=== PATIENT | male | born 1995 | race Caucasian/White ===

== ENCOUNTER 2021-02-28 01:33 | Inpatient (IN) ==
[2021-02-28] MEDS ORDERED: LORazepam 1 MG TAB SL STA (02:00)
--- NOTE | 2021-02-28 02:06 | Emergency Department Note ---
Impression & Plan Schizophreniform disorder ED Provider Note Name: ANASTASIYA GARCIA Age: 25 Sex: M Arrives Via: Walk-In Informant: Patient (poor historian), Mother ED Provider: Sebastián Smith MD Chief Complaint: Mental health evaluation Impression: As per impressions above Medical Decision Makin-year-old healthy male with no past medical history other than an episode of what mother refers to as a "psychotic break" about 5 months ago. Patient with 2 to 3 days of being withdrawn and appearing to respond to internal stimuli. Patient has been acting bizarre and distant and mother notes he is not caring for himself. Despite being withdrawn he does appear somewhat anxious and thus 1 mg p.o. Ativan was given with patient appearing much more relaxed and actually a nswering questions more effectively. He is somewhat somnolent after the Ativan however and discussion was difficult both before and after Ativan. Medically he is clear. I do suspect that this is psychiatric in nature and could be schizophrenia especially given extensive family history of similar. He is excepted to use [facility] where he was taken for further management after a CT head was obtained psychiatry's request. Prior Medical Record and Triage/Nursing Notes reviewed by Me Additional history obtained from mother Differentials:Mood disorder, infection, hypoglycemia, electrolyte abnormalities, cardiac sources, intracerebral event, toxicologic, trauma, neurologic, as well as other pathologies. Vital Signs: reviewed and remarkable for mildly tacky Interventions: Ativan 1 mg p.o. Labs:Reviewed and remarkable for no significant abnormalities Imaging: CT scan of head read by radiology as negative for acute findings Consults:Mental health case management advised hospitalization. [facility] evaluated patient and will accept to their facility and requested a CT head be obtained Plan: Disposition:Hospitalization. Condition: Good History of Present Illness:This is a 25-year-old male who arrives for mental health evaluation. Patient with several days worsening distancing himself from family and others. He has gotten to the point where he is barely talking to others and appears to be reacting to internal stimuli. Mother notes he is making bizarre statements and has not been taking care of himself. Patient is unable to give much of the story as he is so closed off and answering minimal questions. His answers to questions are not straightforward and do not all ways answer the question. Per the mother patient has been like this for the last 2 to 3 days. The inciting event appears to be going to the wake of his uncle. Mother denies any concerns for drug nor alcohol abuse. She did not think that he would have harmed himself but given his actions she is not quite sure. [place] dunn did just finish his college finals and appeared to have no trouble with them. Mother notes that patient has been very literal with questions when he does answer them. Per the mother patient had a hospitalization in October of this year in [place] after a [employer] trip. He had similar actions where he was distant and appeared to be reacting to internal stimuli. During the psychiatric admission he was started on Risperdal and did seem to improve significantly. He took the Risperdal for roughly 1 month before stopping it. Patient has no history of suicide attempt. Per the mother multiple uncles on his father's I did and do have psychiatric issues including diagnosis of schizophrenia. Per the mother the patient was diagnosed with schizophrenia over the summer though there was a question whether it was an isolated psychotic event. ROS: See above HPI for pertinent positives & negatives. A total of 10 systems reviewed and were otherwise negative. Past Medical History:"Psychotic break" Past Surgical History:Otis teeth Family History:Multiple uncles with schizophrenia, both family sides have depression anxiety Social History:College student, rare EtOH use, previous marijuana use, no current tobacco use Home Medications:None Allergies:Shrimp, bees Vitals:Blood Pressure: 136/78, Pulse 109, RR 16, T 36.8C, O2 98% on RA Physical Exam: GENERAL: Patient is mildly disheveled appearing and in no acute distress. Quiet with minimal speech EYES: No scleral icterus, unremarkable pupils. ENT: Mucous membranes moist, no nasal congestion. NECK: No masses appreciated, nomeningismus, trachea is midline. RESPIRATORY: No dyspnea. Clear to auscultation and equal bilaterally. No wheeze, no rhonchi. CARDIOVASCULAR: Regular rate and rhythm.No murmurs, rubs, gallops appreciated. GASTROINTESTINAL: Abdomen soft, non-tender, no peritonitis.Bowel sounds positive.No masses appreciated. BACK: No midline tenderness, no CVA tenderness EXTREMITIES: Normal motion all extremities, no cyanosis, no edema. NEUROLOGIC: Alert and oriented, no acute motor or sensory deficits, no focal weakness, cranial nerves grossly intact. SKIN: No rash, no jaundice, no diaphoresis. PSYCH: Anxious appearing, withdrawn, not answering questions, looking around r oom and reacting to internal stimuli GCS: 15 ED Course: Times/Reassessments: Patient appears much calmer and does answer some questions however is still somewhat withdrawn Sebastián Smith MD Past Med/Surg History Social History Smoking Status: Current some day smoker Tobacco Type: Cigarettes and E-cigarettes / Vaping Preferred Language: Citizen Of [place] Communication Ability: Effective Float Phlebotomist Required: No Beliefs That Will Affect Care: None Feels Safe at Home: Yes Assistive Devices: None Allergies Allergies Allergy/AdvReac Type Severity Reaction Status Date / Time shrimp Allergy Mild Unverified 07/04/06 18:31 BEE STINGS Allergy Unknown Uncoded 09/09/03 12:23 Home Meds Home Medications Medication Instructions Recorded Confirmed None (Patient States No Home Meds) #0 07/04/06 Results & Data (ED) Vital Signs Vital Signs - 24 hr 02/28/21 01:37 Temperature 36.8 C Temperature Source Temporal Artery Scan Pulse Rate 109 H Respiratory Rate 16 Respiratory Effort / Characteristics Non-Labored Spontaneous Respiratory Depth Normal Blood Pressure Position Sitting Pulse Oximetry 98 Oxygen Delivery Method Room Air Sepsis Recent Fever Within 48 Hours No Sepsis New/Unexplained Change in Mental Status N/A Sepsis Action Taken by Nursing No Action Required Laboratory Data Result diagrams: 02/28/21 02:22 02/28/21 02:22 Lab Results 02/28/21 02/28/21 02/28/21 Range/Units 02:15 02:15 02:19 WBC (4.8-10.8) K/uL RBC (4.7-6.1) M/uL Hgb (14.0-18.0) g/dL Hct (42-52) % MCV (80-100) fL MCH (25-34) pg MCHC (32-36) g/dL RDW Std Deviation (36.4-46.3) fL RDW Coeff of Ashanti (11.5-14.5) % Plt Count (130-400) K/uL MPV (7.4-10.4) fL Immature Gran % (Auto) % Neut % (Auto) % Lymph % (Auto) % [place] % (Auto) % Eos % (Auto) % Baso % (Auto) % Neut # (Auto) (1.4-6.5) K/uL Lymph # (Auto) (1.2-3.4) K/uL [place] # (Auto) (0.11-0.59) K/uL Eos # (Auto) (0-0.5) K/uL Baso # (Auto) (0-0.2) K/uL Immature Gran # (Auto) (0.00-0.02) K/uL Sodium (136-145) mmol/L Potassium (3.5-5.1) mmol/L Chloride (98-107) mmol/L Carbon Dioxide (21-32) mmol/L Anion Gap (3-11) BUN (7-18) mg/dl Creatinine (0.6-1.4) mg/dl Est Cr Clr Drug Dosing ml/min Est GFR ( Amer) ml/min Est GFR (Non-Af Amer) ml/min BUN/Creatinine Ratio (10-20) Glucose (70-99) mg/dl Calcium (8.5-10.1) mg/dl Total Bilirubin (0.2-1) mg/dl AST (15-37) U/L ALT (12-78) Alkaline Phosphatase (45-117) U/L Total Protein (6.4-8.2) gm/dl Albumin (3.4-5.0) gm/dl Globulin (2.5-4.0) gm/dl Albumin/Globulin Ratio (0.9-2) TSH (0.300-4.500) uIu/ml Urine Color Yellow Urine Appearance Clear (Clear) Urine pH 5.0 (4.5-7.5) Ur Specific [place] 1.017 (1.000-1.030) Urine Protein Negative (Negative) Urine Glucose (UA) Negative (Negative) Urine Ketones 2+ H (Negative) Urine Blood Trace H (Negative) Urine Nitrite Negative (Negative) Urine Bilirubin Negative (Negative) Urine Urobilinogen Negative (Negative) Ur Leukocyte Esterase Negative (Negative) Urine WBC (Auto) 1-5 (0-5) /hpf Urine RBC (Auto) 0-4 (0-4) /hpf U Hyaline Cast (Auto) 5-10 H (0-5) /lpf U Epithel Cells (Auto) 5-10 H (0-5) /lpf Urine Bacteria (Auto) Negative (Negative) Salicylates (2.8-20) mg/dl Urine Opiates Screen Neg (Neg) Ur Methadone, Qual Neg (Neg) Acetaminophen (10-30) ug/ml Urine Barbiturates Neg (Neg) Ur Phencyclidine (PCP) Neg (Neg) U Amphetamin/Meth Scrn Neg (Neg) MDMA (Ecstasy) Screen Neg (Neg) U Benzodiazepines Scrn Neg (Neg) Ur Cocaine Metabolite Neg (Neg) U Marijuana (THC) Screen Neg (Neg) Ethyl Alcohol mg/dL (0-3) mg/dl SARS-CoV-2, RNA, NAAT NEGATIVE (NEGATIVE) 02/28/21 02/28/21 02/28/21 Range/Units 02:22 02:22 02:22 WBC 9.16 (4.8-10.8) K/uL RBC 6.18 H (4.7-6.1) M/uL Hgb 18.7 H (14.0-18.0) g/dL Hct 51.6 (42-52) % MCV 83.5 (80-100) fL MCH 30.3 (25-34) pg MCHC 36.2 H (32-36) g/dL RDW Std Deviation 37.1 (36.4-46.3) fL RDW Coeff of Ashanti 12.4 (11.5-14.5) % Plt Count 260 (130-400) K/uL MPV 9.9 (7.4-10.4) fL Immature Gran % (Auto) 0.2 % Neut % (Auto) 77.1 % Lymph % (Auto) 13.4 % [place] % (Auto) 9.1 % Eos % (Auto) 0.1 % Baso % (Auto) 0.1 % Neut # (Auto) 7.06 H (1.4-6.5) K/uL Lymph # (Auto) 1.23 (1.2-3.4) K/uL [place] # (Auto) 0.83 H (0.11-0.59) K/uL Eos # (Auto) 0.01 (0-0.5) K/uL Baso # (Auto) 0.01 (0-0.2) K/uL Immature Gran # (Auto) 0.02 (0.00-0.02) K/uL Sodium 139 (136-145) mmol/L Potassium 3.4 L (3.5-5.1) mmol/L Chloride 104 (98-107) mmol/L Carbon Dioxide 25 (21-32) mmol/L Anion Gap 10.0 (3-11) BUN 16 (7-18) mg/dl Creatinine 1.06 (0.6-1.4) mg/dl Est Cr Clr Drug Dosing 104.9 ml/min Est GFR ( Amer) 114.1 ml/min Est GFR (Non-Af Amer) 98.4 ml/min BUN/Creatinine Ratio 14.6 (10-20) Glucose 105 H (70-99) mg/dl Calcium 9.7 (8.5-10.1) mg/dl Total Bilirubin 0.8 (0.2-1) mg/dl AST 21 (15-37) U/L ALT 28 (12-78) Alkaline Phosphatase 91 (45-117) U/L Total Protein 8.6 H (6.4-8.2) gm/dl Albumin 4.8 (3.4-5.0) gm/dl Globulin 3.8 (2.5-4.0) gm/dl Albumin/Globulin Ratio 1.3 (0.9-2) TSH 2.440 (0.300-4.500) uIu/ml Urine Color Urine Appearance (Clear) Urine pH (4.5-7.5) Ur Specific [place] (1.000-1.030) Urine Protein (Negative) Urine Glucose (UA) (Negative) Urine Ketones (Negative) Urine Blood (Negative) Urine Nitrite (Negative) Urine Bilirubin (Negative) Urine Urobilinogen (Negative) Ur Leukocyte Esterase (Negative) Urine WBC (Auto) (0-5) /hpf Urine RBC (Auto) (0-4) /hpf U Hyaline Cast (Auto) (0-5) /lpf U Epithel Cells (Auto) (0-5) /lpf Urine Bacteria (Auto) (Negative) Salicylates < 1.7 L (2.8-20) mg/dl Urine Opiates Screen (Neg) Ur Methadone, Qual (Neg) Acetaminophen < 2 L (10-30) ug/ml Urine Barbiturates (Neg) Ur Phencyclidine (PCP) (Neg) U Amphetamin/Meth Scrn (Neg) MDMA (Ecstasy) Screen (Neg) U Benzodiazepines Scrn (Neg) Ur Cocaine Metabolite (Neg) U Marijuana (THC) Screen (Neg) Ethyl Alcohol mg/dL (0-3) mg/dl SARS-CoV-2, RNA, NAAT (NEGATIVE) 02/28/21 Range/Units 02:22 WBC (4.8-10.8) K/uL RBC (4.7-6.1) M/uL Hgb (14.0-18.0) g/dL Hct (42-52) % MCV (80-100) fL MCH (25-34) pg MCHC (32-36) g/dL RDW Std Deviation (36.4-46.3) fL RDW Coeff of [place] (11.5-14.5) % Plt Count (130-400) K/uL MPV (7.4-10.4) fL Immature Gran % (Auto) % Neut % (Auto) % Lymph % (Auto) % [place] % (Auto) % Eos % (Auto) % Baso % (Auto) % Neut # (Auto) (1.4-6.5) K/uL Lymph # (Auto) (1.2-3.4) K/uL [place] # (Auto) (0.11-0.59) K/uL Eos # (Auto) (0-0.5) K/uL Baso # (Auto) (0-0.2) K/uL Immature Gran # (Auto) (0.00-0.02) K/uL Sodium (136-145) mmol/L Potassium (3.5-5.1) mmol/L Chloride (98-107) mmol/L Carbon Dioxide (21-32) mmol/L Anion Gap (3-11) BUN (7-18) mg/dl Creatinine (0.6-1.4) mg/dl Est Cr Clr Drug Dosing ml/min Est GFR ( Amer) ml/min Est GFR (Non-Af Amer) ml/min BUN/Creatinine Ratio (10-20) Glucose (70-99) mg/dl Calcium (8.5-10.1) mg/dl Total Bilirubin (0.2-1) mg/dl AST (15-37) U/L ALT (12-78) Alkaline Phosphatase (45-117) U/L Total Protein (6.4-8.2) gm/dl Albumin (3.4-5.0) gm/dl Globulin (2.5-4.0) gm/dl Albumin/Globulin Ratio (0.9-2) TSH (0.300-4.500) uIu/ml Urine Color Urine Appearance (Clear) Urine pH (4.5-7.5) Ur Specific [place] (1.000-1.030) Urine Protein (Negative) Urine Glucose (UA) (Negative) Urine Ketones (Negative) Urine Blood (Negative) Urine Nitrite (Negative) Urine Bilirubin (Negative) Urine Urobilinogen (Negative) Ur Leukocyte Esterase (Negative) Urine WBC (Auto) (0-5) /hpf Urine RBC (Auto) (0-4) /hpf U Hyaline Cast (Auto) (0-5) /lpf U Epithel Cells (Auto) (0-5) /lpf Urine Bacteria (Auto) (Negative) Salicylates (2.8-20) mg/dl Urine Opiates Screen (Neg) Ur Methadone, Qual (Neg) Acetaminophen (10-30) ug/ml Urine Barbiturates (Neg) Ur Phencyclidine (PCP) (Neg) U Amphetamin/Meth Scrn (Neg) MDMA (Ecstasy) Screen (Neg) U Benzodiazepines Scrn (Neg) Ur Cocaine Metabolite (Neg) U Marijuana (THC) Screen (Neg) Ethyl Alcohol mg/dL < 3.0 (0-3) mg/dl SARS-CoV-2, RNA, NAAT (NEGATIVE) Administered Medications Risperidone (Risperidone Odt 1mg) 1 mg PO BID DARYL Stop: 03/30/21 14:29 Last Admin: 02/28/21 21:05 Dose: Not Given Documented by: [id number] Admin: 02/28/21 16:15 Dose: Not Given Documented by: [id number] Discontinued Medications Lorazepam (Lorazepam 1 Mg Tab) 1 mg SL NOW STA Stop: 02/28/21 02:01 Last Admin: 02/28/21 02:21 Dose: 1 mg Documented by: [id number] Discharge Plan Visit Data Chief Complaint: Mental Health Evaluation Stated Complaint: JUMBLED/INTRUSIVE THOUGHTS, NOT HIMSELF ED Provider: Sebastián Smith Discharge Problem: Schizophreniform disorder Patient Disposition: Admitted As Inpatient Discharge Instructions Interventions: ED Discharge Assessment Last Done: 02/28/21 05:45
[2021-02-28 02:37] LABS: Appearance Urine Clear (Clear); Bacteria Urine Automated Negative (Negative); Bilirubin Urine Negative (Negative); Blood Urine Trace (Negative); Color Urine Yellow; Glucose Urine UA Negative (Negative); Ketones Urine 2+ (Negative); Leukocyte Esterase Urine Negative (Negative); Nitrite Urine Negative (Negative); Protein Urine Negative (Negative); RBC Urine Automated 0-4 /hpf (0-4); Specific Gravity Urine 1.017 (1.000-1.030); Urobilinogen Urine Negative (Negative)
[2021-02-28 02:37] LABS: Basophils # (auto) 0.01 K/uL (0-0.2); Basophils % (auto) 0.1 %; Eosinophils # (auto) 0.01 K/uL (0-0.5); Eosinophils % (auto) 0.1 %; Hematocrit (blood only) 51.6 % (42-52); Hemoglobin 18.7 g/dL (14.0-18.0); Immature Granulocytes # (auto) 0.02 K/uL (0.00-0.02); Immature Granulocytes % (auto) 0.2 %; Lymphocytes # (auto) 1.23 K/uL (1.2-3.4); Lymphocytes % (auto) 13.4 %; Mean Corpuscular Hemoglobin 30.3 pg (25-34); Mean Corpuscular Hgb Conc 36.2 g/dL (32-36); Mean Corpuscular Volume 83.5 fL (80-100); Mean Platelet Volume 9.9 fL (7.4-10.4); Monocytes # (auto) 0.83 K/uL (0.11-0.59); Monocytes % (auto) 9.1 %; Neutrophils # (auto) 7.06 K/uL (1.4-6.5); Neutrophils % (auto) 77.1 %; Platelet Count 260 K/uL (130-400); RDW Coefficient of Variation 12.4 % (11.5-14.5); RDW Standard Deviation 37.1 fL (36.4-46.3); Red Blood Count 6.18 M/uL (4.7-6.1); White Blood Count 9.16 K/uL (4.8-10.8)
[2021-02-28 02:57] LABS: Amphetamines+Metham, Urine Neg (Neg); Barbiturates, Urine Neg (Neg); Benzodiazepine, Urine Neg (Neg); Cocaine, Urine Neg (Neg); MDMA (Ecstacy), Urine Neg (Neg); Methadone, Urine Neg (Neg); Opiate, Urine Neg (Neg); Phencyclidine, Urine Neg (Neg)
[2021-02-28 02:57] LABS: Albumin Level 4.8 gm/dl (3.4-5.0); BUN Creatinine Ratio 14.6 (10-20); Calcium 9.7 mg/dl (8.5-10.1); Creatinine Clr Calc Pharmacy 104.9 ml/min; Est GFR (African American) 114.1 ml/min; Est GFR (Non-African American) 98.4 ml/min; Potassium 3.4 mmol/L (3.5-5.1)
[2021-02-28 03:06] LABS: Acetaminophen < 2 ug/ml (10-30); Salicylate < 1.7 mg/dl (2.8-20)
[2021-02-28 03:07] LABS: Albumin Globulin Ratio 1.3 (0.9-2); Bilirubin,Total 0.8 mg/dl (0.2-1); Globulin 3.8 gm/dl (2.5-4.0); Thyroid Stimulating Hormone 2.44 uIu/ml (0.300-4.500); Total Protein 8.6 gm/dl (6.4-8.2)
[2021-02-28] MEDS ORDERED: ALUMINUM/MAGNESIUM SUSP 30 ML UDC PO PRN (06:21)
[2021-02-28] MEDS ORDERED: BISMUTH SUBSALICYLATE LIQD 236 ML PO PRN (06:21)
[2021-02-28] MEDS ORDERED: SODIUM CHLORIDE 0.65% NA SOLN 45 ML (OCEAN) PRN (06:21)
[2021-02-28] MEDS ORDERED: hydrOXYzine HCl 25 MG TAB PO PRN ×2 (06:21)
[2021-02-28] MEDS ORDERED: ACETAMINOPHEN 325 MG TAB PO PRN (06:21)
[2021-02-28] MEDS ORDERED: MAGNESIUM HYDROXIDE SUSP 30 ML UDC PO PRN (06:21)
--- NOTE | 2021-02-28 06:50 | CT Scan Report ---
CT head/brain wo con CLINICAL HISTORY: AMS - acute psychotic break COMPARISON STUDY: No previous studies for comparison. CT DOSE: 614.27 mGy.cm TECHNIQUE: Standard CT of the Brain was performed without IV contrast. A dose lowering technique was utilized adhering to the principles of ALARA. FINDINGS: Extraaxial space: There is no evidence for subdural hematoma. There are no extra-axial fluid collecti ons. Ventricles and cisterns: The ventricles are normal in size and configuration. There is no evidence f or midline shift or mass effect. Parenchyma: There is no subarachnoid or intraparenchymal hemorrhage. There is no evidence for an acu te infarct or cerebral edema. There is homogeneous attenuation of the brain parenchyma. There are no gross mass lesions. Osseous structures: There is no evidence for an acute fracture. The visualized paranasal sinuses are clear. The mastoid air cells are clear bilaterally. Soft tissues: There is no evidence for focal soft tissue swelling. IMPRESSION: No acute intracerebral pathology. ACT 112: Negative or not required by law. Electronically signed by: Alexander Arce M.D. 02/28/2021 6:48 AM
[2021-02-28] MEDS ORDERED: Flu Vaccine (Fluarix) 0.5mL SYR (Standard Dose) IM ONE (09:15)
[2021-02-28] MEDS ORDERED: BENZTROPINE MESYLATE 1 MG TAB PO PRN (14:22)
[2021-02-28] MEDS ORDERED: LORazepam 1 MG TAB PO PRN (14:24)
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
--- NOTE | 2021-03-01 14:32 | Psychiatric Progress Note ---
Date of Service March 01, 2021 Impression / Recommendations Impression 25 yo male with first psychotic break less than 6 months ago, only complied with antipsychotic medication for 1 month (max), presents with acute onset disorganization, hallucinations, feeling paranoia/persecuted with poor self care just after completing fall. There is a strong family history of schizophrenia and/or mood driven psychosis. He currently appears severe thought blocked and near catatonic. Current dx is schizophreniform given first break in October but it is not clear if this is a mood driven or primary thought disorder psychosis. Mother notes some anxiety at baseline and rather dramatic sadness over uncles . Catatonia can occur with schizophrenia or psychotic depression. (1) Schizophreniform disorder: 03/01/21: refusing labs, meds, food, drink. 304 granted. Continue to offer PO Ativan and Risperdal. Will ask Dr. Tobin for a second opinion re: forced medications tomorrow when she assumes clinical responsibility for service. Medi cations over objection are medically necessary to treat psychosis which is interfering with his ability to communicate and care for self and given lack of PO intake he is at significant risk of or serious physical disability within the next 30 days if he does not receive this treatment. 02/28/21: The patient was admitted to the [facility] ([facility] mental health unit) on q15 min checks (behavioral with suicide precautions) for safety. The patient will participate in group, recreational, and milieu therapies and will be offered additional individual and family sessions as clinically appropriate. He is not able to fully comprehend risks/benefits/alternatives of treatment but did not object to resuming Risperdal. Will start 1 mg Risperdal Mtab BID today with additional Risperdal and Ativan prn. Monitor PO intake. Will attempt fasting labs in AM. He has no abnormal motor movements at baseline but is not fully cooperative with AIMS testing. Inventory Assets Strengths: intelligent, family support locally Needs: likely long acting injectable, outpatient services Risk Factors Assessment Male: Yes : Yes Mental Health Diagnoses: Yes Substance Use Disorders: No Previous Psychiatric Hospitalization: Yes Protective Factors Assessment Employed: No Supportive Family: Yes Interval History Identifying Information ANASTASIYA GARCIA is a 25-year-old , [employer] senior who lives locally with mother, has a history of a brief psychotic episode in October, and was admitted on 02/28/21 05:21 on a 201 voluntary commitment for disorganized behavior. Chief Complaint patient is mute, staring at ceiling Review of Systems Sleep Information Total Hours of Sleep: 5.5 Sleep Comments: pt on q-15 minute checks Meal Information Percent Meal Consumed - Breakfast: 0 Percent Meal Consumed - Lunch: 0 Percent Meal Consumed - Dinner: 0 Nutrition Comment: pt is non verbal Subjective Subjective Patient was seen & assessed and interval progress reviewed with nursing and social work. He will not eat, drink, or communicate needs. He will not respond to staff efforts to offer PO medication. I contacted the patient's family as a decision needed to be made re: commitment status as I do believe he'll require injectable medication if won't respond soon as near catatonic in appearance, perhaps the Ativan given in ED explains his better communication there as was able to sign in at that time. Of course now in an unfamiliar environment. 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 They were hoping he would take medication/fluids with more encouragement but supported the 304 if necessary. After the meeting nursing facilitated family attempts for patient to speak with them by speaker phone in his room and he would not respond. 304 petition filed for an emergency hearing which was granted. 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 He stared at his menu and would not allow help to fill it out. Physical Exam Psychiatric Orientation: + guarded Apperance: + disheveled Eye Contact: + poor eye contact Motor Behavior: + psychomotor retardation (bordering on catatonia) Speech: + abnormal rate/rhythm/volume of speech Affect: + flat affect Thought Process: + thought blocking Thought Content: + paranoid Insight: + severely impaired insight Judgement: + severely impaired judgement Vital Signs (Past 24 Hours) Last Vital Signs Temp 36.4 C 03/01/21 06:23 Pulse 65 03/01/21 06:22 Resp 16 03/01/21 06:22 BP 124/77 03/01/21 06:22 Pulse Ox 98 02/28/21 06:03 Results & Data ([facility]) Current Inpatient Medications Current Inpatient Medications: Current Inpatient Medications Acetaminophen (Acetaminophen 325 Mg Tab) 650 mg PO Q4H PRN PRN Reason: Headache or Minor Fever Stop: 03/30/21 06:20 Al Hydrox/Mg Hydrox/Simethicone (Aluminum/Magnesium Susp 30 Ml Udc) 30 ml PO Q4H PRN PRN Reason: GI Upset Stop: 03/30/21 06:20 Benztropine Mesylate (Benztropine Mesylate 1 Mg Tab) 1 mg PO Q6 PRN PRN Reason: muscle spasm Stop: 03/30/21 17:59 Bismuth Subsalicylate (Bismuth Subsalicylate Liqd 236 Ml) 15 ml PO PRN PRN PRN Reason: Loose Stool Stop: 03/30/21 06:20 Hydroxyzine HCl (Hydroxyzine Hcl 25 Mg Tab) 50 mg PO HSZ PRN PRN Reason: Insomnia Stop: 03/30/21 06:20 Hydroxyzine HCl (Hydroxyzine Hcl 25 Mg Tab) 25 mg PO Q4H PRN PRN Reason: Anxiety Stop: 03/30/21 06:20 Lorazepam (Lorazepam 1 Mg Tab) 1 mg PO Q6 PRN PRN Reason: Anxiety/Agitation Stop: 03/30/21 14:23 Magnesium Hydroxide (Magnesium Hydroxide Susp 30 Ml Udc) 30 ml PO DAILY PRN PRN Reason: Constipation Stop: 03/30/21 06:20 Risperidone (Risperidone Odt 1mg) 1 mg PO BID DARYL Stop: 03/30/21 14:29 Last Admin: 03/01/21 09:39 Dose: Not Given Documented by: Risperidone (Risperidone Odt 1mg) 1 mg PO Q8 PRN PRN Reason: Anxiety/Agitation Stop: 03/30/21 14:23 Sodium Chloride (Sodium Chloride 0.65% Na Soln 45 Ml ([place])) 1 - 2 sprays NA PRN PRN PRN Reason: Nasal Dryness/Congestion Stop: 03/30/21 06:20 Mental Health & Subst Abuse Tx Therapist Name of Therapist: None Agriculture Extension Specialist Name of Agriculture Extension Specialist: None
--- NOTE | 2021-03-02 14:04 | Psychiatric Progress Note ---
Date of Service March 02, 2021 Impression / Recommendations Impression 25 yo male with first psychotic break less than 6 months ago, adherent with risperidone with improvement but stopped after about 1 month, who presented with acute onset disorganization, hallucinations, feeling paranoia/persecuted with poor self care just after completing fall. Diagnostically consistent with schizophreniform disorder especially with family history of schizophrenia with differential including MD with psychotic features. He is now on a 304 status with significant psychomotor retardation initially concerning for possible catatonia as well as lack of po intake. Encouragingly over the last 12 hours his oral intake has improved slightly and he took his po medications but he remains isolative, disorganized and not engaging with staff. I agree that medications over objection are medically necessary given his degree of impairment with low po intake, minimal self-care, significant psychomotor retardation concerning for catatonia and inability to communicate to know if he is experiencing any other physical or psychiatric symptoms of concern and that he is at risk of or irreversible physical disability if he does not receive appropriate treatment with medications. Will continue risperidone and ativan po and if he refuses will give haldol 5 mg IM and ativan 1 mg IM. (1) Schizophreniform disorder: 03/02/21: Reviewed interim progress per Dr. Saldivar below. Starting medications over objection as I agree that he meets criteria and is at risk if appropriate treatment is not started. Will continue to offer risperidone ODT 1 mg qAM and if refuses will give haldol 5 mg IM and ativan 1mg po qAM & if refuses will give ativan 1 mg IM. Will also offer risperidone 1mg ODT and ativan 1mg po at qhs but will not give IM medications if he refuses the evening po dose. 03/01/21: refusing labs, meds, food, drink. 304 granted. Continue to offer PO Ativan and Risperdal. Will ask Dr. Tobin for a second opinion re: forced medications tomorrow when she assumes clinical responsibility for service. Medications over objection are medically necessary to treat psychosis which is interfering with his ability to communicate and care for self and given lack of PO intake he is at significant risk of or serious physical disability within the next 30 days if he does not receive this treatment. 02/28/21: The patient was admitted to the [facility] ([facility] mental health unit) on q15 min checks (behavioral with suicide precautions) for safety. The patient will participate in group, recreational, and milieu therapies and will be offered additional individual and family sessions as clinically appropriate. He is not able to fully comprehend risks/benefits/alternatives of treatment but did not object to resuming Risperdal. Will start 1 mg Risperdal Mtab BID today with additional Risperdal and Ativan prn. Monitor PO intake. Will attempt fasting labs in AM. He has no abnormal motor movements at baseline but is not fully cooperative with AIMS testing. Inventory Assets Strengths: intelligent, family support locally Needs: likely long acting injectable, outpatient services Risk Factors Assessment Male: Yes : Yes Mental Health Diagnoses: Yes Substance Use Disorders: No Previous Psychiatric Hospitalization: Yes Protective Factors Assessment Employed: No Supportive Family: Yes Interval History Identifying Information ANASTASIYA GARCIA is a 25-year-old , [employer] senior who lives locally with mother, has a history of a brief psychotic episode in October, and was admitted on 02/28/21 05:21 on a 201 voluntary commitment for disorganized behavior and then changed to 304 status. Chief Complaint mute Review of Systems Sleep Information Total Hours of Sleep: 7.5 Sleep Comments: pt on q-15 minute checks Meal Information Percent Meal Consumed - Breakfast: 100 Percent Meal Consumed - Lunch: 100 Percent Meal Consumed - Dinner: 0 Nutrition Comment: Pt isn't hungry Subjective Subjective Patient was seen & assessed and interval progress reviewed with treatment team nursing and social work. Last night Soren ate dinner and had disorganized behavior including taking bites of fruit including a banana with the peel still on. Today accepted his po medications of ativan and risperiodone and eating and drinking but otherwise minimally engaging. On my assessment he made eye contact at times and nodded his head that he wanted his lunch tray but otherwise was mute and did not engage. Physical Exam Psychiatric Orientation: alert, oriented to person and + guarded Apperance: + disheveled Eye Contact: + fair eye contact Motor Behavior: no abnormal motor movements and + psychomotor retardation Speech: + mute Affect: + flat affect Thought Process: + thought blocking Thought Content: + paranoid Hallucinations: + auditory hallucinations; no visual hallucinations Cognition: + attention not intact Insight: + severely impaired insight Judgement: + severely impaired judgement Vital Signs (Past 24 Hours) Last Vital Signs Temp 36.3 C L 03/02/21 06:39 Pulse 85 12/24/21 06:39 Resp 16 03/02/21 06:39 BP 119/77 03/02/21 06:39 Pulse Ox 98 02/28/21 06:03 Results & Data ([facility]) Current Inpatient Medications Current Inpatient Medications: Current Inpatient Medications Acetaminophen (Acetaminophen 325 Mg Tab) 650 mg PO Q4H PRN PRN Reason: Headache or Minor Fever Stop: 03/30/21 06:20 Al Hydrox/Mg Hydrox/Simethicone (Aluminum/Magnesium Susp 30 Ml Udc) 30 ml PO Q4H PRN PRN Reason: GI Upset Stop: 03/30/21 06:20 Benztropine Mesylate (Benztropine Mesylate 1 Mg Tab) 1 mg PO Q6 PRN PRN Reason: muscle spasm Stop: 03/30/21 17:59 Bismuth Subsalicylate (Bismuth Subsalicylate Liqd 236 Ml) 15 ml PO PRN PRN PRN Reason: Loose Stool Stop: 03/30/21 06:20 Hydroxyzine HCl (Hydroxyzine Hcl 25 Mg Tab) 50 mg PO HSZ PRN PRN Reason: Insomnia Stop: 03/30/21 06:20 Hydroxyzine HCl (Hydroxyzine Hcl 25 Mg Tab) 25 mg PO Q4H PRN PRN Reason: Anxiety Stop: 03/30/21 06:20 Lorazepam (Lorazepam 1 Mg Tab) 1 mg PO Q6 PRN PRN Reason: Anxiety/Agitation Stop: 03/30/21 14:23 Last Admin: 03/02/21 09:39 Dose: 1 mg Documented by: Magnesium Hydroxide (Magnesium Hydroxide Susp 30 Ml Udc) 30 ml PO DAILY PRN PRN Reason: Constipation Stop: 03/30/21 06:20 Risperidone (Risperidone Odt 1mg) 1 mg PO BID DARYL Stop: 03/30/21 14:29 Last Admin: 03/02/21 09:10 Dose: 1 mg Documented by: Risperidone (Risperidone Odt 1mg) 1 mg PO Q8 PRN PRN Reason: Anxiety/Agitation Stop: 03/30/21 14:23 Sodium Chloride (Sodium Chloride 0.65% Na Soln 45 Ml ([place])) 1 - 2 sprays NA PRN PRN PRN Reason: Nasal Dryness/Congestion Stop: 01/21/22 06:20 Mental Health & Subst Abuse Tx Therapist Name of Therapist: None Medical Liaison Name of Medical Liaison: None
[2021-03-02] MEDS: LORazepam 1 MG TAB PO SCH (21:12)
[2021-03-03] MEDS ORDERED: LORazepam 2 MG/ML VIAL (IM USE) IM SCH (09:00)
[2021-03-03] MEDS ORDERED: HALOPERIDOL LACTATE 5 MG/ML 1 ML VIAL IM SCH (09:00)
[2021-03-03] MEDS: LORazepam 1 MG TAB PO SCH ×2 (09:11→20:59)
[2021-03-03] MEDS ORDERED: HALOPERIDOL LACTATE 5 MG/ML 1 ML VIAL IM PRN (09:24)
[2021-03-03] MEDS ORDERED: LORazepam 2 MG/ML VIAL (IM USE) IM PRN (09:24)
--- NOTE | 2021-03-03 15:02 | Psychiatric Progress Note ---
Date of Service March 03, 2021 Impression / Recommendations Impression 25 yo male with first psychotic break less than 6 months ago, adherent with risperidone with improvement but stopped after about 1 month, who presented with acute onset disorganization, hallucinations, feeling paranoia/persecuted with poor self care just after completing fall. Diagnostically consistent with schizophreniform disorder especially with family history of schizophrenia with differential including MD with psychotic features. He is now on a 304 status with significant psychomotor retardation initially concerning for possible catatonia as well as lack of po intake. Encouragingly his oral intake has improved slightly, he's taking his po medications but he remains isolative, disorganized and guarded consistent with psychosis. MNPR due to psychiatric symptoms of severe psychosis and disorganized behaviors. 03/03/21: remains very isolative but taking po medication and engaging with staff last night and briefly today and eating more consistently. No signs of catatonia today. (1) Schizophreniform disorder: 03/03/21: Continue risperidone and ativan po with haldol and ativan IM if refuses. No signs of catatonia today. 03/02/21: Reviewed interim progress per Dr. Saldivar below. Starting medications over objection as I agree that he meets criteria and is at risk if appropriate treatment is not started. Will continue to offer risperidone ODT 1 mg qAM and if refuses will give haldol 5 mg IM and ativan 1mg po qAM & if refuses will give ativan 1 mg IM. Will also offer risperidone 1mg ODT and ativan 1mg po at qhs but will not give IM medications if he refuses the evening po dose. 03/01/21: refusing labs, meds, food, drink. 304 granted. Continue to offer PO Ativan and Risperdal. Will ask Dr. Tobin for a second opinion re: forced medications tomorrow when she assumes clinical responsibility for service. Medications over objection are medically necessary to treat psychosis which is interfering with his ability to communicate and care for self and given lack of PO intake he is at significant risk of or serious physical disability within the next 30 days if he does not receive this treatment. 02/28/21: The patient was admitted to the [facility] ([facility] mental health unit) on q15 min checks (behavioral with suicide precautions) for safety. The patient will participate in group, recreational, and milieu therapies and will be offered additional individual and family sessions as clinically appropriate. He is not able to fully comprehend risks/benefits/alternatives of treatment but did not object to resuming Risperdal. Will start 1 mg Risperdal Mtab BID today with additional Risperdal and Ativan prn. Monitor PO intake. Will attempt fasting labs in AM. He has no abnormal motor movements at baseline but is not fully cooperative with AIMS testing. Inventory Assets Strengths: intelligent, family support locally Needs: likely long acting injectable, outpatient services Risk Factors Assessment Male: Yes : Yes Mental Health Diagnoses: Yes Substance Use Disorders: No Previous Psychiatric Hospitalization: Yes Protective Factors Assessment Employed: No Supportive Family: Yes Interval History Identifying Information ANASTASIYA GARCIA is a 25-year-old M, [employer] senior who lives locally with mother, has a history of a brief psychotic episode in October, and was admitted on 02/28/21 05:21 on a 201 voluntary commitment for disorganized behavior and then changed to 304 status. Chief Complaint "I'm trying to figure things out". Review of Systems Sleep Information Total Hours of Sleep: 7.25 Sleep Comments: pt on q-15 minute checks Meal Information Percent Meal Consumed - Breakfast: 100 Percent Meal Consumed - Lunch: 100 Percent Meal Consumed - Dinner: 100 Nutrition Comment: Pt isn't hungry Subjective Subjective Patient was seen & assessed and interval progress reviewed with treatment team nursing. Talked with staff for 45 minutes last night and accepted qhs and qAM po medications. Today is isolative to his room for much of the day but interacted with me while he was out on the unit looking at posters on the wall of a map. He didn't recall meeting me yesterday but was appropriate and reintroduced myself. States he's "figuring things out" but doesn't elaborate. Endorses stable mood. Denies any side effects from the medication, reviewed with him that he's taking risperidone and ativan which he consents to. Physical Exam Psychiatric Orientation: alert, oriented to person and + guarded Apperance: + disheveled Eye Contact: + fair eye contact Motor Behavior: no abnormal motor movements Speech: + abnormal rate/rhythm/volume of speech (brief, soft) Affect: + flat affect Mood: + anxious mood Thought Process: + thought blocking Thought Content: + paranoid and + delusions Suicidal Thoughts: denies suicidal thoughts Homicidal Thoughts: denies homicidal thoughts Hallucinations: + auditory hallucinations; no visual hallucinations Cognition: + recent memory not intact and + attention not intact Insight: + severely impaired insight Judgement: + severely impaired judgement Vital Signs (Past 24 Hours) Last Vital Signs Temp 36.3 C L 03/03/21 06:52 Pulse 87 03/03/21 06:53 Resp 18 03/03/21 06:52 BP 110/74 03/03/21 06:53 Pulse Ox 98 02/28/21 06:03 Results & Data ([facility]) Current Inpatient Medications Current Inpatient Medications: Current Inpatient Medications Acetaminophen (Acetaminophen 325 Mg Tab) 650 mg PO Q4H PRN PRN Reason: Headache or Minor Fever Stop: 03/30/21 06:20 Al Hydrox/Mg Hydrox/Simethicone (Aluminum/Magnesium Susp 30 Ml Udc) 30 ml PO Q4H PRN PRN Reason: GI Upset Stop: 03/30/21 06:20 Benztropine Mesylate (Benztropine Mesylate 1 Mg Tab) 1 mg PO Q6 PRN PRN Reason: muscle spasm Stop: 03/30/21 17:59 Bismuth Subsalicylate (Bismuth Subsalicylate Liqd 236 Ml) 15 ml PO PRN PRN PRN Reason: Loose Stool Stop: 03/30/21 06:20 Haloperidol Lactate (Haloperidol Lactate 5 Mg/Ml 1 Ml Vial) 5 mg IM QAM PRN PRN Reason: Documentation Stop: 04/02/21 08:59 Hydroxyzine HCl (Hydroxyzine Hcl 25 Mg Tab) 50 mg PO HSZ PRN PRN Reason: Insomnia Stop: 03/30/21 06:20 Hydroxyzine HCl (Hydroxyzine Hcl 25 Mg Tab) 25 mg PO Q4H PRN PRN Reason: Anxiety Stop: 03/30/21 06:20 Lorazepam (Lorazepam 1 Mg Tab) 1 mg PO Q6 PRN PRN Reason: Anxiety/Agitation Stop: 03/30/21 14:23 Last Admin: 03/02/21 09:39 Dose: 1 mg Documented by: Lorazepam (Lorazepam 1 Mg Tab) 1 mg PO BID DARYL Stop: 04/01/21 20:59 Last Admin: 03/03/21 09:11 Dose: 1 mg Documented by: Lorazepam (Lorazepam 2 Mg/Ml Vial (Im Use)) 1 mg IM QAM PRN PRN Reason: Documentation Stop: 04/02/21 08:59 Magnesium Hydroxide (Magnesium Hydroxide Susp 30 Ml Udc) 30 ml PO DAILY PRN PRN Reason: Constipation Stop: 03/30/21 06:20 Risperidone (Risperidone Odt 1mg) 1 mg PO Q8 PRN PRN Reason: Anxiety/Agitation Stop: 03/30/21 14:23 Risperidone (Risperidone Odt 1mg) 1 mg PO DAILY DARYL Stop: 04/02/21 08:59 Last Admin: 03/03/21 09:09 Dose: 1 mg Documented by: Risperidone (Risperidone Odt 1mg) 1 mg PO HS DARYL Stop: 04/01/21 21:59 Last Admin: 03/02/21 21:10 Dose: 1 mg Documented by: Sodium Chloride (Sodium Chloride 0.65% Na Soln 45 Ml ([place])) 1 - 2 sprays NA PRN PRN PRN Reason: Nasal Dryness/Congestion Stop: 03/30/21 06:20 Last Admin: 03/02/21 14:45 Dose: 1 sprays Documented by: Mental Health & Subst Abuse Tx Therapist Name of Therapist: None Gas Appliance Servicer Helper Name of Gas Appliance Servicer Helper: None
[2021-03-04] MEDS: LORazepam 1 MG TAB PO SCH ×2 (09:05→21:31)
--- NOTE | 2021-03-04 13:08 | Psychiatric Progress Note ---
Date of Service March 04, 2021 Impression / Recommendations Impression 25 yo male with first psychotic break less than 6 months ago, adherent with risperidone with improvement but stopped after about 1 month, who presented with acute onset disorganization, hallucinations, feeling paranoia/persecuted with poor self care just after completing fall. Diagnostically consistent with schizophreniform disorder especially with family history of schizophrenia with differential including MD with psychotic features. He is now on a 304 status with significant psychomotor retardation initially concerning for possible catatonia as well as lack of po intake. Encouragingly his oral intake has improved slightly, he's taking his po medications but he remains isolative, disorganized and guarded consistent with psychosis. MNPR due to psychiatric symptoms of severe psychosis and disorganized behaviors. 03/04/21: taking po medication and engaging with staff more, continues to have thought blocking and seems internally preoccupied at times. He consented to increasing the dose of risperidone. (1) Schizophreniform disorder: 03/04/21: Increase risperidone to 1 mg qAM and 2mg qHS to further target psychosis. Continue with ativan. 03/03/21: Continue risperidone and ativan po with haldol and ativan IM if refuses. No signs of catatonia today. 03/02/21: Reviewed interim progress per Dr. Saldivar below. Starting medications over objection as I agree that he meets criteria and is at risk if appropriate treatment is not started. Will continue to offer risperidone ODT 1 mg qAM and if refuses will give haldol 5 mg IM and ativan 1mg po qAM & if refuses will give ativan 1 mg IM. Will also offer risperidone 1mg ODT and ativan 1mg po at qhs but will not give IM medications if he refuses the evening po dose. 03/01/21: refusing labs, meds, food, drink. 304 granted. Continue to offer PO Ativan and Risperdal. Will ask Dr. Tobin for a second opinion re: forced medications tomorrow when she assumes clinical responsibility for service. Medications over objection are medically necessary to treat psychosis which is interfering with his ability to communicate and care for self and given lack of PO intake he is at significant risk of or serious physical disability within the next 30 days if he does not receive this treatment. 02/28/21: The patient was admitted to the [facility] (locked inpatient mental health unit) on q15 min checks (behavioral with suicide precautions) for safety. The patient will participate in group, recreational, and milieu therapies and will be offered additional individual and family sessions as clinically appropriate. He is not able to fully comprehend risks/benefits/alternatives of treatment but did not object to resuming Risperdal. Will start 1 mg Risperdal Mtab BID today with additional Risperdal and Ativan prn. Monitor PO intake. Will attempt fasting labs in AM. He has no abnormal motor movements at baseline but is not fully cooperative with AIMS testing. Inventory Assets Strengths: intelligent, family support locally Needs: likely long acting injectable, outpatient services Risk Factors Assessment Male: Yes : Yes Mental Health Diagnoses: Yes Substance Use Disorders: No Previous Psychiatric Hospitalization: Yes Protective Factors Assessment Employed: No Supportive Family: Yes Interval History Identifying Information ANASTASIYA GARCIA is a 25-year-old , [employer] senior who lives locally with mother, has a history of a brief psychotic episode in October, and was admitted on 02/28/21 05:21 on a 201 voluntary commitment for disorganized behavior and then changed to 304 status. Chief Complaint "What's your name again?". Review of Systems Sleep Information Total Hours of Sleep: 7.75 Sleep Comments: pt on q-15 minute checks Meal Information Percent Meal Consumed - Breakfast: 100 Percent Meal Consumed - Lunch: 100 Percent Meal Consumed - Dinner: 100 Nutrition Comment: Pt isn't hungry Subjective Subjective Patient was seen & assessed and interval progress reviewed with treatment team nursing and social work. Participating in some groups and out of his room more but continues to have thought blocking and not willing to sign his treatment plan nor ROIs. Today reports his mood is "ok" and denies any medication side effects. He did not recall taking risperidone before but is willing to increase the dose. Denies any substance use prior to admission with exception of marijuana use occasionally in social setting. Asked what he likes about marijuana he stated "nothing". Briefly tolerated discussion about his interests including lacrosse and studying [employer] science at [employer]. Physical Exam Psychiatric Orientation: alert, oriented x 3 and + guarded Apperance: appropriately dressed and + disheveled Eye Contact: + fair eye contact Motor Behavior: no abnormal motor movements; n EPS and n akathisia Speech: normal rate/rhythm/volume of speech Affect: + flat affect Mood: + anxious mood; no depressed mood Thought Process: + thought blocking and + concrete thought process Thought Content: reality based without delusions Suicidal Thoughts: denies suicidal thoughts Homicidal Thoughts: denies homicidal thoughts Hallucinations: + auditory hallucinations (appears to be potentially preoccupied by internal stimuli); no visual hallucinations Insight: + impaired insight Judgement: + impaired judgement Vital Signs (Past 24 Hours) Last Vital Signs Temp 36.2 C L 03/04/21 06:00 Pulse 89 03/04/21 06:31 Resp 14 03/04/21 06:00 BP 118/80 03/04/21 06:31 Pulse Ox 98 02/28/21 06:03 Results & Data ([facility]) Current Inpatient Medications Current Inpatient Medications: Current Inpatient Medications Acetaminophen (Acetaminophen 325 Mg Tab) 650 mg PO Q4H PRN PRN Reason: Headache or Minor Fever Stop: 03/30/21 06:20 Al Hydrox/Mg Hydrox/Simethicone (Aluminum/Magnesium Susp 30 Ml Udc) 30 ml PO Q4H PRN PRN Reason: GI Upset Stop: 03/30/21 06:20 Benztropine Mesylate (Benztropine Mesylate 1 Mg Tab) 1 mg PO Q6 PRN PRN Reason: muscle spasm Stop: 03/30/21 17:59 Bismuth Subsalicylate (Bismuth Subsalicylate Liqd 236 Ml) 15 ml PO PRN PRN PRN Reason: Loose Stool Stop: 03/30/21 06:20 Haloperidol Lactate (Haloperidol Lactate 5 Mg/Ml 1 Ml Vial) 5 mg IM QAM PRN PRN Reason: Documentation Stop: 04/02/21 08:59 Hydroxyzine HCl (Hydroxyzine Hcl 25 Mg Tab) 50 mg PO HSZ PRN PRN Reason: Insomnia Stop: 03/30/21 06:20 Hydroxyzine HCl (Hydroxyzine Hcl 25 Mg Tab) 25 mg PO Q4H PRN PRN Reason: Anxiety Stop: 03/30/21 06:20 Lorazepam (Lorazepam 1 Mg Tab) 1 mg PO Q6 PRN PRN Reason: Anxiety/Agitation Stop: 03/30/21 14:23 Last Admin: 03/02/21 09:39 Dose: 1 mg Documented by: Lorazepam (Lorazepam 1 Mg Tab) 1 mg PO BID DARYL Stop: 04/01/21 20:59 Last Admin: 03/04/21 09:05 Dose: 1 mg Documented by: Lorazepam (Lorazepam 2 Mg/Ml Vial (Im Use)) 1 mg IM QAM PRN PRN Reason: Documentation Stop: 04/02/21 08:59 Magnesium Hydroxide (Magnesium Hydroxide Susp 30 Ml Udc) 30 ml PO DAILY PRN PRN Reason: Constipation Stop: 03/30/21 06:20 Risperidone (Risperidone Odt 1mg) 1 mg PO Q8 PRN PRN Reason: Anxiety/Agitation Stop: 03/30/21 14:23 Risperidone (Risperidone Odt 1mg) 1 mg PO DAILY DARYL Stop: 04/02/21 08:59 Last Admin: 03/04/21 09:06 Dose: 1 mg Documented by: Risperidone (Risperidone Odt 1mg) 1 mg PO HS DARYL Stop: 04/01/21 21:59 Last Admin: 03/03/21 21:00 Dose: 1 mg Documented by: Sodium Chloride (Sodium Chloride 0.65% Na Soln 45 Ml ([place])) 1 - 2 sprays NA PRN PRN PRN Reason: Nasal Dryness/Congestion Stop: 03/30/21 06:20 Last Admin: 03/02/21 14:45 Dose: 1 sprays Documented by: Mental Health & Subst Abuse Tx Therapist Name of Therapist: None Supply Chain Systems Manager Name of Supply Chain Systems Manager: None
[2021-03-05] MEDS: LORazepam 0.5 MG TAB PO SCH ×2 (10:44→20:32)
--- NOTE | 2021-03-05 14:16 | Psychiatric Progress Note ---
Date of Service March 05, 2021 Impression / Recommendations Impression 25 yo male with first psychotic break less than 6 months ago, adherent with risperidone with improvement but stopped after about 1 month, who presented with acute onset disorganization, hallucinations, feeling paranoia/persecuted with poor self care just after completing fall. Diagnostically consistent with schizophreniform disorder especially with family history of schizophrenia with differential including MD with psychotic features. He is now on a 304 status with significant psychomotor retardation initially concerning for possible catatonia as well as lack of po intake. Encouragingly his oral intake has improved slightly, he's taking his po medications but he remains isolative, disorganized and guarded consistent with psychosis. MNPR due to psychiatric symptoms of psychosis, paranoia and disorganized behaviors. 03/05/21: taking po medication and engaging with staff more, continues to have thought blocking and having auditory hallucinations but seem to be slowly improving with risperidone which he is tolerating well. Will reduce ativan to see if this improves daytime fatigue. No evidence for any EPS or hyperprolactinemia. (1) Schizophreniform disorder: 03/05/21: Fasting lipid panel and glucose in the morning as unable to tolerate earlier in his stay. Decrease ativan to 0.5 mg BID. Continue risperidone 1mg qAm & 2mg qHS. 03/04/21: Increase risperidone to 1 mg qAM and 2mg qHS to further target psychosis. Continue with ativan. 03/03/21: Continue risperidone and ativan po with haldol and ativan IM if refuses. No signs of catatonia today. 03/02/21: Reviewed interim progress per Dr. Saldivar below. Starting medications over objection as I agree that he meets criteria and is at risk if appropriate treatment is not started. Will continue to offer risperidone ODT 1 mg qAM and if refuses will give haldol 5 mg IM and ativan 1mg po qAM & if refuses will give ativan 1 mg IM. Will also offer risperidone 1mg ODT and ativan 1mg po at qhs but will not give IM medications if he refuses the evening po dose. 03/01/21: refusing labs, meds, food, drink. 304 granted. Continue to offer PO Ativan and Risperdal. Will ask Dr. Tobin for a second opinion re: forced medications tomorrow when she assumes clinical responsibility for service. Medications over objection are medically necessary to treat psychosis which is interfering with his ability to communicate and care for self and given lack of PO intake he is at significant risk of or serious physical disability within the next 30 days if he does not receive this treatment. 02/28/21: The patient was admitted to the [facility] ([facility] mental health unit) on q15 min checks (behavioral with suicide precautions) for safety. The patient will participate in group, recreational, and milieu therapies and will be offered additional individual and family sessions as clinically appropriate. He is not able to fully comprehend risks/benefits/alternatives of treatment but did not object to resuming Risperdal. Will start 1 mg Risperdal Mtab BID today with additional Risperdal and Ativan prn. Monitor PO intake. Will attempt fasting labs in AM. He has no abnormal motor movements at baseline but is not fully cooperative with AIMS testing. Inventory Assets Strengths: intelligent, family support locally Needs: likely long acting injectable, outpatient services Risk Factors Assessment Male: Yes : Yes Mental Health Diagnoses: Yes Substance Use Disorders: No Previous Psychiatric Hospitalization: Yes Protective Factors Assessment Employed: No Supportive Family: Yes Interval History Identifying Information ANASTASIYA GARCIA is a 25-year-old , [employer] senior who lives locally with mother, has a history of a brief psychotic episode in October, and was admitted on 02/28/21 05:21 on a 201 voluntary commitment for disorganized behavior and then changed to 304 status. Chief Complaint "I'm pretty good". Review of Systems Sleep Information Total Hours of Sleep: 7.25 Sleep Comments: pt on q-15 minute checks Meal Information Percent Meal Consumed - Breakfast: 100 Percent Meal Consumed - Lunch: 100 Percent Meal Consumed - Dinner: 100 Nutrition Comment: Pt isn't hungry Subjective Subjective Patient was seen & assessed and interval progress reviewed with treatment team nursing and social work. He appeared more sedated yesterday afternoon but in the evening played Wii and engaged more with staff. He took his po medications including the increased dose of risperidone. Today he describes positive mood though affect is incongruent and flat. He states the voices are getting easier to ignore but he isn't sure if they are telling him to do anything and he can't recall what they were telling him prior to admission. Currently the voices "are nicer" but he notes it's hard to know if they are actually nice because "people can act nice and still do mean things". He recalls that before coming into the hospital the voices were very threatening. He also recalls reading textbooks in studying for finals and the words would "become other words if you said them enough times" and turned into words with sexual and medical term meanings. He is agreeable to decreasing the scheduled ativan to see if this helps reduce daytime fatigue. He remains unsure about signing ROIs for his family but did speak to them on the phone. Physical Exam Psychiatric Orientation: alert, oriented x 3 and + guarded Apperance: appropriately dressed and appropriately groomed Eye Contact: + poor eye contact Motor Behavior: no abnormal motor movements; n EPS and n akathisia Speech: normal rate/rhythm/volume of speech Affect: + flat affect Mood: + anxious mood; no depressed mood Thought Process: + thought blocking and + concrete thought process Thought Content: + delusions and + ideas of reference Suicidal Thoughts: denies suicidal thoughts Homicidal Thoughts: denies homicidal thoughts Hallucinations: + auditory hallucinations; no visual hallucinations Cognition: remote memory grossly intact and language grossly intact; + recent memory not intact and + attention not intact Insight: + impaired insight Judgement: + impaired judgement Vital Signs (Past 24 Hours) Last Vital Signs Temp 36.3 C L 03/05/21 06:00 Pulse 76 03/05/21 06:43 Resp 14 03/05/21 06:00 BP 107/69 03/05/21 06:43 Pulse Ox 98 02/28/21 06:03 Results & Data ([facility]) Current Inpatient Medications Current Inpatient Medications: Current Inpatient Medications Acetaminophen (Acetaminophen 325 Mg Tab) 650 mg PO Q4H PRN PRN Reason: Headache or Minor Fever Stop: 03/30/21 06:20 Al Hydrox/Mg Hydrox/Simethicone (Aluminum/Magnesium Susp 30 Ml Udc) 30 ml PO Q4H PRN PRN Reason: GI Upset Stop: 03/30/21 06:20 Benztropine Mesylate (Benztropine Mesylate 1 Mg Tab) 1 mg PO Q6 PRN PRN Reason: muscle spasm Stop: 03/30/21 17:59 Bismuth Subsalicylate (Bismuth Subsalicylate Liqd 236 Ml) 15 ml PO PRN PRN PRN Reason: Loose Stool Stop: 03/30/21 06:20 Haloperidol Lactate (Haloperidol Lactate 5 Mg/Ml 1 Ml Vial) 5 mg IM QAM PRN PRN Reason: Documentation Stop: 04/02/21 08:59 Hydroxyzine HCl (Hydroxyzine Hcl 25 Mg Tab) 50 mg PO HSZ PRN PRN Reason: Insomnia Stop: 03/30/21 06:20 Hydroxyzine HCl (Hydroxyzine Hcl 25 Mg Tab) 25 mg PO Q4H PRN PRN Reason: Anxiety Stop: 03/30/21 06:20 Lorazepam (Lorazepam 1 Mg Tab) 1 mg PO Q6 PRN PRN Reason: Anxiety/Agitation Stop: 03/30/21 14:23 Last Admin: 03/02/21 09:39 Dose: 1 mg Documented by: Lorazepam (Lorazepam 2 Mg/Ml Vial (Im Use)) 1 mg IM QAM PRN PRN Reason: Documentation Stop: 04/02/21 08:59 Lorazepam (Lorazepam 0.5 Mg Tab) 0.5 mg PO BID DARYL Stop: 04/04/21 09:29 Last Admin: 03/05/21 10:44 Dose: 0.5 mg Documented by: Magnesium Hydroxide (Magnesium Hydroxide Susp 30 Ml Udc) 30 ml PO DAILY PRN PRN Reason: Constipation Stop: 03/30/21 06:20 Risperidone (Risperidone Odt 1mg) 1 mg PO Q8 PRN PRN Reason: Anxiety/Agitation Stop: 03/30/21 14:23 Risperidone (Risperidone Odt 1mg) 1 mg PO DAILY DARYL Stop: 04/02/21 08:59 Last Admin: 03/05/21 10:44 Dose: 1 mg Documented by: Risperidone (Risperidone Odt 1mg) 2 mg PO HS DARYL Stop: 04/03/21 21:59 Last Admin: 03/04/21 21:32 Dose: 2 mg Documented by: Sodium Chloride (Sodium Chloride 0.65% Na Soln 45 Ml ([place])) 1 - 2 sprays NA PRN PRN PRN Reason: Nasal Dryness/Congestion Stop: 03/30/21 06:20 Last Admin: 03/02/21 14:45 Dose: 1 sprays Documented by: Mental Health & Subst Abuse Tx Therapist Name of Therapist: None Bottle Machine Operator Name of Bottle Machine Operator: None
[2021-03-06 08:42] LABS: Glucose Fasting 91 mg/dl (70-99)
[2021-03-06 08:50] LABS: Chol HDL Ratio 4; Cholesterol 123 mg/dl (0-200); HDL Cholesterol 33 mg/dl; LDL Cholesterol Calculated 72 mg/dl; Triglycerides 91 mg/dl (0-150); VLDL Cholesterol 18 mg/dl
[2021-03-06] MEDS: LORazepam 0.5 MG TAB PO SCH ×2 (09:14→21:01)
--- NOTE | 2021-03-06 11:15 | Psychiatric Progress Note ---
Date of Service March 06, 2021 Impression / Recommendations Impression 25 yo male with first psychotic break less than 6 months ago, adherent with risperidone with improvement but stopped after about 1 month, who presented with acute onset disorganization, hallucinations, feeling paranoia/persecuted with poor self care just after completing fall. Diagnostically consistent with schizophreniform disorder especially with family history of schizophrenia, AH and flat affect with differential including MDD with psychotic features. He is now on a 304 status with significant psychomotor retardation initially concerning for possible catatonia as well as lack of po intake. Encouragingly his oral intake has improved, he's taking his po medications and behaviors becoming more organized but he remains isolative at times, having auditory hallucinations and guarded consistent with psychosis. MNPR due to psychiatric symptoms of psychosis, paranoia and disorganized behaviors. 03/06/21: taking po medication and engaging with staff more, continues to have thought blocking and having auditory hallucinations but seem to be slowly improving with risperidone which he is tolerating well. Unclear if adjustment in ativan helped with daytime isolation/fatigue as he felt tired early. Will continue to attempt to taper the ativan and if fatigue persists can consider consolidating risperidone dose though remains unclear if fatigue vs difficulty tolerating extensive social interactions is leading to isolation/retreating to his room early. Reviewed fasting labs-all normal with exception of low HDL. (1) Schizophreniform disorder: 03/06/21: Fasting labs reviewed and reassuring. Continue with risperidone and ativan. Encouraging group involvement. He's still not comfortable signing ROIs for family yet. SW looking into options for outpatient support including CM, therapy, psychiatry services. 03/05/21: Fasting lipid panel and glucose in the morning as unable to tolerate earlier in his stay. Decrease ativan to 0.5 mg BID. Continue risperidone 1mg qAM & 2mg qHS. 03/04/21: Increase risperidone to 1 mg qAM and 2mg qHS to further target psychosis. Continue with ativan. 03/03/21: Continue risperidone and ativan po with haldol and ativan IM if refuses. No signs of catatonia today. 03/02/21: Reviewed interim progress per Dr. Saldivar below. Starting medications over objection as I agree that he meets criteria and is at risk if appropriate treatment is not started. Will continue to offer risperidone ODT 1 mg qAM and if refuses will give haldol 5 mg IM and ativan 1mg po qAM & if refuses will give ativan 1 mg IM. Will also offer risperidone 1mg ODT and ativan 1mg po at qhs but will not give IM medications if he refuses the evening po dose. 03/01/21: refusing labs, meds, food, drink. 304 granted. Continue to offer PO Ativan and Risperdal. Will ask Dr. Tobin for a second opinion re: forced medications tomorrow when she assumes clinical responsibility for service. Medications over objection are medically necessary to treat psychosis which is interfering with his ability to communicate and care for self and given lack of PO intake he is at significant risk of or serious physical disability w ithin the next 30 days if he does not receive this treatment. 02/28/21: The patient was admitted to the [facility] ([facility] mental health unit) on q15 min checks (behavioral with suicide precautions) for safety. The patient will participate in group, recreational, and milieu therapies and will be offered additional individual and family sessions as clinically appropriate. He is not able to fully comprehend risks/benefits/alternatives of treatment but did not object to resuming Risperdal. Will start 1 mg Risperdal Mtab BID today with additional Risperdal and Ativan prn. Monitor PO intake. Will attempt fasting labs in AM. He has no abnormal motor movements at baseline but is not fully cooperative with AIMS testing. Inventory Assets Strengths: intelligent, family support locally Needs: likely long acting injectable, outpatient services Risk Factors Assessment Male: Yes : Yes Mental Health Diagnoses: Yes Substance Use Disorders: No Previous Psychiatric Hospitalization: Yes Protective Factors Assessment Employed: No Supportive Family: Yes Interval History Identifying Information ANASTASIYA GARCIA is a 25-year-old , [employer] senior who lives locally with mother, has a history of a brief psychotic episode in October, and was admitted on 02/28/21 05:21 on a 201 voluntary commitment for disorganized behavior and then changed to 304 status. Chief Complaint "I'm alright". Review of Systems Sleep Information Total Hours of Sleep: 6.5 Sleep Comments: pt on q-15 minute checks Meal Information Percent Meal Consumed - Breakfast: 100 Percent Meal Consumed - Lunch: 100 Percent Meal Consumed - Dinner: 100 Nutrition Comment: Pt isn't hungry Subjective Subjective Patient was seen & assessed and interval progress reviewed with treatment team nursing and social work. He watched a movie with peers yesterday afternoon but then went to bed early and did not attend evening groups. Today tells me he felt tired then woke up around 11pm and then did some puzzles and then was able to go back to sleep. He isn't sure if he feels less tired since reducing the ativan yesterday. He's able to talk with me a bit about a puzzle he's doing and he plans to attend groups today. Denies any medication side effects. Physical Exam Psychiatric Orientation: alert, oriented x 3 and + guarded Apperance: appropriately dressed and appropriately groomed Eye Contact: + poor eye contact Motor Behavior: no abnormal motor movements; n EPS and n akathisia Speech: normal rate/rhythm/volume of speech Affect: + flat affect Mood: no depressed mood Thought Process: + thought blocking and + concrete thought process Thought Content: + ideas of reference Suicidal Thoughts: denies suicidal thoughts Homicidal Thoughts: denies homicidal thoughts Hallucinations: + auditory hallucinations; no visual hallucinations Cognition: remote memory grossly intact and language grossly intact Insight: + impaired insight Judgement: + impaired judgement Vital Signs (Past 24 Hours) Last Vital Signs Temp 36.9 C 03/06/21 06:00 Pulse 79 03/06/21 06:50 Resp 14 03/06/21 06:00 BP 112/73 03/06/21 06:50 Pulse Ox 98 02/28/21 06:03 Results & Data ([facility]) Laboratory Results Laboratory Results - last 24 hr 03/06/21 07:33 Fasting Glucose 91 Triglycerides 91 Cholesterol 123 LDL Cholesterol, Calc 72 VLDL Cholesterol, Calc 18 HDL Cholesterol 33 Cholesterol/HDL Ratio 4 Current Inpatient Medications Current Inpatient Medications: Current Inpatient Medications Acetaminophen (Acetaminophen 325 Mg Tab) 650 mg PO Q4H PRN PRN Reason: Headache or Minor Fever Stop: 03/30/21 06:20 Al Hydrox/Mg Hydrox/Simethicone (Aluminum/Magnesium Susp 30 Ml Udc) 30 ml PO Q4H PRN PRN Reason: GI Upset Stop: 03/30/21 06:20 Benztropine Mesylate (Benztropine Mesylate 1 Mg Tab) 1 mg PO Q6 PRN PRN Reason: muscle spasm Stop: 03/30/21 17:59 Bismuth Subsalicylate (Bismuth Subsalicylate Liqd 236 Ml) 15 ml PO PRN PRN PRN Reason: Loose Stool Stop: 03/30/21 06:20 Haloperidol Lactate (Haloperidol Lactate 5 Mg/Ml 1 Ml Vial) 5 mg IM QAM PRN PRN Reason: Documentation Stop: 04/02/21 08:59 Hydroxyzine HCl (Hydroxyzine Hcl 25 Mg Tab) 50 mg PO HSZ PRN PRN Reason: Insomnia Stop: 03/30/21 06:20 Hydroxyzine HCl (Hydroxyzine Hcl 25 Mg Tab) 25 mg PO Q4H PRN PRN Reason: Anxiety Stop: 03/30/21 06:20 Lorazepam (Lorazepam 1 Mg Tab) 1 mg PO Q6 PRN PRN Reason: Anxiety/Agitation Stop: 03/30/21 14:23 Last Admin: 03/02/21 09:39 Dose: 1 mg Documented by: Lorazepam (Lorazepam 2 Mg/Ml Vial (Im Use)) 1 mg IM QAM PRN PRN Reason: Documentation Stop: 04/02/21 08:59 Lorazepam (Lorazepam 0.5 Mg Tab) 0.5 mg PO BID DARYL Stop: 04/04/21 09:29 Last Admin: 03/06/21 09:14 Dose: 0.5 mg Documented by: Magnesium Hydroxide (Magnesium Hydroxide Susp 30 Ml Udc) 30 ml PO DAILY PRN PRN Reason: Constipation Stop: 03/30/21 06:20 Risperidone (Risperidone Odt 1mg) 1 mg PO Q8 PRN PRN Reason: Anxiety/Agitation Stop: 03/30/21 14:23 Risperidone (Risperidone Odt 1mg) 1 mg PO DAILY DARYL Stop: 04/02/21 08:59 Last Admin: 03/06/21 09:14 Dose: 1 mg Documented by: Risperidone (Risperidone Odt 1mg) 2 mg PO HS DARYL Stop: 04/03/21 21:59 Last Admin: 03/05/21 20:32 Dose: 2 mg Documented by: Sodium Chloride (Sodium Chloride 0.65% Na Soln 45 Ml ([place])) 1 - 2 sprays NA PRN PRN PRN Reason: Nasal Dryness/Congestion Stop: 03/30/21 06:20 Last Admin: 03/02/21 14:45 Dose: 1 sprays Documented by: Mental Health & Subst Abuse Tx Therapist Name of Therapist: None Interactive Marketing Strategist Name of Interactive Marketing Strategist: None
[2021-03-07] MEDS: LORazepam 0.5 MG TAB PO SCH ×2 (08:34→21:17)
--- NOTE | 2021-03-07 08:48 | Psychiatric Progress Note ---
Date of Service March 07, 2021 Impression / Recommendations Impression 25 yo male with first psychotic break less than 6 months ago, adherent with risperidone with improvement but stopped after about 1 month, who presented with acute onset disorganization, hallucinations, feeling paranoia/persecuted with poor self care just after completing fall. Diagnostically consistent with schizophreniform disorder especially with family history of schizophrenia, AH and flat affect with differential including MDD with psychotic features. He is now on a 304 status with significant psychomotor retardation initially concerning for possible catatonia as well as lack of po intake. Encouragingly his oral intake has improved, he's taking his po medications and behaviors becoming more organized but he remains isolative at times, having auditory hallucinations and guarded consistent with psychosis. MNPR due to psychiatric symptoms of psychosis, paranoia and disorganized behaviors. 03/07/21: taking po medication and engaging with staff more, continues to have thought blocking though this is slowly improving and auditory hallucinations are improving with risperidone which he is tolerating well. Continues to have delusions and paranoia about his family and will not sign any ROIs. Will discontinue morning ativan dose to reduce risk of dizziness and given no resumption of catatonia-like symptoms even with taper. (1) Schizophreniform disorder: 03/07/21: Discontinue qAM dose of ativan. Continue with risperidone and ativan qhs. Will continue to encourage ROIs to be able to work on establishing outpatient resources. Scheduling saline spray per his request. 03/06/21: Fasting labs reviewed and reassuring. Continue with risperidone and ativan. Encouraging group involvement. He's still not comfortable signing ROIs for family yet. SW looking into options for outpatient support including CM, therapy, psychiatry services. 03/05/21: Fasting lipid panel and glucose in the morning as unable to tolerate earlier in his stay. Decrease ativan to 0.5 mg BID. Continue risperidone 1mg qAM & 2mg qHS. 03/04/21: Increase risperidone to 1 mg qAM and 2mg qHS to further target psychosis. Continue with ativan. 03/03/21: Continue risperidone and ativan po with haldol and ativan IM if refuses. No signs of catatonia today. 03/02/21: Reviewed interim progress per Dr. Saldivar below. Starting medications over objection as I agree that he meets criteria and is at risk if appropriate treatment is not started. Will continue to offer risperidone ODT 1 mg qAM and if refuses will give haldol 5 mg IM and ativan 1mg po qAM & if refuses will give ativan 1 mg IM. Will also offer risperidone 1mg ODT and ativan 1mg po at qhs but will not give IM medications if he refuses the evening po dose. 03/01/21: refusing labs, meds, food, drink. 304 granted. Continue to offer PO Ativan and Risperdal. Will ask Dr. Tobin for a second opinion re: forced medications tomorrow when she assumes clinical responsibility for service. Med ications over objection are medically necessary to treat psychosis which is interfering with his ability to communicate and care for self and given lack of PO intake he is at significant risk of or serious physical disability within the next 30 days if he does not receive this treatment. 02/28/21: The patient was admitted to the [facility] ([facility] mental health unit) on q15 min checks (behavioral with suicide precautions) for safety. The patient will participate in group, recreational, and milieu therapies and will be offered additional individual and family sessions as clinically appropriate. He is not able to fully comprehend risks/benefits/alternatives of treatment but did not object to resuming Risperdal. Will start 1 mg Risperdal Mtab BID today with additional Risperdal and Ativan prn. Monitor PO intake. Will attempt fasting labs in AM. He has no abnormal motor movements at baseline but is not fully cooperative with AIMS testing. Inventory Assets Strengths: intelligent, family support locally Needs: likely long acting injectable, outpatient services Risk Factors Assessment Male: Yes : Yes Mental Health Diagnoses: Yes Substance Use Disorders: No Previous Psychiatric Hospitalization: Yes Protective Factors Assessment Employed: No Supportive Family: Yes Interval History Identifying Information ANASTASIYA GARCIA is a 25-year-old , [employer] senior who lives locally with mother, has a history of a brief psychotic episode in October, and was admitted on 02/28/21 05:21 on a 201 voluntary commitment for disorganized behavior and then changed to 304 status. Chief Complaint "My sinuses are congested". Review of Systems Sleep Information Total Hours of Sleep: 8 Sleep Comments: pt on q-15 minute checks Meal Information Percent Meal Consumed - Breakfast: 100 Percent Meal Consumed - Lunch: 100 Percent Meal Consumed - Dinner: 100 Nutrition Comment: Pt isn't hungry Subjective Subjective Patient was seen & assessed and interval progress reviewed with treatment team nursing and social work. He expressed feeling scattered last night and shared beliefs that his parents are serial abusers and in a cult. Today wants to discuss his sinus congestion which he reports has been ongoing for a few weeks, discussed option to use saline nose spray which he'd like to do. Notes he had one episode of some dizziness but has not occurred since. No falls, feels steady on his feet. No other medication side effects. Reports his mood is stable. Physical Exam Psychiatric Orientation: alert, oriented x 3 and + guarded Apperance: appropriately dressed and appropriately groomed Eye Contact: + fair eye contact Motor Behavior: no abnormal motor movements; n EPS and n akathisia Speech: normal rate/rhythm/volume of speech Affect: + flat affect Mood: no depressed mood Thought Process: + concrete thought process Thought Content: + paranoid, + delusions and + ideas of reference Suicidal Thoughts: denies suicidal thoughts Homicidal Thoughts: denies homicidal thoughts Hallucinations: + auditory hallucinations; no visual hallucinations Cognition: recent memory grossly intact, remote memory grossly intact, attention grossly intact and language grossly intact Insight: + impaired insight Judgement: + impaired judgement Vital Signs (Past 24 Hours) Last Vital Signs Temp 36.8 C 03/07/21 06:25 Pulse 88 03/07/21 06:26 Resp 16 03/07/21 06:25 BP 104/70 03/07/21 06:26 Pulse Ox 98 02/28/21 06:03 Results & Data ([facility]) Laboratory Results Laboratory Results - last 24 hr 03/06/21 07:33 Triglycerides 91 Cholesterol 123 LDL Cholesterol, Calc 72 VLDL Cholesterol, Calc 18 HDL Cholesterol 33 Cholesterol/HDL Ratio 4 Current Inpatient Medications Current Inpatient Medications: Current Inpatient Medications Acetaminophen (Acetaminophen 325 Mg Tab) 650 mg PO Q4H PRN PRN Reason: Headache or Minor Fever Stop: 03/30/21 06:20 Al Hydrox/Mg Hydrox/Simethicone (Aluminum/Magnesium Susp 30 Ml Udc) 30 ml PO Q4H PRN PRN Reason: GI Upset Stop: 03/30/21 06:20 Benztropine Mesylate (Benztropine Mesylate 1 Mg Tab) 1 mg PO Q6 PRN PRN Reason: muscle spasm Stop: 03/30/21 17:59 Bismuth Subsalicylate (Bismuth Subsalicylate Liqd 236 Ml) 15 ml PO PRN PRN PRN Reason: Loose Stool Stop: 03/30/21 06:20 Haloperidol Lactate (Haloperidol Lactate 5 Mg/Ml 1 Ml Vial) 5 mg IM QAM PRN PRN Reason: Documentation Stop: 04/02/21 08:59 Hydroxyzine HCl (Hydroxyzine Hcl 25 Mg Tab) 50 mg PO HSZ PRN PRN Reason: Insomnia Stop: 03/30/21 06:20 Hydroxyzine HCl (Hydroxyzine Hcl 25 Mg Tab) 25 mg PO Q4H PRN PRN Reason: Anxiety Stop: 03/30/21 06:20 Lorazepam (Lorazepam 1 Mg Tab) 1 mg PO Q6 PRN PRN Reason: Anxiety/Agitation Stop: 03/30/21 14:23 Last Admin: 03/02/21 09:39 Dose: 1 mg Documented by: Lorazepam (Lorazepam 2 Mg/Ml Vial (Im Use)) 1 mg IM QAM PRN PRN Reason: Documentation Stop: 04/02/21 08:59 Lorazepam (Lorazepam 0.5 Mg Tab) 0.5 mg PO BID DARYL Stop: 04/04/21 09:29 Last Admin: 03/07/21 08:34 Dose: 0.5 mg Documented by: Magnesium Hydroxide (Magnesium Hydroxide Susp 30 Ml Udc) 30 ml PO DAILY PRN PRN Reason: Constipation Stop: 03/30/21 06:20 Risperidone (Risperidone Odt 1mg) 1 mg PO Q8 PRN PRN Reason: Anxiety/Agitation Stop: 03/30/21 14:23 Risperidone (Risperidone Odt 1mg) 1 mg PO DAILY DARYL Stop: 04/02/21 08:59 Last Admin: 03/07/21 08:34 Dose: 1 mg Documented by: Risperidone (Risperidone Odt 1mg) 2 mg PO HS DARYL Stop: 04/03/21 21:59 Last Admin: 03/06/21 21:00 Dose: 2 mg Documented by: Sodium Chloride (Sodium Chloride 0.65% Na Soln 45 Ml ([place])) 1 - 2 sprays NA PRN PRN PRN Reason: Nasal Dryness/Congestion Stop: 03/30/21 06:20 Last Admin: 03/02/21 14:45 Dose: 1 sprays Documented by: Mental Health & Subst Abuse Tx Therapist Name of Therapist: None Glue Maker Name of Glue Maker: None
[2021-03-07] MEDS: SODIUM CHLORIDE 0.65% NA SOLN 45 ML (OCEAN) SCH ×2 (17:36→21:21)
[2021-03-08] MEDS: SODIUM CHLORIDE 0.65% NA SOLN 45 ML (OCEAN) SCH ×2 (09:33→21:46)
--- NOTE | 2021-03-08 12:57 | Psychiatric Progress Note ---
Date of Service March 08, 2021 Impression / Recommendations Impression 25 yo male with first psychotic break less than 6 months ago, adherent with risperidone with improvement but stopped after about 1 month, who presented with acute onset disorganization, hallucinations, feeling paranoia/persecuted with poor self care just after completing fall. Diagnostically consistent with schizophreniform disorder especially with family history of schizophrenia, AH and flat affect with differential including MDD with psychotic features. He is now on a 304 status with significant psychomotor retardation initially concerning for possible catatonia as well as lack of po intake. Encouragingly his oral intake has improved, he's taking his po medications and behaviors becoming more organized but he remains isolative at times, having auditory hallucinations and guarded consistent with psychosis. MNPR due to psychiatric symptoms of psychosis, paranoia and disorganized behaviors. 03/08/21: taking po medication and engaging with staff more, continues to have thought blocking though this is slowly improving and auditory hallucinations are improving with risperidone which he is tolerating well. Continues to have delusions and paranoia about his family but did sign JUDY last night, remains somewhat suspicious of them. Given worsening of thought disorganization this morning may need to add back morning dose of ativan if it persists again tomorrow but throughout the remainder of today he showed improvement in thought organization. (1) Schizophreniform disorder: 03/08/21: Continue current medications. Start to consider family meeting in a few days if progress continues. 03/07/21: Discontinue qAM dose of ativan. Continue with risperidone and ativan qhs. Will continue to encourage ROIs to be able to work on establishing outpatient resources. Scheduling saline spray per his request. 03/06/21: Fasting labs reviewed and reassuring. Continue with risperidone and ativan. Encouraging group involvement. He's still not comfortable signing ROIs for family yet. SW looking into options for outpatient support including CM, therapy, psychiatry services. 03/05/21: Fasting lipid panel and glucose in the morning as unable to tolerate earlier in his stay. Decrease ativan to 0.5 mg BID. Continue risperidone 1mg qAM & 2mg qHS. 03/04/21: Increase risperidone to 1 mg qAM and 2mg qHS to further target psychosis. Continue with ativan. 03/03/21: Continue risperidone and ativan po with haldol and ativan IM if refuses. No signs of catatonia today. 03/02/21: Reviewed interim progress per Dr. Saldivar below. Starting medications over objection as I agree that he meets criteria and is at risk if appropriate treatment is not started. Will continue to offer risperidone ODT 1 mg qAM and if refuses will give haldol 5 mg IM and ativan 1mg po qAM & if refuses will give ativan 1 mg IM. Will also offer risperidone 1mg ODT and ativan 1mg po at qhs but will not give IM medications if he refuses the evening po dose. 03/01/21: refusing labs, meds, food, drink. 304 granted. Continue to offer PO Ativan and Risperdal. Will ask Dr. Tobin for a second opinion re: forced medications tomorrow when she assumes clinical responsibility for service. Medications over objection are medically necessary to treat psychosis which is interfering with his ability to communicate and care for self and given lack of PO intake he is at significant risk of or serious physical disability within the next 30 days if he does not receive this treatment. 02/28/21: The patient was admitted to the [facility] ([facility] mental health unit) on q15 min checks (behavioral with suicide precautions) for safety. The patient will participate in group, recreational, and milieu therapies and will be offered additional individual and family sessions as clinically appropriate. He is not able to fully comprehend risks/benefits/alternatives of treatment but did not object to resuming Risperdal. Will start 1 mg Risperdal Mtab BID today with additional Risperdal and Ativan prn. Monitor PO intake. Will attempt fasting labs in AM. He has no abnormal motor movements at baseline but is not fully cooperative with AIMS testing. Inventory Assets Strengths: intelligent, family support locally Needs: likely long acting injectable, outpatient services Risk Factors Assessment Male: Yes : Yes Mental Health Diagnoses: Yes Substance Use Disorders: No Previous Psychiatric Hospitalization: Yes Protective Factors Assessment Employed: No Supportive Family: Yes Interval History Identifying Information ANASTASIYA GARCIA is a 25-year-old , [employer] senior who lives locally with mother, has a history of a brief psychotic episode in October, and was admitted on 02/28/21 05:21 on a 201 voluntary commitment for disorganized behavior and then changed to 304 status. Chief Complaint "I'm pretty good". Review of Systems Sleep Information Total Hours of Sleep: 8 Sleep Comments: pt on q-15 minute checks Meal Information Percent Meal Consumed - Breakfast: 100 Percent Meal Consumed - Lunch: 100 Percent Meal Consumed - Dinner: 100 Nutrition Comment: Pt isn't hungry Subjective Subjective Patient was seen & assessed and interval progress reviewed with treatment team nursing and social work. Signed JUDY for his mother and spoke to family on the phone last night and able to discuss some of his fears about them being in a cult. Paranoid about sinus congestion and asking about rationale for why nasal swab for COVID was done in the ED prior to admission. Demonstrating significant thought process disorganization this morning. This afternoon some thought blocking but more organized and appropriate. Has been attending groups and engaging more with peers. He denies any medication side effects. Remains somewhat suspicious of family. Physical Exam Psychiatric Orientation: alert, oriented x 3 and + guarded Apperance: appropriately dressed and appropriately groomed Eye Contact: + fair eye contact Motor Behavior: no abnormal motor movements; n EPS and n akathisia Speech: normal rate/rhythm/volume of speech Affect: + flat affect Mood: + anxious mood Thought Process: + thought blocking and + looseness of associations Thought Content: + paranoid, + delusions and + ideas of reference Suicidal Thoughts: denies suicidal thoughts Homicidal Thoughts: denies homicidal thoughts Hallucinations: + auditory hallucinations; no visual hallucinations Cognition: recent memory grossly intact, remote memory grossly intact, attention grossly intact and language grossly intact Insight: + impaired insight Judgement: + impaired judgement Vital Signs (Past 24 Hours) Last Vital Signs Temp 36.5 C 03/08/21 06:31 Pulse 92 H 03/08/21 06:31 Resp 16 03/08/21 06:31 BP 116/74 03/08/21 06:31 Pulse Ox 98 02/28/21 06:03 Results & Data ([facility]) Current Inpatient Medications Current Inpatient Medications: Current Inpatient Medications Acetaminophen (Acetaminophen 325 Mg Tab) 650 mg PO Q4H PRN PRN Reason: Headache or Minor Fever Stop: 03/30/21 06:20 Al Hydrox/Mg Hydrox/Simethicone (Aluminum/Magnesium Susp 30 Ml Udc) 30 ml PO Q4H PRN PRN Reason: GI Upset Stop: 03/30/21 06:20 Benztropine Mesylate (Benztropine Mesylate 1 Mg Tab) 1 mg PO Q6 PRN PRN Reason: muscle spasm Stop: 03/30/21 17:59 Bismuth Subsalicylate (Bismuth Subsalicylate Liqd 236 Ml) 15 ml PO PRN PRN PRN Reason: Loose Stool Stop: 03/30/21 06:20 Haloperidol Lactate (Haloperidol Lactate 5 Mg/Ml 1 Ml Vial) 5 mg IM QAM PRN PRN Reason: Documentation Stop: 04/02/21 08:59 Hydroxyzine HCl (Hydroxyzine Hcl 25 Mg Tab) 50 mg PO HSZ PRN PRN Reason: Insomnia Stop: 03/30/21 06:20 Hydroxyzine HCl (Hydroxyzine Hcl 25 Mg Tab) 25 mg PO Q4H PRN PRN Reason: Anxiety Stop: 03/30/21 06:20 Lorazepam (Lorazepam 1 Mg Tab) 1 mg PO Q6 PRN PRN Reason: Anxiety/Agitation Stop: 03/30/21 14:23 Last Admin: 03/02/21 09:39 Dose: 1 mg Documented by: Lorazepam (Lorazepam 2 Mg/Ml Vial (Im Use)) 1 mg IM QAM PRN PRN Reason: Documentation Stop: 04/02/21 08:59 Lorazepam (Lorazepam 0.5 Mg Tab) 0.5 mg PO HS DARYL Stop: 04/06/21 21:59 Last Admin: 03/07/21 21:17 Dose: 0.5 mg Documented by: Magnesium Hydroxide (Magnesium Hydroxide Susp 30 Ml Udc) 30 ml PO DAILY PRN PRN Reason: Constipation Stop: 03/30/21 06:20 Risperidone (Risperidone Odt 1mg) 1 mg PO Q8 PRN PRN Reason: Anxiety/Agitation Stop: 03/30/21 14:23 Risperidone (Risperidone Odt 1mg) 1 mg PO DAILY DARYL Stop: 04/02/21 08:59 Last Admin: 03/08/21 09:21 Dose: 1 mg Documented by: Risperidone (Risperidone Odt 1mg) 2 mg PO HS DARYL Stop: 04/03/21 21:59 Last Admin: 03/07/21 21:17 Dose: 2 mg Documented by: Sodium Chloride (Sodium Chloride 0.65% Na Soln 45 Ml ([place])) 1 - 2 sprays NA BID DARYL Stop: 04/06/21 15:29 Last Admin: 03/08/21 09:33 Dose: 1 sprays Documented by: Mental Health & Subst Abuse Tx Therapist Name of Therapist: None Hydrant Setter Name of Hydrant Setter: None
[2021-03-08] MEDS: LORazepam 0.5 MG TAB PO SCH (21:44)
[2021-03-09] MEDS: SODIUM CHLORIDE 0.65% NA SOLN 45 ML (OCEAN) SCH ×2 (09:25→20:55)
--- NOTE | 2021-03-09 14:24 | Psychiatric Progress Note ---
Date of Service March 09, 2021 Impression / Recommendations Impression 25 yo male with first psychotic break less than 6 months ago, adherent with risperidone with improvement but stopped after about 1 month, who presented with acute onset disorganization, hallucinations, feeling paranoia/persecuted with poor self care just after completing fall. Diagnostically consistent with schizophreniform disorder especially with family history of schizophrenia, AH and flat affect with differential including MDD with psychotic features. He is now on a 304 status with significant psychomotor retardation initially concerning for possible catatonia as well as lack of po intake. Encouragingly his oral intake has improved, he's taking his po medications and behaviors becoming more organized but he remains isolative at times, having auditory hallucinations and guarded consistent with psychosis. MNPR due to psychiatric symptoms of psychosis, paranoia and disorganized behaviors. 03/09/21: improved compared to yesterday am and last week but ongoing psychosis (1) Schizophreniform disorder: 03/09/21: Interim care reviewed. continue current medications and treatment plan. 03/08/21: Continue current medications. Start to consider family meeting in a few days if progress continues. 03/07/21: Discontinue qAM dose of ativan. Continue with risperidone and ativan qhs. Will continue to encourage ROIs to be able to work on establishing outpatient resources. Scheduling saline spray per his request. 03/06/21: Fasting labs reviewed and reassuring. Continue with risperidone and ativan. Encouraging group involvement. He's still not comfortable signing ROIs for family yet. SW looking into options for outpatient support including CM, therapy, psychiatry services. 03/05/21: Fasting lipid panel and glucose in the morning as unable to tolerate earlier in his stay. Decrease ativan to 0.5 mg BID. Continue risperidone 1mg qAM & 2mg qHS. 03/04/21: Increase risperidone to 1 mg qAM and 2mg qHS to further target psychosis. Continue with ativan. 03/03/21: Continue risperidone and ativan po with haldol and ativan IM if refuses. No signs of catatonia today. 03/02/21: Reviewed interim progress per Dr. Saldivar below. Starting medications over objection as I agree that he meets criteria and is at risk if appropriate treatment is not started. Will continue to offer risperidone ODT 1 mg qAM and if refuses will give haldol 5 mg IM and ativan 1mg po qAM & if refuses will give ativan 1 mg IM. Will also offer risperidone 1mg ODT and ativan 1mg po at qhs but will not give IM medications if he refuses the evening po dose. 03/01/21: refusing labs, meds, food, drink. 304 granted. Continue to offer PO Ativan and Risperdal. Will ask Dr. Tobin for a second opinion re: forced medications tomorrow when she assumes clinical responsibility for service. Medications over objection are medically necessary to treat psychosis which is interfering with his ability to communicate and care for self and given lack of PO intake he is at significant risk of or serious physical disability within the next 30 days if he does not receive this treatment. 02/28/21: The patient was admitted to the [facility] ([facility]) on q15 min checks (behavioral with suicide precautions) for safety. The patient will participate in group, recreational, and milieu therapies and will be offered additional individual and family sessions as clinically appropriate. He is not able to fully comprehend risks/benefits/alternatives of treatment but did not object to resuming Risperdal. Will start 1 mg Risperdal Mtab BID today with additional Risperdal and Ativan prn. Monitor PO intake. Will attempt fasting labs in AM. He has no abnormal motor movements at baseline but is not fully cooperative with AIMS testing. Inventory Assets Strengths: intelligent, family support locally Needs: likely long acting injectable, outpatient services Risk Factors Assessment Male: Yes : Yes Mental Health Diagnoses: Yes Substance Use Disorders: No Previous Psychiatric Hospitalization: Yes Protective Factors Assessment Employed: No Supportive Family: Yes Interval History Identifying Information ANASTASIYA GARCIA is a 25-year-old , [employer] senior who lives locally with mother, has a history of a brief psychotic episode in October, and was admitted on 02/28/21 05:21 on a 201 voluntary commitment for disorganized behavior and then changed to 304 status. Chief Complaint "yeah, it took me awhile to feel OK with the routine here, it's all sort of a mind game". Review of Systems Sleep Information Total Hours of Sleep: 7.5 Sleep Comments: pt on q-15 minute checks Meal Information Percent Meal Consumed - Breakfast: 100 Percent Meal Consumed - Lunch: 100 Percent Meal Consumed - Dinner: 100 Nutrition Comment: Pt isn't hungry Subjective Subjective Patient was seen & assessed and interval progress reviewed with treatment team. Much improved in the week I've been away in that eating/drinking/taking PO meds, less thought blocking. Still paranoid with regards to family and our role in his care. Has referred to parents as "serial abusers". Tells me that he noticed a change in his interest in things and ability to engage mid semester so unclear how actually did with finals. States he stopped the medication previously as he did not trust the doctors or understand what is was for. Discussed possibility of APPLE and he lacks insight into his condition and need for medication. Physical Exam Psychiatric Orientation: alert, oriented x 3, oriented to person and + guarded Apperance: appropriately dressed and appropriately groomed Eye Contact: + poor eye contact Motor Behavior: no abnormal motor movements; n EPS and n akathisia Speech: normal rate/rhythm/volume of speech Affect: + flat affect Mood: no depressed mood Thought Process: + thought blocking and + concrete thought process Thought Content: + paranoid and + delusions Suicidal Thoughts: denies suicidal thoughts Homicidal Thoughts: denies homicidal thoughts Hallucinations: no auditory hallucinations (but appears internally preoccupied with staff) and no visual hallucinations Cognition: attention grossly intact and language grossly intact Insight: + impaired insight Judgement: + impaired judgement Vital Signs (Past 24 Hours) Last Vital Signs Temp 36.6 C 03/09/21 06:41 Pulse 83 03/09/21 06:42 Resp 16 03/09/21 06:41 BP 120/66 03/09/21 06:42 Pulse Ox 98 02/28/21 06:03 Results & Data ([facility]) Current Inpatient Medications Current Inpatient Medications: Current Inpatient Medications Acetaminophen (Acetaminophen 325 Mg Tab) 650 mg PO Q4H PRN PRN Reason: Headache or Minor Fever Stop: 03/30/21 06:20 Al Hydrox/Mg Hydrox/Simethicone (Aluminum/Magnesium Susp 30 Ml Udc) 30 ml PO Q4H PRN PRN Reason: GI Upset Stop: 03/30/21 06:20 Benztropine Mesylate (Benztropine Mesylate 1 Mg Tab) 1 mg PO Q6 PRN PRN Reason: muscle spasm Stop: 03/30/21 17:59 Bismuth Subsalicylate (Bismuth Subsalicylate Liqd 236 Ml) 15 ml PO PRN PRN PRN Reason: Loose Stool Stop: 03/30/21 06:20 Haloperidol Lactate (Haloperidol Lactate 5 Mg/Ml 1 Ml Vial) 5 mg IM QAM PRN PRN Reason: Documentation Stop: 04/02/21 08:59 Hydroxyzine HCl (Hydroxyzine Hcl 25 Mg Tab) 50 mg PO HSZ PRN PRN Reason: Insomnia Stop: 03/30/21 06:20 Hydroxyzine HCl (Hydroxyzine Hcl 25 Mg Tab) 25 mg PO Q4H PRN PRN Reason: Anxiety Stop: 03/30/21 06:20 Lorazepam (Lorazepam 1 Mg Tab) 1 mg PO Q6 PRN PRN Reason: Anxiety/Agitation Stop: 03/30/21 14:23 Last Admin: 03/02/21 09:39 Dose: 1 mg Documented by: Lorazepam (Lorazepam 2 Mg/Ml Vial (Im Use)) 1 mg IM QAM PRN PRN Reason: Documentation Stop: 04/02/21 08:59 Lorazepam (Lorazepam 0.5 Mg Tab) 0.5 mg PO HS DARYL Stop: 04/06/21 21:59 Last Admin: 03/08/21 21:44 Dose: 0.5 mg Documented by: Magnesium Hydroxide (Magnesium Hydroxide Susp 30 Ml Udc) 30 ml PO DAILY PRN PRN Reason: Constipation Stop: 03/30/21 06:20 Risperidone (Risperidone Odt 1mg) 1 mg PO Q8 PRN PRN Reason: Anxiety/Agitation Stop: 03/30/21 14:23 Risperidone (Risperidone Odt 1mg) 1 mg PO DAILY DARYL Stop: 04/02/21 08:59 Last Admin: 03/09/21 09:25 Dose: 1 mg Documented by: Risperidone (Risperidone Odt 1mg) 2 mg PO HS DARYL Stop: 04/03/21 21:59 Last Admin: 03/08/21 21:43 Dose: 2 mg Documented by: Sodium Chloride (Sodium Chloride 0.65% Na Soln 45 Ml ([place])) 1 - 2 sprays NA BID DARYL Stop: 04/06/21 15:29 Last Admin: 03/09/21 09:25 Dose: 1 sprays Documented by: Mental Health & Subst Abuse Tx Therapist Name of Therapist: None Poll Watcher Name of Poll Watcher: None
[2021-03-09] MEDS: LORazepam 0.5 MG TAB PO SCH (20:55)
[2021-03-10] MEDS: SODIUM CHLORIDE 0.65% NA SOLN 45 ML (OCEAN) SCH ×2 (09:08→21:19)
--- NOTE | 2021-03-10 10:40 | Psychiatric Progress Note ---
Date of Service March 10, 2021 Impression / Recommendations Impression 25 yo male with first psychotic break less than 6 months ago, adherent with risperidone with improvement but stopped after about 1 month, who presented with acute onset disorganization, hallucinations, feeling paranoia/persecuted with poor self care just after completing fall. Diagnostically consistent with schizophreniform disorder especially with family history of schizophrenia, AH and flat affect with differential including MDD with psychotic features. He is now on a 304 status with significant psychomotor retardation initially concerning for possible catatonia as well as lack of po intake. Encouragingly his oral intake has improved, he's taking his po medications and behaviors becoming more organized but he remains isolative at times, having auditory hallucinations and guarded consistent with psychosis. MNPR due to psychiatric symptoms of psychosis, paranoia and disorganized behaviors. 03/10/21: remains disorganized in conversation with no insight into his psychosis or ongoing need for treatment outside of the hospital. (1) Schizophreniform disorder: 03/10/21: continue current meds and treatment plan, he notes some neck tig htness but denies discomfort and no dystonia on exam. He was made aware Cogentin is available. Continue Ativan taper. 03/09/21: Interim care reviewed. continue current medications and treatment plan . 03/08/21: Continue current medications. Start to consider family meeting in a few days if progress continues. 03/07/21: Discontinue qAM dose of ativan. Continue with risperidone and ativan qhs. Will continue to encourage ROIs to be able to work on establishing outpatient resources. Scheduling saline spray per his request. 03/06/21: Fasting labs reviewed and reassuring. Continue with risperidone and ativan. Encouraging group involvement. He's still not comfortable signing ROIs for family yet. SW looking into options for outpatient support including CM, therapy, psychiatry services. 03/05/21: Fasting lipid panel and glucose in the morning as unable to tolerate earlier in his stay. Decrease ativan to 0.5 mg BID. Continue risperidone 1mg qAM & 2mg qHS. 03/04/21: Increase risperidone to 1 mg qAM and 2mg qHS to further target psychosis. Continue with ativan. 03/03/21: Continue risperidone and ativan po with haldol and ativan IM if refuses. No signs of catatonia today. 03/02/21: Reviewed interim progress per Dr. Saldivar below. Starting medications over objection as I agree that he meets criteria and is at risk if appropriate treatment is not started. Will continue to offer risperidone ODT 1 mg qAM and if refuses will give haldol 5 mg IM and ativan 1mg po qAM & if refuses will give ativan 1 mg IM. Will also offer risperidone 1mg ODT and ativan 1mg po at qhs but will not give IM medications if he refuses the evening po dose. 03/01/21: refusing labs, meds, food, drink. 304 granted. Continue to offer PO Ativan and Risperdal. Will ask Dr. Tobin for a second opinion re: forced medications tomorrow when she assumes clinical responsibility for service. Medications over objection are medically necessary to treat psychosis which is interfering with his ability to communicate and care for self and given lack of PO intake he is at significant risk of or serious physical disability within the next 30 days if he does not receive this treatment. 02/28/21: The patient was admitted to the [facility] ([facility] mental health unit) on q15 min checks (behavioral with suicide precautions) for safety. The patient will participate in group, recreational, and milieu therapies and will be offered additional individual and family sessions as clinically appropriate. He is not able to fully comprehend risks/benefits/alternatives of treatment but did not object to resuming Risperdal. Will start 1 mg Risperdal Mtab BID today with additional Risperdal and Ativan prn. Monitor PO intake. Will attempt fasting labs in AM. He has no abnormal motor movements at baseline but is not fully cooperative with AIMS testing. Inventory Assets Strengths: intelligent, family support locally Needs: likely long acting injectable, outpatient services Risk Factors Assessment Male: Yes : Yes Mental Health Diagnoses: Yes Substance Use Disorders: No Previous Psychiatric Hospitalization: Yes Protective Factors Assessment Employed: No Supportive Family: Yes Interval History Identifying Information ANASTASIYA GARCIA is a 25-year-old , [employer] senior who lives locally with mother, has a history of a brief psychotic episode in October, and was admitted on 02/28/21 05:21 on a 201 voluntary commitment for disorganized behavior and then changed to 304 status. Chief Complaint "I just worry that this will be a pattern no matter what I do", referring to commitment and medication. Review of Systems Sleep Information Total Hours of Sleep: 8.5 Sleep Comments: pt appeared to sleep 1.5 hrs during evening shift. pt on q-15 minute checks Meal Information Percent Meal Consumed - Breakfast: 100 Percent Meal Consumed - Lunch: 100 Percent Meal Consumed - Dinner: 50 Nutrition Comment: Pt isn't hungry Subjective Subjective Patient was seen & assessed and interval progress reviewed with nursing. Patient reports traumatic that he received IM medication his last hospital stay as he doesn't understand what he was doing wrong. When I asked him to expand on his comment about places playing "mind games" he gave a disorganized explanation like if someone said a word and it meant something else in another language. He then switched to discussing an old psych experiment where psych students got t hemselves committed for schizophrenic symptoms and couldn't get out of the hospital. He is upset his family made him talk to someone and is med compliant but has ongoing resistance to medication due to "questions I have" but has difficulty saying what. When psycho pharm education is discussed he seems annoyed "It's not like I want to be a doctor or something". Physical Exam Psychiatric Orientation: alert, oriented x 3, oriented to person and + guarded Apperance: appropriately dressed and appropriately groomed Eye Contact: + poor eye contact Motor Behavior: no abnormal motor movements; n EPS and n akathisia Speech: normal rate/rhythm/volume of speech Affect: + flat affect Mood: no depressed mood Thought Process: + thought blocking and + concrete thought process Thought Content: + paranoid Suicidal Thoughts: denies suicidal thoughts Homicidal Thoughts: denies homicidal thoughts Hallucinations: no auditory hallucinations (but appears internally preoccupied with staff) and no visual hallucinations Cognition: recent memory grossly intact, remote memory grossly intact, attention grossly intact and language grossly intact Insight: + impaired insight Judgement: + impaired judgement Vital Signs (Past 24 Hours) Last Vital Signs Temp 36.6 C 03/10/21 06:40 Pulse 81 03/10/21 06:41 Resp 16 03/10/21 06:40 BP 104/66 03/10/21 06:41 Pulse Ox 98 02/28/21 06:03 Results & Data ([facility]) Current Inpatient Medications Current Inpatient Medications: Current Inpatient Medications Acetaminophen (Acetaminophen 325 Mg Tab) 650 mg PO Q4H PRN PRN Reason: Headache or Minor Fever Stop: 03/30/21 06:20 Al Hydrox/Mg Hydrox/Simethicone (Aluminum/Magnesium Susp 30 Ml Udc) 30 ml PO Q4H PRN PRN Reason: GI Upset Stop: 03/30/21 06:20 Benztropine Mesylate (Benztropine Mesylate 1 Mg Tab) 1 mg PO Q6 PRN PRN Reason: muscle spasm Stop: 03/30/21 17:59 Bismuth Subsalicylate (Bismuth Subsalicylate Liqd 236 Ml) 15 ml PO PRN PRN PRN Reason: Loose Stool Stop: 03/30/21 06:20 Haloperidol Lactate (Haloperidol Lactate 5 Mg/Ml 1 Ml Vial) 5 mg IM QAM PRN PRN Reason: Documentation Stop: 04/02/21 08:59 Hydroxyzine HCl (Hydroxyzine Hcl 25 Mg Tab) 50 mg PO HSZ PRN PRN Reason: Insomnia Stop: 03/30/21 06:20 Hydroxyzine HCl (Hydroxyzine Hcl 25 Mg Tab) 25 mg PO Q4H PRN PRN Reason: Anxiety Stop: 03/30/21 06:20 Lorazepam (Lorazepam 1 Mg Tab) 1 mg PO Q6 PRN PRN Reason: Anxiety/Agitation Stop: 03/30/21 14:23 Last Admin: 03/02/21 09:39 Dose: 1 mg Documented by: Lorazepam (Lorazepam 2 Mg/Ml Vial (Im Use)) 1 mg IM QAM PRN PRN Reason: Documentation Stop: 04/02/21 08:59 Lorazepam (Lorazepam 0.5 Mg Tab) 0.5 mg PO HS [facility] Stop: 04/06/21 21:59 Last Admin: 03/09/21 20:55 Dose: 0.5 mg Documented by: Magnesium Hydroxide (Magnesium Hydroxide Susp 30 Ml Udc) 30 ml PO DAILY PRN PRN Reason: Constipation Stop: 03/30/21 06:20 Risperidone (Risperidone Odt 1mg) 1 mg PO Q8 PRN PRN Reason: Anxiety/Agitation Stop: 03/30/21 14:23 Risperidone (Risperidone Odt 1mg) 1 mg PO DAILY DARYL Stop: 04/02/21 08:59 Last Admin: 03/10/21 09:06 Dose: 1 mg Documented by: Risperidone (Risperidone Odt 1mg) 2 mg PO HS DARYL Stop: 04/03/21 21:59 Last Admin: 03/09/21 20:55 Dose: 2 mg Documented by: Sodium Chloride (Sodium Chloride 0.65% Na Soln 45 Ml ([facility])) 1 - 2 sprays NA BID DARYL Stop: 04/06/21 15:29 Last Admin: 03/10/21 09:08 Dose: 1 sprays Documented by: Mental Health & Subst Abuse Tx Therapist Name of Therapist: None Head Of Marketing [employer] Name of Head Of Marketing [employer]: None
[2021-03-11] MEDS: SODIUM CHLORIDE 0.65% NA SOLN 45 ML (OCEAN) SCH ×2 (08:26→21:08)
--- NOTE | 2021-03-11 14:08 | Psychiatric Progress Note ---
Date of Service March 11, 2021 Impression / Recommendations Impression 25 yo male with first psychotic break less than 6 months ago, adherent with risperidone with improvement but stopped after about 1 month, who presented with acute onset disorganization, hallucinations, feeling paranoia/persecuted with poor self care just after completing fall. Diagnostically consistent with schizophreniform disorder especially with family history of schizophrenia, AH and flat affect with differential including MDD with psychotic features. He is now on a 304 status with significant psychomotor retardation initially concerning for possible catatonia as well as lack of po intake. Encouragingly his oral intake has improved, he's taking his po medications and behaviors becoming more organized but he remains isolative at times, having auditory hallucinations and guarded consistent with psychosis. MNPR due to psychiatric symptoms of psychosis, paranoia and disorganized behaviors. 03/11/21: improving (1) Schizophreniform disorder: 03/11/21: significant interval improvement, declines shift of Risperdal to all hs. Declines APPLE. Agreeable to family meeting. 03/10/21: continue current meds and treatment plan, he notes some neck tightness but denies discomfort and no dystonia on exam. He was made aware Cogentin is available. Continue Ativan taper. 03/09/21: Interim care reviewed. continue current medications and treatment plan. 03/08/21: Continue current medications. Start to consider family meeting in a few days if progress continues. 03/07/21: Discontinue qAM dose of ativan. Continue with risperidone and ativan qhs. Will continue to encourage ROIs to be able to work on establishing outpatient resources. Scheduling saline spray per his request. 03/06/21: Fasting labs reviewed and reassuring. Continue with risperidone and ativan. Encouraging group involvement. He's still not comfortable signing ROIs for family yet. SW looking into options for outpatient support including CM, therapy, psychiatry services. 03/05/21: Fasting lipid panel and glucose in the morning as unable to tolerate earlier in his stay. Decrease ativan to 0.5 mg BID. Continue risperidone 1mg qAM & 2mg qHS. 03/04/21: Increase risperidone to 1 mg qAM and 2mg qHS to further target psychosis. Continue with ativan. 03/03/21: Continue risperidone and ativan po with haldol and ativan IM if refuses. No signs of catatonia today. 03/02/21: Reviewed interim progress per Dr. Saldivar below. Starting medications over objection as I agree that he meets criteria and is at risk if appropriate treatment is not started. Will continue to offer risperidone ODT 1 mg qAM and if refuses will give haldol 5 mg IM and ativan 1mg po qAM & if refuses will give ativan 1 mg IM. Will also offer risperidone 1mg ODT and ativan 1mg po at qhs but will not give IM medications if he refuses the evening po dose. 03/01/21: refusing labs, meds, food, drink. 304 granted. Continue to offer PO Ativan and Risperdal. Will ask Dr. Tobin for a second opinion re: forced medications tomorrow when she assumes clinical responsibility for service. Medications over objection are medically necessary to treat psychosis which is interfering with his ability to communicate and care for self and given lack of PO intake he is at significant risk of or serious physical disability within the next 30 days if he does not receive this treatment. 02/28/21: The patient was admitted to the [facility] ([facility] mental health unit) on q15 min checks (behavioral with suicide precautions) for safety. The patient will participate in group, recreational, and milieu therapies and will be offered additional individual and family sessions as clinically appropriate. He is not able to fully comprehend risks/benefits/alternatives of treatment but did not object to resuming Risperdal. Will start 1 mg Risperdal Mtab BID today with additional Risperdal and Ativan prn. Monitor PO intake. Will attempt fasting labs in AM. He has no abnormal motor movements at baseline but is not fully cooperative with AIMS testing. Inventory Assets Strengths: intelligent, family support locally Needs: likely long acting injectable, outpatient services Risk Factors Assessment Male: Yes : Yes Mental Health Diagnoses: Yes Substance Use Disorders: No Previous Psychiatric Hospitalization: Yes Protective Factors Assessment Employed: No Supportive Family: Yes Interval History Identifying Information ANASTASIYA GARCIA is a 25-year-old , [employer] senior who lives locally with mother, has a history of a brief psychotic episode in October, and was admitted on 02/28/21 05:21 on a 201 voluntary commitment for disorganized behavior and then changed to 304 status. Chief Complaint "I'd like to review my treatment plan and understand what I'm dealing with". Review of Systems Sleep Information Total Hours of Sleep: 7.75 Sleep Comments: pt on q-15 minute checks Meal Information Percent Meal Consumed - Breakfast: 100 Percent Meal Consumed - Lunch: 100 Percent Meal Consumed - Dinner: 100 Nutrition Comment: Pt isn't hungry Subjective Subjective Patient was seen & assessed and interval progress reviewed with nursing and social work. Staff note better participation in groups in that less thought blocked. He denies any recollection of hallucinations and just states that he felt like he was experiencing reality different perhaps. Discussed need to continue medication upon discharge to minimize risk of recurrence and that psychotic symptoms currently less than 6 months so may or may not progress to schizophrenia. He is now agreeing to continue the medication upon discharge but states he's not a pill person but he would prefer pills to a shot. He maintains that he is ready to return to classes as otherwise he doesn't want to end up "in a job I hate". Physical Exam Psychiatric Orientation: alert, oriented x 3 and oriented to person Apperance: appropriately dressed and appropriately groomed Eye Contact: + fair eye contact Motor Behavior: no abnormal motor movements; n EPS and n akathisia Speech: normal rate/rhythm/volume of speech Affect: + constricted affect Mood: no depressed mood Thought Process: + concrete thought process Thought Content: reality based without delusions Suicidal Thoughts: denies suicidal thoughts Homicidal Thoughts: denies homicidal thoughts Hallucinations: no auditory hallucinations and no visual hallucinations Cognition: recent memory grossly intact, remote memory grossly intact, attention grossly intact and language grossly intact Vital Signs (Past 24 Hours) Last Vital Signs Temp 36.8 C 03/11/21 06:39 Pulse 80 03/11/21 06:40 Resp 16 03/11/21 06:39 BP 116/67 03/11/21 06:40 Pulse Ox 98 02/28/21 06:03 Results & Data ([facility]) Current Inpatient Medications Current Inpatient Medications: Current Inpatient Medications Acetaminophen (Acetaminophen 325 Mg Tab) 650 mg PO Q4H PRN PRN Reason: Headache or Minor Fever Stop: 03/30/21 06:20 Al Hydrox/Mg Hydrox/Simethicone (Aluminum/Magnesium Susp 30 Ml Udc) 30 ml PO Q4H PRN PRN Reason: GI Upset Stop: 03/30/21 06:20 Benztropine Mesylate (Benztropine Mesylate 1 Mg Tab) 1 mg PO Q6 PRN PRN Reason: muscle spasm Stop: 03/30/21 17:59 Bismuth Subsalicylate (Bismuth Subsalicylate Liqd 236 Ml) 15 ml PO PRN PRN PRN Reason: Loose Stool Stop: 03/30/21 06:20 Haloperidol Lactate (Haloperidol Lactate 5 Mg/Ml 1 Ml Vial) 5 mg IM QAM PRN PRN Reason: Documentation Stop: 04/02/21 08:59 Hydroxyzine HCl (Hydroxyzine Hcl 25 Mg Tab) 50 mg PO HSZ PRN PRN Reason: Insomnia Stop: 03/30/21 06:20 Hydroxyzine HCl (Hydroxyzine Hcl 25 Mg Tab) 25 mg PO Q4H PRN PRN Reason: Anxiety Stop: 03/30/21 06:20 Lorazepam (Lorazepam 1 Mg Tab) 1 mg PO Q6 PRN PRN Reason: Anxiety/Agitation Stop: 03/30/21 14:23 Last Admin: 03/02/21 09:39 Dose: 1 mg Documented by: Lorazepam (Lorazepam 2 Mg/Ml Vial (Im Use)) 1 mg IM QAM PRN PRN Reason: Documentation Stop: 04/02/21 08:59 Magnesium Hydroxide (Magnesium Hydroxide Susp 30 Ml Udc) 30 ml PO DAILY PRN PRN Reason: Constipation Stop: 03/30/21 06:20 Risperidone (Risperidone Odt 1mg) 1 mg PO Q8 PRN PRN Reason: Anxiety/Agitation Stop: 03/30/21 14:23 Risperidone (Risperidone Odt 1mg) 1 mg PO DAILY DARYL Stop: 04/02/21 08:59 Last Admin: 03/11/21 08:24 Dose: 1 mg Documented by: Risperidone (Risperidone Odt 1mg) 2 mg PO HS DARYL Stop: 04/03/21 21:59 Last Admin: 03/10/21 21:18 Dose: 2 mg Documented by: Sodium Chloride (Sodium Chloride 0.65% Na Soln 45 Ml ([place])) 1 - 2 sprays NA BID DARYL Stop: 04/06/21 15:29 Last Admin: 03/11/21 08:26 Dose: 1 sprays Documented by: Mental Health & Subst Abuse Tx Therapist Name of Therapist: None Tug Hand Name of Tug Hand: None
[2021-03-12] MEDS: SODIUM CHLORIDE 0.65% NA SOLN 45 ML (OCEAN) SCH ×2 (08:42→21:41)
--- NOTE | 2021-03-12 10:35 | Psychiatric Progress Note ---
Date of Service March 12, 2021 Impression / Recommendations Impression 25 yo male with first psychotic break less than 6 months ago, adherent with risperidone with improvement but stopped after about 1 month, who presented with acute onset disorganization, hallucinations, feeling paranoia/persecuted with poor self care just after completing fall. Diagnostically consistent with schizophreniform disorder especially with family history of schizophrenia, AH and flat affect with differential including MDD with psychotic features. He is now on a 304 status with significant psychomotor retardation initially concerning for possible catatonia as well as lack of po intake. Encouragingly his oral intake has improved, he's taking his po medications and behaviors becoming more organized but he remains isolative at times, having auditory hallucinations and guarded consistent with psychosis. MNPR due to psychiatric symptoms of psychosis, paranoia and disorganized behaviors--reassess after family meeting on 03/13/20. 03/12/21: improving (1) Schizophreniform disorder: 03/12/21: family meeting 03/13/20. He states he wants to return to college following discharge. He still minimizes longer term need for medication. 03/11/21: significant interval improvement, declines shift of Risperdal to all hs. Declines APPLE. Agreeable to family meeting. 03/10/21: continue current meds and treatment plan, he notes some neck tightness but denies discomfort and no dystonia on exam. He was made aware Cogentin is available. Continue Ativan taper. 03/09/21: Interim care reviewed. continue current medications and treatment plan. 03/08/21: Continue current medications. Start to consider family meeting in a few days if progress continues. 03/07/21: Discontinue qAM dose of ativan. Continue with risperidone and ativan qhs. Will continue to encourage ROIs to be able to work on establishing outpatient resources. Scheduling saline spray per his request. 03/06/21: Fasting labs reviewed and reassuring. Continue with risperidone and ativan. Encouraging group involvement. He's still not comfortable signing ROIs for family yet. SW looking into options for outpatient support including CM, therapy, psychiatry services. 03/05/21: Fasting lipid panel and glucose in the morning as unable to tolerate earlier in his stay. Decrease ativan to 0.5 mg BID. Continue risperidone 1mg qAM & 2mg qHS. 03/04/21: Increase risperidone to 1 mg qAM and 2mg qHS to further target psychosis. Continue with ativan. 03/03/21: Continue risperidone and ativan po with haldol and ativan IM if refuses. No signs of catatonia today. 03/02/21: Reviewed interim progress per Dr. Saldivar below. Starting medications over objection as I agree that he meets criteria and is at risk if appropriate treatment is not started. Will continue to offer risperidone ODT 1 mg qAM and if refuses will give haldol 5 mg IM and ativan 1mg po qAM & if refuses will give ativan 1 mg IM. Will also offer risperidone 1mg ODT and ativan 1mg po at qhs but will not give IM medications if he refuses the evening po dose. 03/01/21: refusing labs, meds, food, drink. 304 granted. Continue to offer PO Ativan and Risperdal. Will ask Dr. Tobin for a second opinion re: forced medications tomorrow when she assumes clinical responsibility for service. Medications over objection are medically necessary to treat psychosis which is interfering with his ability to communicate and care for self and given lack of PO intake he is at significant risk of or serious physical disability within the next 30 days if he does not receive this treatment. 02/28/21: The patient was [facility] to the [facility] ([facility] mental health unit) on q15 min checks (behavioral with suicide precautions) for safety. The patient will participate in group, recreational, and milieu therapies and will be offered additional individual and family sessions as clinically appropriate. He is not able to fully comprehend risks/benefits/alternatives of treatment but did not object to resuming Risperdal. Will start 1 mg Risperdal Mtab BID today with additional Risperdal and Ativan prn. Monitor PO intake. Will attempt fasting labs in AM. He has no abnormal motor movements at baseline but is not fully cooperative with AIMS testing. Inventory Assets Strengths: intelligent, family support locally Needs: likely long acting injectable, outpatient services Risk Factors Assessment Male: Yes : Yes Mental Health Diagnoses: Yes Substance Use Disorders: No Previous Psychiatric Hospitalization: Yes Protective Factors Assessment Employed: No Supportive Family: Yes Interval History Identifying Information ANASTASIYA GARCIA is a 25-year-old , [employer] senior who lives locally with mother, has a history of a brief psychotic episode in October, and was admitted on 02/28/21 05:21 on a 201 voluntary commitment for disorganized behavior and then changed to 304 status. Chief Complaint "My concentration is improved" Review of Systems Sleep Information Total Hours of Sleep: 6.5 Sleep Comments: pt on q-15 minute checks Meal Information Percent Meal Consumed - Breakfast: 100 Percent Meal Consumed - Lunch: 100 Percent Meal Consumed - Dinner: 100 Nutrition Comment: Pt isn't hungry Subjective Subjective Patient was seen & assessed and interval progress reviewed with treatment team. Less thought blocking yesterday. Apparently had gotten very anxious/upset over weekend as misinterpreted materials on advanced directives. He is completing puzzle books and reading and less delay in response. Physical Exam Psychiatric Orientation: alert and oriented x 3 Apperance: appropriately dressed and appropriately groomed Eye Contact: + fair eye contact Motor Behavior: no abnormal motor movements Speech: normal rate/rhythm/volume of speech Affect: + constricted affect Mood: + anxious mood; no depressed mood Thought Process: + concrete thought process Thought Content: reality based without delusions Suicidal Thoughts: denies suicidal thoughts Homicidal Thoughts: denies homicidal thoughts Hallucinations: no auditory hallucinations and no visual hallucinations Cognition: recent memory grossly intact, remote memory grossly intact, attention grossly intact and language grossly intact Insight: + impaired insight Judgement: + impaired judgement Vital Signs (Past 24 Hours) Last Vital Signs Temp 36.7 C 03/12/21 06:40 Pulse 74 03/12/21 06:41 Resp 16 03/12/21 06:40 BP 120/72 03/12/21 06:41 Pulse Ox 98 02/28/21 06:03 Results & Data ([facility]) Current Inpatient Medications Current Inpatient Medications: Current Inpatient Medications Acetaminophen (Acetaminophen 325 Mg Tab) 650 mg PO Q4H PRN PRN Reason: Headache or Minor Fever Stop: 03/30/21 06:20 Al Hydrox/Mg Hydrox/Simethicone (Aluminum/Magnesium Susp 30 Ml Udc) 30 ml PO Q4H PRN PRN Reason: GI Upset Stop: 03/30/21 06:20 Benztropine Mesylate (Benztropine Mesylate 1 Mg Tab) 1 mg PO Q6 PRN PRN Reason: muscle spasm Stop: 03/30/21 17:59 Bismuth Subsalicylate (Bismuth Subsalicylate Liqd 236 Ml) 15 ml PO PRN PRN PRN Reason: Loose Stool Stop: 03/30/21 06:20 Haloperidol Lactate (Haloperidol Lactate 5 Mg/Ml 1 Ml Vial) 5 mg IM QAM PRN PRN Reason: Documentation Stop: 04/02/21 08:59 Hydroxyzine HCl (Hydroxyzine Hcl 25 Mg Tab) 50 mg PO HSZ PRN PRN Reason: Insomnia Stop: 03/30/21 06:20 Hydroxyzine HCl (Hydroxyzine Hcl 25 Mg Tab) 25 mg PO Q4H PRN PRN Reason: Anxiety Stop: 03/30/21 06:20 Lorazepam (Lorazepam 1 Mg Tab) 1 mg PO Q6 PRN PRN Reason: Anxiety/Agitation Stop: 03/30/21 14:23 Last Admin: 03/02/21 09:39 Dose: 1 mg Documented by: Lorazepam (Lorazepam 2 Mg/Ml Vial (Im Use)) 1 mg IM QAM PRN PRN Reason: Documentation Stop: 04/02/21 08:59 Magnesium Hydroxide (Magnesium Hydroxide Susp 30 Ml Udc) 30 ml PO DAILY PRN PRN Reason: Constipation Stop: 03/30/21 06:20 Risperidone (Risperidone Odt 1mg) 1 mg PO Q8 PRN PRN Reason: Anxiety/Agitation Stop: 03/30/21 14:23 Risperidone (Risperidone Odt 1mg) 1 mg PO DAILY DARYL Stop: 04/02/21 08:59 Last Admin: 03/12/21 08:39 Dose: 1 mg Documented by: Risperidone (Risperidone Odt 1mg) 2 mg PO HS DARYL Stop: 04/03/21 21:59 Last Admin: 03/11/21 21:07 Dose: 2 mg Documented by: Sodium Chloride (Sodium Chloride 0.65% Na Soln 45 Ml ([place])) 1 - 2 sprays NA BID DARYL Stop: 04/06/21 15:29 Last Admin: 03/12/21 08:42 Dose: 1 sprays Documented by: Mental Health & Subst Abuse Tx Therapist Name of Therapist: None Statistical Methods Professor Name of Statistical Methods Professor: None
[2021-03-13] MEDS: SODIUM CHLORIDE 0.65% NA SOLN 45 ML (OCEAN) SCH ×2 (08:23→21:18)
--- NOTE | 2021-03-13 11:58 | Psychiatric Progress Note ---
Date of Service March 13, 2021 Impression / Recommendations Impression 25 yo male with first psychotic break less than 6 months ago, adherent with risperidone with improvement but stopped after about 1 month, who presented with acute onset disorganization, hallucinations, feeling paranoia/persecuted with poor self care just after completing fall. Diagnostically consistent with schizophreniform disorder especially with family history of schizophrenia, AH and flat affect with differential including MDD with psychotic features. He is now on a 304 status with significant psychomotor retardation initially concerning for possible catatonia as well as lack of po intake. Encouragingly his oral intake has improved, he's taking his po medications and behaviors becoming more organized but he remains isolative at times, having auditory hallucinations and guarded consistent with psychosis. 03/13/21: improving Plan: d/c MNPR (1) Schizophreniform disorder: Inventory Assets Strengths: intelligent, family support locally Needs: likely long acting injectable, outpatient services Risk Factors Assessment Male: Yes : Yes Mental Health Diagnoses: Yes Substance Use Disorders: No Previous Psychiatric Hospitalization: Yes Protective Factors Assessment Employed: No Supportive Family: Yes Interval History Identifying Information ANASTASIYA GARCIA is a 25-year-old , [employer] senior who lives locally with mother, has a history of a brief psychotic episode in October, and was admitted on 02/28/21 05:21 on a 201 voluntary commitment for disorganized behavior and then changed to 304 status. Chief Complaint "I'm feeling better, it's hard to admit I have a problem though". Review of Systems Sleep Information Total Hours of Sleep: 6.5 Sleep Comments: pt on q-15 minute checks Meal Information Percent Meal Consumed - Breakfast: 100 Percent Meal Consumed - Lunch: 100 Percent Meal Consumed - Dinner: 100 Subjective Subjective Patient was seen & assessed and interval progress reviewed with nursing and social work. Met with patient and participated in family meeting. Parents asked appropriate questions re: aftercare and how to remain involved in his care. Patient desires to return to classes but is willing to return home for a few days before transitioning back to his apartment. Physical Exam Psychiatric Orientation: alert Apperance: appropriately dressed and appropriately groomed Eye Contact: + fair eye contact Motor Behavior: no abnormal motor movements; n EPS and n akathisia Speech: normal rate/rhythm/volume of speech Mood: + anxious mood; no depressed mood Thought Process: + concrete thought process Thought Content: reality based without delusions Suicidal Thoughts: denies suicidal thoughts Homicidal Thoughts: denies homicidal thoughts Hallucinations: no auditory hallucinations and no visual hallucinations Cognition: recent memory grossly intact, remote memory grossly intact, attention grossly intact and language grossly intact Vital Signs (Past 24 Hours) Last Vital Signs Temp 36.8 C 03/13/21 06:39 Pulse 75 03/13/21 06:40 Resp 16 03/13/21 06:39 BP 95/54 L 03/13/21 06:40 Pulse Ox 98 02/28/21 06:03 Results & Data ([facility]) Current Inpatient Medications Current Inpatient Medications: Current Inpatient Medications Acetaminophen (Acetaminophen 325 Mg Tab) 650 mg PO Q4H PRN PRN Reason: Headache or Minor Fever Stop: 03/30/21 06:20 Al Hydrox/Mg Hydrox/Simethicone (Aluminum/Magnesium Susp 30 Ml Udc) 30 ml PO Q4H PRN PRN Reason: GI Upset Stop: 03/30/21 06:20 Benztropine Mesylate (Benztropine Mesylate 1 Mg Tab) 1 mg PO Q6 PRN PRN Reason: muscle spasm Stop: 03/30/21 17:59 Bismuth Subsalicylate (Bismuth Subsalicylate Liqd 236 Ml) 15 ml PO PRN PRN PRN Reason: Loose Stool Stop: 03/30/21 06:20 Haloperidol Lactate (Haloperidol Lactate 5 Mg/Ml 1 Ml Vial) 5 mg IM QAM PRN PRN Reason: Documentation Stop: 04/02/21 08:59 Hydroxyzine HCl (Hydroxyzine Hcl 25 Mg Tab) 50 mg PO HSZ PRN PRN Reason: Insomnia Stop: 03/30/21 06:20 Hydroxyzine HCl (Hydroxyzine Hcl 25 Mg Tab) 25 mg PO Q4H PRN PRN Reason: Anxiety Stop: 03/30/21 06:20 Lorazepam (Lorazepam 1 Mg Tab) 1 mg PO Q6 PRN PRN Reason: Anxiety/Agitation Stop: 03/30/21 14:23 Last Admin: 03/02/21 09:39 Dose: 1 mg Documented by: Lorazepam (Lorazepam 2 Mg/Ml Vial (Im Use)) 1 mg IM QAM PRN PRN Reason: Documentation Stop: 04/02/21 08:59 Magnesium Hydroxide (Magnesium Hydroxide Susp 30 Ml Udc) 30 ml PO DAILY PRN PRN Reason: Constipation Stop: 03/30/21 06:20 Risperidone (Risperidone Odt 1mg) 1 mg PO Q8 PRN PRN Reason: Anxiety/Agitation Stop: 03/30/21 14:23 Risperidone (Risperidone Odt 1mg) 1 mg PO DAILY DARYL Stop: 04/02/21 08:59 Last Admin: 03/13/21 08:25 Dose: 1 mg Documented by: Risperidone (Risperidone Odt 1mg) 2 mg PO HS DARYL Stop: 04/03/21 21:59 Last Admin: 03/12/21 21:26 Dose: 2 mg Documented by: Sodium Chloride (Sodium Chloride 0.65% Na Soln 45 Ml ([place])) 1 - 2 sprays NA BID DARYL Stop: 04/06/21 15:29 Last Admin: 03/13/21 08:23 Dose: 1 sprays Documented by: Mental Health & Subst Abuse Tx Psychiatrist Name of Psychiatrist: [facility] Date of Appointment with Psychiatrist: 03/22/21 Time of Appointment with Psychiatrist: 8:15am Psychiatric Appointment Comment: [place] [address] Therapist Name of Therapist: Nhi Madrigal Therapist's Date of Therapist Appointment: 03/21/21 Time of Therapist Appointment: 8:30a Therapy Appointment Comment: [address], [address], [place] Information Systems Consultant Name of Information Systems Consultant: [employer] Date of Appointment with Information Systems Consultant: 03/12/21 Time of Appointment with Information Systems Consultant: 3p Case Management Appointment Comment: intake via phone Post Discharge Appointments Primary Care Physician Name Of Family Doctor: Shayne [facility] Date of Appointment with PCP: 03/19/21 Time of Appointment with PCP: 11:00 AM Provider Appointment Comment: [address], [place] [address] Contact Information Discharge Discharge Address: [address] [place] [address] [place] [address]
[2021-03-14] MEDS: SODIUM CHLORIDE 0.65% NA SOLN 45 ML (OCEAN) SCH ×2 (09:12→20:42)
--- NOTE | 2021-03-14 12:27 | Psychiatric Progress Note ---
Date of Service March 14, 2021 Impression / Recommendations Impression 25 yo male with first psychotic break less than 6 months ago, adherent with risperidone with improvement but stopped after about 1 month, who presented with acute onset disorganization, hallucinations, feeling paranoia/persecuted with poor self care just after completing fall. Diagnostically consistent with schizophreniform disorder especially with family history of schizophrenia, AH and flat affect with differential including MDD with psychotic features. He is now on a 304 status with significant psychomotor retardation initially concerning for possible catatonia as well as lack of po intake. Encouragingly his oral intake has improved, he's taking his po medications and behaviors becoming more organized but he remains isolative at times, having auditory hallucinations and guarded consistent with psychosis. 03/14/21: improving Plan: continue current meds and treatment plan >50% time spent on counseling and coordination of care as per HPI, patient and family want to avoid an outpatient commitment as he is agreeing to appropriate treatment. (1) Schizophreniform disorder: 03/12/21: family meeting 03/13/20. He states he wants to return to college following discharge. He still minimizes longer term need for medication. 03/11/21: significant interval improvement, declines shift of Risperdal to all hs. Declines APPLE. Agreeable to family meeting. 03/10/21: continue current meds and treatment plan, he notes some neck tightness but denies discomfort and no dystonia on exam. He was made aware Cogentin is available. Continue Ativan taper. 03/09/21: Interim care reviewed. continue current medications and treatment plan. 03/08/21: Continue current medications. Start to consider family meeting in a few days if progress continues. 03/07/21: Discontinue qAM dose of ativan. Continue with risperidone and ativan qhs. Will continue to encourage ROIs to be able to work on establishing outpatient resources. Scheduling saline spray per his request. 03/06/21: Fasting labs reviewed and reassuring. Continue with risperidone and ativan. Encouraging group involvement. He's still not comfortable signing ROIs for family yet. SW looking into options for outpatient support including CM, therapy, psychiatry services. 03/05/21: Fasting lipid panel and glucose in the morning as unable to tolerate earlier in his stay. Decrease ativan to 0.5 mg BID. Continue risperidone 1mg qAM & 2mg qHS. 03/04/21: Increase risperidone to 1 mg qAM and 2mg qHS to further target psychosis. Continue with ativan. 03/03/21: Continue risperidone and ativan po with haldol and ativan IM if refuses. No signs of catatonia today. 03/02/21: Reviewed interim progress per Dr. Saldivar below. Starting medications over objection as I agree that he meets criteria and is at risk if appropriate treatment is not started. Will continue to offer risperidone ODT 1 mg qAM and if refuses will give haldol 5 mg IM and ativan 1mg po qAM & if refuses will give ativan 1 mg IM. Will also offer risperidone 1mg ODT and ativan 1mg po at qhs but will not give IM medications if he refuses the evening po dose. 03/01/21: refusing labs, meds, food, drink. 304 granted. Continue to offer PO Ativan and Risperdal. Will ask Dr. Tobin for a second opinion re: forced medications tomorrow when she assumes clinical responsibility for service. Medications over objection are medically necessary to treat psychosis which is interfering with his ability to communicate and care for self and given lack of PO intake he is at significant risk of or serious physical disability within the next 30 days if he does not receive this treatment. 02/28/21: The patient was admitted to the [facility] ([facility]) on q15 min checks (behavioral with suicide precautions) for safety. The patient will participate in group, recreational, and milieu therapies and will be offered additional individual and family sessions as clinically ap propriate. He is not able to fully comprehend risks/benefits/alternatives of treatment but did not object to resuming Risperdal. Will start 1 mg Risperdal Mtab BID today with additional Risperdal and Ativan prn. Monitor PO intake. Will attempt fasting labs in AM. He has no abnormal motor movements at baseline but is not fully cooperative with AIMS testing. Inventory Assets Strengths: intelligent, family support locally Needs: likely long acting injectable, outpatient services Risk Factors Assessment Male: Yes : Yes Mental Health Diagnoses: Yes Substance Use Disorders: No Previous Psychiatric Hospitalization: Yes Protective Factors Assessment Employed: No Supportive Family: Yes Interval History Identifying Information ANASTASIYA GARCIA is a 25-year-old , [employer] senior who lives locally with mother, has a history of a brief psychotic episode in October, and was admitted on 02/28/21 05:21 on a 201 voluntary commitment for disorganized behavior and then changed to 304 status. Chief Complaint "I really don't want to come back here". Review of Systems Sleep Information Total Hours of Sleep: 6 Sleep Comments: pt on q-154 minute checks Meal Information Percent Meal Consumed - Breakfast: 100 Percent Meal Consumed - Lunch: 100 Percent Meal Consumed - Dinner: 100 Nutrition Comment: Pt isn't hungry Subjective Subjective Patient was seen & assessed and interval progress reviewed with treatment team. Discussed his commitment status as he states he was not aware of his status. Discussed that can be converted to outpatient so important he commit to continuing medication/treatment. Reinforced his level of functioning on admission vs. now. He is only now aware of level of thought blocking. He would prefer not to continue on a commitment. Explained dx and option of outpatient commitment to mother as follow up to family meeting. She voiced good understanding and supports Soren "having a chance". Physical Exam Psychiatric Orientation: alert, oriented x 3 and oriented to person Apperance: appropriately dressed and appropriately groomed Eye Contact: + fair eye contact Motor Behavior: no abnormal motor movements Speech: normal rate/rhythm/volume of speech Mood: + anxious mood; no depressed mood Thought Process: linear/logical thought process Thought Content: reality based without delusions Suicidal Thoughts: denies suicidal thoughts Homicidal Thoughts: denies homicidal thoughts Hallucinations: no auditory hallucinations and no visual hallucinations Cognition: attention grossly intact and language grossly intact Vital Signs (Past 24 Hours) Last Vital Signs Temp 36.8 C 03/14/21 06:41 Pulse 78 03/14/21 06:42 Resp 16 03/14/21 06:41 BP 107/72 03/14/21 06:42 Pulse Ox 98 02/28/21 06:03 Results & Data ([facility]) Current Inpatient Medications Current Inpatient Medications: Current Inpatient Medications Acetaminophen (Acetaminophen 325 Mg Tab) 650 mg PO Q4H PRN PRN Reason: Headache or Minor Fever Stop: 03/30/21 06:20 Al Hydrox/Mg Hydrox/Simethicone (Aluminum/Magnesium Susp 30 Ml Udc) 30 ml PO Q4H PRN PRN Reason: GI Upset Stop: 03/30/21 06:20 Benztropine Mesylate (Benztropine Mesylate 1 Mg Tab) 1 mg PO Q6 PRN PRN Reason: muscle spasm Stop: 03/30/21 17:59 Bismuth Subsalicylate (Bismuth Subsalicylate Liqd 236 Ml) 15 ml PO PRN PRN PRN Reason: Loose Stool Stop: 03/30/21 06:20 Haloperidol Lactate (Haloperidol Lactate 5 Mg/Ml 1 Ml Vial) 5 mg IM QAM PRN PRN Reason: Documentation Stop: 04/02/21 08:59 Hydroxyzine HCl (Hydroxyzine Hcl 25 Mg Tab) 50 mg PO HSZ PRN PRN Reason: Insomnia Stop: 03/30/21 06:20 Hydroxyzine HCl (Hydroxyzine Hcl 25 Mg Tab) 25 mg PO Q4H PRN PRN Reason: Anxiety Stop: 03/30/21 06:20 Lorazepam (Lorazepam 1 Mg Tab) 1 mg PO Q6 PRN PRN Reason: Anxiety/Agitation Stop: 03/30/21 14:23 Last Admin: 03/02/21 09:39 Dose: 1 mg Documented by: Lorazepam (Lorazepam 2 Mg/Ml Vial (Im Use)) 1 mg IM QAM PRN PRN Reason: Documentation Stop: 04/02/21 08:59 Magnesium Hydroxide (Magnesium Hydroxide Susp 30 Ml Udc) 30 ml PO DAILY PRN PRN Reason: Constipation Stop: 03/30/21 06:20 Risperidone (Risperidone Odt 1mg) 1 mg PO Q8 PRN PRN Reason: Anxiety/Agitation Stop: 03/30/21 14:23 Risperidone (Risperidone Odt 1mg) 1 mg PO DAILY DARYL Stop: 04/02/21 08:59 Last Admin: 03/14/21 09:06 Dose: 1 mg Documented by: Risperidone (Risperidone Odt 1mg) 2 mg PO HS DARYL Stop: 04/03/21 21:59 Last Admin: 03/13/21 21:05 Dose: 2 mg Documented by: Sodium Chloride (Sodium Chloride 0.65% Na Soln 45 Ml ([place])) 1 - 2 sprays NA BID DARYL Stop: 04/06/21 15:29 Last Admin: 03/14/21 09:12 Dose: 1 sprays Documented by: Mental Health & Subst Abuse Tx Psychiatrist Name of Psychiatrist: [facility] Date of Appointment with Psychiatrist: 03/22/21 Time of Appointment with Psychiatrist: 8:15am Psychiatric Appointment Comment: [place] [address] Therapist Name of Therapist: Nhi Madrigal Therapist's Date of Therapist Appointment: 03/21/21 Time of Therapist Appointment: 8:30a Therapy Appointment Comment: [address], [address], [place] Stenciling Machine Tender Name of Stenciling Machine Tender: [facility] Date of Appointment with Stenciling Machine Tender: 03/12/21 Time of Appointment with Stenciling Machine Tender: 3p Case Management Appointment Comment: intake via phone Post Discharge Appointments Primary Care Physician Name Of Family Doctor: Shayne [facility] Date of Appointment with PCP: 03/19/21 Time of Appointment with PCP: 11:00 AM Provider Appointment Comment: [place] [address] Contact Information Discharge Discharge Address: [address] [place] [address] [place] [address]
[2021-03-15] MEDS: SODIUM CHLORIDE 0.65% NA SOLN 45 ML (OCEAN) SCH (09:08)
--- NOTE | 2021-03-15 10:01 | Discharge Summary ---
Date of Service March 15, 2021 History of Present Illness The patient is having severe thought blocking and cannot provide much history, doesn't even endorse yes/no nod consistently. The patient's mother accompanied him to the ED reporting 3 days of change in behavior. No known substance abuse. May have been triggered by loss of an uncle as timing coincides with the services but he does have a history of a similar episode in October. He was hospitalized in [place] and diagnosed with schizophrenia or psychotic break and given a 1 month supply of Risperdal 2 mg hs. He stopped the medication and his fall was reportedly fine and he completed finals just last week without incident. 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 In the emergency room he received 1 dose of Ativan for some paranoia but he was not aggressive. He endorsed hearing voices making fun of him or telling him to "be gone" or "do something sexual or ". He will not elaborate here and appears internally preoccupied. He has been sleeping in his room up until arrival on the unit. He is currently declining food/drink. His appetite has re portedly been poor as well as his self care and he did have ketones in urine in ED. Head CT was unremarkable. Physical Exam Psychiatric See admission H&P and DOD summary. Vital Signs (Past 24 Hours) Last Vital Signs Temp 36.7 C 03/15/21 09:48 Pulse 65 03/15/21 09:48 Resp 18 03/15/21 09:48 BP 120/70 03/15/21 09:48 Pulse Ox 98 03/15/21 09:48 Principal Diagnosis schizophreniform disorder Psychiatric Data See daily stay summary. In short, safety was maintained and the patient was initially disorganized and uncooperative with care. Given his level of thought blocking and inability to communicate it was no longer appropriate for him to continue on a voluntary commitment and a 304 hearing was held. His parents were supportive of this intervention given the urgent medical necessity. At that time he was not eating, drinking, speaking, or taking PO medication due to his paranoia/psychosis and general though disorganization. He ultimately did take Ativan and Risperdal and symptoms improved. His thought blocking gradually improved. Medication changes included restarting standing Risperdal and titrating to 3 mg total daily dose and they tolerated this well. A family session was held with his parents and safety plan was completed prior to discharge. There were extensive discussions with the patient about his diagnosis, risk of recurrent psychosis/schizophrenia and need to continue antipsychotic medication for at least 1 year. He was resistant to the idea of having a condition that requires ongoing treatment but ultimately his insight improved and he agreed to outpatient therapy and medication management. He repeatedly declined a long acting injectable medication. The pros/cons of continuing his 304 commitment on an outpatient basis and family supported discontinuing at discharge and giving him the opportunity to make the right choices with regards to his follow up care with the understanding that he could be rehospitalized if meets criteria regardless. He does not use drugs or binge drink alcohol but risks of these substances in combination with his thought disorder and medications were reviewed as college student who will be living with his roommates when classes resume, assuming he is behaviorally appropriate during his few days at home. Day of Discharge Assessment Today the patient voices readiness for discharge. They note improvement in mood and deny thoughts to harm self or others. Thoughts remain organized and they are improved from admission. There is no evidence of psychosis. They agree to take mediations as prescribed and keep follow-up appointments. They are stable for discharge to outpatient level of care. Transition of Care Transition Of Care Record: was reviewed with the patient Advance Directives Advance Directives Information Provided: Yes Advance Directives: No Mental Health Advance Directive: No Advance Directives on File: No Living Will: No Power of Quality Control Specialist: No Advance Directives Reason:: Declines as Mental Health Visit. Risk Factors Assessment Male: Yes : Yes Mental Health Diagnoses: Yes Substance Use Disorders: No Previous Psychiatric Hospitalization: Yes Protective Factors Assessment Employed: No Supportive Family: Yes Tobacco Cessation at Discharge Tobacco Cessation Medication Prescribed at Discharge: Not Applicable/Non-Smoker Total Time Total Time Spent: Greater Than 30 Minutes Total Time Includes: Examination of the patient, Discharge Planning and Medication Reconciliation Discharge Data Lab Results 02/28/21 02/28/21 02/28/21 02:15 02:15 02:19 WBC RBC Hgb Hct MCV MCH MCHC RDW Std Deviation RDW Coeff of Ashanti Plt Count MPV Immature Gran % (Auto) Neut % (Auto) Lymph % (Auto) [place] % (Auto) Eos % (Auto) Baso % (Auto) Neut # (Auto) Lymph # (Auto) [place] # (Auto) Eos # (Auto) Baso # (Auto) Immature Gran # (Auto) Sodium Potassium Chloride Carbon Dioxide Anion Gap BUN Creatinine Est Cr Clr Drug Dosing Est GFR ( Amer) Est GFR (Non-Af Amer) BUN/Creatinine Ratio Glucose Fasting Glucose Calcium Total Bilirubin AST ALT Alkaline Phosphatase Total Protein Albumin Globulin Albumin/Globulin Ratio Triglycerides Cholesterol LDL Cholesterol, Calc VLDL Cholesterol, Calc HDL Cholesterol Cholesterol/HDL Ratio TSH Urine Color Yellow Urine Appearance Clear Urine pH 5.0 Ur Specific [place] 1.017 Urine Protein Negative Urine Glucose (UA) Negative Urine Ketones 2+ H Urine Blood Trace H Urine Nitrite Negative Urine Bilirubin Negative Urine Urobilinogen Negative Ur Leukocyte Esterase Negative Urine WBC (Auto) 1-5 Urine RBC (Auto) 0-4 U Hyaline Cast (Auto) 5-10 H U Epithel Cells (Auto) 5-10 H Urine Bacteria (Auto) Negative Salicylates Urine Opiates Screen Neg Ur Methadone, Qual Neg Acetaminophen Urine Barbiturates Neg Ur Phencyclidine (PCP) Neg U Amphetamin/Meth Scrn Neg MDMA (Ecstasy) Screen Neg U Benzodiazepines Scrn Neg Ur Cocaine Metabolite Neg U Marijuana (THC) Screen Neg Ethyl Alcohol mg/dL SARS-CoV-2, RNA, NAAT NEGATIVE 02/28/21 02/28/21 02/28/21 02:22 02:22 02:22 WBC 9.16 RBC 6.18 H Hgb 18.7 H Hct 51.6 MCV 83.5 MCH 30.3 MCHC 36.2 H RDW Std Deviation 37.1 RDW Coeff of Ashanti 12.4 Plt Count 260 MPV 9.9 Immature Gran % (Auto) 0.2 Neut % (Auto) 77.1 Lymph % (Auto) 13.4 [place] % (Auto) 9.1 Eos % (Auto) 0.1 Baso % (Auto) 0.1 Neut # (Auto) 7.06 H Lymph # (Auto) 1.23 [place] # (Auto) 0.83 H Eos # (Auto) 0.01 Baso # (Auto) 0.01 Immature Gran # (Auto) 0.02 Sodium 139 Potassium 3.4 L Chloride 104 Carbon Dioxide 25 Anion Gap 10.0 BUN 16 Creatinine 1.06 Est Cr Clr Drug Dosing 104.9 Est GFR ( Amer) 114.1 Est GFR (Non-Af Amer) 98.4 BUN/Creatinine Ratio 14.6 Glucose 105 H Fasting Glucose Calcium 9.7 Total Bilirubin 0.8 AST 21 ALT 28 Alkaline Phosphatase 91 Total Protein 8.6 H Albumin 4.8 Globulin 3.8 Albumin/Globulin Ratio 1.3 Triglycerides Cholesterol LDL Cholesterol, Calc VLDL Cholesterol, Calc HDL Cholesterol Cholesterol/HDL Ratio TSH 2.440 Urine Color Urine Appearance Urine pH Ur Specific [place] Urine Protein Urine Glucose (UA) Urine Ketones Urine Blood Urine Nitrite Urine Bilirubin Urine Urobilinogen Ur Leukocyte Esterase Urine WBC (Auto) Urine RBC (Auto) U Hyaline Cast (Auto) U Epithel Cells (Auto) Urine Bacteria (Auto) Salicylates < 1.7 L Urine Opiates Screen Ur Methadone, Qual Acetaminophen < 2 L Urine Barbiturates Ur Phencyclidine (PCP) U Amphetamin/Meth Scrn MDMA (Ecstasy) Screen U Benzodiazepines Scrn Ur Cocaine Metabolite U Marijuana (THC) Screen Ethyl Alcohol mg/dL SARS-CoV-2, RNA, NAAT 02/28/21 03/06/21 02:22 07:33 WBC RBC Hgb Hct MCV MCH MCHC RDW Std Deviation RDW Coeff of Ashanti Plt Count MPV Immature Gran % (Auto) Neut % (Auto) Lymph % (Auto) [place] % (Auto) Eos % (Auto) Baso % (Auto) Neut # (Auto) Lymph # (Auto) [place] # (Auto) Eos # (Auto) Baso # (Auto) Immature Gran # (Auto) Sodium Potassium Chloride Carbon Dioxide Anion Gap BUN Creatinine Est Cr Clr Drug Dosing Est GFR ( Amer) Est GFR (Non-Af Amer) BUN/Creatinine Ratio Glucose Fasting Glucose 91 Calcium Total Bilirubin AST ALT Alkaline Phosphatase Total Protein Albumin Globulin Albumin/Globulin Ratio Triglycerides 91 Cholesterol 123 LDL Cholesterol, Calc 72 VLDL Cholesterol, Calc 18 HDL Cholesterol 33 Cholesterol/HDL Ratio 4 TSH Urine Color Urine Appearance Urine pH Ur Specific [place] Urine Protein Urine Glucose (UA) Urine Ketones Urine Blood Urine Nitrite Urine Bilirubin Urine Urobilinogen Ur Leukocyte Esterase Urine WBC (Auto) Urine RBC (Auto) U Hyaline Cast (Auto) U Epithel Cells (Auto) Urine Bacteria (Auto) Salicylates Urine Opiates Screen Ur Methadone, Qual Acetaminophen Urine Barbiturates Ur Phencyclidine (PCP) U Amphetamin/Meth Scrn MDMA (Ecstasy) Screen U Benzodiazepines Scrn Ur Cocaine Metabolite U Marijuana (THC) Screen Ethyl Alcohol mg/dL < 3.0 SARS-CoV-2, RNA, NAAT Hospital Course (1) Schizophreniform disorder: 03/12/21: family meeting 03/13/20. He states he wants to return to college following discharge. He still minimizes longer term need for medication. 03/11/21: significant interval improvement, declines shift of Risperdal to all hs. Declines APPLE. Agreeable to family meeting. 03/10/21: continue current meds and treatment plan, he notes some neck tightness but denies discomfort and no dystonia on exam. He was made aware Cogentin is available. Continue Ativan taper. 03/09/21: Interim care reviewed. continue current medications and treatment plan. 03/08/21: Continue current medications. Start to consider family meeting in a few days if progress continues. 03/07/21: Discontinue qAM dose of ativan. Continue with risperidone and ativan qhs. Will continue to encourage ROIs to be able to work on establishing outpatient resources. Scheduling saline spray per his request. 03/06/21: Fasting labs reviewed and reassuring. Continue with risperidone and ativan. Encouraging group involvement. He's still not comfortable signing ROIs for family yet. SW looking into options for outpatient support including CM, therapy, psychiatry services. 03/05/21: Fasting lipid panel and glucose in the morning as unable to tolerate earlier in his stay. Decrease ativan to 0.5 mg BID. Continue risperidone 1mg qAM & 2mg qHS. 03/04/21: Increase risperidone to 1 mg qAM and 2mg qHS to further target psychosis. Continue with ativan. 03/03/21: Continue risperidone and ativan po with haldol and ativan IM if refuses. No signs of catatonia today. 03/02/21: Reviewed interim progress per Dr. Saldivar below. Starting medications over objection as I agree that he meets criteria and is at risk if appropriate treatment is not started. Will continue to offer risperidone ODT 1 mg qAM and if refuses will give haldol 5 mg IM and ativan 1mg po qAM & if refuses will give ativan 1 mg IM. Will also offer risperidone 1mg ODT and ativan 1mg po at qhs but will not give IM medications if he refuses the evening po dose. 03/01/21: refusing labs, meds, food, drink. 304 granted. Continue to offer PO Ativan and Risperdal. Will ask Dr. Tobin for a second opinion re: forced medica tions tomorrow when she assumes clinical responsibility for service. Medications over objection are medically necessary to treat psychosis which is interfering with his ability to communicate and care for self and given lack of PO intake he is at significant risk of or serious physical disability within the next 30 days if he does not receive this treatment. 02/28/21: The patient was admitted to the [facility] ([facility] mental health unit) on q15 min checks (behavioral with suicide precautions) for safety. The patient will participate in group, recreational, and milieu therapies and will be offered additional individual and family sessions as clinically appropriate. He is not able to fully comprehend risks/benefits/alternatives of treatment but did not object to resuming Risperdal. Will start 1 mg Risperdal Mtab BID today with additional Risperdal and Ativan prn. Monitor PO intake. Will attempt fasting labs in AM. He has no abnormal motor movements at baseline but is not fully cooperative with AIMS testing. Mental Health & Subst Abuse Tx Psychiatrist Name of Psychiatrist: [facility] Date of Appointment with Psychiatrist: 03/22/21 Time of Appointment with Psychiatrist: 8:15am Psychiatric Appointment Comment: [place] [address] Therapist Name of Therapist: Nhi Madrigal Therapist's Date of Therapist Appointment: 03/21/21 Time of Therapist Appointment: 8:30a Therapy Appointment Comment: [address], [address], [place] Renal Case Manager Name of Renal Case Manager: . Phone Number for Renal Case Manager: . Date of Appointment with Renal Case Manager: 03/12/21 Time of Appointment with Renal Case Manager: . Case Management Appointment Comment: . Post Discharge Appointments Primary Care Physician Name Of Family Doctor: Shayne Ramirez Primary [facility] Date of Appointment with PCP: 03/19/21 Time of Appointment with PCP: 11:00 AM Provider Appointment Comment: [place] [address] Smoking Cessation Counseling Tobacco Cessation Medication Prescribed at Discharge: Not Applicable/Non-Smoker Contact Information Discharge Discharge Address: [address] [place] [address] [place] [address] Discharge Plan Discharge Items Patient Disposition: Home - Self-Care Reason For Visit: PSYCHOSIS NOS Discharge Diagnosis: schizophreniform disorder Activity: Resume your previous activity Non-emergency contact: Primary Care Provider, Psychiatrist and Therapist Call non-emergency contact if: you have any medication questions and your symptoms worsen Follow-up/Referrals: Fitz Avila [Primary Care Provider] - Diet: Regular Addtl Attending Provider Instructions: SPECIAL CARE INSTRUCTIONS: 1. Follow through with your scheduled aftercare appointments. If unable to keep an appointment, please call to reschedule. 2. Take your medication only as prescribed. Medication should not be changed or stopped without the approval of your doctor. In the event of worsening symptoms or concerns about side effects, contact your doctor immediately. 3. Utilize new healthy coping skills, anger management skills, and stress management skills learned during your hospitalization. Journal feelings and process them with a support person. Identify stressors or situations that may result in relapse, deterioration or inappropriate behaviors and develop a plan to deal with those issues. 4. If your coping skills are ineffective and you are in crisis, contact your outpatient providers for direction. If unable to reach your providers, please call the [facility] CRISIS LINE AT , go to the [facility] walk-in center at [address], [address], [place], or go to the closest Emergency Room. 5. Avoid alcohol and un-prescribed drugs. 6. You have been provided with the Mental Health Advance Directives Pamphlet for your review. 7. Your condition is stable for discharge to outpatient level of care, but recovery is an ongoing process. Ifthoughts to harm yourself or others return, follow the safety plan developed during your stay. Planning for a safe return home includes securing weapons. Our treatment team recommends weaponsbe removed from the home until your outpatient provider reassesses your progress. In rare cases where the items themselvescannot be removed, guns and ammunitionshould be secured separatelyand keys stored by a reliable personoutside of the home. If you were admitted on an involuntary commitment, the police or other legal authorities may be involved in this process. AFTERCARE APPOINTMENTS: * Please call your insurance company prior to your scheduled appointment to confirm your aftercare providers are covered. Take your insurance information to your appointments. WHO TO CALL AND WHEN: Medical Emergencies: For questions or emergencies related to your hospital stay, please contact the Inpatient Behavioral Health Unit at [phone]. A [employer] adjuster is on-call 30/09 for the Behavioral Health Unit for emergencies At any time you feel your situation is an emergency, you may also call 911 immediately. Pending Studies at Discharge: No Stand-Alone Forms: [facility], Smoking Cessation Medications and DC Order Prescriptions: New risperidone [Risperdal] 1 mg tablet 1 mg PO DAILY Qty: 30 RF: 0 risperidone [Risperdal] 2 mg tablet 2 mg PO HS Qty: 30 RF: 0 Discharge Orders: Discharge Order (Routine); Ordered 03/15/21 Ordered By: Jacki Saldivar Admission Data Admit Date/Time: 02/28/21 05:21 Attending Provider: Jacki Saldivar Admit Provider: Jacki Saldivar Primary Care Provider: Fitz Avila Other Interventions: Discharge Summary Assessment (RN) Last Done: 03/15/21 09:48 PSY Interdisciplinary Discharge Planning Last Done: 03/15/21 10:00 Coding Level of Care Code 30430 D/C day mgmt > 30 min Diagnoses Schizophreniform disorder F20.81
== END 2021-03-15 10:40 | disposition home or self-care (01) | DRG 885 ==
LOC: ED 01:33 → 3S 05:21 → SUATTDRO 05:21 → 3S 05:45
DX: T43.506A Underdosing of unspecified antipsychotics and neuroleptics, initial encounter; Z91.14 Patient's other noncompliance with medication regimen; F20.81 Schizophreniform disorder; Z91.013 Allergy to seafood; Z81.8 Family history of other mental and behavioral disorders; Z91.030 Bee allergy status; F17.210 Nicotine dependence, cigarettes, uncomplicated; F17.290 Nicotine dependence, other tobacco product, uncomplicated

== ENCOUNTER 2023-05-02 14:51 | Inpatient (IN) ==
--- NOTE | 2023-05-02 14:57 | ED Triage Note ---
Date of Service May 02, 2023 Provider in Triage Author: Alvaro Edge History of Present Illness This patient was briefly evaluated while in triage. An abbreviated physical exam was performed. This patient is a 27-year-old Male who presents to the ED for evaluation of mental health. Went to doctor this am, sees Modesta at [place] and [facility] as well to get into a peer program to help. He opened up about thoughts about self harm. Per mother, unwillling to commit to safety plan. Here today with mother. Physical Exam GENERAL: 27 year old male. In no acute distress. SKIN: No lesions or rashes. HEART: Regular rate and rhythm. LUNGS: Clear to auscultation. NEURO: Alert and oriented. No deficits. MUSCULOSKELETAL: No deformities to inspection of the extremities. PSYCH: Patient is pleasant. Flat affect. Poor eye contact. Initial orders for labs and / or imaging were placed and patient was placed in the waiting area until a bed is available. Please see further documentation for the full ED course.
--- NOTE | 2023-05-02 15:10 | Emergency Department Note ---
Impression & Plan Depression with suicidal ideation ED Provider Note NAME: ANASTASIYA GARCIA AGE: 27 SEX: M : 1995 ARRIVES VIA: Walk-In INFORMANT: Patient, ED PROVIDER(S): Teodoro Villalobos MD CHIEF COMPLAINT: Suicidal ideation, depression, outpatient referral MEDICAL DECISION MAKING: Patient presents due to concern for suicidal ideation and increasing depression. Patient did have blood work completed. Patient was deemed medically cleared was seen and evaluated by psych case packer and sealer. Referrals were made and the patient was accepted for inpatient treatment 3 S. Discussion w/ other healthcare providers: None Prior /Outside records reviewed: None Differential diagnosis: Mood disorder, infection, hypoglycemia, electrolyte abnormalities, dehydration, medication side effect among others were considered. Diagnostics, as interpreted by me: ECG: None Medical decision rules: Suicide risk severity score Imaging studies: None HPI: Patient presents via [place] due to concern for suicidal ideation. Patient reportedly had expressed potentially jumping from a height from his garage. The patient has had some passive HI not toward anyone particular but when asked if he would harm somebody he apparently stated maybe he would. Patient denies any AVH. The patient did have a recent doubling of his Abilify about a week ago has not noticed any significant changes. Patient states that his appetite has been appropriate. The patient states that may be sleeping too much. Patient does have access to knives but no other guns or weapons. Patient does have a known history of worsening depression and states that it has worsened over the last several weeks. Patient states he is compliant with his medication. Patient is unsure as to whether or not he feels safe at home. PAST MEDICAL HISTORY: See Below PAST SURGICAL HISTORY: See Below SOCIAL HISTORY: See Below HOME MEDICATIONS: See Below ALLERGIES: See Below VITALS: See Below PHYSICAL EXAMINATION: GENERAL: NAD, non-toxic. Averts eye contact. EYE EXAM: Normal conjunctiva. PERRL, no anisocoria and EOM's grossly intact w/o pain. OROPHARYNX: Moist mucus membranes, grossly normal dentition. NECK: Trachea midline, no stridor. Supple, no nuchal rigidity, no adenopathy, non-tender. No signs of meningismus. FROM of the neck with good chin to chest and neck extension. LUNGS: Clear to auscultation. Normal chest wall mechanics. HEART: NSR, no MRG. ABDOMEN: Abdomen soft, non-tender, no masses, no rebound or guarding. BACK: No CVA TTP. SKIN: No rashes and no bruising. UPPER EXTREMITIES: Upper extremities are grossly normal. LOWER EXTREMITIES: Grossly normal, no edema. NEURO EXAM: A&O x3, cranial nerves II-XII grossly intact, normal speech, moves all 4 extremities. Psych: Positive SI, nonspecific HI, negative AVH Past Med/Surg History Medical History Schizophreniform disorder Surgical History No pertinent past surgical history Social History Smoking Status: Never smoker Tobacco Type: Cigarettes and E-cigarettes / Vaping Preferred Language: Spanish Communication Ability: Effective Carburetor Repairer Required: No Beliefs That Will Affect Care: None Feels Safe at Home: Yes Gender Identity: Male Assistive Devices: None Allergies Allergies Allergy/AdvReac Type Severity Reaction Status Date / Time shrimp Allergy Mild Unknown Verified 03/04/21 13:10 bee venom protein (honey bee) Allergy Unknown Unknown Verified 03/04/21 13:10 Home Meds Home Medications Medication Instructions Recorded Confirmed aripiprazole 10 mg tablet 20 mg PO HS 05/02/23 05/02/23 clonidine HCl 0.1 mg tablet 0.1 mg PO HS 05/02/23 05/02/23 lamotrigine 25 mg tablet 50 mg PO HS 05/02/23 05/02/23 Results & Data (ED) Vital Signs Vital Signs - 24 hr 05/02/23 14:53 Temperature 36.7 C Temperature Source Skin Pulse Rate 90 Respiratory Rate 18 Blood Pressure 163/87 H Blood Pressure Mean 112 Pulse Oximetry 99 Oxygen Delivery Method Room Air Sepsis Recent Fever Within 48 Hours No Sepsis New/Unexplained Change in Mental Status No Sepsis Action Taken by Nursing No Action Required Home Medications Current Medication List: was personally reviewed by me Laboratory Data Attestation: I reviewed the patient's lab results. 05/02/23 15:30 05/02/23 15:30 Lab Results 05/02/23 05/02/23 Range/Units 15:30 18:05 WBC 6.40 (4.8-10.8) K/ul RBC 6.08 (4.70-6.10) M/uL Hgb 17.8 (14.0-18.0) g/dl Hct 50.1 (42.0-52.0) % MCV 82.4 (80.0-100.0) fL MCH 29.3 (25.0-34.0) pg MCHC 35.5 (32.0-36.0) g/dL RDW Std Deviation 36.5 (36.4-46.3) fL RDW Coeff of [place] 12.2 (11.5-14.5) % Plt Count 268 (130-400) K/uL MPV 10.5 (9.4-12.4) fL Immature Gran % (Auto) 0.5 % Neut % (Auto) 64.4 % Lymph % (Auto) 25.9 % [place] % (Auto) 7.8 % Eos % (Auto) 0.8 % Baso % (Auto) 0.6 % Neut # (Auto) 4.12 (1.40-6.50) K/uL Lymph # (Auto) 1.66 (1.20-3.40) K/uL [place] # (Auto) 0.50 (0.11-0.59) K/uL Eos # (Auto) 0.05 (0.00-0.50) K/uL Baso # (Auto) 0.04 (0.00-0.20) K/uL Immature Gran # (Auto) 0.03 (0.01-0.20) K/uL Sodium 142 (136-145) mmol/L Potassium 3.4 L (3.5-5.1) mmol/L Chloride 103 (98-107) mmol/L Carbon Dioxide 32 (21-32) mmol/L Anion Gap 7 (3-11) BUN 7 (6-23) mg/dl Creatinine 0.76 (0.6-1.4) mg/dl Est Cr Clr Drug Dosing 143.8 ml/min Est GFR ( Amer) 147.0 ml/min Est GFR (Non-Af Amer) 126.8 ml/min BUN/Creatinine Ratio 9.2 L (10-20) Glucose 93 (70-99(Fasting)) mg/dl Calcium 10.0 (8.6-10.3) mg/dl Total Bilirubin 0.7 (0.2-1.0) mg/dl AST 28 (13-39) U/L ALT 51 (7-52) U/L Alkaline Phosphatase 82 (34-104) U/L Total Protein 8.0 (6.0-8.3) gm/dl Albumin 5.3 H (3.4-5.0) gm/dl Globulin 2.7 (2.5-4.0) gm/dl Albumin/Globulin Ratio 2.0 (0.9-2) TSH 1.119 (0.300-4.500) uIu/ml Salicylates < 3.0 L (3.0-30) mg/dl Acetaminophen < 3 L (10-30) ug/ml Ethyl Alcohol mg/dL < 10.0 (<10.0) mg/dl SARS-CoV-2, RNA, NAAT NEGATIVE (NEGATIVE) Administered Medications Aripiprazole (Aripiprazole 10 Mg Tab) 20 mg PO [facility] Stop: 06/01/23 21:59 Last Admin: 05/02/23 21:23 Dose: 20 mg Documented By: HOLLY Clonidine HCl (Clonidine Hcl 0.1 Mg Tab) 0.1 mg PO [facility] Stop: 06/01/23 21:59 Last Admin: 05/02/23 21:24 Dose: 0.1 mg Documented By: HOLLY Lamotrigine (Lamotrigine 25 Mg Tab) 50 mg PO [facility]; Protocol Stop: 06/01/23 21:59 Last Admin: 05/02/23 21:24 Dose: 50 mg Documented By: HOLLY Discharge Plan Visit Data Chief Complaint: Mental Health Evaluation Stated Complaint: MENTAL HEALTH EVAL ED Provider: Teodoro Villalobos Discharge Problem: Depression with suicidal ideation Patient Disposition: Admitted As Inpatient Discharge Instructions Interventions: ED Discharge Assessment Last Done: 05/02/23 20:12
[2023-05-02 15:55] LABS: Appearance Urine Clear (Clear); Bilirubin Urine Negative (Negative); Blood Urine Negative (Negative); Color Urine Yellow; Glucose Urine UA Trace (Negative); Ketones Urine Negative (Negative); Leukocyte Esterase Urine Negative (Negative); Nitrite Urine Negative (Negative); Protein Urine Negative (Negative); Specific Gravity Urine 1.002 (1.000-1.030); Urobilinogen Urine Negative (Negative)
[2023-05-02 16:18] LABS: Amphetamines+Metham, Urine Neg (Neg); Barbiturates, Urine Neg (Neg); Benzodiazepine, Urine Neg (Neg); Cocaine, Urine Neg (Neg); MDMA (Ecstacy), Urine Neg (Neg); Marijuana, Urine Neg (Neg); Methadone, Urine Neg (Neg); Opiate, Urine Neg (Neg); Phencyclidine, Urine Neg (Neg)
[2023-05-02 16:31] LABS: Basophils # (auto) 0.04 K/uL (0.00-0.20); Basophils % (auto) 0.6 %; Eosinophils # (auto) 0.05 K/uL (0.00-0.50); Eosinophils % (auto) 0.8 %; Hematocrit (blood only) 50.1 % (42.0-52.0); Hemoglobin 17.8 g/dl (14.0-18.0); Immature Granulocytes # (auto) 0.03 K/uL (0.01-0.20); Immature Granulocytes % (auto) 0.5 %; Lymphocytes # (auto) 1.66 K/uL (1.20-3.40); Lymphocytes % (auto) 25.9 %; Mean Corpuscular Hemoglobin 29.3 pg (25.0-34.0); Mean Corpuscular Hgb Conc 35.5 g/dL (32.0-36.0); Mean Corpuscular Volume 82.4 fL (80.0-100.0); Mean Platelet Volume 10.5 fL (9.4-12.4); Monocytes % (auto) 7.8 %; Neutrophils # (auto) 4.12 K/uL (1.40-6.50); Neutrophils % (auto) 64.4 %; Platelet Count 268 K/uL (130-400); RDW Coefficient of Variation 12.2 % (11.5-14.5); RDW Standard Deviation 36.5 fL (36.4-46.3); Red Blood Count 6.08 M/uL (4.70-6.10)
[2023-05-02 16:33] LABS: Acetaminophen < 3 ug/ml (10-30); Salicylate < 3.0 mg/dl (3.0-30)
[2023-05-02 16:56] LABS: Albumin Level 5.3 gm/dl (3.4-5.0); BUN Creatinine Ratio 9.2 (10-20); Bilirubin,Total 0.7 mg/dl (0.2-1.0); Creatinine Clr Calc Pharmacy 143.8 ml/min; Est GFR (Non-African American) 126.8 ml/min; Globulin 2.7 gm/dl (2.5-4.0); Potassium 3.4 mmol/L (3.5-5.1)
[2023-05-02 17:09] LABS: Thyroid Stimulating Hormone 1.119 uIu/ml (0.300-4.500)
[2023-05-02] MEDS ORDERED: ACETAMINOPHEN 325 MG TAB PO PRN (20:46)
[2023-05-02] MEDS ORDERED: BISMUTH SUBSALICYLATE LIQD 236 ML PO PRN (20:46)
[2023-05-02] MEDS ORDERED: ALUMINUM/MAGNESIUM SUSP 30 ML UDC PO PRN (20:46)
[2023-05-02] MEDS ORDERED: hydrOXYzine HCl 25 MG TAB PO PRN ×2 (20:46)
[2023-05-02] MEDS ORDERED: MAGNESIUM HYDROXIDE SUSP 30 ML UDC PO PRN (20:46)
[2023-05-02] MEDS: ARIPiprazole 10 MG TAB PO SCH (21:23)
[2023-05-02] MEDS: lamoTRIgine 25 MG TAB PO SCH (21:24)
[2023-05-02] MEDS: cloNIDine HCL 0.1 MG TAB PO SCH (21:24)
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
[2023-05-03] MEDS: cloNIDine HCL 0.1 MG TAB PO SCH (17:57)
[2023-05-03] MEDS: ARIPiprazole 15 MG TAB PO SCH (17:57)
[2023-05-03] MEDS: lamoTRIgine 100 MG TAB PO SCH (17:58)
[2023-05-03] MEDS: INFLUENZA VIRUS QUADRIVALENT VACCINE (IIV4) 0.5 ML SYR IM ONE (18:12)
[2023-05-03] MEDS ORDERED: cloNIDine HCL 0.1 MG TAB PO SCH (21:00)
[2023-05-03] MEDS ORDERED: ARIPiprazole 15 MG TAB PO SCH (21:00)
[2023-05-03] MEDS ORDERED: lamoTRIgine 100 MG TAB PO SCH (21:00)
[2023-05-04] MEDS ORDERED: IBUPROFEN 600 MG TAB PO PRN ×2 (09:59→10:01)
--- NOTE | 2023-05-04 10:13 | Psychiatric Progress Note ---
Date of Service May 04, 2023 Impression / Recommendations Impression This young man has had a lot of difficulties with what seems to be a progression from schizophrenia into schizoaffective disorder. I believe he had a manic or hypomanic episode in [place] recently. There does not seem to be any family history that would contribute towards his thought disorder. However, mother and other family members have had problems with mood. With his thought disorder, he has had a lot of difficulty functioning and is exhibiting some negative symptoms as well. I do not know if he could function without the help of his parents currently. He says that he is adhering to his medications pretty reliably, but I suspect that may be partly from his parents. 05/04/23: Patient seems to be tolerating the medication adjustments. However, we are not yet seeing much improvement in his psychotic symptoms. I do not expect the ziprasidone to have much of an improvement until he is gets closer to 160 mg. Today I spent 38 minutes on the case. This included meeting with the patient, reviewing the chart, nursing report, multidisciplinary staff meeting, orders, and documentation. (1) Schizoaffective disorder, bipolar type: Plan 1. Patient is admitted here for safety, further evaluation, and treatment. We will continue with her current level of observation and precautions. 2. We are going to cross taper from Abilify to Geodon over the next several days. I reviewed the uses, side effects, and time course of Geodon and he gave informed consent. I will start at 40 mg after dinner tonight and then increase by 40 mg daily until we get to 160 mg every evening after dinner. At the same time, we will continue the clonidine and increase the lamotrigine to 100 mg. We will also switch all of the medications to after dinner so he does not have to take medications multiple times a day. 3. I encouraged the patient to take part in our therapeutic milieu, attend groups and activities, maintain good hygiene, and try not to isolate. 4. He currently is not allowing us to release information to his parents, but I suspect that may military exchange wireless manager the next couple of days. Hopefully, we can have a family meeting before the patient discharges. I am pretty happy with the outpatient services he has set up. 5. Our medical people are available to evaluate and treat any medical issues that may arise. 05/04/23: We are going to continue with her current level of observation and precautions. I encouraged the patient to keep going to groups and activities and participate as well as he can. We will continue with the titration of Geodo n towards 160 mg every evening with food. I will more gently taper off the Abilify. We will continue the lamotrigine at 100 mg and the clonidine at 0.1 mg, both after dinner with his other meds. If the patient is willing towards the end of his stay, we will try to have a family meeting before he leaves. He will also likely convert to an inpatient 304 early this week. Suicide Risk Level Suicide Risk Level: Moderate (q15 min suicide checks) Suicide Risk Level Comments: I am somewhat concerned about the continued suicidal thoughts and vague homicidal thoughts. Because of his primary thought disorder, this is something that might get out of control if he gets too paranoid. Risk Factors Assessment Do You Have Access To A Gun?: No Protective Factors Assessment Employed: No Interval History Identifying Information SEGUNDO GARCIA is a 27-year-old M who lives alone in [place]. He was admitted 05/02/23 19:30 on a 304 outpatient commitment due to concerns of suicidal ideation and some vague homicidal thoughts. Chief Complaint "I told my psychiatrist I was having troubles with thoughts of killing myself." Review of Systems Sleep Information Total Hours of Sleep: 8.5 Meal Information Percent Meal Consumed - Breakfast: 100 Percent Meal Consumed - Lunch: 100 Percent Meal Consumed - Dinner: 100 Subjective Subjective Today I met with the patient, received nursing report, and reviewed his chart. We also had a multidisciplinary staff meeting to discuss his care. Segundo is in our hospital due to concerns of suicidal and homicidal thoughts related to psychosis. Staff report that the patient has been more interactive and pleasant. He described his mood to them as 7 out of 10 where 10 is the worst it could ever be. He had a conversation with his mother on the phone yesterday that went pretty well. Staff also noticed he looked a lot more relaxed as the day progressed. He came to us on an outpatient 304 which will likely convert to an inpatient 304 early this week. When I met with the patient this morning, he said that he slept well and his appetite was good. He tolerated his medications fine which included the start of ziprasidone. He understands that that psych trazodone will continue to in crease until he gets to 160 mg by Friday night. He is not sure if the meds have made much of a difference yet. He talked about the phone call with his mother and said that it went okay. He described his mood with me today as "content." When asked about hallucinations, he was not sure if he was having auditory hallucinations but he does not think he is having visual hallucinations. However, he mentioned that he did have some very strange dreams. This morning, he said that his suicidal thoughts had gone from 2-3 out of 10 up to a 4 out of 10 which is worse. His homicidal thoughts went from 4 out of 10 down to 3 out of 10. Physically, he is doing pretty well and has not used any ibuprofen for his back and shoulder pain. He also said that he is trying his best to go to groups and maintain his hygiene. Physical Exam Psychiatric Patient was alert and cooperative. He was clean and better groomed. Eye contac t was poor. Speech was normal. Mood was "content." Affect was restricted. Thought process was logical and somewhat goal-directed. There was no evidence of any hallucinations or delusions this morning. Patient described both suicidal and homicidal thoughts as I listed above. Memory and concentration were good. No abnormal movements were seen. Gait was normal. Insight and judgment are impaired. Vital Signs (Past 24 Hours) Last Vital Signs Temp 36.8 C 05/04/23 06:40 Pulse 98 H 05/04/23 06:40 Resp 16 05/04/23 06:40 BP 117/75 05/04/23 06:40 Pulse Ox 100 05/02/23 20:52 O2 Del Method Room Air 05/02/23 20:52 Results & Data ([facility]) Current Inpatient Medications Current Inpatient Medications: Current Inpatient Medications Acetaminophen (Acetaminophen 325 Mg Tab) 650 mg PO Q4H PRN PRN Reason: Headache or Minor Fever Stop: 06/01/23 20:45 Al Hydrox/Mg Hydrox/Simethicone (Aluminum/Magnesium Susp 30 Ml Udc) 30 ml PO Q4H PRN PRN Reason: GI Upset Stop: 06/01/23 20:45 Aripiprazole (Aripiprazole 15 Mg Tab) 15 mg PO DAILY@1800 DARYL Stop: 06/02/23 17:59 Last Admin: 05/03/23 17:57 Dose: 15 mg Bismuth Subsalicylate (Bismuth Subsalicylate Liqd 236 Ml) 15 ml PO PRN PRN PRN Reason: Loose Stool Stop: 06/01/23 20:45 Clonidine HCl (Clonidine Hcl 0.1 Mg Tab) 0.1 mg PO DAILY@1800 DARYL Stop: 06/02/23 17:59 Last Admin: 05/03/23 17:57 Dose: 0.1 mg Hydroxyzine HCl (Hydroxyzine Hcl 25 Mg Tab) 50 mg PO HSZ PRN PRN Reason: Insomnia Stop: 06/01/23 20:45 Hydroxyzine HCl (Hydroxyzine Hcl 25 Mg Tab) 25 mg PO Q4H PRN PRN Reason: Anxiety Stop: 06/01/23 20:45 Ibuprofen (Ibuprofen 600 Mg Tab) 600 mg PO Q4H PRN PRN Reason: Pain Stop: 06/03/23 09:58 Lamotrigine (Lamotrigine 100 Mg Tab) 100 mg PO DAILY@1800 DARYL; Protocol Stop: 06/02/23 17:59 Last Admin: 05/03/23 17:58 Dose: 100 mg Magnesium Hydroxide (Magnesium Hydroxide Susp 30 Ml Udc) 30 ml PO DAILY PRN PRN Reason: Constipation Stop: 06/01/23 20:45 Sodium Chloride (Sodium Chloride 0.65% Na Soln 45 Ml ([place])) 1 - 2 sprays NA PRN PRN PRN Reason: Nasal Dryness/Congestion Stop: 06/01/23 20:45 Ziprasidone (Ziprasidone Hcl 80 Mg Cap) 80 mg PO 1800 ONE Stop: 05/04/23 18:01 Ziprasidone (Ziprasidone Hcl 20 Mg Cap) 120 mg PO 1800 ONE Stop: 05/05/23 18:01 Ziprasidone (Ziprasidone Hcl 80 Mg Cap) 160 mg PO 1800 DARYL Stop: 06/05/23 17:59 Mental Health & Subst Abuse Tx Therapist Name of Therapist: Nishant @ [place] (?) [employer] Name of Assembler Movement: Antonietta
[2023-05-04] MEDS: ziprasidone HCL 80 MG CAP PO ONE (18:17)
--- NOTE | 2023-05-05 18:05 | Psychiatric Progress Note ---
Date of Service May 05, 2023 Impression / Recommendations Impression This young man has had a lot of difficulties with what seems to be a progression from schizophrenia into schizoaffective disorder. I believe he had a manic or hypomanic episode in [place] recently. There does not seem to be any family history that would contribute towards his thought disorder. However, mother and other family members have had problems with mood. With his thought disorder, he has had a lot of difficulty functioning and is exhibiting some negative symptoms as well. I do not know if he could function without the help of his parents currently. He says that he is adhering to his medications pretty reliably, but I suspect that may be partly from his parents. 05/04/23: Patient seems to be tolerating the medication adjustments. However, we are not yet seeing much improvement in his psychotic symptoms. I do not expect the ziprasidone to have much of an improvement until he is gets closer to 160 mg. 05/05/23: Patient is tolerating the medication titration. However, we are still not seeing too much improvement yet, but the dose of Geodon is still pretty low. I know he is doing what he can to try to get better by going to groups and activities. It turns out that he is not on a 305 outpatient. He is just here voluntarily. (1) Schizoaffective disorder, bipolar type: Plan 1. Patient is admitted here for safety, further evaluation, and treatment. We will continue with her current level of observation and precautions. 2. We are going to cross taper from Abilify to Geodon over the next several days. I reviewed the uses, side effects, and time course of Geodon and he gave informed consent. I will start at 40 mg after dinner tonight and then increase by 40 mg daily until we get to 160 mg every evening after dinner. At the same time, we will continue the clonidine and increase the lamotrigine to 100 mg. We will also switch all of the medications to after dinner so he does not have to take medications multiple times a day. 3. I encouraged the patient to take part in our therapeutic milieu, attend groups and activities, maintain good hygiene, and try not to isolate. 4. He currently is not allowing us to release information to his parents, but I suspect that may change management coordinator the next couple of days. Hopefully, we can have a family meeting before the patient discharges. I am pretty happy with the outpatient services he has set up. 5. Our medical people are available to evaluate and treat any medical issues that may arise. 05/04/23: We are going to continue with her current level of observation and precautions. I encouraged the patient to keep going to groups and activities and participate as well as he can. We will continue with the titration of Geodon towards 160 mg every evening with food. I will more gently taper off the Abilify. We will continue the lamotrigine at 100 mg and the clonidine at 0.1 mg, both after dinner with his other meds. If the patient is willing towards the end of his stay, we will try to have a family meeting before he leaves. He will also likely convert to an inpatient 304 early this week. 05/05/23: We are going to continue with our current level of observation and precautions. I encouraged the patient to continue to go to groups and activities. We will continue with the titration of Geodon towards 160 mg every evening with food; tonight he will get 120 mg. In the next day or 2 I will lower the Abilify further. Will also try to have a family meeting if he is willing. Today I spent 37 minutes on the case. This included meeting with the patient, reviewing the chart, nursing report, multidisciplinary treatment team meeting, orders, and documentation. Suicide Risk Level Suicide Risk Level: Moderate (q15 min suicide checks) Suicide Risk Level Comments: I am somewhat concerned about the continued suicidal thoughts and vague homicidal thoughts. Because of his primary thought disorder, this is something that might get out of control if he gets too paranoid. Risk Factors Assessment Do You Have Access To A Gun?: No Protective Factors Assessment Employed: No Interval History Identifying Information SEGUNDO GARCIA is a 27-year-old M who lives alone in [place]. He was admitted 05/02/23 19:30 on a 304 outpatient commitment due to concerns of suicidal ideation and some vague homicidal thoughts. Chief Complaint "I told my psychiatrist I was having troubles with thoughts of killing myself." Review of Systems Sleep Information Total Hours of Sleep: 6.5 Meal Information Percent Meal Consumed - Breakfast: 100 Percent Meal Consumed - Lunch: 100 Percent Meal Consumed - Dinner: 100 Subjective Subjective Today I met with the patient, received nursing report, and reviewed his chart. We also had a multidisciplinary staff meeting to discuss his care. Segundo is in our hospital due to concerns of suicidal and homicidal thoughts related to psychosis. Staff report that the patient is still paranoid, but feels that he is doing better here because there is not much technology around him. When asked if he is feeling safe, he replies "I guess." Staff noticed that he often has a very odd affect and has very poor eye contact. He slept well. He is still having auditory hallucinations. He has been trying hard to go to groups and activities. To the staff, he described his mood as 7 out of 10 where 10 is the best it could be. He does also describe his mood is "happy." He is still having vague homicidal thoughts. When I met with the patient this morning, he still had very poor eye contact with me. He is tolerating the Geodon titration without a problem. He described his mood to me today as "anxious." He slept well and his appetite is pretty good. He is having some nasal congestion but did not want any medication for it. He has been making phone calls with his parents but he still ambivalent about whether they are trying to help him or hurt him. He describes suicidal thoughts at 2 out of 10 and homicidal thoughts at 2-3 out of 10; these are both where 10 is the worst that they could ever be. He denies any other medical issues. He says that he is finding some of the groups helpful. Physical Exam Psychiatric Patient was alert and cooperative. He was clean and better groomed. Eye contact was poor. Speech was normal. Mood was "anxious." Affect was still very blunted. Thought process was logical and somewhat goal-directed. I think he is still very paranoid. There was no evidence of any hallucinations or delusions this morning. Patient described both suicidal and homicidal thoughts as I listed above. Memory and concentration were good. No abnormal movements were seen. Gait was normal. Insight and judgment are impaired. Vital Signs (Past 24 Hours) Last Vital Signs Temp 36.6 C 05/05/23 07:02 Pulse 97 H 05/05/23 07:03 Resp 16 05/05/23 07:02 BP 120/73 05/05/23 07:03 Pulse Ox 100 05/02/23 20:52 O2 Del Method Room Air 05/02/23 20:52 Results & Data ([facility]) Current Inpatient Medications Current Inpatient Medications: Current Inpatient Medications Acetaminophen (Acetaminophen 325 Mg Tab) 650 mg PO Q4H PRN PRN Reason: Headache or Minor Fever Stop: 06/01/23 20:45 Al Hydrox/Mg Hydrox/Simethicone (Aluminum/Magnesium Susp 30 Ml Udc) 30 ml PO Q4H PRN PRN Reason: GI Upset Stop: 06/01/23 20:45 Aripiprazole (Aripiprazole 15 Mg Tab) 15 mg PO DAILY@1800 DARYL Stop: 06/02/23 17:59 Last Admin: 05/05/23 17:41 Dose: 15 mg Bismuth Subsalicylate (Bismuth Subsalicylate Liqd 236 Ml) 15 ml PO PRN PRN PRN Reason: Loose Stool Stop: 06/01/23 20:45 Clonidine HCl (Clonidine Hcl 0.1 Mg Tab) 0.1 mg PO DAILY@1800 DARYL Stop: 06/02/23 17:59 Last Admin: 05/05/23 17:43 Dose: 0.1 mg Hydroxyzine HCl (Hydroxyzine Hcl 25 Mg Tab) 50 mg PO HSZ PRN PRN Reason: Insomnia Stop: 06/01/23 20:45 Hydroxyzine HCl (Hydroxyzine Hcl 25 Mg Tab) 25 mg PO Q4H PRN PRN Reason: Anxiety Stop: 06/01/23 20:45 Ibuprofen (Ibuprofen 600 Mg Tab) 600 mg PO Q4H PRN PRN Reason: Pain Stop: 06/03/23 09:58 Lamotrigine (Lamotrigine 100 Mg Tab) 100 mg PO DAILY@1800 DARYL; Protocol Stop: 06/02/23 17:59 Last Admin: 05/05/23 17:44 Dose: 100 mg Magnesium Hydroxide (Magnesium Hydroxide Susp 30 Ml Udc) 30 ml PO DAILY PRN PRN Reason: Constipation Stop: 06/01/23 20:45 Sodium Chloride (Sodium Chloride 0.65% Na Soln 45 Ml ([place])) 1 - 2 sprays NA PRN PRN PRN Reason: Nasal Dryness/Congestion Stop: 06/01/23 20:45 Ziprasidone (Ziprasidone Hcl 20 Mg Cap) 120 mg PO 1800 ONE Stop: 05/05/23 18:01 Last Admin: 05/05/23 17:45 Dose: 120 mg Ziprasidone (Ziprasidone Hcl 80 Mg Cap) 160 mg PO 1800 DARYL Stop: 06/05/23 17:59 Mental Health & Subst Abuse Tx Therapist Name of Therapist: Nishant @ [place] (?) [employer] Name of Juke Box Mechanic: Antonietta
--- NOTE | 2023-05-06 17:17 | Psychiatric Progress Note ---
Date of Service May 06, 2023 Impression / Recommendations Impression This young man has had a lot of difficulties with what seems to be a progression from schizophrenia into schizoaffective disorder. I believe he had a manic or hypomanic episode in [place] recently. There does not seem to be any family history that would contribute towards his thought disorder. However, mother and other family members have had problems with mood. With his thought disorder, he has had a lot of difficulty functioning and is exhibiting some negative symptoms as well. I do not know if he could function without the help of his parents currently. He says that he is adhering to his medications pretty reliably, but I suspect that may be partly from his parents. 05/04/23: Patient seems to be tolerating the medication adjustments. However, we are not yet seeing much improvement in his psychotic symptoms. I do not expect the ziprasidone to have much of an improvement until he is gets closer to 160 mg. 05/05/23: Patient is tolerating the medication titration. However, we are still not seeing too much improvement yet, but the dose of Geodon is still pretty low. I know he is doing what he can to try to get better by going to groups and activities. It turns out that he is not on a 305 outpatient. He is just here voluntarily. 05/06/23: We are seeing slow improvement. We will be reaching the goal dose of Geodon at 160 mg tonight. He is working hard and going to all the groups that we ask him to. (1) Schizoaffective disorder, bipolar type: Plan 1. Patient is admitted here for safety, further evaluation, and treatment. We will continue with her current level of observation and precautions. 2. We are going to cross taper from Abilify to Geodon over the next several days. I reviewed the uses, side effects, and time course of Geodon and he gave informed consent. I will start at 40 mg after dinner tonight and then increase by 40 mg daily until we get to 160 mg every evening after dinner. At the same time, we will continue the clonidine and increase the lamotrigine to 100 mg. We will also switch all of the medications to after dinner so he does not have to take medications multiple times a day. 3. I encouraged the patient to take part in our therapeutic milieu, attend groups and activities, maintain good hygiene, and try not to isolate. 4. He currently is not allowing us to release information to his parents, but I suspect that may private branch exchange repairer the next couple of days. Hopefully, we can have a family meeting before the patient discharges. I am pretty happy with the outpatient services he has set up. 5. Our medical people are available to evaluate and treat any medical issues that may arise. 05/04/23: We are going to continue with her current level of observation and precautions. I encouraged the patient to keep going to groups and activities and participate as well as he can. We will continue with the titration of Geodon towards 160 mg every evening with food. I will more gently taper off the Abilify. We will continue the lamotrigine at 100 mg and the clonidine at 0.1 mg, both after dinner with his other meds. If the patient is willing towards the end of his stay, we will try to have a family meeting before he leaves. He will also likely convert to an inpatient 304 early this week. 05/05/23: We are going to continue with our current level of observation and precautions. I encouraged the patient to continue to go to groups and activities. We will continue with the titration of Geodon towards 160 mg every evening with food; tonight he will get 120 mg. In the next day or 2 I will lower the Abilify further. Will also try to have a family meeting if he is willing. 05/06/23: We will continue with our current level of observation and precautions. I encouraged the patient to continue to go to groups and activities. Today I used a cognitive behavioral approach to help with patient work on testing for reality. This would include trying to sort out if an auditory sound is real or not by looking at other people and how they react to it. We talked about ways that he can test visual hallucinations to see if they are real. This should help make him a least more comfortable sorting out reality and understanding that even though something is bothering him, it is not real. Geodon will go to 160 mg this evening with food. Today, I decreased the Abilify to 10 mg. We are going to set up a family meeting with parents to work on discharge planning and safety. Today I spent 39 minutes on the case. This included meeting with the patient, reviewing the chart, nursing report, multidisciplinary staff meeting, orders, and documentation. Suicide Risk Level Suicide Risk Level: Moderate (q15 min suicide checks) Suicide Risk Level Comments: I am somewhat concerned about the continued suicidal thoughts and vague homicidal thoughts. Because of his primary thought disorder, this is something that might get out of control if he gets too paranoid. Risk Factors Assessment Do You Have Access To A Gun?: No Protective Factors Assessment Employed: No Interval History Identifying Information SEGUNDO GARCIA is a 27-year-old M who lives alone in [place]. He was admitted 05/02/23 19:30 on a 304 outpatient commitment due to concerns of suicidal ideation and some vague homicidal thoughts. Chief Complaint "I told my psychiatrist I was having troubles with thoughts of killing myself." Review of Systems Sleep Information Total Hours of Sleep: 8 Meal Information Percent Meal Consumed - Breakfast: 100 Percent Meal Consumed - Lunch: 100 Percent Meal Consumed - Dinner: 100 Subjective Subjective Today I met with the patient, received nursing report, and reviewed his chart. We also had a multidisciplinary staff meeting to discuss his care. Segundo is in our hospital due to concerns of suicidal and homicidal thoughts related to psychosis. Staff report that the patient is working pretty hard in the therapeutic milieu. He is sleeping and eating well. Has been going to groups reliably. He is still having suicidal thoughts, but denied homicidal thoughts to the nursing staff. When I met with him this morning, he said that he had a bit of a headache. Been eating okay and slept well. He spoke with his parents and that went okay. He is willing to have a family meeting with them because he and knows that it is important to connect his outpatient treatment planning and his safety with them. He describes suicidal thoughts at 3-4 out of 10 and homicidal thoughts at 1 out of 10; these are both where 10 is the worst that they could ever be. He says he has not had any visual hallucinations lately. He is not sure if he is having auditory hallucinations. He is tolerating his medications okay and knows that he will be going to the 160 mg dose of Geodon starting tonight. Physical Exam Psychiatric Patient was alert and cooperative. He was clean and better groomed. Eye contact was poor. Speech was normal. Mood was "anxious." Affect was still very blunted. Thought process was logical and somewhat goal-directed. I think he is still very paranoid but it does seem a bit improved. There was no eviden ce of any hallucinations or delusions this morning. Patient described both suicidal and homicidal thoughts as I listed above and they are milder. Memory and concentration were good. No abnormal movements were seen. Gait was normal. Insight and judgment are impaired. Vital Signs (Past 24 Hours) Last Vital Signs Temp 36.5 C 05/06/23 06:32 Pulse 103 H 05/06/23 06:33 Resp 16 05/06/23 06:32 BP 125/80 05/06/23 06:33 Pulse Ox 100 05/02/23 20:52 O2 Del Method Room Air 05/02/23 20:52 Results & Data ([facility]) Current Inpatient Medications Current Inpatient Medications: Current Inpatient Medications Acetaminophen (Acetaminophen 325 Mg Tab) 650 mg PO Q4H PRN PRN Reason: Headache or Minor Fever Stop: 06/01/23 20:45 Al Hydrox/Mg Hydrox/Simethicone (Aluminum/Magnesium Susp 30 Ml Udc) 30 ml PO Q4H PRN PRN Reason: GI Upset Stop: 06/01/23 20:45 Aripiprazole (Aripiprazole 10 Mg Tab) 10 mg PO DAILY@1800 DARYL Stop: 06/05/23 17:59 Bismuth Subsalicylate (Bismuth Subsalicylate Liqd 236 Ml) 15 ml PO PRN PRN PRN Reason: Loose Stool Stop: 06/01/23 20:45 Clonidine HCl (Clonidine Hcl 0.1 Mg Tab) 0.1 mg PO DAILY@1800 DARYL Stop: 06/02/23 17:59 Last Admin: 05/05/23 17:43 Dose: 0.1 mg Hydroxyzine HCl (Hydroxyzine Hcl 25 Mg Tab) 50 mg PO HSZ PRN PRN Reason: Insomnia Stop: 06/01/23 20:45 Hydroxyzine HCl (Hydroxyzine Hcl 25 Mg Tab) 25 mg PO Q4H PRN PRN Reason: Anxiety Stop: 06/01/23 20:45 Ibuprofen (Ibuprofen 600 Mg Tab) 600 mg PO Q4H PRN PRN Reason: Pain Stop: 06/03/23 09:58 Lamotrigine (Lamotrigine 100 Mg Tab) 100 mg PO DAILY@1800 DARYL; Protocol Stop: 06/02/23 17:59 Last Admin: 05/05/23 17:44 Dose: 100 mg Magnesium Hydroxide (Magnesium Hydroxide Susp 30 Ml Udc) 30 ml PO DAILY PRN PRN Reason: Constipation Stop: 06/01/23 20:45 Sodium Chloride (Sodium Chloride 0.65% Na Soln 45 Ml (Pender)) 1 - 2 sprays NA PRN PRN PRN Reason: Nasal Dryness/Congestion Stop: 06/01/23 20:45 Ziprasidone (Ziprasidone Hcl 80 Mg Cap) 160 mg PO 1800 DARYL Stop: 06/05/23 17:59 Mental Health & Subst Abuse Tx Psychiatrist Name of Psychiatrist: Bree Romero Psychiatrist's Date Of Appointment With Psychiatric Provider: 05/15/23 Time of Appointment with Psychiatrist: 1:00pm Psychiatric Appointment Comment: [address] [place], [place] Therapist Name of Therapist: Bree FEP program - [facility] Therapist's Date of Therapist Appointment: 05/15/23 Time of Therapist Appointment: 2:00pm Therapy Appointment Comment: [address] [place], [place] Campus Safety Officer Name of Campus Safety Officer: Through FEP program Post Discharge Appointments Primary Care Physician Name Of Family Doctor/PCP: [facility] Time of Appointment with PCP: please follow up as needed Provider Appointment Comment: [address] [place] Contact Information Discharge Discharge Address: [address] [place] [address]
[2023-05-06] MEDS: ARIPiprazole 10 MG TAB PO SCH (17:53)
[2023-05-06] MEDS: ziprasidone HCL 80 MG CAP PO SCH (17:55)
--- NOTE | 2023-05-08 16:02 | Psychiatric Progress Note ---
Date of Service May 08, 2023 Impression / Recommendations Impression This young man has had a lot of difficulties with what seems to be a progression from schizophrenia into schizoaffective disorder. I believe he had a manic or hypomanic episode in [place] recently. There does not seem to be any family history that would contribute towards his thought disorder. However, mother and other family members have had problems with mood. With his thought disorder, he has had a lot of difficulty functioning and is exhibiting some negative symptoms as well. I do not know if he could function without the help of his parents currently. He says that he is adhering to his medications pretty reliably, but I suspect that may be partly from his parents. 05/04/23: Patient seems to be tolerating the medication adjustments. However, we are not yet seeing much improvement in his psychotic symptoms. I do not expect the ziprasidone to have much of an improvement until he is gets closer to 160 mg. 05/05/23: Patient is tolerating the medication titration. However, we are still not seeing too much improvement yet, but the dose of Geodon is still pretty low. I know he is doing what he can to try to get better by going to groups and activities. It turns out that he is not on a 305 outpatient. He is just here voluntarily. 05/06/23: We are seeing slow improvement. We will be reaching the goal dose of Geodon at 160 mg tonight. He is working hard and going to all the groups that we ask him to. 05/07/23: We may be taking a step backwards today with some of the things that the staff is seeing. I have to wonder if it is the Geodon not helping yet or the Abilify going away. Nevertheless, he is trying to do what he thinks is important to get better. (1) Schizoaffective disorder, bipolar type: Plan 1. Patient is admitted here for safety, further evaluation, and treatment. We will continue with her current level of observation and precautions. 2. We are going to cross taper from Abilify to Geodon over the next several days. I reviewed the uses, side effects, and time course of Geodon and he gave informed consent. I will start at 40 mg after dinner tonight and then increase by 40 mg daily until we get to 160 mg every evening after dinner. At the same time, we will continue the clonidine and increase the lamotrigine to 100 mg. We will also switch all of the medications to after dinner so he does not have to take medications multiple times a day. 3. I encouraged the patient to take part in our therapeutic milieu, attend groups and activities, maintain good hygiene, and try not to isolate. 4. He currently is not allowing us to release information to his parents, but I suspect that may manager of change the next couple of days. Hopefully, we can have a family meeting before the patient discharges. I am pretty happy with the outpatient services he has set up. 5. Our medical people are available to evaluate and treat any medical issues that may arise. 05/04/23: We are going to continue with her current level of observation and precautions. I encouraged the patient to keep going to groups and activities and participate as well as he can. We will continue with the titration of Geodon towards 160 mg every evening with food. I will more gently taper off the Abilify. We will continue the lamotrigine at 100 mg and the clonidine at 0.1 mg, both after dinner with his other meds. If the patient is willing towards the end of his stay, we will try to have a family meeting before he leaves. He will also likely convert to an inpatient 304 early this week. 05/05/23: We are going to continue with our current level of observation and precautions. I encouraged the patient to continue to go to groups and activities. We will continue with the titration of Geodon towards 160 mg every evening with food; tonight he will get 120 mg. In the next day or 2 I will lower the Abilify further. Will also try to have a family meeting if he is willing. 05/06/23: We will continue with our current level of observation and precautions. I encouraged the patient to continue to go to groups and activities. Today I used a cognitive behavioral approach to help with patient work on testing for reality. This would include trying to sort out if an auditory sound is real or not by looking at other people and how they react to it. We talked about ways that he can test visual hallucinations to see if they are real. This should help make him a least more comfortable sorting out reality and understanding that even though something is bothering him, it is not real. Geodon will go to 160 mg this evening with food. Today, I decreased the Abilify to 10 mg. We are going to set up a family meeting with parents to work on discharge planning and safety. 05/07/23: We will continue with our current level of observation and precautions. I encouraged the patient to keep going to groups and activities. I did not change his medications today. He is only had 2 doses of Geodon at the 160 mg dose so I want to give that some time. I am also a little bit worried about lowering the Abilify quite yet. For now, I will leave it at 10 mg. The patient is involved in FEP which will be important for him and his family as this thought disorder evolves over time. I am also very reassured that he now has a place that he can eventually get into for better supervision than an independent apartment. Today I spent 37 minutes on the case. This included meeting with the patient, reviewing the chart, nursing report, multidisciplinary staff meeting, orders, and documentation. Suicide Risk Level Suicide Risk Level: Moderate (q15 min suicide checks) Suicide Risk Level Comments: I am somewhat concerned about the continued suicidal thoughts and vague homicidal thoughts. Because of his primary thought disorder, this is something that might get out of control if he gets too paranoid. Risk Factors Assessment Do You Have Access To A Gun?: No Protective Factors Assessment Employed: No Interval History Identifying Information SEGUNDO GARCIA is a 27-year-old M who lives alone in [place]. He was admitted 05/02/23 19:30 on a 304 outpatient commitment due to concerns of suicidal ideation and some vague homicidal thoughts. Chief Complaint "I told my psychiatrist I was having troubles with thoughts of killing myself." Review of Systems Sleep Information Total Hours of Sleep: 6.5 Meal Information Percent Meal Consumed - Breakfast: 100 Percent Meal Consumed - Lunch: 100 Percent Meal Consumed - Dinner: 100 Subjective Subjective Today I met with the patient, received nursing report, and reviewed his chart. We also had a multidisciplinary staff meeting to discuss his care. Segundo is in our hospital due to concerns of suicidal and homicidal thoughts related to psychosis. Staff report that the patient has been working hard on the unit. He has been attending groups and activities. He described feeling content at 7 out of 10 where 10 is the best it could ever be. Nevertheless, staff noticed that his eyes are darting around quite a bit which seem to indicate that he is attending to hallucinations. He also was describing ideas of reference while listening to the radio last evening. Later in the day, I received a message from the activity therapist that they had noticed he was struggling more. For the entirety of one of the groups he was tearful and emotional which was not his typical presentation. Peers noticed and were supportive and he did not talk much but when he did, he discussed "world peace" and seemed preoccupied with that. When I met with him this morning, he said he did not sleep very well. He described his mood at 6 out of 10 where 10 is the best it could be. He did also said he was feeling "tired." His appetite was pretty good. He has not had any phone calls lately. He felt like the meeting that he had with his parents yesterday was "not bad, but not good either." He describes suicidal ideation at 1-2 out of 10, self-harm urges at 0 out of 10, and homicidal thoughts at 1-2 out of 10; these are all where 10 is the worst that they could ever be. He thinks he may be starting to come down with a cold but he is not sure. When asked about psychotic symptoms he said that he thought he heard some words but he could not remember what they were. He understands that we are still tapering off the Abilify and continuing with the Geodon. Physical Exam Psychiatric Patient was alert and cooperative. He was clean and well groomed. Eye contact was a bit better. Speech was normal. Mood was "tired." Affect was still very blunted. Thought process was logical and somewhat goal-directed. I think he is still very paranoid and delusional. There was no evidence of any hallucinations when I met with him this morning, but I definitely believe the staff are witnessing him hallucinating.. Patient described both suicidal and homicidal thoughts as I listed above. Memory and concentration were good. No abnormal movements were seen. Gait was normal. Insight and judgment are impaired. Vital Signs (Past 24 Hours) Last Vital Signs Temp 36.7 C 05/08/23 06:50 Pulse 92 H 05/08/23 06:50 Resp 16 05/08/23 06:50 BP 122/78 05/08/23 06:50 Pulse Ox 100 05/02/23 20:52 O2 Del Method Room Air 05/02/23 20:52 Results & Data ([facility]) Current Inpatient Medications Current Inpatient Medications: Current Inpatient Medications Acetaminophen (Acetaminophen 325 Mg Tab) 650 mg PO Q4H PRN PRN Reason: Headache or Minor Fever Stop: 06/01/23 20:45 Al Hydrox/Mg Hydrox/Simethicone (Aluminum/Magnesium Susp 30 Ml Udc) 30 ml PO Q4H PRN PRN Reason: GI Upset Stop: 06/01/23 20:45 Aripiprazole (Aripiprazole 10 Mg Tab) 10 mg PO DAILY@1800 DARYL Stop: 06/05/23 17:59 Last Admin: 05/07/23 18:31 Dose: 10 mg Bismuth Subsalicylate (Bismuth Subsalicylate Liqd 236 Ml) 15 ml PO PRN PRN PRN Reason: Loose Stool Stop: 06/01/23 20:45 Clonidine HCl (Clonidine Hcl 0.1 Mg Tab) 0.1 mg PO DAILY@1800 DARYL Stop: 06/02/23 17:59 Last Admin: 05/07/23 18:31 Dose: 0.1 mg Hydroxyzine HCl (Hydroxyzine Hcl 25 Mg Tab) 50 mg PO HSZ PRN PRN Reason: Insomnia Stop: 06/01/23 20:45 Hydroxyzine HCl (Hydroxyzine Hcl 25 Mg Tab) 25 mg PO Q4H PRN PRN Reason: Anxiety Stop: 06/01/23 20:45 Ibuprofen (Ibuprofen 600 Mg Tab) 600 mg PO Q4H PRN PRN Reason: Pain Stop: 06/03/23 09:58 Lamotrigine (Lamotrigine 100 Mg Tab) 100 mg PO DAILY@1800 DARYL; Protocol Stop: 06/02/23 17:59 Last Admin: 05/07/23 18:31 Dose: 100 mg Magnesium Hydroxide (Magnesium Hydroxide Susp 30 Ml Udc) 30 ml PO DAILY PRN PRN Reason: Constipation Stop: 06/01/23 20:45 Sodium Chloride (Sodium Chloride 0.65% Na Soln 45 Ml ([place])) 1 - 2 sprays NA PRN PRN PRN Reason: Nasal Dryness/Congestion Stop: 06/01/23 20:45 Ziprasidone (Ziprasidone Hcl 80 Mg Cap) 160 mg PO 1800 DARYL Stop: 06/05/23 17:59 Last Admin: 05/07/23 18:31 Dose: 160 mg Mental Health & Subst Abuse Tx Psychiatrist Name of Psychiatrist: Bree Romero Psychiatrist's Date Of Appointment With Psychiatric Provider: 05/15/23 Time of Appointment with Psychiatrist: 1:00pm Psychiatric Appointment Comment: [address] [place], [place] Therapist Name of Therapist: Bree FEP program - [facility] Therapist's Date of Therapist Appointment: 05/15/23 Time of Therapist Appointment: 2:00pm Therapy Appointment Comment: [address] [place], [place] Set Up Operator Tool Name of Set Up Operator Tool: Through FEP program Post Discharge Appointments Primary Care Physician Name Of Family Doctor/PCP: [facility] Time of Appointment with PCP: please follow up as needed Provider Appointment Comment: [address] [place] Contact Information Discharge Discharge Address: [facility] [address], [place] [address]
[2023-05-09] MEDS: OLANZapine 5 MG TABLET PO PRN (11:11)
--- NOTE | 2023-05-09 13:03 | Psychiatric Progress Note ---
Date of Service May 09, 2023 Impression / Recommendations Impression This young man has had a lot of difficulties with what seems to be a progression from schizophrenia into schizoaffective disorder. I believe he had a manic or hypomanic episode in [place] recently. There does not seem to be any family history that would contribute towards his thought disorder. However, mother and other family members have had problems with mood. With his thought disorder, he has had a lot of difficulty functioning and is exhibiting some negative symptoms as well. I do not know if he could function without the help of his parents currently. He says that he is adhering to his medications pretty reliably, but I suspect that may be partly from his parents. 05/04/23: Patient seems to be tolerating the medication adjustments. However, we are not yet seeing much improvement in his psychotic symptoms. I do not expect the ziprasidone to have much of an improvement until he is gets closer to 160 mg. 05/05/23: Patient is tolerating the medication titration. However, we are still not seeing too much improvement yet, but the dose of Geodon is still pretty low. I know he is doing what he can to try to get better by going to groups and activities. It turns out that he is not on a 305 outpatient. He is just here voluntarily. 05/06/23: We are seeing slow improvement. We will be reaching the goal dose of Geodon at 160 mg tonight. He is working hard and going to all the groups that w e ask him to. 05/07/23: We may be taking a step backwards today with some of the things that the staff is seeing. I have to wonder if it is the Geodon not helping yet or the Abilify going away. Nevertheless, he is trying to do what he thinks is important to get better. 05/09/23: Patient seems to be slowly going backwards in his progress. He has been getting a little bit more agitated and tearful. He is obviously still having internal stimulation. I am not sure if the Geodon just has not had a chance to work, or if the taper of Abilify is causing him to get worse, or both. (1) Schizoaffective disorder, bipolar type: Plan 1. Patient is admitted here for safety, further evaluation, and treatment. We will continue with her current level of observation and precautions. 2. We are going to cross taper from Abilify to Geodon over the next several days. I reviewed the uses, side effects, and time course of Geodon and he gave informed consent. I will start at 40 mg after dinner tonight and then increase by 40 mg daily until we get to 160 mg every evening after dinner. At the same time, we will continue the clonidine and increase the lamotrigine to 100 mg. We will also switch all of the medications to after dinner so he does not have to take medications multiple times a day. 3. I encouraged the patient to take part in our therapeutic milieu, attend groups and activities, maintain good hygiene, and try not to isolate. 4. He currently is not allowing us to release information to his parents, but I suspect that may record changer the next couple of days. Hopefully, we can have a family meeting before the patient discharges. I am pretty happy with the outpatient services he has set up. 5. Our medical people are available to evaluate and treat any medical issues that may arise. 05/04/23: We are going to continue with her current level of observation and precautions. I encouraged the patient to keep going to groups and activities and participate as well as he can. We will continue with the titration of Geodon towards 160 mg every evening with food. I will more gently taper off the Abilify. We will continue the lamotrigine at 100 mg and the clonidine at 0.1 mg, both after dinner with his other meds. If the patient is willing towards the end of his stay, we will try to have a family meeting before he leaves. He will also likely convert to an inpatient 304 early this week. 05/05/23: We are going to continue with our current level of observation and precautions. I encouraged the patient to continue to go to groups and activities. We will continue with the titration of Geodon towards 160 mg every evening with food; tonight he will get 120 mg. In the next day or 2 I will lower the Abilify further. Will also try to have a family meeting if he is willing. 05/06/23: We will continue with our current level of observation and precautions. I encouraged the patient to continue to go to groups and activities. Today I used a cognitive behavioral approach to help with patient work on testing for reality. This would include trying to sort out if an auditory sound is real or not by looking at other people and how they react to it. We talked about ways that he can test visual hallucinations to see if they are real. This should help make him a least more comfortable sorting out reality and understanding that even though something is bothering him, it is not real. Geodon will go to 160 mg this evening with food. Today, I decreased the Abilify to 10 mg. We are going to set up a family meeting with parents to work on discharge planning and safety. 05/07/23: We will continue with our current level of observation and precautions. I encouraged the patient to keep going to groups and activities. I did not change his medications today. He is only had 2 doses of Geodon at the 160 mg dose so I want to give that some time. I am also a little bit worried about lowering the Abilify quite yet. For now, I will leave it at 10 mg. The patient is involved in FEP which will be important for him and his family as this thought disorder evolves over time. I am also very reassured that he now has a place that he can eventually get into for better supervision than an independent apartment. 05/09/23: We are going to continue with her current level of observation and precautions. I encouraged him to keep trying not to isolate. I added some Zyprexa 5 mg every 6 hours as needed for agitation or psychosis. I wanted to wait 1 more day to see if the Geodon is may be starting to help. If it is not helping by the weekend, it may be worthwhile to reconsider a different antipsychotic or possibly pushed the Abilify back up and beyond the 20 mg dose he had been on when he got here. Today I spent 37 minutes on the case. This included meeting with the patient, reviewing the chart, nursing report, multidisciplinary treatment team meeting, orders, and documentation. Suicide Risk Level Suicide Risk Level: Moderate (q15 min suicide checks) Suicide Risk Level Comments: I am somewhat concerned about the continued suicidal thoughts and vague homicidal thoughts. Because of his primary thought disorder, this is something that might get out of control if he gets too paranoid. Risk Factors Assessment Do You Have Access To A Gun?: No Protective Factors Assessment Employed: No Interval History Identifying Information SEGUNDO GARCIA is a 27-year-old M who lives alone in [place]. He was admitted 05/02/23 19:30 on a 304 outpatient commitment due to concerns of suicidal ideation and some vague homicidal thoughts. Chief Complaint "I told my psychiatrist I was having troubles with thoughts of killing myself." Review of Systems Sleep Information Total Hours of Sleep: 6 Meal Information Percent Meal Consumed - Breakfast: 100 Percent Meal Consumed - Lunch: 100 Percent Meal Consumed - Dinner: 100 Subjective Subjective Today I met with the patient, received nursing report, and reviewed his chart. We also had a multidisciplinary treatment team meeting to discuss his care. Segundo is in our hospital due to concerns of suicidal and homicidal thoughts related to his psychosis. Staff report that he was looking "glazed over" several times through the day. He had a visit with his parents that went relatively well. He was describing his mood to the staff is "uncertain." Staff see him in the activity room quite a bit during the day which means that he is not isolating very much. Yesterday he still was describing some suicidal thoughts. When I met with him today, he had been in the midst of being somewhat agitated on the unit and was somewhat tearful. He told me that he was not sure what was going on and could not really articulate his thoughts very well. He described his mood to me today as "aloof." I asked him how his visit with his parents went yesterday and he described it is making him feel "confused." He describes suicidal thoughts today at 5 out of 10 where 10 is the worst it could ever be. Homicidal thoughts are at 1 out of 10. He is having a lot of trouble articulating what what he feels or what he is thinking. For several questions I asked him, he really could not give me an answer. Physical Exam Psychiatric Patient was alert and cooperative. He was clean and well groomed. Eye contact was a bit better. Speech was normal except he was demonstrating some echolalia. Mood was "aloof." Affect was very blunted and looks slightly anxious. Thought process was superficially logical and somewhat goal-directed. I think he is still very paranoid and delusional and internally stimulated with hallucinations. Patient described both suicidal and homicidal thoughts as I listed above. Memory and concentration were somewhat distracted today. Patient was showing some slight psychomotor agitation today. Gait was normal. Insight and judgment are impaired. Vital Signs (Past 24 Hours) Last Vital Signs Temp 36.6 C 05/09/23 06:44 Pulse 105 H 05/09/23 06:44 Resp 16 05/09/23 06:44 BP 131/83 05/09/23 06:44 Pulse Ox 100 05/02/23 20:52 O2 Del Method Room Air 05/02/23 20:52 Results & Data ([facility]) Current Inpatient Medications Current Inpatient Medications: Current Inpatient Medications Acetaminophen (Acetaminophen 325 Mg Tab) 650 mg PO Q4H PRN PRN Reason: Headache or Minor Fever Stop: 06/01/23 20:45 Al Hydrox/Mg Hydrox/Simethicone (Aluminum/Magnesium Susp 30 Ml Udc) 30 ml PO Q4H PRN PRN Reason: GI Upset Stop: 06/01/23 20:45 Aripiprazole (Aripiprazole 10 Mg Tab) 10 mg PO DAILY@1800 DARYL Stop: 06/05/23 17:59 Last Admin: 05/08/23 18:37 Dose: 10 mg Bismuth Subsalicylate (Bismuth Subsalicylate Liqd 236 Ml) 15 ml PO PRN PRN PRN Reason: Loose Stool Stop: 06/01/23 20:45 Clonidine HCl (Clonidine Hcl 0.1 Mg Tab) 0.1 mg PO DAILY@1800 DARYL Stop: 06/02/23 17:59 Last Admin: 05/08/23 18:38 Dose: 0.1 mg Hydroxyzine HCl (Hydroxyzine Hcl 25 Mg Tab) 50 mg PO HSZ PRN PRN Reason: Insomnia Stop: 06/01/23 20:45 Hydroxyzine HCl (Hydroxyzine Hcl 25 Mg Tab) 25 mg PO Q4H PRN PRN Reason: Anxiety Stop: 06/01/23 20:45 Ibuprofen (Ibuprofen 600 Mg Tab) 600 mg PO Q4H PRN PRN Reason: Pain Stop: 06/03/23 09:58 Lamotrigine (Lamotrigine 100 Mg Tab) 100 mg PO DAILY@1800 DARYL; Protocol Stop: 06/02/23 17:59 Last Admin: 05/08/23 18:38 Dose: 100 mg Magnesium Hydroxide (Magnesium Hydroxide Susp 30 Ml Udc) 30 ml PO DAILY PRN PRN Reason: Constipation Stop: 06/01/23 20:45 Olanzapine (Olanzapine 5 Mg Tablet) 5 mg PO Q6H PRN PRN Reason: psychosis/agitation Stop: 06/08/23 11:14 Last Admin: 05/09/23 11:11 Dose: 5 mg Sodium Chloride (Sodium Chloride 0.65% Na Soln 45 Ml ([place])) 1 - 2 sprays NA PRN PRN PRN Reason: Nasal Dryness/Congestion Stop: 06/01/23 20:45 Ziprasidone (Ziprasidone Hcl 80 Mg Cap) 160 mg PO 1800 DARYL Stop: 06/05/23 17:59 Last Admin: 05/08/23 18:39 Dose: 160 mg Mental Health & Subst Abuse Tx Psychiatrist Name of Psychiatrist: Bree Romero Psychiatrist's Date Of Appointment With Psychiatric Provider: 05/15/23 Time of Appointment with Psychiatrist: 1:00pm Psychiatric Appointment Comment: [address] [place], [place] Therapist Name of Therapist: Bree FEP program - [facility] Therapist's Date of Therapist Appointment: 05/15/23 Time of Therapist Appointment: 2:00pm Therapy Appointment Comment: [address] [place], [place] Industrial Mechanic Name of Industrial Mechanic: Through FEP program Post Discharge Appointments Primary Care Physician Name Of Family Doctor/PCP: [facility] Time of Appointment with PCP: please follow up as needed Provider Appointment Comment: [address] [place] Contact Information Discharge Discharge Address: [address] [place] [address]
[2023-05-10] MEDS ORDERED: BENZTROPINE MESYLATE 1 MG TAB PO PRN (09:29)
[2023-05-10] MEDS: haloperidoL 5 MG TAB PO SCH (09:37)
[2023-05-10] MEDS: LORazepam 1 MG TAB PO PRN (09:37)
[2023-05-10] MEDS: haloperidoL 5 MG TAB PO PRN (14:07)
[2023-05-10] MEDS: LORazepam 1 MG TAB PO SCH (14:08)
--- NOTE | 2023-05-10 15:25 | Psychiatric Progress Note ---
Date of Service May 10, 2023 Impression / Recommendations Impression as per Dr. Rizvi: This young man has had a lot of difficulties with what seems to be a progression from schizophrenia into schizoaffective disorder. I believe he had a manic or hypomanic episode in [place] recently. There does not seem to be any family history that would contribute towards his thought disorder. However, mother and other family members have had problems with mood. With his thought disorder, he has had a lot of difficulty functioning and is exhibiting some negative symptoms as well. I do not know if he could function without the help of his parents currently. He says that he is adhering to his medications pretty reliably, but I suspect that may be partly from his parents. MNPR due to severity of psychosis Overall, I spent a total of 58 minutes with this case, including review of chart, direct evaluation of the patient, ordering medication, coordination with nursing, and documentation. (1) Schizoaffective disorder, bipolar type: Plan 05/10/2023: patient is rapidly decompensating and bordering on catatonia, very poor PO last 2 shifts. will d/c Geodon in favor of Haldol 5 mg BID + prn. Ativan 1 mg Tid for catatonic component. Cogentin prn. Will reassess abilify dosing. Will not taper Geodon at this time due to need to avoid 3 antipsychotics and need for rapid adjustment of meds to avoid medical hospitalization for catatonia. Fasting labs in am for metabolic monitoring. 05/09/23: We are going to continue with current level of observation and precautions. I encouraged him to keep trying not to isolate. I added some Zyprexa 5 mg every 6 hours as needed for agitation or psychosis. I wanted to wait 1 more day to see if the Geodon is may be starting to help. If it is not helping by the weekend, it may be worthwhile to reconsider a different antipsychotic or possibly pushed the Abilify back up and beyond the 20 mg dose he had been on when he got here. 05/07/23: We will continue with our current level of observation and precautions. I encouraged the patient to keep going to groups and activities. I did not change his medications today. He is only had 2 doses of Geodon at the 160 mg dose so I want to give that some time. I am also a little bit worried about lowering the Abilify quite yet. For now, I will leave it at 10 mg. The patient is involved in FEP which will be important for him and his family as this thought disorder evolves over time. I am also very reassured that he now has a place that he can eventually get into for better supervision than an independent apartment. 05/06/23: We will continue with our current level of observation and precautions. I encouraged the patient to continue to go to groups and activities. Today I used a cognitive behavioral approach to help with patient work on testing for reality. This would include trying to sort out if an auditory sound is real or not by looking at other people and how they react to it. We talked about ways that he can test visual hallucinations to see if they are real. This should help make him a least more comfortable sorting out reality and understanding that even though something is bothering him, it is not real. Geodon will go to 160 mg this evening with food. Today, I decreased the Abilify to 10 mg. We are going to set up a family meeting with parents to work on discharge planning and safety. 05/05/23: We are going to continue with our current level of observation and precautions. I encouraged the patient to continue to go to groups and activities. We will continue with the titration of Geodon towards 160 mg every evening with food; tonight he will get 120 mg. In the next day or 2 I will lower the Abilify further. Will also try to have a family meeting if he is willing. 05/04/23: We are going to continue with her current level of observation and precautions. I encouraged the patient to keep going to groups and activities and participate as well as he can. We will continue with the titration of Geodon towards 160 mg every evening with food. I will more gently taper off the Abilify. We will continue the lamotrigine at 100 mg and the clonidine at 0.1 mg, both after dinner with his other meds. If the patient is willing towards the end of his stay, we will try to have a family meeting before he leaves. He will also likely convert to an inpatient 304 early this week. 05/03/2023: 1. Patient is admitted here for safety, further evaluation, and treatment. We will continue with her current level of observation and precautions. 2. We are going to cross taper from Abilify to Geodon over the next several days. I reviewed the uses, side effects, and time course of Geodon and he gave informed consent. I will start at 40 mg after dinner tonight and then increase by 40 mg daily until we get to 160 mg every evening after dinner. At the same time, we will continue the clonidine and increase the lamotrigine to 100 mg. We will also switch all of the medications to after dinner so he does not have to take medications multiple times a day. 3. I encouraged the patient to take part in our therapeutic milieu, attend groups and activities, maintain good hygiene, and try not to isolate. 4. He currently is not allowing us to release information to his parents, but I suspect that may cap coverer the next couple of days. Hopefully, we can have a family meeting before the patient discharges. I am pretty happy with the outpatient services he has set up. 5. Our medical people are available to evaluate and treat any medical issues that may arise. Suicide Risk Level Suicide Risk Level: Moderate (q15 min suicide checks) Risk Factors Assessment Do You Have Access To A Gun?: No Protective Factors Assessment Employed: No Interval History Identifying Information ANASTASIYA GARCIA is a 27-year-old M who lives alone in [place]. He was admitted 05/02/23 19:30 on a 201 commitment due to concerns of suicidal ideation and some vague homicidal thoughts. Chief Complaint severe thought blocking Review of Systems Sleep Information Total Hours of Sleep: 5.5 Meal Information Percent Meal Consumed - Breakfast: 0 Percent Meal Consumed - Lunch: 0 Percent Meal Consumed - Dinner: 0 Subjective Subjective Patient was seen & assessed and interval progress reviewed with nursing and social work. Patient's Abilify was tapered down in favor of a trial of [place] but patient decompensated yesterday, responding to auditory and visual hallucination, too disorganized to use bathroom, disrobed at one point, refused dinner and breakfast this am and not communicating with staff. Seemed worse/no benefit from prn Zyprexa per staff. Patient took Ativan and PO Haldol but remains in bed in room. Took sips of juice for nurse. Physical Exam Psychiatric Orientation: alert (but just staring at ceiling) Apperance: + disheveled Eye Contact: + poor eye contact Motor Behavior: no abnormal motor movements Speech: + abnormal rate/rhythm/volume of speech (paucity) Affect: + blunted affect Mood: + depressed mood (cannot verbalize) Thought Process: + thought blocking (severe) Hallucinations: + auditory hallucinations Cognition: language grossly intact; + attention not intact Vital Signs (Past 24 Hours) Last Vital Signs Temp 36.8 C 05/10/23 06:18 Pulse 93 H 05/10/23 06:19 Resp 16 05/10/23 06:18 BP 145/76 H 05/10/23 06:19 Pulse Ox 100 05/10/23 06:18 O2 Del Method Room Air 05/10/23 06:18 Results & Data ([facility]) Current Inpatient Medications Current Inpatient Medications: Current Inpatient Medications Acetaminophen (Acetaminophen 325 Mg Tab) 650 mg PO Q4H PRN PRN Reason: Headache or Minor Fever Stop: 06/01/23 20:45 Al Hydrox/Mg Hydrox/Simethicone (Aluminum/Magnesium Susp 30 Ml Udc) 30 ml PO Q4H PRN PRN Reason: GI Upset Stop: 06/01/23 20:45 Aripiprazole (Aripiprazole 10 Mg Tab) 10 mg PO DAILY@1800 [facility] Stop: 06/05/23 17:59 Last Admin: 05/09/23 18:24 Dose: 10 mg Benztropine Mesylate (Benztropine Mesylate 1 Mg Tab) 1 mg PO Q6 PRN PRN Reason: Muscle Spasm Stop: 06/09/23 09:28 Bismuth Subsalicylate (Bismuth Subsalicylate Liqd 236 Ml) 15 ml PO PRN PRN PRN Reason: Loose Stool Stop: 06/01/23 20:45 Clonidine HCl (Clonidine Hcl 0.1 Mg Tab) 0.1 mg PO DAILY@1800 [facility] Stop: 06/02/23 17:59 Last Admin: 05/09/23 18:25 Dose: 0.1 mg Haloperidol (Haloperidol 5 Mg Tab) 5 mg PO BID DARYL Stop: 06/09/23 09:59 Last Admin: 05/10/23 09:37 Dose: 5 mg Haloperidol (Haloperidol 5 Mg Tab) 5 mg PO Q6 PRN PRN Reason: Anxiety/Agitation Stop: 06/09/23 09:28 Last Admin: 05/10/23 14:07 Dose: 5 mg Hydroxyzine HCl (Hydroxyzine Hcl 25 Mg Tab) 50 mg PO HSZ PRN PRN Reason: Insomnia Stop: 06/01/23 20:45 Ibuprofen (Ibuprofen 600 Mg Tab) 600 mg PO Q4H PRN PRN Reason: Pain Stop: 06/03/23 09:58 Lamotrigine (Lamotrigine 100 Mg Tab) 100 mg PO DAILY@1800 DARYL; Protocol Stop: 06/02/23 17:59 Last Admin: 05/09/23 18:24 Dose: 100 mg Lorazepam (Lorazepam 1 Mg Tab) 1 mg PO TID DARYL Stop: 06/09/23 13:59 Last Admin: 05/10/23 14:08 Dose: 1 mg Lorazepam (Lorazepam 1 Mg Tab) 1 mg PO Q4 PRN PRN Reason: Anxiety/Insomnia Stop: 06/09/23 09:29 Last Admin: 05/10/23 09:37 Dose: 1 mg Magnesium Hydroxide (Magnesium Hydroxide Susp 30 Ml Udc) 30 ml PO DAILY PRN PRN Reason: Constipation Stop: 06/01/23 20:45 Sodium Chloride (Sodium Chloride 0.65% Na Soln 45 Ml ([place])) 1 - 2 sprays NA PRN PRN PRN Reason: Nasal Dryness/Congestion Stop: 06/01/23 20:45 Mental Health & Subst Abuse Tx Psychiatrist Name of Psychiatrist: Bree Romero Psychiatrist's Date Of Appointment With Psychiatric Provider: 05/15/23 Time of Appointment with Psychiatrist: 1:00pm Psychiatric Appointment Comment: [address] [place], [place] Therapist Name of Therapist: Bree FEP program - [facility] Therapist's Date of Therapist Appointment: 05/15/23 Time of Therapist Appointment: 2:00pm Therapy Appointment Comment: [address] [place], [place] Teacher Physically Impaired Name of Teacher Physically Impaired: Through FEP program Post Discharge Appointments Primary Care Physician Name Of Family Doctor/PCP: [facility] Time of Appointment with PCP: please follow up as needed Provider Appointment Comment: [address], [place] Contact Information Discharge Discharge Address: [facility] [address], [place] [address]
[2023-05-11 08:08] LABS: BUN Creatinine Ratio 14.8 (10-20); Calcium 9.4 mg/dl (8.6-10.3); Creatinine Clr Calc Pharmacy 124.1 ml/min; Est GFR (African American) 138.4 ml/min; Est GFR (Non-African American) 119.4 ml/min; Potassium 3.8 mmol/L (3.5-5.1)
--- NOTE | 2023-05-11 16:04 | Psychiatric Progress Note ---
Date of Service May 11, 2023 Impression / Recommendations Impression as per Dr. Rizvi: This young man has had a lot of difficulties with what seems to be a progression from schizophrenia into schizoaffective disorder. I believe he had a manic or hypomanic episode in [place] recently. There does not seem to be any family history that would contribute towards his thought disorder. However, mother and other family members have had problems with mood. With his thought disorder, he has had a lot of difficulty functioning and is exhibiting some negative symptoms as well. I do not know if he could function without the help of his parents currently. He says that he is adhering to his medications pretty reliably, but I suspect that may be partly from his parents. MNPR due to severity of psychosis Overall, I spent a total of 38 minutes with this case, including review of chart, direct evaluation of the patient, coordination with nursing, and documentation. (1) Schizoaffective disorder, bipolar type: Plan 05/11/2023: continue current meds and tx plan for now as significant improvement in past 24 hrs. labs reviewed. 05/10/2023: patient is rapidly decompensating and bordering on catatonia, very poor PO last 2 shifts. will d/c Geodon in favor of Haldol 5 mg BID + prn. Ativan 1 mg Tid for catatonic component. Cogentin prn. Will reassess abilify dosing. Will not taper Geodon at this time due to need to avoid 3 antipsychotics and need for rapid adjustment of meds to avoid medical hospitalization for catatonia. Fasting labs in am for metabolic monitoring. 05/09/23: We are going to continue with current level of observation and precautions. I encouraged him to keep trying not to isolate. I added some Zyprexa 5 mg every 6 hours as needed for agitation or psychosis. I wanted to wait 1 more day to see if the Geodon is may be starting to help. If it is not helping by the weekend, it may be worthwhile to reconsider a different antipsychotic or possibly pushed the Abilify back up and beyond the 20 mg dose he had been on when he got here. 05/07/23: We will continue with our current level of observation and precautions. I encouraged the patient to keep going to groups and activities. I did not change his medications today. He is only had 2 doses of Geodon at the 160 mg dose so I want to give that some time. I am also a little bit worried about lowering the Abilify quite yet. For now, I will leave it at 10 mg. The patient is involved in FEP which will be important for him and his family as this thought disorder evolves over time. I am also very reassured that he now has a place that he can eventually get into for better supervision than an independent apartment. 05/06/23: We will continue with our current level of observation and precautions. I encouraged the patient to continue to go to groups and activities. Today I used a cognitive behavioral approach to help with patient work on testing for reality. This would include trying to sort out if an auditory sound is real or not by looking at other people and how they react to it. We talked about ways that he can test visual hallucinations to see if they are real. This should help make him a least more comfortable sorting out reality and understanding that even though something is bothering him, it is not real. Geodon will go to 160 mg this evening with food. Today, I decreased the Abilify to 10 mg. We are going to set up a family meeting with parents to work on discharge planning and safety. 05/05/23: We are going to continue with our current level of observation and precautions. I encouraged the patient to continue to go to groups and activities. We will continue with the titration of Geodon towards 160 mg every evening with food; tonight he will get 120 mg. In the next day or 2 I will lower the Abilify further. Will also try to have a family meeting if he is willing. 05/04/23: We are going to continue with her current level of observation and precautions. I encouraged the patient to keep going to groups and activities and participate as well as he can. We will continue with the titration of Geodon towards 160 mg every evening with food. I will more gently taper off the Abilify. We will continue the lamotrigine at 100 mg and the clonidine at 0.1 mg, both after dinner with his other meds. If the patient is willing towards the end of his stay, we will try to have a family meeting before he leaves. He will also likely convert to an inpatient 304 early this week. 05/03/2023: 1. Patient is admitted here for safety, further evaluation, and treatment. We will continue with her current level of observation and precautions. 2. We are going to cross taper from Abilify to Geodon over the next several days. I reviewed the uses, side effects, and time course of Geodon and he gave informed consent. I will start at 40 mg after dinner tonight and then increase by 40 mg daily until we get to 160 mg every evening after dinner. At the same time, we will continue the clonidine and increase the lamotrigine to 100 mg. We will also switch all of the medications to after dinner so he does not have to take medications multiple times a day. 3. I encouraged the patient to take part in our therapeutic milieu, attend groups and activities, maintain good hygiene, and try not to isolate. 4. 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 Hopefully, we can have a family meeting before the patient discharges. I am pretty happy with the outpatient services he has set up. 5. Our medical people are available to evaluate and treat any medical issues that may arise. Suicide Risk Level Suicide Risk Level: Moderate (q15 min suicide checks) Risk Factors Assessment Do You Have Access To A Gun?: No Protective Factors Assessment Employed: No Interval History Identifying Information ANASTASIYA GARCIA is a 27-year-old M who lives alone in [place]. He was adm itted 05/02/23 19:30 on a 201 commitment due to concerns of suicidal ideation and some vague homicidal thoughts. Chief Complaint "yeah yesterday I saw, heard and felt stuff. today I was wondering about geneology." Review of Systems Sleep Information Total Hours of Sleep: 4.75 Meal Information Percent Meal Consumed - Breakfast: 100 Percent Meal Consumed - Lunch: 100 Percent Meal Consumed - Dinner: 0 Subjective Subjective Patient was seen & assessed and interval progress reviewed with nursing and s ocial work. Patient spent most of day in bed yesterday with eyes and ears covered, decreased responsiveness and minimal PO intake. His Geodon was discontinued in favor of Haldol and Ativan. Today he was up in am and initiated showering and washing his clothes. He ate breakfast and attended some groups. He is still wearing headphones for david but much improved. Physical Exam Psychiatric Orientation: alert Apperance: appropriately groomed Eye Contact: + fair eye contact Motor Behavior: no abnormal motor movements (some pacing but no akathisia) Speech: normal rate/rhythm/volume of speech Affect: + blunted affect Mood: + anxious mood Thought Process: + thought blocking (minimal) and + concrete thought process Thought Content: no delusions Suicidal Thoughts: denies suicidal thoughts Homicidal Thoughts: denies homicidal thoughts Hallucinations: + auditory hallucinations Cognition: language grossly intact; + attention not intact Vital Signs (Past 24 Hours) Last Vital Signs Temp 36.8 C 05/11/23 05:08 Pulse 100 H 05/11/23 05:08 Resp 16 05/11/23 05:08 BP 147/93 H 05/11/23 05:08 Pulse Ox 97 05/11/23 05:08 O2 Del Method Room Air 05/11/23 05:08 Results & Data ([facility]) Laboratory Results Laboratory Results - last 24 hr 05/11/23 07:06 Sodium 137 Potassium 3.8 Chloride 99 Carbon Dioxide 30 Anion Gap 8 BUN 13 Creatinine 0.88 Est Cr Clr Drug Dosing 124.1 Est GFR ( Amer) 138.4 Est GFR (Non-Af Amer) 119.4 BUN/Creatinine Ratio 14.8 Glucose 76 Calcium 9.4 Triglycerides 96 Cholesterol 195 LDL Cholesterol, Calc 137 VLDL Cholesterol, Calc 19 HDL Cholesterol 39 Cholesterol/HDL Ratio 5.0 Current Inpatient Medications Current Inpatient Medications: Current Inpatient Medications Acetaminophen (Acetaminophen 325 Mg Tab) 650 mg PO Q4H PRN PRN Reason: Headache or Minor Fever Stop: 06/01/23 20:45 Al Hydrox/Mg Hydrox/Simethicone (Aluminum/Magnesium Susp 30 Ml Udc) 30 ml PO Q4H PRN PRN Reason: GI Upset Stop: 06/01/23 20:45 Aripiprazole (Aripiprazole 10 Mg Tab) 10 mg PO DAILY@1800 DARYL Stop: 06/05/23 17:59 Last Admin: 05/10/23 17:43 Dose: 10 mg Benztropine Mesylate (Benztropine Mesylate 1 Mg Tab) 1 mg PO Q6 PRN PRN Reason: Muscle Spasm Stop: 06/09/23 09:28 Bismuth Subsalicylate (Bismuth Subsalicylate Liqd 236 Ml) 15 ml PO PRN PRN PRN Reason: Loose Stool Stop: 06/01/23 20:45 Clonidine HCl (Clonidine Hcl 0.1 Mg Tab) 0.1 mg PO DAILY@1800 DARYL Stop: 06/02/23 17:59 Last Admin: 05/10/23 17:42 Dose: 0.1 mg Haloperidol (Haloperidol 5 Mg Tab) 5 mg PO BID DARYL Stop: 06/09/23 09:59 Last Admin: 05/11/23 08:54 Dose: 5 mg Haloperidol (Haloperidol 5 Mg Tab) 5 mg PO Q6 PRN PRN Reason: Anxiety/Agitation Stop: 06/09/23 09:28 Last Admin: 05/11/23 12:26 Dose: 5 mg Hydroxyzine HCl (Hydroxyzine Hcl 25 Mg Tab) 50 mg PO HSZ PRN PRN Reason: Insomnia Stop: 06/01/23 20:45 Ibuprofen (Ibuprofen 600 Mg Tab) 600 mg PO Q4H PRN PRN Reason: Pain Stop: 06/03/23 09:58 Lamotrigine (Lamotrigine 100 Mg Tab) 100 mg PO DAILY@1800 DARYL; Protocol Stop: 06/02/23 17:59 Last Admin: 05/10/23 17:43 Dose: 100 mg Lorazepam (Lorazepam 1 Mg Tab) 1 mg PO TID DARYL Stop: 06/09/23 13:59 Last Admin: 05/11/23 13:16 Dose: 1 mg Lorazepam (Lorazepam 1 Mg Tab) 1 mg PO Q4 PRN PRN Reason: Anxiety/Insomnia Stop: 06/09/23 09:29 Last Admin: 05/11/23 04:58 Dose: 1 mg Magnesium Hydroxide (Magnesium Hydroxide Susp 30 Ml Udc) 30 ml PO DAILY PRN PRN Reason: Constipation Stop: 06/01/23 20:45 Sodium Chloride (Sodium Chloride 0.65% Na Soln 45 Ml ([place])) 1 - 2 sprays NA PRN PRN PRN Reason: Nasal Dryness/Congestion Stop: 06/01/23 20:45 Mental Health & Subst Abuse Tx Psychiatrist Name of Psychiatrist: Bree Romero Psychiatrist's Date Of Appointment With Psychiatric Provider: 05/15/23 Time of Appointment with Psychiatrist: 1:00pm Psychiatric Appointment Comment: [address] [place], [place] Therapist Name of Therapist: Bree [facility]EL[facility] program - [facility] Therapist's Date of Therapist Appointment: 05/15/23 Time of Therapist Appointment: 2:00pm Therapy Appointment Comment: [address] [place], [place] Local Truck Driver Name of Local Truck Driver: Through FEP program Post Discharge Appointments Primary Care Physician Name Of Family Doctor/PCP: [facility] Time of Appointment with PCP: please follow up as needed Provider Appointment Comment: [address] [place] Contact Information Discharge Discharge Address: [facility] [address], [place] [address]
[2023-05-11] MEDS: SODIUM CHLORIDE 0.65% NA SOLN 45 ML (OCEAN) PRN (21:05)
--- NOTE | 2023-05-12 16:09 | Psychiatric Progress Note ---
Date of Service May 12, 2023 Impression / Recommendations Impression as per Dr. Rizvi: This young man has had a lot of difficulties with what seems to be a progression from schizophrenia into schizoaffective disorder. I believe he had a manic or hypomanic episode in [place] recently. There does not seem to be any family history that would contribute towards his thought disorder. However, mother and other family members have had problems with mood. With his thought disorder, he has had a lot of difficulty functioning and is exhibiting some negative symptoms as well. I do not know if he could function without the help of his parents currently. He says that he is adhering to his medications pretty reliably, but I suspect that may be partly from his parents. MNPR due to severity of psychosis Overall, I spent a total of 35 minutes with this case, including review of chart, direct evaluation of the patient, coordination with nursing, treatment team and documentation. (1) Schizoaffective disorder, bipolar type: Plan continue current meds and tx plan, patient is declining conversion to APPLE. Will taper Ativan soon and discuss trial of a different atypical and/or clozaril to minimize longer term exposure to Haldol given age. Suicide Risk Level Suicide Risk Level: Moderate (q15 min suicide checks) Risk Factors Assessment Do You Have Access To A Gun?: No Protective Factors Assessment Employed: No Interval History Identifying Information ANASTASIYA GARCIA is a 27-year-old M who lives alone in [place]. He was admitted 05/02/23 19:30 on a 201 commitment due to concerns of suicidal ideation and some vague homicidal thoughts. Chief Complaint "It was like someone was touching me." Review of Systems Sleep Information Total Hours of Sleep: 6.5 Meal Information Percent Meal Consumed - Breakfast: 100 Percent Meal Consumed - Lunch: 100 Percent Meal Consumed - Dinner: 100 Subjective Subjective Patient was seen & assessed and interval progress reviewed with treatment team. Patient is attending more groups. He recalled his psychotic/catatonic symptoms from 2-3 days ago. Was apologetic to staff for his incontinence then. He reports wearing headphones more as likes the solitude between groups rather than active hallucinations and had a reality based conversation about his craft projects. Physical Exam Psychiatric Orientation: alert Apperance: appropriately groomed Eye Contact: + fair eye contact Motor Behavior: no abnormal motor movements (some pacing but no akathisia) Speech: normal rate/rhythm/volume of speech Affect: euthymic affect Mood: no depressed mood Thought Process: linear/logical thought process Thought Content: no delusions Suicidal Thoughts: denies suicidal thoughts Homicidal Thoughts: denies homicidal thoughts Hallucinations: + auditory hallucinations (less) Cognition: attention grossly intact and language grossly intact Vital Signs (Past 24 Hours) Last Vital Signs Temp 36.6 C 05/12/23 06:43 Pulse 106 H 05/12/23 06:43 Resp 16 05/12/23 06:43 BP 126/67 05/12/23 06:43 Pulse Ox 97 05/11/23 05:08 O2 Del Method Room Air 05/11/23 05:08 Results & Data ([facility]) Current Inpatient Medications Current Inpatient Medications: Current Inpatient Medications Acetaminophen (Acetaminophen 325 Mg Tab) 650 mg PO Q4H PRN PRN Reason: Headache or Minor Fever Stop: 06/01/23 20:45 Al Hydrox/Mg Hydrox/Simethicone (Aluminum/Magnesium Susp 30 Ml Udc) 30 ml PO Q4H PRN PRN Reason: GI Upset Stop: 06/01/23 20:45 Aripiprazole (Aripiprazole 10 Mg Tab) 10 mg PO DAILY@1800 [facility] Stop: 06/05/23 17:59 Last Admin: 05/11/23 17:17 Dose: 10 mg Benztropine Mesylate (Benztropine Mesylate 1 Mg Tab) 1 mg PO Q6 PRN PRN Reason: Muscle Spasm Stop: 06/09/23 09:28 Bismuth Subsalicylate (Bismuth Subsalicylate Liqd 236 Ml) 15 ml PO PRN PRN PRN Reason: Loose Stool Stop: 06/01/23 20:45 Clonidine HCl (Clonidine Hcl 0.1 Mg Tab) 0.1 mg PO DAILY@1800 DARYL Stop: 06/02/23 17:59 Last Admin: 05/11/23 17:17 Dose: 0.1 mg Haloperidol (Haloperidol 5 Mg Tab) 5 mg PO BID DARYL Stop: 06/09/23 09:59 Last Admin: 05/12/23 08:54 Dose: 5 mg Haloperidol (Haloperidol 5 Mg Tab) 5 mg PO Q6 PRN PRN Reason: Anxiety/Agitation Stop: 06/09/23 09:28 Last Admin: 05/11/23 12:26 Dose: 5 mg Hydroxyzine HCl (Hydroxyzine Hcl 25 Mg Tab) 50 mg PO HSZ PRN PRN Reason: Insomnia Stop: 06/01/23 20:45 Ibuprofen (Ibuprofen 600 Mg Tab) 600 mg PO Q4H PRN PRN Reason: Pain Stop: 06/03/23 09:58 Lamotrigine (Lamotrigine 100 Mg Tab) 100 mg PO DAILY@1800 DARYL; Protocol Stop: 06/02/23 17:59 Last Admin: 05/11/23 17:17 Dose: 100 mg Lorazepam (Lorazepam 1 Mg Tab) 1 mg PO TID DARYL Stop: 06/09/23 13:59 Last Admin: 05/12/23 14:22 Dose: 1 mg Lorazepam (Lorazepam 1 Mg Tab) 1 mg PO Q4 PRN PRN Reason: Anxiety/Insomnia Stop: 06/09/23 09:29 Last Admin: 05/11/23 04:58 Dose: 1 mg Magnesium Hydroxide (Magnesium Hydroxide Susp 30 Ml Udc) 30 ml PO DAILY PRN PRN Reason: Constipation Stop: 06/01/23 20:45 Sodium Chloride (Sodium Chloride 0.65% Na Soln 45 Ml ([place])) 1 - 2 sprays NA PRN PRN PRN Reason: Nasal Dryness/Congestion Stop: 06/01/23 20:45 Last Admin: 05/11/23 21:05 Dose: 1 sprays Mental Health & Subst Abuse Tx Psychiatrist Name of Psychiatrist: Bree Romero Psychiatrist's Date Of Appointment With Psychiatric Provider: 05/23/23 Time of Appointment with Psychiatrist: 10:00am Psychiatric Appointment Comment: [address] [place], [place] Therapist Name of Therapist: Bree FEP program - [facility] Therapist's Date of Therapist Appointment: 05/23/23 Time of Therapist Appointment: 11:00am Therapy Appointment Comment: [address] [place], [place] Boat Camp Operator Name of Boat Camp Operator: Through FEP program Post Discharge Appointments Primary Care Physician Name Of Family Doctor/PCP: [facility] Time of Appointment with PCP: please follow up as needed Provider Appointment Comment: [address] [place] Contact Information Discharge Discharge Address: [address], [place] [address]
--- NOTE | 2023-05-13 15:22 | Psychiatric Progress Note ---
Date of Service May 13, 2023 Impression / Recommendations Impression as per Dr. Rizvi: This young man has had a lot of difficulties with what seems to be a progression from schizophrenia into schizoaffective disorder. I believe he had a manic or hypomanic episode in [place] recently. There does not seem to be any family history that would contribute towards his thought disorder. However, mother and other family members have had problems with mood. With his thought disorder, he has had a lot of difficulty functioning and is exhibiting some negative symptoms as well. I do not know if he could function without the help of his parents currently. He says that he is adhering to his medications pretty reliably, but I suspect that may be partly from his parents. MNPR due to severity of psychosis 05/13/23: ongoing improvement Plan: continue current meds and tx plan. (1) Schizoaffective disorder, bipolar type: Suicide Risk Level Suicide Risk Level: Moderate (q15 min suicide checks) Risk Factors Assessment Do You Have Access To A Gun?: No Protective Factors Assessment Employed: No Interval History Identifying Information ANASTASIYA GARCIA is a 27-year-old M who lives alone in [place]. He was admitted 05/02/23 19:30 on a 201 commitment due to concerns of suicidal ideation and some vague homicidal thoughts. Chief Complaint "[]". Review of Systems Sleep Information Total Hours of Sleep: 6.5 Meal Information Percent Meal Consumed - Breakfast: 100 Percent Meal Consumed - Lunch: 100 Percent Meal Consumed - Dinner: 100 Subjective Subjective Patient was seen & assessed and interval progress reviewed with [treatment team] [nursing and social work] Physical Exam Psychiatric Orientation: alert Apperance: appropriately groomed Eye Contact: + fair eye contact Motor Behavior: no abnormal motor movements (some pacing but no akathisia) Speech: normal rate/rhythm/volume of speech Affect: euthymic affect Mood: no depressed mood Thought Process: linear/logical thought process and + concrete thought process Thought Content: no delusions Suicidal Thoughts: denies suicidal thoughts Homicidal Thoughts: denies homicidal thoughts Hallucinations: + auditory hallucinations (less) Cognition: attention grossly intact and language grossly intact Vital Signs (Past 24 Hours) Last Vital Signs Temp 36.7 C 05/13/23 06:38 Pulse 93 H 05/13/23 06:39 Resp 16 05/13/23 06:38 BP 102/61 05/13/23 06:39 Pulse Ox 97 05/11/23 05:08 O2 Del Method Room Air 05/11/23 05:08 Results & Data ([facility]) Current Inpatient Medications Current Inpatient Medications: Current Inpatient Medications Acetaminophen (Acetaminophen 325 Mg Tab) 650 mg PO Q4H PRN PRN Reason: Headache or Minor Fever Stop: 06/01/23 20:45 Al Hydrox/Mg Hydrox/Simethicone (Aluminum/Magnesium Susp 30 Ml Udc) 30 ml PO Q4H PRN PRN Reason: GI Upset Stop: 06/01/23 20:45 Aripiprazole (Aripiprazole 10 Mg Tab) 10 mg PO DAILY@1800 DARYL Stop: 06/05/23 17:59 Last Admin: 05/12/23 18:19 Dose: 10 mg Benztropine Mesylate (Benztropine Mesylate 1 Mg Tab) 1 mg PO Q6 PRN PRN Reason: Muscle Spasm Stop: 06/09/23 09:28 Bismuth Subsalicylate (Bismuth Subsalicylate Liqd 236 Ml) 15 ml PO PRN PRN PRN Reason: Loose Stool Stop: 06/01/23 20:45 Clonidine HCl (Clonidine Hcl 0.1 Mg Tab) 0.1 mg PO DAILY@1800 DARYL Stop: 06/02/23 17:59 Last Admin: 05/12/23 18:19 Dose: 0.1 mg Haloperidol (Haloperidol 5 Mg Tab) 5 mg PO BID DARYL Stop: 06/09/23 09:59 Last Admin: 05/13/23 09:05 Dose: 5 mg Haloperidol (Haloperidol 5 Mg Tab) 5 mg PO Q6 PRN PRN Reason: Anxiety/Agitation Stop: 06/09/23 09:28 Last Admin: 05/11/23 12:26 Dose: 5 mg Hydroxyzine HCl (Hydroxyzine Hcl 25 Mg Tab) 50 mg PO HSZ PRN PRN Reason: Insomnia Stop: 06/01/23 20:45 Ibuprofen (Ibuprofen 600 Mg Tab) 600 mg PO Q4H PRN PRN Reason: Pain Stop: 06/03/23 09:58 Lamotrigine (Lamotrigine 100 Mg Tab) 100 mg PO DAILY@1800 DARYL; Protocol Stop: 06/02/23 17:59 Last Admin: 05/12/23 18:19 Dose: 100 mg Lorazepam (Lorazepam 1 Mg Tab) 1 mg PO TID DARYL Stop: 06/09/23 13:59 Last Admin: 05/13/23 13:48 Dose: 1 mg Lorazepam (Lorazepam 1 Mg Tab) 1 mg PO Q4 PRN PRN Reason: Anxiety/Insomnia Stop: 06/09/23 09:29 Last Admin: 05/11/23 04:58 Dose: 1 mg Magnesium Hydroxide (Magnesium Hydroxide Susp 30 Ml Udc) 30 ml PO DAILY PRN PRN Reason: Constipation Stop: 06/01/23 20:45 Sodium Chloride (Sodium Chloride 0.65% Na Soln 45 Ml ([place])) 1 - 2 sprays NA PRN PRN PRN Reason: Nasal Dryness/Congestion Stop: 06/01/23 20:45 Last Admin: 05/11/23 21:05 Dose: 1 sprays Mental Health & Subst Abuse Tx Psychiatrist Name of Psychiatrist: Bree Romero Psychiatrist's Date Of Appointment With Psychiatric Provider: 05/23/23 Time of Appointment with Psychiatrist: 10:00am Psychiatric Appointment Comment: [address] [place], [place] Therapist Name of Therapist: Bree FEP program - [facility] Therapist's Date of Therapist Appointment: 05/23/23 Time of Therapist Appointment: 11:00am Therapy Appointment Comment: [address] [place], [place] Welding Machine Operator Submerged Arc Name of Welding Machine Operator Submerged Arc: Through FEP program Post Discharge Appointments Primary Care Physician Name Of Family Doctor/PCP: [facility] Time of Appointment with PCP: please follow up as needed Provider Appointment Comment: [address], [place] Contact Information Discharge Discharge Address: [address] [place] [address]
--- NOTE | 2023-05-14 15:41 | Psychiatric Progress Note ---
Date of Service May 14, 2023 Impression / Recommendations Impression as per Dr. Rizvi: This young man has had a lot of difficulties with what seems to be a progression from schizophrenia into schizoaffective disorder. I believe he had a manic or hypomanic episode in [place] recently. There does not seem to be any family history that would contribute towards his thought disorder. However, mother and other family members have had problems with mood. With his thought disorder, he has had a lot of difficulty functioning and is exhibiting some negative symptoms as well. I do not know if he could function without the help of his parents currently. He says that he is adhering to his medications pretty reliably, but I suspect that may be partly from his parents. MNPR due to severity of psychosis 05/14/23: mild sedation Overall, I spent a total of 40 minutes with this case, including review of chart, direct evaluation of the patient, counseling the patient, ordering medication, coordination with treatment team/nursing, and documentation. (1) Schizoaffective disorder, bipolar type: Plan 05/14/2023: decrease day time doses of Ativan to 0.5 mg and monitor catatonic features. risks/benefits/alternatives reviewed re: patient's current medications now that he is clearer. Discussion included but was not limited to goals of short term stabilizing vs. longer term planning given risks/benefits, including metabolic and risk of TD. Lamictal can be titrated after 05/17/23. 05/11-07/2023: continue current meds and tx plan, patient is declining conversion to APPLE. Will taper Ativan soon and discuss trial of a different atypical and/or clozaril to minimize longer term exposure to Haldol given age. 05/11/2023: continue current meds and tx plan for now as significant improvement in past 24 hrs. labs reviewed. 05/10/2023: patient is rapidly decompensating and bordering on catatonia, very poor PO last 2 shifts. will d/c Geodon in favor of Haldol 5 mg BID + prn. Ativan 1 mg Tid for catatonic component. Cogentin prn. Will reassess abilify dosing. Will not taper Geodon at this time due to need to avoid 3 antipsychotics and need for rapid adjustment of meds to avoid medical hospitalization for catatonia. Fasting labs in am for metabolic monitoring. 05/09/23: We are going to continue with current level of observation and precautions. I encouraged him to keep trying not to isolate. I added some Zyprexa 5 mg every 6 hours as needed for agitation or psychosis. I wanted to wait 1 more day to see if the Geodon is may be starting to help. If it is not helping by the weekend, it may be worthwhile to reconsider a different antipsychotic or possibly pushed the Abilify back up and beyond the 20 mg dose he had been on when he got here. 05/07/23: We will continue with our current level of observation and precautions. I encouraged the patient to keep going to groups and activities. I did not change his medications today. He is only had 2 doses of Geodon at the 160 mg dose so I want to give that some time. I am also a little bit worried about lowering the Abilify quite yet. For now, I will leave it at 10 mg. The patient is involved in FEP which will be important for him and his family as this thought disorder evolves over time. I am also very reassured that he now has a place that he can eventually get into for better supervision than an independent apartment. 05/06/23: We will continue with our current level of observation and precautions. I encouraged the patient to continue to go to groups and activities. Today I used a cognitive behavioral approach to help with patient work on testing for reality. This would include trying to sort out if an auditory sound is real or not by looking at other people and how they react to it. We talked about ways that he can test visual hallucinations to see if they are real. This should help make him a least more comfortable sorting out reality and understanding that even though something is bothering him, it is not real. Geodon will go to 160 mg this evening with food. Today, I decreased the Abilify to 10 mg. We are going to set up a family meeting with parents to work on discharge planning and safety. 05/05/23: We are going to continue with our current level of observation and precautions. I encouraged the patient to continue to go to groups and activities. We will continue with the titration of Geodon towards 160 mg every evening with food; tonight he will get 120 mg. In the next day or 2 I will lower the Abilify further. Will also try to have a family meeting if he is willing. 05/04/23: We are going to continue with her current level of observation and precautions. I encouraged the patient to keep going to groups and activities and participate as well as he can. We will continue with the titration of Geodon towards 160 mg every evening with food. I will more gently taper off the Abilify. We will continue the lamotrigine at 100 mg and the clonidine at 0.1 mg, both after dinner with his other meds. If the patient is willing towards the end of his stay, we will try to have a family meeting before he leaves. He will also likely convert to an inpatient 304 early this week. 05/03/2023: 1. Patient is admitted here for safety, further evaluation, and treatment. We will continue with her current level of observation and precautions. 2. We are going to cross taper from Abilify to Geodon over the next several days. I reviewed the uses, side effects, and time course of Geodon and he gave informed consent. I will start at 40 mg after dinner tonight and then increase by 40 mg daily until we get to 160 mg every evening after dinner. At the same time, we will continue the clonidine and increase the lamotrigine to 100 mg. We will also switch all of the medications to after dinner so he does not have to take medications multiple times a day. 3. I encouraged the patient to take part in our therapeutic milieu, attend groups and activities, maintain good hygiene, and try not to isolate. 4. He currently is not allowing us to release information to his parents, but I suspect that may interchange agent the next couple of days. Hopefully, we can have a family meeting before the patient discharges. I am pretty happy with the outpatient services he has set up. 5. Our medical people are available to evaluate and treat any medical issues that may arise. Suicide Risk Level Suicide Risk Level: Moderate (q15 min suicide checks) Suicide Risk Level Comments: I am somewhat concerned about the continued suicidal thoughts and vague homicidal thoughts. Because of his primary thought disorder, this is something that might get out of control if he gets too paranoid. Risk Factors Assessment Do You Have Access To A Gun?: No Protective Factors Assessment Employed: No Interval History Identifying Information ANASTASIYA GARCIA is a 27-year-old M who lives alone in [place]. He was admitted 05/02/23 19:30 on a 201 commitment due to concerns of suicidal ideation and some vague homicidal thoughts. Chief Complaint "I'd like to go over my medications. I think my parents answered my questions." Review of Systems Sleep Information Total Hours of Sleep: 9.5 Meal Information Percent Meal Consumed - Breakfast: 100 Percent Meal Consumed - Lunch: 70 Percent Meal Consumed - Dinner: 100 Subjective Subjective Patient was seen & assessed and interval progress reviewed with treatment team. Patient is attending groups, still likes headphones but not responding as much to internal stimuli. No recurrence of his tactile hallucinations. No impulsivity. some am sedation. Physical Exam Psychiatric Orientation: alert and oriented x 3 Apperance: appropriately dressed and appropriately groomed Eye Contact: + fair eye contact Motor Behavior: no abnormal motor movements Speech: normal rate/rhythm/volume of speech Affect: euthymic affect Mood: + anxious mood Thought Process: + concrete thought process Thought Content: reality based without delusions Suicidal Thoughts: denies suicidal thoughts Homicidal Thoughts: denies homicidal thoughts Hallucinations: no auditory hallucinations and no visual hallucinations Cognition: attention grossly intact and language grossly intact Estimated Intelligence: consistent with education level Insight: + limited insight Judgment: + limited judgement Vital Signs (Past 24 Hours) Last Vital Signs Temp 37 C 05/14/23 06:39 Pulse 72 05/14/23 06:40 Resp 16 05/14/23 06:39 BP 101/64 05/14/23 06:40 Pulse Ox 97 05/11/23 05:08 O2 Del Method Room Air 05/11/23 05:08 Results & Data ([facility]) Current Inpatient Medications Current Inpatient Medications: Current Inpatient Medications Acetaminophen (Acetaminophen 325 Mg Tab) 650 mg PO Q4H PRN PRN Reason: Headache or Minor Fever Stop: 06/01/23 20:45 Al Hydrox/Mg Hydrox/Simethicone (Aluminum/Magnesium Susp 30 Ml Udc) 30 ml PO Q4H PRN PRN Reason: GI Upset Stop: 06/01/23 20:45 Aripiprazole (Aripiprazole 10 Mg Tab) 10 mg PO DAILY@1800 DARYL Stop: 06/05/23 17:59 Last Admin: 05/13/23 18:31 Dose: 10 mg Benztropine Mesylate (Benztropine Mesylate 1 Mg Tab) 1 mg PO Q6 PRN PRN Reason: Muscle Spasm Stop: 06/09/23 09:28 Bismuth Subsalicylate (Bismuth Subsalicylate Liqd 236 Ml) 15 ml PO PRN PRN PRN Reason: Loose Stool Stop: 06/01/23 20:45 Clonidine HCl (Clonidine Hcl 0.1 Mg Tab) 0.1 mg PO DAILY@1800 DARYL Stop: 06/02/23 17:59 Last Admin: 05/13/23 18:32 Dose: 0.1 mg Haloperidol (Haloperidol 5 Mg Tab) 5 mg PO BID DARYL Stop: 06/09/23 09:59 Last Admin: 05/14/23 09:04 Dose: 5 mg Haloperidol (Haloperidol 5 Mg Tab) 5 mg PO Q6 PRN PRN Reason: Anxiety/Agitation Stop: 06/09/23 09:28 Last Admin: 05/11/23 12:26 Dose: 5 mg Hydroxyzine HCl (Hydroxyzine Hcl 25 Mg Tab) 50 mg PO HSZ PRN PRN Reason: Insomnia Stop: 06/01/23 20:45 Ibuprofen (Ibuprofen 600 Mg Tab) 600 mg PO Q4H PRN PRN Reason: Pain Stop: 06/03/23 09:58 Lamotrigine (Lamotrigine 100 Mg Tab) 100 mg PO DAILY@1800 DARYL; Protocol Stop: 06/02/23 17:59 Last Admin: 05/13/23 18:32 Dose: 100 mg Lorazepam (Lorazepam 1 Mg Tab) 1 mg PO TID DARYL Stop: 06/09/23 13:59 Last Admin: 05/14/23 14:51 Dose: 1 mg Lorazepam (Lorazepam 1 Mg Tab) 1 mg PO Q4 PRN PRN Reason: Anxiety/Insomnia Stop: 06/09/23 09:29 Last Admin: 05/11/23 04:58 Dose: 1 mg Magnesium Hydroxide (Magnesium Hydroxide Susp 30 Ml Udc) 30 ml PO DAILY PRN PRN Reason: Constipation Stop: 06/01/23 20:45 Sodium Chloride (Sodium Chloride 0.65% Na Soln 45 Ml ([place])) 1 - 2 sprays NA PRN PRN PRN Reason: Nasal Dryness/Congestion Stop: 06/01/23 20:45 Last Admin: 05/11/23 21:05 Dose: 1 sprays Mental Health & Subst Abuse Tx Psychiatrist Name of Psychiatrist: Bree Romero Psychiatrist's Date Of Appointment With Psychiatric Provider: 05/23/23 Time of Appointment with Psychiatrist: 10:00am Psychiatric Appointment Comment: [address] [place], [place] Therapist Name of Therapist: Bree FEP program - [facility] Therapist's Date of Therapist Appointment: 05/23/23 Time of Therapist Appointment: 11:00am Therapy Appointment Comment: [address] [place], [place] Marble Ceiling Installer Name of Marble Ceiling Installer: Through FEP program Post Discharge Appointments Primary Care Physician Name Of Family Doctor/PCP: [facility] Time of Appointment with PCP: please follow up as needed Provider Appointment Comment: [address], [place] Contact Information Discharge Discharge Address: [address] [place] [address]
[2023-05-15] MEDS: LORazepam 0.5 MG TAB PO SCH (09:50)
--- NOTE | 2023-05-15 15:20 | Psychiatric Progress Note ---
Date of Service May 15, 2023 Impression / Recommendations Impression as per Dr. Rizvi: This young man has had a lot of difficulties with what seems to be a progression from schizophrenia into schizoaffective disorder. I believe he had a manic or hypomanic episode in [place] recently. There does not seem to be any family history that would contribute towards his thought disorder. However, mother and other family members have had problems with mood. With his thought disorder, he has had a lot of difficulty functioning and is exhibiting some negative symptoms as well. I do not know if he could function without the help of his parents currently. He says that he is adhering to his medications pretty reliably, but I suspect that may be partly from his parents. MNPR due to severity of psychosis 05/15/23: sedation improving (1) Schizoaffective disorder, bipolar type: Plan 05/15/2023: continue current meds and tx plan. 05/14/2023: decrease day time doses of Ativan to 0.5 mg and monitor catatonic features. risks/benefits/alternatives reviewed re: patient's current medications now that he is clearer. Discussion included but was not limited to goals of short term stabilizing vs. longer term planning given risks/benefits, including metabolic and risk of TD. Lamictal can be titrated after 05/17/23. 05/11-07/2023: continue current meds and tx plan, patient is declining conversion to APPLE. Will taper Ativan soon and discuss trial of a different atypical and/or clozaril to minimize longer term exposure to Haldol given age. 05/11/2023: continue current meds and tx plan for now as significant improvement in past 24 hrs. labs reviewed. 05/10/2023: patient is rapidly decompensating and bordering on catatonia, very poor PO last 2 shifts. will d/c Geodon in favor of Haldol 5 mg BID + prn. Ativan 1 mg Tid for catatonic component. Cogentin prn. Will reassess abilify dosing. Will not taper Geodon at this time due to need to avoid 3 antipsychotics and need for rapid adjustment of meds to avoid medical hospitalization for catatonia. Fasting labs in am for metabolic monitoring. 05/09/23: We are going to continue with current level of observation and precautions. I encouraged him to keep trying not to isolate. I added some Zyprexa 5 mg every 6 hours as needed for agitation or psychosis. I wanted to wait 1 more day to see if the Geodon is may be starting to help. If it is not helping by the weekend, it may be worthwhile to reconsider a different antipsychotic or possibly pushed the Abilify back up and beyond the 20 mg dose he had been on when he got here. 05/07/23: We will continue with our current level of observation and precautions. I encouraged the patient to keep going to groups and activities. I did not change his medications today. He is only had 2 doses of Geodon at the 160 mg dose so I want to give that some time. I am also a little bit worried about lowering the Abilify quite yet. For now, I will leave it at 10 mg. The patient is involved in FEP which will be important for him and his family as this thought disorder evolves over time. I am also very reassured that he now has a place that he can eventually get into for better supervision than an independent apartment. 05/06/23: We will continue with our current level of observation and precautions. I encouraged the patient to continue to go to groups and activities. Today I used a cognitive behavioral approach to help with patient work on testing for reality. This would include trying to sort out if an auditory sound is real or not by looking at other people and how they react to it. We talked about ways that he can test visual hallucinations to see if they are real. This should help make him a least more comfortable sorting out reality and understanding that even though something is bothering him, it is not real. Geodon will go to 160 mg this evening with food. Today, I decreased the Abilify to 10 mg. We are going to set up a family meeting with parents to work on discharge planning and safety. 05/05/23: We are going to continue with our current level of observation and precautions. I encouraged the patient to continue to go to groups and activities. We will continue with the titration of Geodon towards 160 mg every evening with food; tonight he will get 120 mg. In the next day or 2 I will lower the Abilify further. Will also try to have a family meeting if he is willing. 05/04/23: We are going to continue with her current level of observation and precautions. I encouraged the patient to keep going to groups and activities and participate as well as he can. We will continue with the titration of Geodon towards 160 mg every evening with food. I will more gently taper off the Abilify. We will continue the lamotrigine at 100 mg and the clonidine at 0.1 mg, both after dinner with his other meds. If the patient is willing towards the end of his stay, we will try to have a family meeting before he leaves. He will also likely convert to an inpatient 304 early this week. 05/03/2023: 1. Patient is admitted here for safety, further evaluation, and treatment. We will continue with her current level of observation and precautions. 2. We are going to cross taper from Abilify to Geodon over the next several days. I reviewed the uses, side effects, and time course of Geodon and he gave informed consent. I will start at 40 mg after dinner tonight and then increase by 40 mg daily until we get to 160 mg every evening after dinner. At the same time, we will continue the clonidine and increase the lamotrigine to 100 mg. We will also switch all of the medications to after dinner so he does not have to take medications multiple times a day. 3. I encouraged the patient to take part in our therapeutic milieu, attend groups and activities, maintain good hygiene, and try not to isolate. 4. He currently is not allowing us to release information to his parents, but I suspect that may mold insert changer the next couple of days. Hopefully, we can have a family meeting before the patient discharges. I am pretty happy with the outpatient services he has set up. 5. Our medical people are available to evaluate and treat any medical issues that may arise. Suicide Risk Level Suicide Risk Level: Moderate (q15 min suicide checks) Risk Factors Assessment Do You Have Access To A Gun?: No Protective Factors Assessment Employed: No Interval History Identifying Information ANASTASIYA GARCIA is a 27-year-old M who lives alone in [place]. He was admitted 05/02/23 19:30 on a 201 commitment due to concerns of suicidal ideation and some vague homicidal thoughts. Chief Complaint "I'm getting a little bored but drawing." Review of Systems Sleep Information Total Hours of Sleep: 9 Meal Information Percent Meal Consumed - Breakfast: 100 Percent Meal Consumed - Lunch: 100 Percent Meal Consumed - Dinner: 100 Subjective Subjective Patient was seen & assessed and interval progress reviewed with nursing and social work. attending groups, out of room more. Physical Exam Psychiatric Orientation: alert and oriented x 3 Apperance: appropriately groomed Eye Contact: + fair eye contact Motor Behavior: no abnormal motor movements Speech: normal rate/rhythm/volume of speech Affect: euthymic affect Mood: + anxious mood; no depressed mood Thought Process: linear/logical thought process Thought Content: reality based without delusions; no delusions Suicidal Thoughts: denies suicidal thoughts Homicidal Thoughts: denies homicidal thoughts Hallucinations: + auditory hallucinations (minimal); no visual hallucinations Cognition: attention grossly intact and language grossly intact Estimated Intelligence: consistent with education level Insight: + limited insight Judgment: + limited judgement Vital Signs (Past 24 Hours) Last Vital Signs Temp 36.6 C 05/15/23 06:00 Pulse 88 05/15/23 06:15 Resp 16 05/15/23 06:00 BP 121/70 05/15/23 06:15 Pulse Ox 97 05/11/23 05:08 O2 Del Method Room Air 05/11/23 05:08 Results & Data ([facility]) Current Inpatient Medications Current Inpatient Medications: Current Inpatient Medications Acetaminophen (Acetaminophen 325 Mg Tab) 650 mg PO Q4H PRN PRN Reason: Headache or Minor Fever Stop: 06/01/23 20:45 Al Hydrox/Mg Hydrox/Simethicone (Aluminum/Magnesium Susp 30 Ml Udc) 30 ml PO Q4H PRN PRN Reason: GI Upset Stop: 06/01/23 20:45 Aripiprazole (Aripiprazole 10 Mg Tab) 10 mg PO DAILY@1800 DARYL Stop: 06/05/23 17:59 Last Admin: 05/14/23 17:28 Dose: 10 mg Benztropine Mesylate (Benztropine Mesylate 1 Mg Tab) 1 mg PO Q6 PRN PRN Reason: Muscle Spasm Stop: 06/09/23 09:28 Bismuth Subsalicylate (Bismuth Subsalicylate Liqd 236 Ml) 15 ml PO PRN PRN PRN Reason: Loose Stool Stop: 06/01/23 20:45 Clonidine HCl (Clonidine Hcl 0.1 Mg Tab) 0.1 mg PO DAILY@1800 DARYL Stop: 06/02/23 17:59 Last Admin: 05/14/23 17:28 Dose: 0.1 mg Haloperidol (Haloperidol 5 Mg Tab) 5 mg PO BID DARYL Stop: 06/09/23 09:59 Last Admin: 05/15/23 09:50 Dose: 5 mg Haloperidol (Haloperidol 5 Mg Tab) 5 mg PO Q6 PRN PRN Reason: Anxiety/Agitation Stop: 06/09/23 09:28 Last Admin: 05/11/23 12:26 Dose: 5 mg Hydroxyzine HCl (Hydroxyzine Hcl 25 Mg Tab) 50 mg PO HSZ PRN PRN Reason: Insomnia Stop: 06/01/23 20:45 Ibuprofen (Ibuprofen 600 Mg Tab) 600 mg PO Q4H PRN PRN Reason: Pain Stop: 06/03/23 09:58 Lamotrigine (Lamotrigine 100 Mg Tab) 100 mg PO DAILY@1800 DARYL; Protocol Stop: 06/02/23 17:59 Last Admin: 05/14/23 17:28 Dose: 100 mg Lorazepam (Lorazepam 1 Mg Tab) 1 mg PO Q4 PRN PRN Reason: Anxiety/Insomnia Stop: 06/09/23 09:29 Last Admin: 05/11/23 04:58 Dose: 1 mg Lorazepam (Lorazepam 0.5 Mg Tab) 0.5 mg PO BIDM DARYL Stop: 06/14/23 08:59 Last Admin: 05/15/23 09:50 Dose: 0.5 mg Lorazepam (Lorazepam 1 Mg Tab) 1 mg PO HS DARYL Stop: 06/14/23 21:59 Magnesium Hydroxide (Magnesium Hydroxide Susp 30 Ml Udc) 30 ml PO DAILY PRN PRN Reason: Constipation Stop: 06/01/23 20:45 Sodium Chloride (Sodium Chloride 0.65% Na Soln 45 Ml ([place])) 1 - 2 sprays NA PRN PRN PRN Reason: Nasal Dryness/Congestion Stop: 06/01/23 20:45 Last Admin: 05/11/23 21:05 Dose: 1 sprays Mental Health & Subst Abuse Tx Psychiatrist Name of Psychiatrist: Bree Romero Psychiatrist's Date Of Appointment With Psychiatric Provider: 05/23/23 Time of Appointment with Psychiatrist: 10:00am Psychiatric Appointment Comment: [address] [place], [place] Therapist Name of Therapist: Bree FEP program - [facility] Therapist's Date of Therapist Appointment: 05/23/23 Time of Therapist Appointment: 11:00am Therapy Appointment Comment: [address] [place], [place] Social Welfare Research Worker Name of Social Welfare Research Worker: Through FEP program Post Discharge Appointments Primary Care Physician Name Of Family Doctor/PCP: [facility] Time of Appointment with PCP: please follow up as needed Provider Appointment Comment: [address] [place] Contact Information Discharge Discharge Address: [facility] [address], [place] [address]
[2023-05-15] MEDS: LORazepam 1 MG TAB PO SCH (20:25)
[2023-05-16] MEDS ORDERED: LORazepam 0.5 MG TAB PO PRN (09:32)
--- NOTE | 2023-05-16 10:16 | Psychiatric Progress Note ---
Date of Service May 16, 2023 Impression / Recommendations Impression as per Dr. Rizvi: This young man has had a lot of difficulties with what seems to be a progression from schizophrenia into schizoaffective disorder. I believe he had a manic or hypomanic episode in [place] recently. There does not seem to be any family history that would contribute towards his thought disorder. However, mother and other family members have had problems with mood. With his thought disorder, he has had a lot of difficulty functioning and is exhibiting some negative symptoms as well. I do not know if he could function without the help of his parents currently. He says that he is adhering to his medications pretty reliably, but I suspect that may be partly from his parents. MNPR due to severity of psychosis 05/16/23: improving (1) Schizoaffective disorder, bipolar type: Plan 05/16/2023: taper Ativan to 0.5 mg TID. Lamictal can be titrated after 05/17/2023. 05/14/2023: decrease day time doses of Ativan to 0.5 mg and monitor catatonic features. risks/benefits/alternatives reviewed re: patient's current medications now that he is clearer. Discussion included but was not limited to goals of short term stabilizing vs. longer term planning given risks/benefits, including metabolic and risk of TD. Lamictal can be titrated after 05/17/23. 05/11-07/2023: continue current meds and tx plan, patient is declining conversion to APPLE. Will taper Ativan soon and discuss trial of a different atypical and/or clozaril to minimize longer term exposure to Haldol given age. 05/11/2023: continue current meds and tx plan for now as significant improvement in past 24 hrs. labs reviewed. 05/10/2023: patient is rapidly decompensating and bordering on catatonia, very poor PO last 2 shifts. will d/c Geodon in favor of Haldol 5 mg BID + prn. Ativan 1 mg Tid for catatonic component. Cogentin prn. Will reassess abilify dosing. Will not taper Geodon at this time due to need to avoid 3 antipsychotics and need for rapid adjustment of meds to avoid medical hospitalization for catatonia. Fasting labs in am for metabolic monitoring. 05/09/23: We are going to continue with current level of observation and precautions. I encouraged him to keep trying not to isolate. I added some Zyprexa 5 mg every 6 hours as needed for agitation or psychosis. I wanted to wait 1 more day to see if the Geodon is may be starting to help. If it is not helping by the weekend, it may be worthwhile to reconsider a different antipsychotic or possibly pushed the Abilify back up and beyond the 20 mg dose he had been on when he got here. 05/07/23: We will continue with our current level of observation and precautions. I encouraged the patient to keep going to groups and activities. I did not change his medications today. He is only had 2 doses of Geodon at the 160 mg dose so I want to give that some time. I am also a little bit worried about lowering the Abilify quite yet. For now, I will leave it at 10 mg. The patient is involved in FEP which will be important for him and his family as this thought disorder evolves over time. I am also very reassured that he now has a place that he can eventually get into for better supervision than an independent apartment. 05/06/23: We will continue with our current level of observation and precautions. I encouraged the patient to continue to go to groups and activities. Today I used a cognitive behavioral approach to help with patient work on testing for reality. This would include trying to sort out if an auditory sound is real or not by looking at other people and how they react to it. We talked about ways that he can test visual hallucinations to see if they are real. This should help make him a least more comfortable sorting out reality and understanding t hat even though something is bothering him, it is not real. Geodon will go to 160 mg this evening with food. Today, I decreased the Abilify to 10 mg. We are going to set up a family meeting with parents to work on discharge planning and safety. 05/05/23: We are going to continue with our current level of observation and precautions. I encouraged the patient to continue to go to groups and acti vities. We will continue with the titration of Geodon towards 160 mg every evening with food; tonight he will get 120 mg. In the next day or 2 I will lower the Abilify further. Will also try to have a family meeting if he is willing. 05/04/23: We are going to continue with her current level of observation and precautions. I encouraged the patient to keep going to groups and activities and participate as well as he can. We will continue with the titration of Geodon towards 160 mg every evening with food. I will more gently taper off the Abilify. We will continue the lamotrigine at 100 mg and the clonidine at 0.1 mg, both after dinner with his other meds. If the patient is willing towards the end of his stay, we will try to have a family meeting before he leaves. He will also likely convert to an inpatient 304 early this week. 05/03/2023: 1. Patient is admitted here for safety, further evaluation, and treatment. We will continue with her current level of observation and precautions. 2. We are going to cross taper from Abilify to Geodon over the next several days. I reviewed the uses, side effects, and time course of Geodon and he gave informed consent. I will start at 40 mg after dinner tonight and then increase by 40 mg daily until we get to 160 mg every evening after dinner. At the same time, we will continue the clonidine and increase the lamotrigine to 100 mg. We will also switch all of the medications to after dinner so he does not have to take medications multiple times a day. 3. I encouraged the patient to take part in our therapeutic milieu, attend gr oups and activities, maintain good hygiene, and try not to isolate. 4. He currently is not allowing us to release information to his parents, but I suspect that may twisting frame changer the next couple of days. Hopefully, we can have a family meeting before the patient discharges. I am pretty happy with the outpatient services he has set up. 5. Our medical people are available to evaluate and treat any medical issues that may arise. Suicide Risk Level Suicide Risk Level: Moderate (q15 min suicide checks) Risk Factors Assessment Do You Have Access To A Gun?: No Protective Factors Assessment Employed: No Interval History Identifying Information ANASTASIYA GARCIA is a 27-year-old M who lives alone in [place]. He was admitted 05/02/23 19:30 on a 201 commitment due to concerns of suicidal ideation and some vague homicidal thoughts. Chief Complaint sedation improving Review of Systems Sleep Information Total Hours of Sleep: 7 Meal Information Percent Meal Consumed - Breakfast: 100 Percent Meal Consumed - Lunch: 100 Percent Meal Consumed - Dinner: 50 Subjective Subjective Patient was seen & assessed and interval progress reviewed with treatment team. Patient appropriate/participating in unit activities. No recurrence of catatonia. Does not appear to be responding to internal stimuli. Physical Exam Psychiatric Orientation: alert and oriented x 3 Apperance: appropriately dressed and appropriately groomed Eye Contact: + fair eye contact Motor Behavior: no abnormal motor movements Speech: normal rate/rhythm/volume of speech Affect: euthymic affect Mood: no depressed mood Thought Process: + concrete thought process Thought Content: reality based without delusions; no delusions Suicidal Thoughts: denies suicidal thoughts Homicidal Thoughts: denies homicidal thoughts Hallucinations: no auditory hallucinations and no visual hallucinations Cognition: attention grossly intact and language grossly intact Estimated Intelligence: consistent with education level Insight: + limited insight Judgment: + limited judgement Vital Signs (Past 24 Hours) Last Vital Signs Temp 36.4 C L 05/16/23 06:00 Pulse 97 H 05/16/23 06:30 Resp 16 05/16/23 06:00 BP 112/60 05/16/23 06:30 Pulse Ox 97 05/11/23 05:08 O2 Del Method Room Air 05/11/23 05:08 Results & Data ([facility]) Current Inpatient Medications Current Inpatient Medications: Current Inpatient Medications Acetaminophen (Acetaminophen 325 Mg Tab) 650 mg PO Q4H PRN PRN Reason: Headache or Minor Fever Stop: 06/01/23 20:45 Al Hydrox/Mg Hydrox/Simethicone (Aluminum/Magnesium Susp 30 Ml Udc) 30 ml PO Q4H PRN PRN Reason: GI Upset Stop: 06/01/23 20:45 Aripiprazole (Aripiprazole 10 Mg Tab) 10 mg PO DAILY@1800 [facility] Stop: 06/05/23 17:59 Last Admin: 05/15/23 17:48 Dose: 10 mg Benztropine Mesylate (Benztropine Mesylate 1 Mg Tab) 1 mg PO Q6 PRN PRN Reason: Muscle Spasm Stop: 06/09/23 09:28 Bismuth Subsalicylate (Bismuth Subsalicylate Liqd 236 Ml) 15 ml PO PRN PRN PRN Reason: Loose Stool Stop: 06/01/23 20:45 Clonidine HCl (Clonidine Hcl 0.1 Mg Tab) 0.1 mg PO DAILY@1800 [facility] Stop: 06/02/23 17:59 Last Admin: 05/15/23 17:47 Dose: 0.1 mg Haloperidol (Haloperidol 5 Mg Tab) 5 mg PO BID [facility] Stop: 06/09/23 09:59 Last Admin: 05/16/23 08:34 Dose: 5 mg Haloperidol (Haloperidol 5 Mg Tab) 5 mg PO Q6 PRN PRN Reason: Anxiety/Agitation Stop: 06/09/23 09:28 Last Admin: 05/11/23 12:26 Dose: 5 mg Hydroxyzine HCl (Hydroxyzine Hcl 25 Mg Tab) 50 mg PO HSZ PRN PRN Reason: Insomnia Stop: 06/01/23 20:45 Ibuprofen (Ibuprofen 600 Mg Tab) 600 mg PO Q4H PRN PRN Reason: Pain Stop: 06/03/23 09:58 Lamotrigine (Lamotrigine 100 Mg Tab) 100 mg PO DAILY@1800 [facility]; Protocol Stop: 06/02/23 17:59 Last Admin: 05/15/23 17:47 Dose: 100 mg Lorazepam (Lorazepam 0.5 Mg Tab) 0.5 mg PO Q4 PRN PRN Reason: Anxiety/Insomnia Stop: 06/09/23 09:29 Lorazepam (Lorazepam 0.5 Mg Tab) 0.5 mg PO TID [facility] Stop: 06/15/23 13:59 Magnesium Hydroxide (Magnesium Hydroxide Susp 30 Ml Udc) 30 ml PO DAILY PRN PRN Reason: Constipation Stop: 06/01/23 20:45 Sodium Chloride (Sodium Chloride 0.65% Na Soln 45 Ml ([place])) 1 - 2 sprays NA PRN PRN PRN Reason: Nasal Dryness/Congestion Stop: 06/01/23 20:45 Last Admin: 05/11/23 21:05 Dose: 1 sprays Mental Health & Subst Abuse Tx Psychiatrist Name of Psychiatrist: Bree Romero Psychiatrist's Date Of Appointment With Psychiatric Provider: 05/23/23 Time of Appointment with Psychiatrist: 10:00am Psychiatric Appointment Comment: [address] [place], [place] Therapist Name of Therapist: Bree [facility] program - [facility] Therapist's Date of Therapist Appointment: 05/23/23 Time of Therapist Appointment: 11:00am Therapy Appointment Comment: [address] [place], [place] [employer] Name of [employer] Production: Through FEP program Post Discharge Appointments Primary Care Physician Name Of Family Doctor/PCP: [facility] Time of Appointment with PCP: please follow up as needed Provider Appointment Comment: [address] [place] Contact Information Discharge Discharge Address: [facility] [address], [place] [address]
[2023-05-16] MEDS: LORazepam 0.5 MG TAB PO SCH (14:36)
--- NOTE | 2023-05-17 10:06 | Psychiatric Progress Note ---
Date of Service May 17, 2023 Impression / Recommendations Impression as per Dr. Rizvi: This young man has had a lot of difficulties with what seems to be a progression from schizophrenia into schizoaffective disorder. I believe he had a manic or hypomanic episode in [place] recently. There does not seem to be any family history that would contribute towards his thought disorder. However, mother and other family members have had problems with mood. With his thought disorder, he has had a lot of difficulty functioning and is exhibiting some negative symptoms as well. I do not know if he could function without the help of his parents currently. He says that he is adhering to his medications pretty reliably, but I suspect that may be partly from his parents. MNPR due to severity of psychosis 05/16/23: improving 05/16/23: Patient continues to improve so we had a discussion about decreasing his Ativan because it is no longer clinically necessary. He liked the idea of taking fewer pills. (1) Schizoaffective disorder, bipolar type: Plan 05/16/2023: Continue the Ativan Taper to 0.5 mg BID. Patient appreciates the fact that he will be taking fewer pills. 05/16/2023: taper Ativan to 0.5 mg TID. Lamictal can be titrated after 05/17/2023. 05/14/2023: decrease day time doses of Ativan to 0.5 mg and monitor catatonic features. risks/benefits/alternatives reviewed re: patient's current medications now that he is clearer. Discussion included but was not limited to goals of short term stabilizing vs. longer term planning given risks/benefits, including metabolic and risk of TD. Lamictal can be titrated after 05/17/23. 05/11-07/2023: continue current meds and tx plan, patient is declining conversion to APPLE. Will taper Ativan soon and discuss trial of a different atypical and/or clozaril to minimize longer term exposure to Haldol given age. 05/11/2023: continue current meds and tx plan for now as significant improvement in past 24 hrs. labs reviewed. 05/10/2023: patient is rapidly decompensating and bordering on catatonia, very poor PO last 2 shifts. will d/c Taedon in favor of Haldol 5 mg BID + prn. Ativan 1 mg Tid for catatonic component. Faheem serna. Will reassess abilify dosing. Will not taper Geodon at this time due to need to avoid 3 antipsychotics and need for rapid adjustment of meds to avoid medical hospitalization for catatonia. Fasting labs in am for metabolic monitoring. 05/09/23: We are going to continue with current level of observation and precautions. I encouraged him to keep trying not to isolate. I added some Zyprexa 5 mg every 6 hours as needed for agitation or psychosis. I wanted to wait 1 more day to see if the Geodon is may be starting to help. If it is not helping by the weekend, it may be worthwhile to reconsider a different antips ychotic or possibly pushed the Abilify back up and beyond the 20 mg dose he had been on when he got here. 05/07/23: We will continue with our current level of observation and precautions. I encouraged the patient to keep going to groups and activities. I did not change his medications today. He is only had 2 doses of Geodon at the 160 mg dose so I want to give that some time. I am also a little bit worried about lowering the Abilify quite yet. For now, I will leave it at 10 mg. The patient is involved in FEP which will be important for him and his family as this thought disorder evolves over time. I am also very reassured that he now has a place that he can eventually get into for better supervision than an independent apartment. 05/06/23: We will continue with our current level of observation and precautions. I encouraged the patient to continue to go to groups and activities. Today I used a cognitive behavioral approach to help with patient work on testing for reality. This would include trying to sort out if an auditory sound is real or not by looking at other people and how they react to it. We talked about ways that he can test visual hallucinations to see if they are real. This should help make him a least more comfortable sorting out reality and understanding that even though something is bothering him, it is not real. Geodon will go to 160 mg this evening with food. Today, I decreased the Abilify to 10 mg. We are going to set up a family meeting with parents to work on discharge planning and safety. 05/05/23: We are going to continue with our current level of observation and precautions. I encouraged the patient to continue to go to groups and activities. We will continue with the titration of Geodon towards 160 mg every evening with food; tonight he will get 120 mg. In the next day or 2 I will lower the Abilify further. Will also try to have a family meeting if he is willing. 05/04/23: We are going to continue with her current level of observation and precautions. I encouraged the patient to keep going to groups and activities and participate as well as he can. We will continue with the titration of Geodon towards 160 mg every evening with food. I will more gently taper off the Abilify. We will continue the lamotrigine at 100 mg and the clonidine at 0.1 mg, both after dinner with his other meds. If the patient is willing towards the end of his stay, we will try to have a family meeting before he leaves. He will also likely convert to an inpatient 304 early this week. 05/03/2023: 1. Patient is admitted here for safety, further evaluation, and treatment. We will continue with her current level of observation and precautions. 2. We are going to cross taper from Abilify to Geodon over the next several days. I reviewed the uses, side effects, and time course of Geodon and he gave informed consent. I will start at 40 mg after dinner tonight and then increase by 40 mg daily until we get to 160 mg every evening after dinner. At the same time, we will continue the clonidine and increase the lamotrigine to 100 mg. We will also switch all of the medications to after dinner so he does not have to take medications multiple times a day. 3. I encouraged the patient to take part in our therapeutic milieu, attend groups and activities, maintain good hygiene, and try not to isolate. 4. He currently is not allowing us to release information to his parents, but I suspect that may change management analyst the next couple of days. Hopefully, we can have a family meeting before the patient discharges. I am pretty happy with the outpatient services he has set up. 5. Our medical people are available to evaluate and treat any medical issues that may arise. Suicide Risk Level Suicide Risk Level: Moderate (q15 min suicide checks) Suicide Risk Level Comments: I am somewhat concerned about the continued suicidal thoughts and vague homicidal thoughts. Because of his primary thought disorder, this is something that might get out of control if he gets too paranoid. Risk Factors Assessment Do You Have Access To A Gun?: No Protective Factors Assessment Employed: No Interval History Identifying Information ANASTASIYA GARCIA is a 27-year-old M who lives alone in [place]. He was admitted 05/02/23 19:30 on a 201 commitment due to concerns of suicidal ideation and some vague homicidal thoughts. Chief Complaint "I don't have any questions". Review of Systems Sleep Information Total Hours of Sleep: 7.75 Meal Information Percent Meal Consumed - Breakfast: 100 Percent Meal Consumed - Lunch: 100 Percent Meal Consumed - Dinner: 100 Subjective Subjective Patient was seen & assessed and interval progress reviewed with treatment team. He stated that he is doing well. He is taking his medications with no side effects. We discussed that I will be further decreasing his Ativan because that was prescribed for catatonia and he is no longer catatonic. Physical Exam Psychiatric Orientation: alert and oriented x 3 Apperance: appropriately dressed and appropriately groomed Eye Contact: + fair eye contact Motor Behavior: no abnormal motor movements Speech: normal rate/rhythm/volume of speech Affect: euthymic affect Mood: no depressed mood Thought Process: linear/logical thought process and + concrete thought process Thought Content: reality based without delusions; no delusions Suicidal Thoughts: denies suicidal thoughts Homicidal Thoughts: denies homicidal thoughts Hallucinations: no auditory hallucinations and no visual hallucinations Cognition: attention grossly intact and language grossly intact Estimated Intelligence: consistent with education level Insight: + limited insight Judgment: + limited judgement Vital Signs (Past 24 Hours) Last Vital Signs Temp 36.6 C 05/17/23 06:38 Pulse 80 05/17/23 06:39 Resp 16 05/17/23 06:38 BP 100/63 05/17/23 06:39 Pulse Ox 97 05/11/23 05:08 O2 Del Method Room Air 05/11/23 05:08 Results & Data ([facility]) Current Inpatient Medications Current Inpatient Medications: Current Inpatient Medications Acetaminophen (Acetaminophen 325 Mg Tab) 650 mg PO Q4H PRN PRN Reason: Headache or Minor Fever Stop: 06/01/23 20:45 Al Hydrox/Mg Hydrox/Simethicone (Aluminum/Magnesium Susp 30 Ml Udc) 30 ml PO Q4H PRN PRN Reason: GI Upset Stop: 06/01/23 20:45 Aripiprazole (Aripiprazole 10 Mg Tab) 10 mg PO DAILY@1800 [facility] Stop: 06/05/23 17:59 Last Admin: 05/16/23 18:08 Dose: 10 mg Benztropine Mesylate (Benztropine Mesylate 1 Mg Tab) 1 mg PO Q6 PRN PRN Reason: Muscle Spasm Stop: 06/09/23 09:28 Bismuth Subsalicylate (Bismuth Subsalicylate Liqd 236 Ml) 15 ml PO PRN PRN PRN Reason: Loose Stool Stop: 06/01/23 20:45 Clonidine HCl (Clonidine Hcl 0.1 Mg Tab) 0.1 mg PO DAILY@1800 [facility] Stop: 06/02/23 17:59 Last Admin: 05/16/23 18:09 Dose: 0.1 mg Haloperidol (Haloperidol 5 Mg Tab) 5 mg PO BID [facility] Stop: 06/09/23 09:59 Last Admin: 05/17/23 08:43 Dose: 5 mg Haloperidol (Haloperidol 5 Mg Tab) 5 mg PO Q6 PRN PRN Reason: Anxiety/Agitation Stop: 06/09/23 09:28 Last Admin: 05/11/23 12:26 Dose: 5 mg Hydroxyzine HCl (Hydroxyzine Hcl 25 Mg Tab) 50 mg PO HSZ PRN PRN Reason: Insomnia Stop: 06/01/23 20:45 Ibuprofen (Ibuprofen 600 Mg Tab) 600 mg PO Q4H PRN PRN Reason: Pain Stop: 06/03/23 09:58 Lamotrigine (Lamotrigine 100 Mg Tab) 100 mg PO DAILY@1800 [facility]; Protocol Stop: 06/02/23 17:59 Last Admin: 05/16/23 18:09 Dose: 100 mg Lorazepam (Lorazepam 0.5 Mg Tab) 0.5 mg PO Q4 PRN PRN Reason: Anxiety/Insomnia Stop: 06/09/23 09:29 Lorazepam (Lorazepam 0.5 Mg Tab) 0.5 mg PO TID [facility] Stop: 06/15/23 13:59 Last Admin: 05/17/23 08:43 Dose: 0.5 mg Magnesium Hydroxide (Magnesium Hydroxide Susp 30 Ml Udc) 30 ml PO DAILY PRN PRN Reason: Constipation Stop: 06/01/23 20:45 Sodium Chloride (Sodium Chloride 0.65% Na Soln 45 Ml ([place])) 1 - 2 sprays NA PRN PRN PRN Reason: Nasal Dryness/Congestion Stop: 06/01/23 20:45 Last Admin: 05/11/23 21:05 Dose: 1 sprays Mental Health & Subst Abuse Tx Psychiatrist Name of Psychiatrist: Bree Romero Psychiatrist's Date Of Appointment With Psychiatric Provider: 05/23/23 Time of Appointment with Psychiatrist: 10:00am Psychiatric Appointment Comment: [address] [place], [place] Therapist Name of Therapist: [place] [facility] - [facility] Therapist's Date of Therapist Appointment: 05/23/23 Time of Therapist Appointment: 11:00am Therapy Appointment Comment: [address] [place], [place] Rd Manager Name of Rd Manager: Through FEP program Post Discharge Appointments Primary Care Physician Name Of Family Doctor/PCP: [facility] Time of Appointment with PCP: please follow up as needed Provider Appointment Comment: [address] [place] Contact Information Discharge Discharge Address: [address] [place] [address]
[2023-05-17] MEDS: LORazepam 0.5 MG TAB PO SCH (20:18)
--- NOTE | 2023-05-18 10:44 | Psychiatric Progress Note ---
Date of Service May 18, 2023 Impression / Recommendations Impression as per Dr. Rizvi: This young man has had a lot of difficulties with what seems to be a progression from schizophrenia into schizoaffective disorder. I believe he had a manic or hypomanic episode in [place] recently. There does not seem to be any family history that would contribute towards his thought disorder. However, mother and other family members have had problems with mood. With his thought disorder, he has had a lot of difficulty functioning and is exhibiting some negative symptoms as well. I do not know if he could function without the help of his parents currently. He says that he is adhering to his medications pretty reliably, but I suspect that may be partly from his parents. MNPR due to severity of psychosis 05/16/23: improving 05/17/23: Patient continues to improve so we had a discussion about decreasing his Ativan because it is no longer clinically necessary. He liked the idea of taking fewer pills. 05/18/23: His ativan has been again reduced to just a single dose at bedtime. He continues to improve in his functioning. (1) Schizoaffective disorder, bipolar type: Continue medication optimization. Patient is approaching his baseline. Plan 05/18/23: Ativan has been again reduced to only 0.5 at Bedtime. 05/17/2023: Continue the Ativan Taper to 0.5 mg BID. Patient appreciates the fact that he will be taking fewer pills. 05/16/2023: taper Ativan to 0.5 mg TID. Lamictal can be titrated after 05/17/2023. 05/14/2023: decrease day time doses of Ativan to 0.5 mg and monitor catatonic features. risks/benefits/alternatives reviewed re: patient's current medications now that he is clearer. Discussion included but was not limited to goals of short term stabilizing vs. longer term planning given risks/benefits, including metabolic and risk of TD. Lamictal can be titrated after 05/17/23. 05/11-07/2023: continue current meds and tx plan, patient is declining conversion to [facility]. Will taper Ativan soon and discuss trial of a different atypical and/or clozaril to minimize longer term exposure to Haldol given age. 05/11/2023: continue current meds and tx plan for now as significant improvement in past 24 hrs. labs reviewed. 05/10/2023: patient is rapidly decompensating and bordering on catatonia, very poor PO last 2 shifts. will d/c Geodon in favor of Haldol 5 mg BID + prn. Ativan 1 mg Tid for catatonic component. Cogentin prn. Will reassess abilify dosing. Will not taper Geodon at this time due to need to avoid 3 antipsychotics and need for rapid adjustment of meds to avoid medical hospitalization for catatonia. Fasting labs in am for metabolic monitoring. 05/09/23: We are going to continue with current level of observation and precautions. I encouraged him to keep trying not to isolate. I added some Zyprexa 5 mg every 6 hours as needed for agitation or psychosis. I wanted to wait 1 more day to see if the Geodon is may be starting to help. If it is not helping by the weekend, it may be worthwhile to reconsider a different antipsychotic or possibly pushed the Abilify back up and beyond the 20 mg dose he had been on when he got here. 05/07/23: We will continue with our current level of observation and precautions. I encouraged the patient to keep going to groups and activities. I did not change his medications today. He is only had 2 doses of Geodon at the 160 mg dose so I want to give that some time. I am also a little bit worried about lowering the Abilify quite yet. For now, I will leave it at 10 mg. The patient is involved in FEP which will be important for him and his family as this thought disorder evolves over time. I am also very reassured that he now has a place that he can eventually get into for better supervision than an independent apartment. 05/06/23: We will continue with our current level of observation and precautions. I encouraged the patient to continue to go to groups and activities. Today I used a cognitive behavioral approach to help with patient work on testing for reality. This would include trying to sort out if an auditory sound is real or not by looking at other people and how they react to it. We talked about ways that he can test visual hallucinations to see if they are real. This should help make him a least more comfortable sorting out reality and understanding that even though something is bothering him, it is not real. Geodon will go to 160 mg this evening with food. Today, I decreased the Abilify to 10 mg. We are going to set up a family meeting with parents to work on discharge planning and safety. 05/05/23: We are going to continue with our current level of observation and precautions. I encouraged the patient to continue to go to groups and activities. We will continue with the titration of Geodon towards 160 mg every evening with food; tonight he will get 120 mg. In the next day or 2 I will lower the Abilify further. Will also try to have a family meeting if he is willing. 05/04/23: We are going to continue with her current level of observation and precautions. I encouraged the patient to keep going to groups and activities and participate as well as he can. We will continue with the titration of Geodon towards 160 mg every evening with food. I will more gently taper off the Abilify. We will continue the lamotrigine at 100 mg and the clonidine at 0.1 mg, both after dinner with his other meds. If the patient is willing towards the end of his stay, we will try to have a family meeting before he leaves. He will also likely convert to an inpatient 304 early this week. 05/03/2023: 1. Patient is admitted here for safety, further evaluation, and treatment. We will continue with her current level of observation and precautions. 2. We are going to cross taper from Abilify to Geodon over the next several days. I reviewed the uses, side effects, and time course of Geodon and he gave informed consent. I will start at 40 mg after dinner tonight and then increase by 40 mg daily until we get to 160 mg every evening after dinner. At the same time, we will continue the clonidine and increase the lamotrigine to 100 mg. We will also switch all of the medications to after dinner so he does not have to take medications multiple times a day. 3. I encouraged the patient to take part in our therapeutic milieu, attend groups and activities, maintain good hygiene, and try not to isolate. 4. He currently is not allowing us to release information to his parents, but I suspect that may change management expert the next couple of days. Hopefully, we can have a family meeting before the patient discharges. I am pretty happy with the outpatient services he has set up. 5. Our medical people are available to evaluate and treat any medical issues that may arise. Suicide Risk Level Suicide Risk Level: Moderate (q15 min suicide checks) Suicide Risk Level Comments: I am somewhat concerned about the continued suicidal thoughts and vague homicidal thoughts. Because of his primary thought disorder, this is something that might get out of control if he gets too paranoid. Risk Factors Assessment Do You Have Access To A Gun?: No Protective Factors Assessment Employed: No Interval History Identifying Information ANASTASIYA GARCIA is a 27-year-old M who lives alone in [place]. He was admitted 05/02/23 19:30 on a 201 commitment due to concerns of suicidal ideation and some vague homicidal thoughts. Chief Complaint "I'm doing ok". Review of Systems Sleep Information Total Hours of Sleep: 8 Meal Information Percent Meal Consumed - Breakfast: 100 Percent Meal Consumed - Lunch: 100 Percent Meal Consumed - Dinner: 100 Subjective Subjective Patient was seen & assessed and interval progress reviewed with nursing and social work. He was seen outside his room and later while preparing the activity room for the morning exercises. He invited me to attend. We discussed that I was going to be continuing his Ativan taper. Yesterday I reduced it to BID and today he will only get one dose at bedtime. There has been no decrease in his functioning since starting the down titration and he is fully in agreement and understands that he no longer needs the medication and he appreciates that we are reducing the number of pills that he has to take. Physical Exam Psychiatric Orientation: alert and oriented x 3 Apperance: appropriately dressed and appropriately groomed Eye Contact: good eye contact Motor Behavior: no abnormal motor movements Speech: normal rate/rhythm/volume of speech Affect: euthymic affect Mood: no depressed mood Thought Process: linear/logical thought process and + concrete thought process Thought Content: reality based without delusions; no delusions Suicidal Thoughts: denies suicidal thoughts Homicidal Thoughts: denies homicidal thoughts Hallucinations: no auditory hallucinations and no visual hallucinations Cognition: attention grossly intact and language grossly intact Estimated Intelligence: consistent with education level Insight: + limited insight Judgment: + limited judgement Vital Signs (Past 24 Hours) Last Vital Signs Temp 36.7 C 05/18/23 06:37 Pulse 73 05/18/23 06:38 Resp 16 05/18/23 06:37 BP 111/72 05/18/23 06:38 Pulse Ox 97 05/11/23 05:08 O2 Del Method Room Air 05/11/23 05:08 Results & Data ([facility]) Current Inpatient Medications Current Inpatient Medications: Current Inpatient Medications Acetaminophen (Acetaminophen 325 Mg Tab) 650 mg PO Q4H PRN PRN Reason: Headache or Minor Fever Stop: 06/01/23 20:45 Al Hydrox/Mg Hydrox/Simethicone (Aluminum/Magnesium Susp 30 Ml Udc) 30 ml PO Q4H PRN PRN Reason: GI Upset Stop: 06/01/23 20:45 Aripiprazole (Aripiprazole 10 Mg Tab) 10 mg PO DAILY@1800 DARYL Stop: 06/05/23 17:59 Last Admin: 05/17/23 18:04 Dose: 10 mg Benztropine Mesylate (Benztropine Mesylate 1 Mg Tab) 1 mg PO Q6 PRN PRN Reason: Muscle Spasm Stop: 06/09/23 09:28 Bismuth Subsalicylate (Bismuth Subsalicylate Liqd 236 Ml) 15 ml PO PRN PRN PRN Reason: Loose Stool Stop: 06/01/23 20:45 Clonidine HCl (Clonidine Hcl 0.1 Mg Tab) 0.1 mg PO DAILY@1800 DARYL Stop: 06/02/23 17:59 Last Admin: 05/17/23 18:04 Dose: 0.1 mg Haloperidol (Haloperidol 5 Mg Tab) 5 mg PO BID DARYL Stop: 06/09/23 09:59 Last Admin: 05/18/23 08:48 Dose: 5 mg Haloperidol (Haloperidol 5 Mg Tab) 5 mg PO Q6 PRN PRN Reason: Anxiety/Agitation Stop: 06/09/23 09:28 Last Admin: 05/11/23 12:26 Dose: 5 mg Hydroxyzine HCl (Hydroxyzine Hcl 25 Mg Tab) 50 mg PO HSZ PRN PRN Reason: Insomnia Stop: 06/01/23 20:45 Ibuprofen (Ibuprofen 600 Mg Tab) 600 mg PO Q4H PRN PRN Reason: Pain Stop: 06/03/23 09:58 Lamotrigine (Lamotrigine 100 Mg Tab) 100 mg PO DAILY@1800 DARYL; Protocol Stop: 06/02/23 17:59 Last Admin: 05/17/23 18:04 Dose: 100 mg Lorazepam (Lorazepam 0.5 Mg Tab) 0.5 mg PO Q4 PRN PRN Reason: Anxiety/Insomnia Stop: 06/09/23 09:29 Lorazepam (Lorazepam 0.5 Mg Tab) 0.5 mg PO HS DARYL Stop: 06/17/23 21:59 Magnesium Hydroxide (Magnesium Hydroxide Susp 30 Ml Udc) 30 ml PO DAILY PRN PRN Reason: Constipation Stop: 06/01/23 20:45 Sodium Chloride (Sodium Chloride 0.65% Na Soln 45 Ml ([place])) 1 - 2 sprays NA PRN PRN PRN Reason: Nasal Dryness/Congestion Stop: 06/01/23 20:45 Last Admin: 05/11/23 21:05 Dose: 1 sprays Mental Health & Subst Abuse Tx Psychiatrist Name of Psychiatrist: Bree Romero Psychiatrist's Date Of Appointment With Psychiatric Provider: 05/23/23 Time of Appointment with Psychiatrist: 10:00am Psychiatric Appointment Comment: [address] [place], [place] Therapist Name of Therapist: Bree [facility]EP program - [facility] Therapist's Date of Therapist Appointment: 05/23/23 Time of Therapist Appointment: 11:00am Therapy Appointment Comment: [address] [place], [place] Engineering Inspection Assistant Name of Engineering Inspection Assistant: Through FEP program Post Discharge Appointments Primary Care Physician Name Of Family Doctor/PCP: [facility] Time of Appointment with PCP: please follow up as needed Provider Appointment Comment: [address] [place] Contact Information Discharge Discharge Address: [facility] [address], [place] [address]
[2023-05-18] MEDS: LORazepam 0.5 MG TAB PO SCH (20:45)
--- NOTE | 2023-05-19 11:34 | Psychiatric Progress Note ---
Date of Service May 19, 2023 Impression / Recommendations Impression as per Dr. Rizvi: This young man has had a lot of difficulties with what seems to be a progression from schizophrenia into schizoaffective disorder. I believe he had a manic or hypomanic episode in [place] recently. There does not seem to be any family history that would contribute towards his thought disorder. However, mother and other family members have had problems with mood. With his thought disorder, he has had a lot of difficulty functioning and is exhibiting some negative symptoms as well. I do not know if he could function without the help of his parents currently. He says that he is adhering to his medications pretty reliably, but I suspect that may be partly from his parents. MNPR due to severity of psychosis 05/16/23: improving 05/17/23: Patient continues to improve so we had a discussion about decreasing his Ativan because it is no longer clinically necessary. He liked the idea of taking fewer pills. 05/18/23: His ativan has been again reduced to just a single dose at bedtime. He continues to improve in his functioning. 05/19/23: The patient's ativan has now been discontinued. He continues to improve and is looking forward to discharge tomorrow. (1) Schizoaffective disorder, bipolar type: Continue current medications. Ativan has been discontinued as there have been no further catatonia. Plan 05/19/23: The patient's ativan has now been discontinued. He continues to improve and is looking forward to discharge tomorrow. 05/18/23: His ativan has been again reduced to just a single dose at bedtime. He continues to improve in his functioning. 05/17/2023: Continue the Ativan Taper to 0.5 mg BID. Patient appreciates the fact that he will be taking fewer pills. 05/16/2023: taper Ativan to 0.5 mg TID. Lamictal can be titrated after 05/17/2023. 05/14/2023: decrease day time doses of Ativan to 0.5 mg and monitor catatonic features. risks/benefits/alternatives reviewed re: patient's current medications now that he is clearer. Discussion included but was not limited to goals of short term stabilizing vs. longer term planning given risks/benefits, including metabolic and risk of TD. Lamictal can be titrated after 05/17/23. 05/11-07/2023: continue current meds and tx plan, patient is declining conversion to APPLE. Will taper Ativan soon and discuss trial of a different atypical and/or clozaril to minimize longer term exposure to Haldol given age. 05/11/2023: continue current meds and tx plan for now as significant improvement in past 24 hrs. labs reviewed. 05/10/2023: patient is rapidly decompensating and bordering on catatonia, very poor PO last 2 shifts. will d/c Geodon in favor of Haldol 5 mg BID + prn. Ativan 1 mg Tid for catatonic component. Cogentin prn. Will reassess abilify dosing. Will not taper Geodon at this time due to need to avoid 3 antipsychotics and need for rapid adjustment of meds to avoid medical hospitalization for ca tatonia. Fasting labs in am for metabolic monitoring. 05/09/23: We are going to continue with current level of observation and precautions. I encouraged him to keep trying not to isolate. I added some Zyprexa 5 mg every 6 hours as needed for agitation or psychosis. I wanted to wait 1 more day to see if the Geodon is may be starting to help. If it is not helping by the weekend, it may be worthwhile to reconsider a different antipsychotic or possibly pushed the Abilify back up and beyond the 20 mg dose he had been on when he got here. 05/07/23: We will continue with our current level of observation and precautions. I encouraged the patient to keep going to groups and activities. I did not change his medications today. He is only had 2 doses of Geodon at the 160 mg dose so I want to give that some time. I am also a little bit worried about lowering the Abilify quite yet. For now, I will leave it at 10 mg. The patient is involved in FEP which will be important for him and his family as this thought disorder evolves over time. I am also very reassured that he now has a place that he can eventually get into for better supervision than an independent apartment. 05/06/23: We will continue with our current level of observation and precautions. I encouraged the patient to continue to go to groups and activities. Today I used a cognitive behavioral approach to help with patient work on testing for reality. This would include trying to sort out if an auditory sound is real or not by looking at other people and how they react to it. We talked about ways that he can test visual hallucinations to see if they are real. This should help make him a least more comfortable sorting out reality and understanding that even though something is bothering him, it is not real. Geodon will go to 160 mg this evening with food. Today, I decreased the Abilify to 10 mg. We are going to set up a family meeting with parents to work on discharge planning and safety. 05/05/23: We are going to continue with our current level of observation and precautions. I encouraged the patient to continue to go to groups and activities. We will continue with the titration of Geodon towards 160 mg every evening with food; tonight he will get 120 mg. In the next day or 2 I will lower the Abilify further. Will also try to have a family meeting if he is willing. 05/04/23: We are going to continue with her current level of observation and precautions. I encouraged the patient to keep going to groups and activities and participate as well as he can. We will continue with the titration of Geodon towards 160 mg every evening with food. I will more gently taper off the Abilify. We will continue the lamotrigine at 100 mg and the clonidine at 0.1 mg, both after dinner with his other meds. If the patient is willing towards the end of his stay, we will try to have a family meeting before he leaves. He will also likely convert to an inpatient 304 early this week. 05/03/2023: 1. Patient is admitted here for safety, further evaluation, and treatment. We will continue with her current level of observation and precautions. 2. We are going to cross taper from Abilify to Geodon over the next several days. I reviewed the uses, side effects, and time course of Geodon and he gave informed consent. I will start at 40 mg after dinner tonight and then increase by 40 mg daily until we get to 160 mg every evening after dinner. At the same time, we will continue the clonidine and increase the lamotrigine to 100 mg. We will also switch all of the medications to after dinner so he does not have to take medications multiple times a day. 3. I encouraged the patient to take part in our therapeutic milieu, attend groups and activities, maintain good hygiene, and try not to isolate. 4. He currently is not allowing us to release information to his parents, but I suspect that may international exchange coordinator the next couple of days. Hopefully, we can have a family meeting before the patient discharges. I am pretty happy with the outpatient services he has set up. 5. Our medical people are available to evaluate and treat any medical issues that may arise. Suicide Risk Level Suicide Risk Level: Moderate (q15 min suicide checks) Suicide Risk Level Comments: Patient now denies suicidal ideations now that he is on stable on his antipsychotic medications. Risk Factors Assessment Do You Have Access To A Gun?: No Protective Factors Assessment Employed: No Interval History Identifying Information ANASTASIYA GARCIA is a 27-year-old M who lives alone in [place]. He was admitted 05/02/23 19:30 on a 201 commitment due to concerns of suicidal ideation and some vague homicidal thoughts. Chief Complaint "I'm doing better". Review of Systems Sleep Information Total Hours of Sleep: 7.25 Meal Information Percent Meal Consumed - Breakfast: 100 Percent Meal Consumed - Lunch: 100 Percent Meal Consumed - Dinner: 100 Subjective Subjective Patient was seen & assessed and interval progress reviewed with treatment team, nursing and social work. He is much improved and will likely be discharged tomorrow. Physical Exam Psychiatric Orientation: alert and oriented x 3 Apperance: appropriately dressed and appropriately groomed Eye Contact: good eye contact Motor Behavior: no abnormal motor movements Speech: normal rate/rhythm/volume of speech Affect: euthymic affect Mood: no depressed mood and no anxious mood Thought Process: linear/logical thought process and + concrete thought process Thought Content: reality based without delusions; no delusions Suicidal Thoughts: denies suicidal thoughts Homicidal Thoughts: denies homicidal thoughts Hallucinations: no auditory hallucinations and no visual hallucinations Cognition: attention grossly intact and language grossly intact Estimated Intelligence: consistent with education level Insight: + limited insight Judgment: + limited judgement Vital Signs (Past 24 Hours) Last Vital Signs Temp 36.6 C 05/19/23 06:40 Pulse 76 05/19/23 06:40 Resp 16 05/19/23 06:40 BP 103/62 05/19/23 06:40 Pulse Ox 97 05/11/23 05:08 O2 Del Method Room Air 05/11/23 05:08 Results & Data ([facility]) Current Inpatient Medications Current Inpatient Medications: Current Inpatient Medications Acetaminophen (Acetaminophen 325 Mg Tab) 650 mg PO Q4H PRN PRN Reason: Headache or Minor Fever Stop: 06/01/23 20:45 Al Hydrox/Mg Hydrox/Simethicone (Aluminum/Magnesium Susp 30 Ml Udc) 30 ml PO Q4H PRN PRN Reason: GI Upset Stop: 06/01/23 20:45 Aripiprazole (Aripiprazole 10 Mg Tab) 10 mg PO DAILY@1800 [facility] Stop: 06/05/23 17:59 Last Admin: 05/18/23 17:59 Dose: 10 mg Benztropine Mesylate (Benztropine Mesylate 1 Mg Tab) 1 mg PO Q6 PRN PRN Reason: Muscle Spasm Stop: 06/09/23 09:28 Bismuth Subsalicylate (Bismuth Subsalicylate Liqd 236 Ml) 15 ml PO PRN PRN PRN Reason: Loose Stool Stop: 06/01/23 20:45 Clonidine HCl (Clonidine Hcl 0.1 Mg Tab) 0.1 mg PO DAILY@1800 [facility] Stop: 06/02/23 17:59 Last Admin: 05/18/23 17:58 Dose: 0.1 mg Haloperidol (Haloperidol 5 Mg Tab) 5 mg PO BID DARYL Stop: 06/09/23 09:59 Last Admin: 05/19/23 08:43 Dose: 5 mg Haloperidol (Haloperidol 5 Mg Tab) 5 mg PO Q6 PRN PRN Reason: Anxiety/Agitation Stop: 06/09/23 09:28 Last Admin: 05/11/23 12:26 Dose: 5 mg Hydroxyzine HCl (Hydroxyzine Hcl 25 Mg Tab) 50 mg PO HSZ PRN PRN Reason: Insomnia Stop: 06/01/23 20:45 Ibuprofen (Ibuprofen 600 Mg Tab) 600 mg PO Q4H PRN PRN Reason: Pain Stop: 06/03/23 09:58 Lamotrigine (Lamotrigine 100 Mg Tab) 100 mg PO DAILY@1800 DARYL; Protocol Stop: 06/02/23 17:59 Last Admin: 05/18/23 17:58 Dose: 100 mg Lorazepam (Lorazepam 0.5 Mg Tab) 0.5 mg PO Q4 PRN PRN Reason: Anxiety/Insomnia Stop: 06/09/23 09:29 Magnesium Hydroxide (Magnesium Hydroxide Susp 30 Ml Udc) 30 ml PO DAILY PRN PRN Reason: Constipation Stop: 06/01/23 20:45 Sodium Chloride (Sodium Chloride 0.65% Na Soln 45 Ml ([place])) 1 - 2 sprays NA PRN PRN PRN Reason: Nasal Dryness/Congestion Stop: 06/01/23 20:45 Last Admin: 05/11/23 21:05 Dose: 1 sprays Mental Health & Subst Abuse Tx Psychiatrist Name of Psychiatrist: Bree Romero Psychiatrist's Date Of Appointment With Psychiatric Provider: 05/23/23 Time of Appointment with Psychiatrist: 10:00am Psychiatric Appointment Comment: [address] [place], [place] Therapist Name of Therapist: Bree FEP program - [facility] Therapist's Date of Therapist Appointment: 05/23/23 Time of Therapist Appointment: 11:00am Therapy Appointment Comment: [address] [place], [place] Mcat Instructor Name of Mcat Instructor: Through FEP program Post Discharge Appointments Primary Care Physician Name Of Family Doctor/PCP: [facility] Time of Appointment with PCP: please follow up as needed Provider Appointment Comment: [address] [place] Contact Information Discharge Discharge Address: [address] [place] [address]
--- NOTE | 2023-05-19 11:56 | Psychiatric Progress Note ---
<Statement entered by Alicja Munoz DO - 05/19/23 12:06> Created in error. Disregard. Date of Service May 19, 2023 Impression / Recommendations Impression as per Dr. Rizvi: This young man has had a lot of difficulties with what seems to be a progression from schizophrenia into schizoaffective disorder. I believe he had a manic or hypomanic episode in [place] recently. There does not seem to be any family history that would contribute towards his thought disorder. However, mother and other family members have had problems with mood. With his thought disorder, he has had a lot of difficulty functioning and is exhibiting some negative symptoms as well. I do not know if he could function without the help of his parents currently. He says that he is adhering to his medications pretty reliably, but I suspect that may be partly from his parents. MNPR due to severity of psychosis 05/16/23: improving 05/17/23: Patient continues to improve so we had a discussion about decreasing his Ativan because it is no longer clinically necessary. He liked the idea of taking fewer pills. 05/18/23: His ativan has been again reduced to just a single dose at bedtime. He continues to improve in his functioning. 05/19/23: The patient's ativan has now been discontinued. He continues to improve and is looking forward to discharge tomorrow. (1) Schizoaffective disorder, bipolar type: Continue current medications. Ativan has been discontinued as there have been no further catatonia. Plan 05/19/23: The patient's ativan has now been discontinued. He continues to improve and is looking forward to discharge tomorrow. 05/18/23: His ativan has been again reduced to just a single dose at bedtime. He continues to improve in his functioning. 05/17/2023: Continue the Ativan Taper to 0.5 mg BID. Patient appreciates the fact that he will be taking fewer pills. 05/16/2023: taper Ativan to 0.5 mg TID. Lamictal can be titrated after 05/17/2023. 05/14/2023: decrease day time doses of Ativan to 0.5 mg and monitor catatonic features. risks/benefits/alternatives reviewed re: patient's current medications now that he is clearer. Discussion included but was not limited to goals of short term stabilizing vs. longer term planning given risks/benefits, including metabolic and risk of TD. Lamictal can be titrated after 05/17/23. 05/11-07/2023: continue current meds and tx plan, patient is declining conversion to PAPLE. Will taper Ativan soon and discuss trial of a different atypical and/or clozaril to minimize longer term exposure to Haldol given age. 05/11/2023: continue current meds and tx plan for now as significant improvement in past 24 hrs. labs reviewed. 05/10/2023: patient is rapidly decompensating and bordering on catatonia, very poor PO last 2 shifts. will d/c Geodon in favor of Haldol 5 mg BID + prn. Ativan 1 mg Tid for catatonic component. Cogentin prn. Will reassess abilify dosing. Will not taper Geodon at this time due to need to avoid 3 antipsychotics and need for rapid adjustment of meds to avoid medical hospitalization for catatonia. Fasting labs in am for metabolic monitoring. 05/09/23: We are going to continue with current level of observation and precautions. I encouraged him to keep trying not to isolate. I added some Zyprexa 5 mg every 6 hours as needed for agitation or psychosis. I wanted to wa it 1 more day to see if the Geodon is may be starting to help. If it is not helping by the weekend, it may be worthwhile to reconsider a different antipsychotic or possibly pushed the Abilify back up and beyond the 20 mg dose he had been on when he got here. 05/07/23: We will continue with our current level of observation and precautions. I encouraged the patient to keep going to groups and activities. I did not change his medications today. He is only had 2 doses of Geodon at the 160 mg dose so I want to give that some time. I am also a little bit worried about lowering the Abilify quite yet. For now, I will leave it at 10 mg. The patient is involved in FEP which will be important for him and his family as this thought disorder evolves over time. I am also very reassured that he now has a place that he can eventually get into for better supervision than an independent apartment. 05/06/23: We will continue with our current level of observation and precautions. I encouraged the patient to continue to go to groups and activities. Today I used a cognitive behavioral approach to help with patient work on testing for reality. This would include trying to sort out if an auditory sound is real or not by looking at other people and how they react to it. We talked about ways that he can test visual hallucinations to see if they are real. This should help make him a least more comfortable sorting out reality and understanding that even though something is bothering him, it is not real. Geodon will go to 160 mg this evening with food. Today, I decreased the Abilify to 10 mg. We are going to set up a family meeting with parents to work on discharge planning and safety. 05/05/23: We are going to continue with our current level of observation and precautions. I encouraged the patient to continue to go to groups and activities. We will continue with the titration of Geodon towards 160 mg every evening with food; tonight he will get 120 mg. In the next day or 2 I will lower the Abilify further. Will also try to have a family meeting if he is willing. 05/04/23: We are going to continue with her current level of observation and precautions. I encouraged the patient to keep going to groups and activities and participate as well as he can. We will continue with the titration of Geodon towards 160 mg every evening with food. I will more gently taper off the Abilify. We will continue the lamotrigine at 100 mg and the clonidine at 0.1 mg, both after dinner with his other meds. If the patient is willing towards the end of his stay, we will try to have a family meeting before he leaves. He will also likely convert to an inpatient 304 early this week. 05/03/2023: 1. Patient is admitted here for safety, further evaluation, and treatment. We will continue with her current level of observation and precautions. 2. We are going to cross taper from Abilify to Geodon over the next several days. I reviewed the uses, side effects, and time course of Geodon and he gave informed consent. I will start at 40 mg after dinner tonight and then increase by 40 mg daily until we get to 160 mg every evening after dinner. At the same time, we will continue the clonidine and increase the lamotrigine to 100 mg. We will also switch all of the medications to after dinner so he does not have to take medications multiple times a day. 3. I encouraged the patient to take part in our therapeutic milieu, attend groups and activities, maintain good hygiene, and try not to isolate. 4. He currently is not allowing us to release information to his parents, but I suspect that may oil changer the next couple of days. Hopefully, we can have a family meeting before the patient discharges. I am pretty happy with the outpatient services he has set up. 5. Our medical people are available to evaluate and treat any medical issues that may arise. Suicide Risk Level Suicide Risk Level: Moderate (q15 min suicide checks) Suicide Risk Level Comments: Patient now denies suicidal ideations now that he is on stable on his antipsychotic medications. Risk Factors Assessment Do You Have Access To A Gun?: No Protective Factors Assessment Employed: No Interval History Identifying Information ANASTASIYA GARCIA is a 27-year-old M who lives alone in [place]. He was admitted 05/02/23 19:30 on a 201 commitment due to concerns of suicidal ideation and some vague homicidal thoughts. Chief Complaint "[]". Review of Systems Sleep Information Total Hours of Sleep: 7.25 Meal Information Percent Meal Consumed - Breakfast: 100 Percent Meal Consumed - Lunch: 100 Percent Meal Consumed - Dinner: 100 Subjective Subjective Patient was seen & assessed and interval progress reviewed with [treatment team] [nursing and social work] Physical Exam Psychiatric Orientation: alert and oriented x 3 Apperance: appropriately dressed, appropriately groomed and + disheveled Eye Contact: good eye contact, + fair eye contact and + poor eye contact Motor Behavior: no abnormal motor movements Speech: normal rate/rhythm/volume of speech Affect: euthymic affect and + blunted affect Mood: no depressed mood and no anxious mood Thought Process: linear/logical thought process, + thought blocking (minimal) and + concrete thought process Thought Content: reality based without delusions; no delusions Suicidal Thoughts: denies suicidal thoughts Homicidal Thoughts: denies homicidal thoughts Hallucinations: no auditory hallucinations and no visual hallucinations Cognition: attention grossly intact and language grossly intact Estimated Intelligence: consistent with education level Insight: + limited insight Judgment: + limited judgement Vital Signs (Past 24 Hours) Last Vital Signs Temp 36.6 C 05/19/23 06:40 Pulse 76 05/19/23 06:40 Resp 16 05/19/23 06:40 BP 103/62 05/19/23 06:40 Pulse Ox 97 05/11/23 05:08 O2 Del Method Room Air 05/11/23 05:08 Results & Data ([facility]) Current Inpatient Medications Current Inpatient Medications: Current Inpatient Medications Acetaminophen (Acetaminophen 325 Mg Tab) 650 mg PO Q4H PRN PRN Reason: Headache or Minor Fever Stop: 06/01/23 20:45 Al Hydrox/Mg Hydrox/Simethicone (Aluminum/Magnesium Susp 30 Ml Udc) 30 ml PO Q4H PRN PRN Reason: GI Upset Stop: 06/01/23 20:45 Aripiprazole (Aripiprazole 10 Mg Tab) 10 mg PO DAILY@1800 D[facility] Stop: 06/05/23 17:59 Last Admin: 05/18/23 17:59 Dose: 10 mg Benztropine Mesylate (Benztropine Mesylate 1 Mg Tab) 1 mg PO Q6 PRN PRN Reason: Muscle Spasm Stop: 06/09/23 09:28 Bismuth Subsalicylate (Bismuth Subsalicylate Liqd 236 Ml) 15 ml PO PRN PRN PRN Reason: Loose Stool Stop: 06/01/23 20:45 Clonidine HCl (Clonidine Hcl 0.1 Mg Tab) 0.1 mg PO DAILY@1800 DARYL Stop: 06/02/23 17:59 Last Admin: 05/18/23 17:58 Dose: 0.1 mg Haloperidol (Haloperidol 5 Mg Tab) 5 mg PO BID DARYL Stop: 06/09/23 09:59 Last Admin: 05/19/23 08:43 Dose: 5 mg Haloperidol (Haloperidol 5 Mg Tab) 5 mg PO Q6 PRN PRN Reason: Anxiety/Agitation Stop: 06/09/23 09:28 Last Admin: 05/11/23 12:26 Dose: 5 mg Hydroxyzine HCl (Hydroxyzine Hcl 25 Mg Tab) 50 mg PO HSZ PRN PRN Reason: Insomnia Stop: 06/01/23 20:45 Ibuprofen (Ibuprofen 600 Mg Tab) 600 mg PO Q4H PRN PRN Reason: Pain Stop: 06/03/23 09:58 Lamotrigine (Lamotrigine 100 Mg Tab) 100 mg PO DAILY@1800 DARYL; Protocol Stop: 06/02/23 17:59 Last Admin: 05/18/23 17:58 Dose: 100 mg Lorazepam (Lorazepam 0.5 Mg Tab) 0.5 mg PO Q4 PRN PRN Reason: Anxiety/Insomnia Stop: 06/09/23 09:29 Magnesium Hydroxide (Magnesium Hydroxide Susp 30 Ml Udc) 30 ml PO DAILY PRN PRN Reason: Constipation Stop: 06/01/23 20:45 Sodium Chloride (Sodium Chloride 0.65% Na Soln 45 Ml ([place])) 1 - 2 sprays NA PRN PRN PRN Reason: Nasal Dryness/Congestion Stop: 06/01/23 20:45 Last Admin: 05/11/23 21:05 Dose: 1 sprays Mental Health & Subst Abuse Tx Psychiatrist Name of Psychiatrist: Bree Romero Psychiatrist's Date Of Appointment With Psychiatric Provider: 05/23/23 Time of Appointment with Psychiatrist: 10:00am Psychiatric Appointment Comment: [address] [place], [place] Therapist Name of Therapist: Bree FEP program - [facility] Therapist's Date of Therapist Appointment: 05/23/23 Time of Therapist Appointment: 11:00am Therapy Appointment Comment: [address] [place], [place] 

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
== END 2023-05-20 10:48 | disposition home or self-care (01) | DRG 885 ==
LOC: ED 14:51 → 3S 19:30 → SUATTDRO 19:30 → 3S 20:12

== ENCOUNTER 2023-08-29 11:31 | Inpatient (IN) ==
[2023-08-29 12:13] LABS: Appearance Urine Clear (Clear); Bilirubin Urine Negative (Negative); Blood Urine Negative (Negative); Color Urine Yellow; Glucose Urine UA Negative (Negative); Ketones Urine Negative (Negative); Leukocyte Esterase Urine Negative (Negative); Nitrite Urine Negative (Negative); Protein Urine Negative (Negative); Specific Gravity Urine 1.009 (1.000-1.030); Urobilinogen Urine Negative (Negative); pH Urine 7.5 (4.5-7.5)
[2023-08-29 12:14] LABS: Basophils # (auto) 0.04 K/uL (0.00-0.20); Basophils % (auto) 0.6 %; Eosinophils # (auto) 0.38 K/uL (0.00-0.50); Eosinophils % (auto) 5.8 %; Hematocrit (blood only) 50.9 % (42.0-52.0); Immature Granulocytes # (auto) 0.05 K/uL (0.01-0.20); Immature Granulocytes % (auto) 0.8 %; Lymphocytes # (auto) 1.72 K/uL (1.20-3.40); Lymphocytes % (auto) 26.5 %; Mean Corpuscular Hgb Conc 35.4 g/dL (32.0-36.0); Mean Corpuscular Volume 82.1 fL (80.0-100.0); Mean Platelet Volume 9.6 fL (9.4-12.4); Monocytes # (auto) 0.64 K/uL (0.11-0.59); Monocytes % (auto) 9.8 %; Neutrophils # (auto) 3.67 K/uL (1.40-6.50); Neutrophils % (auto) 56.5 %; Platelet Count 292 K/uL (130-400); RDW Coefficient of Variation 12.5 % (11.5-14.5); RDW Standard Deviation 36.6 fL (36.4-46.3)
[2023-08-29 12:48] LABS: Albumin Level 5.1 gm/dl (3.4-5.0); Bilirubin,Total 0.5 mg/dl (0.2-1.0); Calcium 9.8 mg/dl (8.6-10.3)
[2023-08-29 12:54] LABS: Albumin Globulin Ratio 1.9 (0.9-2); BUN Creatinine Ratio 10.7 (10-20); Creatinine Clr Calc Pharmacy 145.7 ml/min; Est GFR (African American) 147.8 ml/min; Est GFR (Non-African American) 127.5 ml/min; Globulin 2.7 gm/dl (2.5-4.0); Thyroid Stimulating Hormone 1.548 uIu/ml (0.300-4.500); Total Protein 7.8 gm/dl (6.0-8.3)
[2023-08-29 13:18] LABS: Acetaminophen < 3 ug/ml (10-30); Salicylate < 3.0 mg/dl (3.0-30)
[2023-08-29 13:23] LABS: Amphetamines+Metham, Urine Neg (Neg); Barbiturates, Urine Neg (Neg); Benzodiazepine, Urine Neg (Neg); Cocaine, Urine Neg (Neg); Fentanyl, Urine Neg (Neg); MDMA (Ecstacy), Urine Neg (Neg); Marijuana, Urine Neg (Neg); Methadone, Urine Neg (Neg); Opiate, Urine Neg (Neg); Phencyclidine, Urine Neg (Neg)
--- NOTE | 2023-08-29 14:32 | Emergency Department Note ---
Impression & Plan Suicidal ideation, Homicidal ideation ED Provider Note NAME: ANASTASIYA GARCIA AGE: 27 SEX: M : 1995 ARRIVES VIA: Walk-In INFORMANT: [Patient][, ] ED PROVIDER(S): [Tessa Harris MD] CHIEF COMPLAINT: SI/HI HPI: This is a 27-year-old male presenting for SI/HI. Patient states he is in increasing thoughts want to hurt himself with a knife. He states he went to stab himself in the chest/heart. He also notes being unaware his parents are very controlling and wants to hurt them as well. He notes possible history of schizophrenia. He states been going on for the past 1+ day. Patient has been seen inpatient psych previously. No nausea, vomiting, fevers, chills, chest pain or shortness of breath. ROS: See above HPI for pertinent positives & negatives. A total of [10] systems reviewed and were otherwise negative. PHYSICAL EXAMINATION: General: resting comfortably in no acute distress Head: Normocephalic and atraumatic Eyes: Normal inspection, extraocular muscles intact Ear, nose, throat: Normal external exam Neck: Normal range of motion Respiratory: lungs clear to auscultation bilaterally Cardiovascular: Regular rate/rhythm, no murmur GI: soft, nontender, no guarding or rebound Extremities: nontender, moves all extremities Neuro: The patient awake and alert, appropriately conversive, no focal deficits, symmetric faces Skin: Warm, dry, and intact Psych: Flat, guarded, delayed responses MEDICAL DECISION MAKING: This is a 27-year-old male presenting for SI/HI. Patient freely admits to SI with plan to stab himself in the chest. He states he also has homicidal thoughts towards his parents. Patient required inpatient evaluation from a psychiatric perspective. Will do medical screening workup at this time. Physical exam is reassuring. -Lab work is reviewed showing no significant abnormalities. Patient medically clear at this time. -Patient evaluated by psych upstairs for admission Differential diagnosis: Schizophrenia, bipolar, SI, HI Past Med/Surg History Problem List (Updated 08/30/23 @ 15:04 by Tessa Harris MD) Homicidal ideation (Acute) Suicidal ideation (Acute) Schizoaffective disorder, bipolar type History of dental surgery Shoulder pain, right Low back pain Medical History ADHD Depression with suicidal ideation Schizophreniform disorder Social History Smoking Status: Former smoker (last used any nicotine products > few months ago) Tobacco Type: Cigarettes and E-cigarettes / Vaping Preferred Language: Azeri Communication Ability: Effective Site Safety Coordinator Required: No Beliefs That Will Affect Care: None Feels Safe at Home: Yes Gender Identity: Male Assistive Devices: None Allergies Allergies Allergy/AdvReac Type Severity Reaction Status Date / Time shrimp Allergy Mild Unknown Verified 03/04/21 13:10 bee venom protein (honey bee) Allergy Unknown Unknown Verified 03/04/21 13:10 Home Meds Previous Rx's Medication Instructions Recorded aripiprazole 10 mg tablet (Abilify) 10 mg PO DAILY@1800 #30 tabs 05/20/23 clonidine HCl 0.1 mg tablet 0.1 mg PO DAILY@1800 #30 tabs 05/20/23 haloperidol 5 mg tablet 5 mg PO BID #60 tabs 05/20/23 lamotrigine 100 mg tablet 100 mg PO DAILY@1800 #30 tabs 05/20/23 Results & Data (ED) Vital Signs Vital Signs - 24 hr 08/29/23 18:11 08/29/23 18:15 08/29/23 18:15 Temperature 36.6 C Temperature Source Oral Pulse Rate [Right Finger] 79 78 Pulse Rhythm [Right Finger] Regular Pulse Strength [Right Finger] Normal Respiratory Rate 18 18 Respiratory Effort / Characteristics Non-Labored Non-Labored Spontaneous Respiratory Depth Normal Normal Respiratory Pattern Regular Regular Blood Pressure [Left Arm] 130/81 138/86 Blood Pressure Mean [Left Arm] 97 103 Blood Pressure Position [Left Arm] Sitting Pulse Oximetry 98 98 Oxygen Delivery Method Room Air Room Air Laboratory Data 08/29/23 11:50 08/29/23 11:50 Lab Results 08/29/23 08/29/23 Range/Units 11:48 11:50 WBC 6.50 (4.8-10.8) K/ul RBC 6.20 H (4.70-6.10) M/uL Hgb 18.0 (14.0-18.0) g/dl Hct 50.9 (42.0-52.0) % MCV 82.1 (80.0-100.0) fL MCH 29.0 (25.0-34.0) pg MCHC 35.4 (32.0-36.0) g/dL RDW Std Deviation 36.6 (36.4-46.3) fL RDW Coeff of [place] 12.5 (11.5-14.5) % Plt Count 292 (130-400) K/uL MPV 9.6 (9.4-12.4) fL Immature Gran % (Auto) 0.8 % Neut % (Auto) 56.5 % Lymph % (Auto) 26.5 % [place] % (Auto) 9.8 % Eos % (Auto) 5.8 % Baso % (Auto) 0.6 % Neut # (Auto) 3.67 (1.40-6.50) K/uL Lymph # (Auto) 1.72 (1.20-3.40) K/uL Carter # (Auto) 0.64 H (0.11-0.59) K/uL Eos # (Auto) 0.38 (0.00-0.50) K/uL Baso # (Auto) 0.04 (0.00-0.20) K/uL Immature Gran # (Auto) 0.05 (0.01-0.20) K/uL Sodium 139 (136-145) mmol/L Potassium 4.0 (3.5-5.1) mmol/L Chloride 103 (98-107) mmol/L Carbon Dioxide 26 (21-32) mmol/L Anion Gap 10 (3-11) BUN 8 (6-23) mg/dl Creatinine 0.75 (0.6-1.4) mg/dl Est Cr Clr Drug Dosing 145.7 ml/min Est GFR ( Amer) 147.8 ml/min Est GFR (Non-Af Amer) 127.5 ml/min BUN/Creatinine Ratio 10.7 (10-20) Glucose 98 (70-99(Fasting)) mg/dl Calcium 9.8 (8.6-10.3) mg/dl Total Bilirubin 0.5 (0.2-1.0) mg/dl AST 33 (13-39) U/L ALT 48 (7-52) U/L Alkaline Phosphatase 84 (34-104) U/L Total Protein 7.8 (6.0-8.3) gm/dl Albumin 5.1 H (3.4-5.0) gm/dl Globulin 2.7 (2.5-4.0) gm/dl Albumin/Globulin Ratio 1.9 (0.9-2) TSH 1.548 (0.300-4.500) uIu/ml Urine Color Yellow Urine Appearance Clear (Clear) Urine pH 7.5 (4.5-7.5) Ur Specific [place] 1.009 (1.000-1.030) Urine Protein Negative (Negative) Urine Glucose (UA) Negative (Negative) Urine Ketones Negative (Negative) Urine Blood Negative (Negative) Urine Nitrite Negative (Negative) Urine Bilirubin Negative (Negative) Urine Urobilinogen Negative (Negative) Ur Leukocyte Esterase Negative (Negative) Salicylates < 3.0 L (3.0-30) mg/dl Urine Opiates Screen Neg (Neg) Ur Methadone, Qual Neg (Neg) Urine Fentanyl Screen Neg (Neg) Acetaminophen < 3 L (10-30) ug/ml Urine Barbiturates Neg (Neg) Ur Phencyclidine (PCP) Neg (Neg) U Amphetamin/Meth Scrn Neg (Neg) MDMA (Ecstasy) Screen Neg (Neg) U Benzodiazepines Scrn Neg (Neg) Ur Cocaine Metabolite Neg (Neg) U Marijuana (THC) Screen Neg (Neg) Ethyl Alcohol mg/dL < 10.0 (<10.0) mg/dl SARS-CoV-2, RNA, NAAT NEGATIVE (NEGATIVE) Administered Medications Aripiprazole (Aripiprazole 10 Mg Tab) 10 mg PO PM [facility] Stop: 09/28/23 20:59 Last Admin: 08/29/23 21:54 Dose: 10 mg Documented By: HOLLY Haloperidol (Haloperidol 5 Mg Tab) 5 mg PO BID [facility] Stop: 09/28/23 20:59 Last Admin: 08/30/23 08:47 Dose: 5 mg Documented By: Admin: 08/29/23 21:54 Dose: 5 mg Documented By: HOLLY Lamotrigine (Lamotrigine 100 Mg Tab) 100 mg PO PM [facility]; Protocol Stop: 09/28/23 20:59 Last Admin: 08/29/23 21:54 Dose: 100 mg Documented By: HOLLY Miscellaneous (Remove Nicoderm Patch) 1 each N/A DAILY@0645 [facility] Stop: 09/29/23 08:58 Last Admin: 08/30/23 08:51 Dose: 1 each Documented By: HOLLY Nicotine (Nicotine 21 Mg/24 Hr Tdsy) 1 patch TD QAM [facility]1983 Stop: 09/29/23 08:59 Last Admin: 08/30/23 08:51 Dose: Not Given Documented By: HOLLY Discharge Plan Visit Data Chief Complaint: Mental Health Evaluation Stated Complaint: MHE ED Provider: Tessa Harris Discharge Problem: Suicidal ideation, Homicidal ideation Patient Disposition: Admitted As Inpatient Discharge Instructions Interventions: ED Discharge Assessment Last Done: 08/29/23 18:23
[2023-08-29] MEDS ORDERED: SODIUM CHLORIDE 0.65% NA SOLN 45 ML (OCEAN) PRN (18:41)
[2023-08-29] MEDS ORDERED: MAGNESIUM HYDROXIDE SUSP 30 ML UDC PO PRN (18:41)
[2023-08-29] MEDS ORDERED: hydrOXYzine HCl 25 MG TAB PO PRN ×2 (18:41)
[2023-08-29] MEDS ORDERED: ALUMINUM/MAGNESIUM SUSP 30 ML UDC PO PRN (18:41)
[2023-08-29] MEDS ORDERED: NICOTINE POLACRILEX 2 MG GUM MT PRN (18:41)
[2023-08-29] MEDS ORDERED: ACETAMINOPHEN 325 MG TAB PO PRN (18:41)
[2023-08-29] MEDS ORDERED: BISMUTH SUBSALICYLATE LIQD 236 ML PO PRN (18:41)
[2023-08-29] MEDS: haloperidoL 5 MG TAB PO SCH (21:54)
[2023-08-29] MEDS: ARIPiprazole 10 MG TAB PO SCH (21:54)
[2023-08-29] MEDS: lamoTRIgine 100 MG TAB PO SCH (21:54)
[2023-08-30] MEDS: NICOTINE 21 MG/24 HR TDSY TD SCH (08:47)
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
[2023-08-30] MEDS ORDERED: ARIPiprazole 10 MG TAB PO SCH (18:00)
[2023-08-30] MEDS: ARIPiprazole 15 MG TAB PO SCH (18:08)
[2023-08-30] MEDS: lamoTRIgine 100 MG TAB PO SCH (18:08)
[2023-08-30] MEDS: haloperidoL 5 MG TAB PO SCH (20:41)
[2023-08-31 07:51] LABS: Chol HDL Ratio 5.2 (0-5)
--- NOTE | 2023-08-31 09:49 | Psychiatric Progress Note ---
Date of Service August 31, 2023 Impression / Recommendations Impression 27 yo man with a history of schizoaffective disorder admitted for worsening psychosis with SI and HI toward his parents. Diagnostically consistent with acute exacerbation of psychosis related to schizoaffective disorder. He seems to be experiencing paranoia and delusions related to sexual themes including guilt about his consumption of pornography and fears his parents may try to harm him sexually. A: Ongoing psychosis with delusions about sexual themes, guilt and paranoia/distrust of others intentions. For now will continue with current haldol and abilify but with goal of monotherapy and possible switch away from abilify given weight gain. Will await [place] records to review past trials. Does not appear that he has tried Latuda before vs risperidone re-trial. Fasting labwork reviewed and notable for normal glucose, elevated cholesterol, elevated TGs, elevated LDL which we reviewed. For now acceptable to continue antipsychotics, may benefit from addition of a statin in the future if levels remain elevated vs addition of metformin for off-label use to reduce antipsychotic-induced weight gain. MNPR due to recent HI and psychosis with significant paranoia Overall, I spent a total of 40 minutes on this case including meeting with the patient, reviewing the chart, nursing report, multidisciplinary team meeting, orders, and documentation. (1) Schizoaffective disorder, bipolar type: (2) Suicidal ideation: (3) Homicidal ideation: Plan 08/31/2023: Continue current medications and tx plan. Working to get outpatient [place] records of past medication trials. 08/30/2023: The patient was admitted to the [facility] ([facility]) on q15 min checks (behavioral with suicide precautions) for safety. The patient will participate in group, recreational, and milieu therapies and will be offered additional individual and family sessions as clinically appropriate. -Fasting lipid panel and glucose in the morning -Continue haldol 5mg BID -Continue lamictal 100mg PM -Increase abilify to 15mg PM -Suicide and homicide precautions Inventory Assets Strengths: supportive relationships, willing to get treatment Needs: safety and stabilization, medication adjustment, additional coping skills, increased outpatient services Suicide Risk Level Suicide Risk Level: High-Moderate (q15 min suicide checks) (SI with plan prior to admission and ongoing SI but no plan and feels safe in the hospital, feels able to ask for additional support if needed) Risk Factors Assessment Male: Yes : Yes Do You Have Access To A Gun?: Yes (airsoft and BB guns) Health Problems: No Mental Health Diagnoses: Yes Substance Use Disorders: No Previous Attempt: Yes (rehearsal behaviors-holding breath) Family History of Suicide: No Previous Psychiatric Hospitalization: Yes Hopelessness: Yes Protective Factors Assessment 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 Chief Complaint "Alright I think". Review of Systems Sleep Information Total Hours of Sleep: 7.25 Sleep Comments: HS Haldol Meal Information Percent Meal Consumed - Breakfast: 100 Percent Meal Consumed - Lunch: 100 Percent Meal Consumed - Dinner: 100 Subjective Subjective Patient was seen & assessed and interval progress reviewed with treatment team nursing and social work. Engaged with some groups yesterday and watched a movie with peers. Reports AH that are multiple voices that "mumble". When asked endorses that the voices make it hard to trust myself and RNs at times. Also r eported visual hallucinations of seeing themes of a sexual nature. Reviewed his medication trials based on chart review including risperidone, Geodon, Abilify, and possibly thorazine. He cannot recall why risperidone was stopped. He thinks he may have gained a lot of weight on this but collateral from his mother reported significant weight gain on Abilify. Physical Exam Psychiatric Orientation: alert and oriented x 3 Apperance: appropriately dressed and appropriately groomed Eye Contact: + fair eye contact Motor Behavior: no abnormal motor movements Speech: normal rate/rhythm/volume of speech Affect: + flat affect Mood: + depressed mood Thought Process: + concrete thought process Thought Content: + paranoid, + delusions, + ideas of reference and + persecution Suicidal Thoughts: denies suicidal intent; + reports suicidal thoughts (intermittent ) and + reports suicidal plan (none for hospital, outside to stab himself) Homicidal Thoughts: denies homicidal thoughts (none currently, prior to admission toward his parents), denies homicidal plan and denies homicidal intent Hallucinations: + auditory hallucinations and + visual hallucinations Cognition: recent memory grossly intact, remote memory grossly intact, attention grossly intact and language grossly intact Estimated Intelligence: consistent with education level Insight: + limited insight Judgment: + limited judgement Vital Signs (Past 24 Hours) Last Vital Signs Temp 36.4 C 08/31/23 06:00 Pulse 86 08/31/23 06:27 Resp 16 08/31/23 06:00 BP 120/69 08/31/23 06:27 Pulse Ox 97 08/31/23 06:00 O2 Del Method Room Air 08/31/23 06:00 Results & Data ([facility]) Laboratory Results Laboratory Results - last 24 hr 08/31/23 07:13 Fasting Glucose 99 Triglycerides 178 H Cholesterol 206 H LDL Cholesterol, Calc 130 VLDL Cholesterol, Calc 36 H HDL Cholesterol 40 Cholesterol/HDL Ratio 5.2 H Current Inpatient Medications Current Inpatient Medications: Current Inpatient Medications Acetaminophen (Acetaminophen 325 Mg Tab) 650 mg PO Q4H PRN PRN Reason: Headache or Minor Fever Stop: 09/28/23 18:40 Al Hydrox/Mg Hydrox/Simethicone (Aluminum/Magnesium Susp 30 Ml Udc) 30 ml PO Q4H PRN PRN Reason: GI Upset Stop: 09/28/23 18:40 Aripiprazole (Aripiprazole 15 Mg Tab) 15 mg PO DAILY@1800 DARYL Stop: 09/29/23 17:59 Last Admin: 08/30/23 18:08 Dose: 15 mg Bismuth Subsalicylate (Bismuth Subsalicylate Liqd 236 Ml) 15 ml PO PRN PRN PRN Reason: Loose Stool Stop: 09/28/23 18:40 Haloperidol (Haloperidol 5 Mg Tab) 5 mg PO BID DARYL Stop: 09/29/23 20:59 Last Admin: 08/31/23 08:47 Dose: 5 mg Hydroxyzine HCl (Hydroxyzine Hcl 25 Mg Tab) 50 mg PO HSZ PRN PRN Reason: Insomnia Stop: 09/28/23 18:40 Hydroxyzine HCl (Hydroxyzine Hcl 25 Mg Tab) 25 mg PO Q4H PRN PRN Reason: Anxiety Stop: 09/28/23 18:40 Lamotrigine (Lamotrigine 100 Mg Tab) 100 mg PO DAILY@1800 DARYL; Protocol Stop: 09/29/23 17:59 Last Admin: 08/30/23 18:08 Dose: 100 mg Magnesium Hydroxide (Magnesium Hydroxide Susp 30 Ml Udc) 30 ml PO DAILY PRN PRN Reason: Constipation Stop: 09/28/23 18:40 Miscellaneous (Remove Nicoderm Patch) 1 each N/A DAILY@0859 [facility] Stop: 09/29/23 08:58 Last Admin: 08/31/23 08:49 Dose: Not Given Nicotine (Nicotine 21 Mg/24 Hr Tdsy) 1 patch TD QAM [facility] Stop: 09/29/23 08:59 Last Admin: 08/31/23 08:49 Dose: Not Given Nicotine Polacrilex (Nicotine Polacrilex 2 Mg Gum) 2 piece MT PRN PRN PRN Reason: Nicotine Withdrawal Symptoms Stop: 09/28/23 18:40 Sodium Chloride (Sodium Chloride 0.65% Na Soln 45 Ml ([place])) 1 - 2 sprays NA PRN PRN PRN Reason: Nasal Dryness/Congestion Stop: 09/28/23 18:40 Mental Health & Subst Abuse Tx Psychiatrist Name of Psychiatrist: [facility] Therapist Name of Therapist: Nishant Ring Scouring Machine Operator Name of Scouring Machine Operator: Terri Torres Post Discharge Appointments Primary Care Physician Name Of Family Doctor/PCP: Dr Ramirez Contact Information Discharge Discharge Address: [address] [place] [id number]
--- NOTE | 2023-09-01 08:57 | Psychiatric Progress Note ---
Date of Service September 01, 2023 Impression / Recommendations Impression 27 yo man with a history of schizoaffective disorder admitted for worsening psychosis with SI and HI toward his parents. Diagnostically consistent with acute exacerbation of psychosis related to schizoaffective disorder. He seems to be experiencing paranoia and delusions related to sexual themes including guilt about his consumption of pornography and fears his parents may try to harm him sexually. A: Ongoing psychosis with delusions about sexual themes, guilt and paranoia/distrust of others intentions which leads to intermittent homicidal ideation. Still awaiting outpatient records, will continue with haldol and abilify for now. He declines option to start metformin at this time. MNPR due to intermittent HI and psychosis with significant paranoia Overall, I spent a total of 35 minutes on this case including meeting with the patient, reviewing the chart, nursing report, multidisciplinary team meeting, orders, and documentation. (1) Schizoaffective disorder, bipolar type: (2) Suicidal ideation: (3) Homicidal ideation: Plan 09/01/2023: Continue current medications and tx plan. 08/31/2023: Continue current medications and tx plan. Working to get outpatient [place] records of past medication trials. 08/30/2023: The patient was admitted to the [facility] ([facility] mental health unit) on q15 min checks (behavioral with suicide precautions) for safety. The patient will participate in group, recreational, and milieu therapies and will be offered additional individual and family sessions as clinically appropriate. -Fasting lipid panel and glucose in the morning -Continue haldol 5mg BID -Continue lamictal 100mg PM -Increase abilify to 15mg PM -Suicide and homicide precautions Inventory Assets Strengths: supportive relationships, willing to get treatment Needs: safety and stabilization, medication adjustment, additional coping skills, increased outpatient services Suicide Risk Level Suicide Risk Level: Moderate (q15 min suicide checks) (SI with plan prior to admission, SI now lessening, feels safe in the hospital, feels able to ask for additional support if needed) Risk Factors Assessment Male: Yes : Yes Do You Have Access To A Gun?: Yes (airsoft and BB guns) Health Problems: No Mental Health Diagnoses: Yes Substance Use Disorders: No Previous Attempt: Yes (rehearsal behaviors-holding breath) Family History of Suicide: No Previous Psychiatric Hospitalization: Yes Hopelessness: Yes Protective Factors Assessment 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 Chief Complaint "Good, I played some games earlier". Review of Systems Sleep Information Total Hours of Sleep: 7.15 Sleep Comments: HS Haldol Meal Information Percent Meal Consumed - Breakfast: 100 Percent Meal Consumed - Lunch: 100 Percent Meal Consumed - Dinner: 100 Subjective Subjective Patient was seen & assessed and interval progress reviewed with treatment team nursing and social work. Going to groups, does well with games. Some thought blocking during self awareness group last evening. Hasn't asked or required any prns. Talked to his parents on the phone yesterday. Yesterday reported to counselor that he had homicidal thoughts toward a peer on the unit due to "negative energy" from her. Today reports his mood is good. Denies any current HI. Confirms having HI yesterday, states he left room to be away from peer as he did not want to act on these thoughts. Explains he has HI when he thinks someone is trying to harm him which can happen when someone is "being nice but too nice, in a way that I can't trust them". Discussed how this sounded challenging to distinguish and he agrees that he likely misinterprets things at times. 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 Reports that much of this attraction seems to be related to emotional connection to animals, sense of comfort when around them. He denies any medication side effects. He could not recall taking abilify, confirmed he is still getting this in the hospital. Physical Exam Psychiatric Orientation: alert and oriented x 3 Apperance: appropriately dressed and appropriately groomed Eye Contact: + fair eye contact Motor Behavior: no abnormal motor movements Speech: normal rate/rhythm/volume of speech Affect: + flat affect Mood: + depressed mood Thought Process: + concrete thought process Thought Content: + paranoid, + delusions, + ideas of reference and + persecution Suicidal Thoughts: denies suicidal plan and denies suicidal intent; + reports suicidal thoughts (intermittent, denies today) Homicidal Thoughts: denies homicidal thoughts (none currently, prior toward his parents and peer), denies homicidal plan and denies homicidal intent Hallucinations: + auditory hallucinations and + visual hallucinations Cognition: recent memory grossly intact, remote memory grossly intact, attention grossly intact and language grossly intact Estimated Intelligence: consistent with education level Insight: + limited insight Judgment: + limited judgement Vital Signs (Past 24 Hours) Last Vital Signs Temp 36.3 C L 09/01/23 06:31 Pulse 105 H 09/01/23 06:32 Resp 16 09/01/23 06:31 BP 133/74 09/01/23 06:32 Pulse Ox 97 08/31/23 06:00 O2 Del Method Room Air 08/31/23 06:00 Results & Data ([facility]) Current Inpatient Medications Current Inpatient Medications: Current Inpatient Medications Acetaminophen (Acetaminophen 325 Mg Tab) 650 mg PO Q4H PRN PRN Reason: Headache or Minor Fever Stop: 09/28/23 18:40 Al Hydrox/Mg Hydrox/Simethicone (Aluminum/Magnesium Susp 30 Ml Udc) 30 ml PO Q4H PRN PRN Reason: GI Upset Stop: 09/28/23 18:40 Aripiprazole (Aripiprazole 15 Mg Tab) 15 mg PO DAILY@1800 DARYL Stop: 09/29/23 17:59 Last Admin: 08/31/23 17:14 Dose: 15 mg Bismuth Subsalicylate (Bismuth Subsalicylate Liqd 236 Ml) 15 ml PO PRN PRN PRN Reason: Loose Stool Stop: 09/28/23 18:40 Haloperidol (Haloperidol 5 Mg Tab) 5 mg PO BID DARYL Stop: 09/29/23 20:59 Last Admin: 09/01/23 08:24 Dose: 5 mg Hydroxyzine HCl (Hydroxyzine Hcl 25 Mg Tab) 50 mg PO HSZ PRN PRN Reason: Insomnia Stop: 09/28/23 18:40 Hydroxyzine HCl (Hydroxyzine Hcl 25 Mg Tab) 25 mg PO Q4H PRN PRN Reason: Anxiety Stop: 09/28/23 18:40 Lamotrigine (Lamotrigine 100 Mg Tab) 100 mg PO DAILY@1800 DARYL; Protocol Stop: 09/29/23 17:59 Last Admin: 08/31/23 17:14 Dose: 100 mg Magnesium Hydroxide (Magnesium Hydroxide Susp 30 Ml Udc) 30 ml PO DAILY PRN PRN Reason: Constipation Stop: 09/28/23 18:40 Miscellaneous (Remove Nicoderm Patch) 1 each N/A DAILY@0859 [facility] Stop: 09/29/23 08:58 Last Admin: 09/01/23 08:26 Dose: Not Given Nicotine (Nicotine 21 Mg/24 Hr Tdsy) 1 patch TD QAM [facility] Stop: 09/29/23 08:59 Last Admin: 09/01/23 08:26 Dose: Not Given Nicotine Polacrilex (Nicotine Polacrilex 2 Mg Gum) 2 piece MT PRN PRN PRN Reason: Nicotine Withdrawal Symptoms Stop: 09/28/23 18:40 Sodium Chloride (Sodium Chloride 0.65% Na Soln 45 Ml ([place])) 1 - 2 sprays NA PRN PRN PRN Reason: Nasal Dryness/Congestion Stop: 09/28/23 18:40 Mental Health & Subst Abuse Tx Psychiatrist Name of Psychiatrist: [facility] Therapist Name of Therapist: Nishant Ring Propeller Engineer Name of Propeller Engineer: Terri Torres Post Discharge Appointments Primary Care Physician Name Of Family Doctor/PCP: Dr Ramirez Contact Information Discharge Discharge Address: [address] [place] [id number]
--- NOTE | 2023-09-02 08:33 | Psychiatric Progress Note ---
Date of Service September 02, 2023 Impression / Recommendations Impression 27 yo man with a history of schizoaffective disorder admitted for worsening psychosis with SI and HI toward his parents. Diagnostically consistent with acute exacerbation of psychosis related to schizoaffective disorder. He seems to be experiencing paranoia and delusions related to sexual themes including guilt about his consumption of pornography and fears his parents may try to harm him sexually. A: Ongoing psychosis with delusions about sexual themes, guilt and paranoia/distrust of others intentions which leads to intermittent homicidal ideation. Reviewed outpatient records, unclear why risperidone was stopped in the past. No history of olanzapine trial, seems like best option for monotherapy vs Latuda. He consents to olanzapine trial. Will switch from abilify straight to olanzapine to avoid being on three antipsychotics and then will plan to taper haldol given concern for possible developing tardive dyskinesia symptoms. MNPR due to intermittent HI and psychosis with significant paranoia Overall, I spent a total of 40 minutes on this case including meeting with the patient, reviewing the chart, nursing report, multidisciplinary team meeting, orders, and documentation. (1) Schizoaffective disorder, bipolar type: (2) Suicidal ideation: (3) Homicidal ideation: Plan 09/02/2023: Stop abilify. Start olanzapine 2.5mg QAM and 10mg HS. Continue haldol 5mg BID for now with plan to start taper if olanzapine is tolerated. Continue with lamictal. 09/01/2023: Continue current medications and tx plan. 08/31/2023: Continue current medications and tx plan. Working to get outpatient [place] records of past medication trials. 08/30/2023: The patient was admitted to the [facility] ([facility] mental health unit) on q15 min checks (behavioral with suicide precautions) for safety. The patient will participate in group, recreational, and milieu therapies and will be offered additional individual and family sessions as clinically appropriate. -Fasting lipid panel and glucose in the morning -Continue haldol 5mg BID -Continue lamictal 100mg PM -Increase abilify to 15mg PM -Suicide and homicide precautions Inventory Assets Strengths: supportive relationships, willing to get treatment Needs: safety and stabilization, medication adjustment, additional coping skills, increased outpatient services Suicide Risk Level Suicide Risk Level: Moderate (q15 min suicide checks) (SI with plan prior to admission, SI now lessening, feels safe in the hospital, feels able to ask for additional support if needed) Risk Factors Assessment Male: Yes : Yes Do You Have Access To A Gun?: Yes (airsoft and BB guns) Health Problems: No Mental Health Diagnoses: Yes Substance Use Disorders: No Previous Attempt: Yes (rehearsal behaviors-holding breath) Family History of Suicide: No Previous Psychiatric Hospitalization: Yes Hopelessness: Yes Protective Factors Assessment 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 Chief Complaint "Having fun playing games". Review of Systems Sleep Information Total Hours of Sleep: 7.5 Sleep Comments: HS Haldol Meal Information Percent Meal Consumed - Breakfast: 100 Percent Meal Consumed - Lunch: 100 Percent Meal Consumed - Dinner: 100 Subjective Subjective Patient was seen & assessed and interval progress reviewed with treatment team nursing and social work. Attending groups, reported feeling tired last evening. Took a shower this morning. Reports his mood is good today due to having fun in recreation group. Still having very vivid dreams. Ongoing psychosis with paranoia. Reports no HI today,feels safe from his parents due to not being around them. Physical Exam Psychiatric Orientation: alert and oriented x 3 Apperance: appropriately dressed and appropriately groomed Eye Contact: + fair eye contact Motor Behavior: no abnormal motor movements Speech: normal rate/rhythm/volume of speech Affect: + flat affect Mood: + depressed mood Thought Process: + concrete thought process Thought Content: + paranoid, + delusions, + ideas of reference and + persecution Suicidal Thoughts: denies suicidal plan and denies suicidal intent; + reports suicidal thoughts (intermittent, denies today) Homicidal Thoughts: denies homicidal thoughts (none currently, prior toward his parents and peer), denies homicidal plan and denies homicidal intent Hallucinations: + auditory hallucinations and + visual hallucinations Cognition: recent memory grossly intact, remote memory grossly intact, attention grossly intact and language grossly intact Estimated Intelligence: consistent with education level Insight: + limited insight Judgment: + limited judgement Vital Signs (Past 24 Hours) Last Vital Signs Temp 36.4 C L 09/02/23 06:33 Pulse 85 09/02/23 06:33 Resp 16 09/02/23 06:33 BP 136/77 09/02/23 06:33 Pulse Ox 97 08/31/23 06:00 O2 Del Method Room Air 08/31/23 06:00 Results & Data ([facility]) Current Inpatient Medications Current Inpatient Medications: Current Inpatient Medications Acetaminophen (Acetaminophen 325 Mg Tab) 650 mg PO Q4H PRN PRN Reason: Headache or Minor Fever Stop: 09/28/23 18:40 Al Hydrox/Mg Hydrox/Simethicone (Aluminum/Magnesium Susp 30 Ml Udc) 30 ml PO Q4H PRN PRN Reason: GI Upset Stop: 09/28/23 18:40 Aripiprazole (Aripiprazole 15 Mg Tab) 15 mg PO DAILY@1800 [facility] Stop: 09/29/23 17:59 Last Admin: 09/01/23 17:50 Dose: 15 mg Bismuth Subsalicylate (Bismuth Subsalicylate Liqd 236 Ml) 15 ml PO PRN PRN PRN Reason: Loose Stool Stop: 09/28/23 18:40 Haloperidol (Haloperidol 5 Mg Tab) 5 mg PO BID DARYL Stop: 09/29/23 20:59 Last Admin: 09/02/23 08:13 Dose: 5 mg Hydroxyzine HCl (Hydroxyzine Hcl 25 Mg Tab) 50 mg PO HSZ PRN PRN Reason: Insomnia Stop: 09/28/23 18:40 Hydroxyzine HCl (Hydroxyzine Hcl 25 Mg Tab) 25 mg PO Q4H PRN PRN Reason: Anxiety Stop: 09/28/23 18:40 Lamotrigine (Lamotrigine 100 Mg Tab) 100 mg PO DAILY@1800 DARYL; Protocol Stop: 09/29/23 17:59 Last Admin: 09/01/23 17:48 Dose: 100 mg Magnesium Hydroxide (Magnesium Hydroxide Susp 30 Ml Udc) 30 ml PO DAILY PRN PRN Reason: Constipation Stop: 09/28/23 18:40 Miscellaneous (Remove Nicoderm Patch) 1 each N/A DAILY@0859 [facility] Stop: 09/29/23 08:58 Last Admin: 09/02/23 08:14 Dose: Not Given Nicotine (Nicotine 21 Mg/24 Hr Tdsy) 1 patch TD QAM DARY[facility] Stop: 09/29/23 08:59 Last Admin: 09/02/23 08:15 Dose: Not Given Nicotine Polacrilex (Nicotine Polacrilex 2 Mg Gum) 2 piece MT PRN PRN PRN Reason: Nicotine Withdrawal Symptoms Stop: 09/28/23 18:40 Sodium Chloride (Sodium Chloride 0.65% Na Soln 45 Ml ([place])) 1 - 2 sprays NA PRN PRN PRN Reason: Nasal Dryness/Congestion Stop: 09/28/23 18:40 Mental Health & Subst Abuse Tx Psychiatrist Name of Psychiatrist: [facility] Therapist Name of Therapist: Nishant Ring Aluminum Polisher Name of Aluminum Polisher: Terri Torres Post Discharge Appointments Primary Care Physician Name Of Family Doctor/PCP: Dr Ramirez Contact Information Discharge Discharge Address: [address] [place] [address]
[2023-09-02] MEDS: OLANZapine 10 MG TAB PO SCH (21:06)
[2023-09-03] MEDS: OLANZAPINE 2.5 MG TAB PO SCH (08:36)
--- NOTE | 2023-09-03 09:02 | Psychiatric Progress Note ---
Date of Service September 03, 2023 Impression / Recommendations Impression 27 yo man with a history of schizoaffective disorder admitted for worsening psychosis with SI and HI toward his parents. Diagnostically consistent with acute exacerbation of psychosis related to schizoaffective disorder. He seems to be experiencing paranoia and delusions related to sexual themes including guilt about his consumption of pornography and fears his parents may try to harm him sexually. A: Seems less internally preoccupied today. Tolerating shift to olanzapine so far, possibly some fatigue but no evidence of excessive sedation. No vivid dreams vs visual hallucinations which last night which is an improvement. He consents to starting cross-taper from haldol to olanzapine. MNPR due to intermittent HI and psychosis with significant paranoia Overall, I spent a total of 35 minutes on this case including meeting with the patient, reviewing the chart, nursing report, multidisciplinary team meeting, orders, and documentation. (1) Schizoaffective disorder, bipolar type: (2) Suicidal ideation: (3) Homicidal ideation: Plan 09/03/2023: Increase olanzapine to 2.5mg QAM and 15mg HS. Decrease haldol to 2.5mg BID. 09/02/2023: Stop abilify. Start olanzapine 2.5mg QAM and 10mg HS. Continue haldol 5mg BID for now with plan to start taper if olanzapine is tolerated. Continue with lamictal. 09/01/2023: Continue current medications and tx plan. 08/31/2023: Continue current medications and tx plan. Working to get outpatient [place] records of past medication trials. 08/30/2023: The patient was admitted to the [facility] ([facility] mental health unit) on q15 min checks (behavioral with suicide precautions) for safety. The patient will participate in group, recreational, and milieu therapies and will be offered additional individual and family sessions as clinically appropriate. -Fasting lipid panel and glucose in the morning -Continue haldol 5mg BID -Continue lamictal 100mg PM -Increase abilify to 15mg PM -Suicide and homicide precautions Inventory Assets Strengths: supportive relationships, willing to get treatment Needs: safety and stabilization, medication adjustment, additional coping skills, increased outpatient services Suicide Risk Level Suicide Risk Level: Moderate (q15 min suicide checks) (SI with plan prior to admission, SI now lessening, feels safe in the hospital, feels able to ask for additional support if needed) Risk Factors Assessment Male: Yes : Yes Do You Have Access To A Gun?: Yes (airsoft and BB guns) Health Problems: No Mental Health Diagnoses: Yes Substance Use Disorders: No Previous Attempt: Yes (rehearsal behaviors-holding breath) Family History of Suicide: No Previous Psychiatric Hospitalization: Yes Hopelessness: Yes Protective Factors Assessment 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 Chief Complaint "It just feels weird to have them see me here". Review of Systems Sleep Information Total Hours of Sleep: 8 Sleep Comments: HS Haldol and Zyprexa Meal Information Percent Meal Consumed - Breakfast: 100 Percent Meal Consumed - Lunch: 100 Percent Meal Consumed - Dinner: 100 Subjective Subjective Patient was seen & assessed and interval progress reviewed with treatment team nursing and social work. Going to groups. Declined option to visit with her mother last evening, tells me this is because it feels weird to visit with his parents while in the hospital. Denies HI today. Feels a little tired today, he's unsure if this is from the olanzapine or from doing a lot of pushups yesterday. No vivid dreams vs visual hallucinations overnight. Physical Exam Psychiatric Orientation: alert and oriented x 3 Apperance: appropriately dressed and appropriately groomed Eye Contact: + fair eye contact Motor Behavior: no abnormal motor movements Speech: normal rate/rhythm/volume of speech Affect: + flat affect Mood: + depressed mood Thought Process: + concrete thought process Thought Content: + paranoid, + delusions and + ideas of reference Suicidal Thoughts: denies suicidal plan and denies suicidal intent; + reports suicidal thoughts (intermittent, denies today) Homicidal Thoughts: denies homicidal thoughts (none currently, prior toward his parents and peer), denies homicidal plan and denies homicidal intent Hallucinations: + auditory hallucinations; no visual hallucinations Cognition: recent memory grossly intact, remote memory grossly intact, attention grossly intact and language grossly intact Estimated Intelligence: consistent with education level Insight: + limited insight Judgment: + limited judgement Vital Signs (Past 24 Hours) Last Vital Signs Temp 37.1 C 09/03/23 06:00 Pulse 70 09/03/23 06:00 Resp 16 09/03/23 06:00 BP 132/72 09/03/23 06:00 Pulse Ox 96 09/03/23 06:00 O2 Del Method Room Air 09/03/23 06:00 Results & Data ([facility]) Current Inpatient Medications Current Inpatient Medications: Current Inpatient Medications Acetaminophen (Acetaminophen 325 Mg Tab) 650 mg PO Q4H PRN PRN Reason: Headache or Minor Fever Stop: 09/28/23 18:40 Al Hydrox/Mg Hydrox/Simethicone (Aluminum/Magnesium Susp 30 Ml Udc) 30 ml PO Q4H PRN PRN Reason: GI Upset Stop: 09/28/23 18:40 Bismuth Subsalicylate (Bismuth Subsalicylate Liqd 236 Ml) 15 ml PO PRN PRN PRN Reason: Loose Stool Stop: 09/28/23 18:40 Haloperidol (Haloperidol 5 Mg Tab) 5 mg PO BID [facility] Stop: 09/29/23 20:59 Last Admin: 09/03/23 08:36 Dose: 5 mg Hydroxyzine HCl (Hydroxyzine Hcl 25 Mg Tab) 50 mg PO HSZ PRN PRN Reason: Insomnia Stop: 09/28/23 18:40 Hydroxyzine HCl (Hydroxyzine Hcl 25 Mg Tab) 25 mg PO Q4H PRN PRN Reason: Anxiety Stop: 09/28/23 18:40 Lamotrigine (Lamotrigine 100 Mg Tab) 100 mg PO DAILY@1800 [facility]; Protocol Stop: 09/29/23 17:59 Last Admin: 09/02/23 18:06 Dose: 100 mg Magnesium Hydroxide (Magnesium Hydroxide Susp 30 Ml Udc) 30 ml PO DAILY PRN PRN Reason: Constipation Stop: 09/28/23 18:40 Miscellaneous (Remove Nicoderm Patch) 1 each N/A DAILY@0859 [facility] Stop: 09/29/23 08:58 Last Admin: 09/03/23 08:37 Dose: Not Given Nicotine (Nicotine 21 Mg/24 Hr Tdsy) 1 patch TD QAM [facility] Stop: 09/29/23 08:59 Last Admin: 09/03/23 08:37 Dose: Not Given Nicotine Polacrilex (Nicotine Polacrilex 2 Mg Gum) 2 piece MT PRN PRN PRN Reason: Nicotine Withdrawal Symptoms Stop: 09/28/23 18:40 Olanzapine (Olanzapine 10 Mg Tab) 10 mg PO HS DARYL Stop: 10/02/23 21:59 Last Admin: 09/02/23 21:06 Dose: 10 mg Olanzapine (Olanzapine 2.5 Mg Tab) 2.5 mg PO QAM DARYL Stop: 10/03/23 08:59 Last Admin: 09/03/23 08:36 Dose: 2.5 mg Sodium Chloride (Sodium Chloride 0.65% Na Soln 45 Ml ([place])) 1 - 2 sprays NA PRN PRN PRN Reason: Nasal Dryness/Congestion Stop: 09/28/23 18:40 Mental Health & Subst Abuse Tx Psychiatrist Name of Psychiatrist: Bree Therapist Name of Therapist: Nishant Ring Color Printer Operator Name of Color Printer Operator: Terri Torres Post Discharge Appointments Primary Care Physician Name Of Family Doctor/PCP: Dr Ramirez Contact Information Discharge Discharge Address: [address] [place] [address],[place] [address]
[2023-09-03] MEDS: haloperidoL 1 MG TAB PO SCH (21:02)
[2023-09-03] MEDS: OLANZapine 5 MG TABLET PO SCH (21:02)
--- NOTE | 2023-09-04 08:33 | Psychiatric Progress Note ---
Date of Service September 04, 2023 Impression / Recommendations Impression 27 yo man with a history of schizoaffective disorder admitted for worsening psychosis with SI and HI toward his parents. Diagnostically consistent with acute exacerbation of psychosis related to schizoaffective disorder. He seems to be experiencing paranoia and delusions related to sexual themes including guilt about his consumption of pornography and fears his parents may try to harm him sexually. A: Slightly brighter affect today, still constricted but a little more talkative and with brief smile. Reports less paranoia about his parents, willing to attempt visit tonight. Seems to be tolerating cross-taper so far, he is agreeable to ongoing reduction of haldol with plan of discontinuation if tolerated. MNPR due to intermittent HI and psychosis with significant paranoia Overall, I spent a total of 30 minutes on this case including meeting with the patient, reviewing the chart, nursing report, multidisciplinary team meeting, orders, and documentation. (1) Schizoaffective disorder, bipolar type: (2) Suicidal ideation: (3) Homicidal ideation: Plan 09/04/2023: Discontinue haldol HS dose. Continue with olanzapine. 09/03/2023: Increase olanzapine to 2.5mg QAM and 15mg HS. Decrease haldol to 2.5mg BID. 09/02/2023: Stop abilify. Start olanzapine 2.5mg QAM and 10mg HS. Continue haldol 5mg BID for now with plan to start taper if olanzapine is tolerated. Continue with lamictal. 09/01/2023: Continue current medications and tx plan. 08/31/2023: Continue current medications and tx plan. Working to get outpatient [place] records of past medication trials. 08/30/2023: The patient was admitted to the [facility] ([facility] mental health unit) on q15 min checks (behavioral with suicide precautions) for safety. The patient will participate in group, recreational, and milieu therapies and will be offered additional individual and family sessions as clinically appropriate. -Fasting lipid panel and glucose in the morning -Continue haldol 5mg BID -Continue lamictal 100mg PM -Increase abilify to 15mg PM -Suicide and homicide precautions Inventory Assets Strengths: supportive relationships, willing to get treatment Needs: safety and stabilization, medication adjustment, additional coping skills, increased outpatient services Suicide Risk Level Suicide Risk Level: Moderate (q15 min suicide checks) (SI with plan prior to admission, SI now lessening, feels safe in the hospital, feels able to ask for additional support if needed) Risk Factors Assessment Male: Yes : Yes Do You Have Access To A Gun?: Yes (airsoft and BB guns) Health Problems: No Mental Health Diagnoses: Yes Substance Use Disorders: No Previous Attempt: Yes (rehearsal behaviors-holding breath) Family History of Suicide: No Previous Psychiatric Hospitalization: Yes Hopelessness: Yes Protective Factors Assessment 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 Chief Complaint "Pretty good". Review of Systems Sleep Information Total Hours of Sleep: 8.30 Sleep Comments: HS Haldol and Zyprexa Meal Information Percent Meal Consumed - Breakfast: 100 Percent Meal Consumed - Lunch: 100 Percent Meal Consumed - Dinner: 100 Subjective Subjective Patient was seen & assessed and interval progress reviewed with treatment team nursing and social work. Attending groups, felt "calm and neutral" last evening. Up this morning wearing headphones. Reports no dreams last night and he is glad he didn't have nightmares but also prefers when has dreams because he felt like he didn't sleep. Denies any medication side effects from cross-taper. Looking forward to seeing his parents during visiting hours tonight. Physical Exam Psychiatric Orientation: alert and oriented x 3 Apperance: appropriately dressed and appropriately groomed Eye Contact: + fair eye contact Motor Behavior: no abnormal motor movements Speech: normal rate/rhythm/volume of speech Affect: + constricted affect Mood: + depressed mood Thought Process: + concrete thought process Thought Content: + paranoid Suicidal Thoughts: denies suicidal thoughts, denies suicidal plan and denies suicidal intent Homicidal Thoughts: denies homicidal thoughts (none currently, prior toward his parents and peer), denies homicidal plan and denies homicidal intent Hallucinations: + auditory hallucinations; no visual hallucinations Cognition: recent memory grossly intact, remote memory grossly intact, attention grossly intact and language grossly intact Estimated Intelligence: consistent with education level Insight: + limited insight Judgment: + limited judgement Vital Signs (Past 24 Hours) Last Vital Signs Temp 36.0 C L 09/04/23 06:00 Pulse 81 09/04/23 06:13 Resp 16 09/04/23 06:00 BP 109/74 09/04/23 06:13 Pulse Ox 96 09/03/23 06:00 O2 Del Method Room Air 09/03/23 06:00 Results & Data ([facility]) Current Inpatient Medications Current Inpatient Medications: Current Inpatient Medications Acetaminophen (Acetaminophen 325 Mg Tab) 650 mg PO Q4H PRN PRN Reason: Headache or Minor Fever Stop: 09/28/23 18:40 Al Hydrox/Mg Hydrox/Simethicone (Aluminum/Magnesium Susp 30 Ml Udc) 30 ml PO Q4H PRN PRN Reason: GI Upset Stop: 09/28/23 18:40 Bismuth Subsalicylate (Bismuth Subsalicylate Liqd 236 Ml) 15 ml PO PRN PRN PRN Reason: Loose Stool Stop: 09/28/23 18:40 Haloperidol (Haloperidol 1 Mg Tab) 2.5 mg PO BID [facility] Stop: 10/03/23 20:59 Last Admin: 09/03/23 21:02 Dose: 2.5 mg Hydroxyzine HCl (Hydroxyzine Hcl 25 Mg Tab) 50 mg PO HSZ PRN PRN Reason: Insomnia Stop: 09/28/23 18:40 Hydroxyzine HCl (Hydroxyzine Hcl 25 Mg Tab) 25 mg PO Q4H PRN PRN Reason: Anxiety Stop: 09/28/23 18:40 Lamotrigine (Lamotrigine 100 Mg Tab) 100 mg PO DAILY@1800 [facility]; Protocol Stop: 09/29/23 17:59 Last Admin: 09/03/23 17:15 Dose: 100 mg Magnesium Hydroxide (Magnesium Hydroxide Susp 30 Ml Udc) 30 ml PO DAILY PRN PRN Reason: Constipation Stop: 09/28/23 18:40 Miscellaneous (Remove Nicoderm Patch) 1 each N/A DAILY@0859 [facility] Stop: 09/29/23 08:58 Last Admin: 09/03/23 08:37 Dose: Not Given Nicotine (Nicotine 21 Mg/24 Hr Tdsy) 1 patch TD QAM PRN PRN Reason: nicotine cravings Stop: 09/29/23 08:59 Nicotine Polacrilex (Nicotine Polacrilex 2 Mg Gum) 2 piece MT PRN PRN PRN Reason: Nicotine Withdrawal Symptoms Stop: 09/28/23 18:40 Olanzapine (Olanzapine 2.5 Mg Tab) 2.5 mg PO QAM [facility] Stop: 10/03/23 08:59 Last Admin: 09/03/23 08:36 Dose: 2.5 mg Olanzapine (Olanzapine 5 Mg Tablet) 15 mg PO HS [facility] Stop: 10/03/23 21:59 Last Admin: 09/03/23 21:02 Dose: 15 mg Sodium Chloride (Sodium Chloride 0.65% Na Soln 45 Ml ([place])) 1 - 2 sprays NA PRN PRN PRN Reason: Nasal Dryness/Congestion Stop: 09/28/23 18:40 Mental Health & Subst Abuse Tx Psychiatrist Name of Psychiatrist: Bree Therapist Name of Therapist: Nishant Ring Bun Icer Name of Bun Icer: Terri Torres Post Discharge Appointments Primary Care Physician Name Of Family Doctor/PCP: Dr Ramirez Contact Information Discharge Discharge Address: [address] [place] [address],[place] [id number]
[2023-09-05] MEDS: haloperidoL 0.5 MG TAB PO SCH (08:36)
[2023-09-05] MEDS: NICOTINE 21 MG/24 HR TDSY TD PRN (08:36)
--- NOTE | 2023-09-05 08:50 | Psychiatric Progress Note ---
Date of Service September 05, 2023 Impression / Recommendations Impression 27 yo man with a history of schizoaffective disorder admitted for worsening psychosis with SI and HI toward his parents. Diagnostically consistent with acute exacerbation of psychosis related to schizoaffective disorder. He seems to be experiencing paranoia and delusions related to sexual themes including guilt about his consumption of pornography and fears his parents may try to harm him sexually. A: More SI and HI today, seemingly due to visit from his parents last evening and feeling unease about a peer on the unit. Continues to have delusions and internal stimuli which seem to make it hard for him to differentiate signs of love, such as his father wanting to give him a hug, from the violent and sexual things that the voices seem to be suggesting to him could be his father's actual motives. Tolerating cross-taper so far, consents to discontinuation of haldol. Hope is that olanzapine will help to reduce these delusions and context of the auditory hallucinations/thought insertion MNPR due to intermittent HI and psychosis with significant paranoia Overall, I spent a total of 35 minutes on this case including meeting with the patient, reviewing the chart, nursing report, multidisciplinary team meeting, orders, and documentation. (1) Schizoaffective disorder, bipolar type: (2) Suicidal ideation: (3) Homicidal ideation: Plan 09/05/2023: Discontinue haldol. Increase olanzapine to 5mg qAM and 15mg HS. 09/04/2023: Discontinue haldol HS dose. Continue with olanzapine. 09/03/2023: Increase olanzapine to 2.5mg QAM and 15mg HS. Decrease haldol to 2.5mg BID. 09/02/2023: Stop abilify. Start olanzapine 2.5mg QAM and 10mg HS. Continue haldol 5mg BID for now with plan to start taper if olanzapine is tolerated. Continue with lamictal. 09/01/2023: Continue current medications and tx plan. 08/31/2023: Continue current medications and tx plan. Working to get outpatient [place] records of past medication trials. 08/30/2023: The patient was admitted to the [facility] ([facility] health unit) on q15 min checks (behavioral with suicide precautions) for safety. The patient will participate in group, recreational, and milieu therapies and will be offered additional individual and family sessions as clinically appropriate. -Fasting lipid panel and glucose in the morning -Continue haldol 5mg BID -Continue lamictal 100mg PM -Increase abilify to 15mg PM -Suicide and homicide precautions Inventory Assets Strengths: supportive relationships, willing to get treatment Needs: safety and stabilization, medication adjustment, additional coping skills, increased outpatient services Suicide Risk Level Suicide Risk Level: Moderate (q15 min suicide checks) (SI with plan prior to admission, SI now lessening but intermittent at times related to delusions, feels safe in the hospital, feels able to ask for additional support if needed) Risk Factors Assessment Male: Yes : Yes Do You Have Access To A Gun?: Yes (airsoft and BB guns) Health Problems: No Mental Health Diagnoses: Yes Substance Use Disorders: No Previous Attempt: Yes (rehearsal behaviors-holding breath) Family History of Suicide: No Previous Psychiatric Hospitalization: Yes Hopelessness: Yes Protective Factors Assessment 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 Chief Complaint "I don't know why he hugs people". Review of Systems Sleep Information Total Hours of Sleep: 7 Sleep Comments: HS Haldol and Zyprexa Meal Information Percent Meal Consumed - Breakfast: 100 Percent Meal Consumed - Lunch: 100 Percent Meal Consumed - Dinner: 100 Subjective Subjective Patient was seen & assessed and interval progress reviewed with treatment team nursing and social work. His parents visited last evening, declined to give his father a hug. Tells me he isn't sure why his father hugs people but wonders if it is for "violence or sexual". Feels sometimes his father hugs him when "he's frustrated" so thinks this could be why he sees hugs as connected to violence. Having some HI today toward a peer as this individual was recently in another part of the [facility] where S[place] was last month and this feels "a little weird" and too coincidental. So far no side effects from olanzapine. Slept well last night. Agrees to stopping haldol. Feels so far his psychosis is no worse or no better with medication adjustments. Physical Exam Psychiatric Orientation: alert and oriented x 3 Apperance: appropriately dressed and appropriately groomed Eye Contact: + fair eye contact Motor Behavior: no abnormal motor movements Speech: normal rate/rhythm/volume of speech Affect: + constricted affect; + mood not congruent with affect (reports his mood is "pretty good" but also with SI and HI and some anxiety) Mood: + anxious mood Thought Process: + concrete thought process Thought Content: + paranoid and + delusions Suicidal Thoughts: denies suicidal plan and denies suicidal intent; + reports suicidal thoughts (intermittent today) Homicidal Thoughts: denies homicidal thoughts (toward peer, prior toward his parents and another peer), denies homicidal plan and denies homicidal intent Hallucinations: + auditory hallucinations; no visual hallucinations Cognition: recent memory grossly intact, remote memory grossly intact, attention grossly intact and language grossly intact Estimated Intelligence: consistent with education level Insight: + limited insight Judgment: + limited judgement Vital Signs (Past 24 Hours) Last Vital Signs Temp 36.5 C 09/05/23 06:29 Pulse 71 09/05/23 06:30 Resp 16 09/05/23 06:29 BP 132/86 09/05/23 06:30 Pulse Ox 96 09/03/23 06:00 O2 Del Method Room Air 09/03/23 06:00 Results & Data ([facility]) Current Inpatient Medications Current Inpatient Medications: Current Inpatient Medications Acetaminophen (Acetaminophen 325 Mg Tab) 650 mg PO Q4H PRN PRN Reason: Headache or Minor Fever Stop: 09/28/23 18:40 Al Hydrox/Mg Hydrox/Simethicone (Aluminum/Magnesium Susp 30 Ml Udc) 30 ml PO Q4H PRN PRN Reason: GI Upset Stop: 09/28/23 18:40 Bismuth Subsalicylate (Bismuth Subsalicylate Liqd 236 Ml) 15 ml PO PRN PRN PRN Reason: Loose Stool Stop: 09/28/23 18:40 Haloperidol (Haloperidol 0.5 Mg Tab) 2.5 mg PO QAM [facility] Stop: 10/05/23 08:59 Last Admin: 09/05/23 08:36 Dose: 2.5 mg Hydroxyzine HCl (Hydroxyzine Hcl 25 Mg Tab) 50 mg PO HSZ PRN PRN Reason: Insomnia Stop: 09/28/23 18:40 Hydroxyzine HCl (Hydroxyzine Hcl 25 Mg Tab) 25 mg PO Q4H PRN PRN Reason: Anxiety Stop: 09/28/23 18:40 Lamotrigine (Lamotrigine 100 Mg Tab) 100 mg PO DAILY@1800 [facility]; Protocol Stop: 09/29/23 17:59 Last Admin: 09/04/23 18:09 Dose: 100 mg Magnesium Hydroxide (Magnesium Hydroxide Susp 30 Ml Udc) 30 ml PO DAILY PRN PRN Reason: Constipation Stop: 09/28/23 18:40 Miscellaneous (Remove Nicoderm Patch) 1 each N/A DAILY@0859 [facility] Stop: 09/29/23 08:58 Last Admin: 09/05/23 08:39 Dose: Not Given Nicotine (Nicotine 21 Mg/24 Hr Tdsy) 1 patch TD QAM PRN PRN Reason: nicotine cravings Stop: 09/29/23 08:59 Nicotine Polacrilex (Nicotine Polacrilex 2 Mg Gum) 2 piece MT PRN PRN PRN Reason: Nicotine Withdrawal Symptoms Stop: 09/28/23 18:40 Olanzapine (Olanzapine 2.5 Mg Tab) 2.5 mg PO QAM [facility] Stop: 10/03/23 08:59 Last Admin: 09/05/23 08:36 Dose: 2.5 mg Olanzapine (Olanzapine 5 Mg Tablet) 15 mg PO HS [facility] Stop: 10/03/23 21:59 Last Admin: 09/04/23 21:07 Dose: 15 mg Sodium Chloride (Sodium Chloride 0.65% Na Soln 45 Ml ([place])) 1 - 2 sprays NA PRN PRN PRN Reason: Nasal Dryness/Congestion Stop: 09/28/23 18:40 Mental Health & Subst Abuse Tx Psychiatrist Name of Psychiatrist: Bree Therapist Name of Therapist: Nishant Ring Participant Administrator Name of Participant Administrator: Terri Torres Post Discharge Appointments Primary Care Physician Name Of Family Doctor/PCP: Dr Ramirez Contact Information Discharge Discharge Address: [address] [place] [address]
[2023-09-06] MEDS: OLANZapine 5 MG TABLET PO SCH (09:09)
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
--- NOTE | 2023-09-07 14:40 | Psychiatric Progress Note ---
Date of Service September 07, 2023 Impression / Recommendations Impression 27 yo man with a history of schizoaffective disorder admitted for worsening psychosis with SI and HI toward his parents. Diagnostically consistent with acute exacerbation of psychosis related to schizoaffective disorder. He seems to be experiencing paranoia and delusions related to sexual themes including guilt about his consumption of pornography and fears his parents may try to harm him sexually. A: Patient appears to be a poor historian regarding severity of symptoms and improvement on medications. Collateral from staff indicate patient appears less distressed and presenting more appropriate behaviors on the unit. We will clarify mood symptoms with parents; concern for past hypomania/brianna. Appears to be tolerating olanzapine well with fair sleep. Was administered the MDQmood disorder questionnaire and presented yes 7 or more events and rated it as a moderate problem. MNPR due to intermittent HI and psychosis with significant paranoia Overall, I spent a total of 40 minutes on this case including meeting with the patient, reviewing the chart, nursing report, gathering collateral, discussion with the care team and documentation. (1) Schizoaffective disorder, bipolar type: (2) Suicidal ideation: (3) Homicidal ideation: Plan 09/07/2023: Continue treatment plan. 09/06/2023: Continue treatment plan 09/05/2023: Discontinue haldol. Increase olanzapine to 5mg qAM and 15mg HS. 09/04/2023: Discontinue haldol HS dose. Continue with olanzapine. 09/03/2023: Increase olanzapine to 2.5mg QAM and 15mg HS. Decrease haldol to 2.5mg BID. 09/02/2023: Stop abilify. Start olanzapine 2.5mg QAM and 10mg HS. Continue haldol 5mg BID for now with plan to start taper if olanzapine is tolerated. Continue with lamictal. 09/01/2023: Continue current medications and tx plan. 08/31/2023: Continue current medications and tx plan. Working to get outpatient [facility] records of past medication trials. 08/30/2023: The patient was admitted to the [facility] ([facility] mental health unit) on q15 min checks (behavioral with suicide precautions) for safety. The patient will participate in group, recreational, and milieu therapies and will be offer ed additional individual and family sessions as clinically appropriate. -Fasting lipid panel and glucose in the morning -Continue haldol 5mg BID -Continue lamictal 100mg PM -Increase abilify to 15mg PM -Suicide and homicide precautions Inventory Assets Strengths: supportive relationships, willing to get treatment Needs: safety and stabilization, medication adjustment, additional coping skills, increased outpatient services Suicide Risk Level Suicide Risk Level: Moderate (q15 min suicide checks) (SI with plan prior to admission, SI now lessening but intermittent at times related to delusions, feels safe in the hospital, feels able to ask for additional support if needed) Risk Factors Assessment Male: Yes : Yes Do You Have Access To A Gun?: Yes (airsoft and BB guns) Health Problems: No Mental Health Diagnoses: Yes Substance Use Disorders: No Previous Attempt: Yes (rehearsal behaviors-holding breath) Family History of Suicide: No Previous Psychiatric Hospitalization: Yes Hopelessness: Yes Protective Factors Assessment 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 Chief Complaint Intrusive thoughts Review of Systems Sleep Information Total Hours of Sleep: 7.5 Sleep Comments: HS Haldol and Zyprexa Meal Information Percent Meal Consumed - Breakfast: 100 Percent Meal Consumed - Lunch: 100 Percent Meal Consumed - Dinner: 100 Subjective Subjective Patient was seen & assessed and interval progress reviewed with nursing and social work Collateral from mother clarified that her son's "manic" episode lasted 1 to 2 days. Was originally diagnosed with generalized anxiety disorder. He presents limited spontaneous speech and gives short answers. He reports no improvement on the current medication. Clarifies that he has distressing thoughts of sometimes violence however does not take action. At time he judges himself for having these thoughts but it self-limited. He reports his interactions with others have improved since being in the hospital. Clarify his past episode of potential hypomania/brianna where he went to the [facility]. He reports initially being very paranoid about thoughts of pedophilia and this made him uncomfortable. He stayed up that night, felt restless and was doing a lot of planning. Reported that it lasted 3 to 4 days. 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 He denies suicidal and homicidal ideation. Physical Exam Mental Examination Appearance: Well Groomed Eye Contact: Diverts Contact Motor Behavior: Unremarkable Speech: Soft (limited spontaneous speech) Mood: Euthymic Affect: Nervous Thought Process: Intact Thought Content: Intact, Obsessional Thoughts and Preoccupation Hallucinations: Command Insight: Poor Judgement: Poor Vital Signs (Past 24 Hours) Last Vital Signs Temp 36.5 C 09/07/23 06:36 Pulse 80 09/07/23 06:36 Resp 16 09/07/23 06:36 BP 123/78 09/07/23 06:36 Pulse Ox 96 09/03/23 06:00 O2 Del Method Room Air 09/03/23 06:00 Results & Data ([facility]) Current Inpatient Medications Current Inpatient Medications: Current Inpatient Medications Acetaminophen (Acetaminophen 325 Mg Tab) 650 mg PO Q4H PRN PRN Reason: Headache or Minor Fever Stop: 09/28/23 18:40 Al Hydrox/Mg Hydrox/Simethicone (Aluminum/Magnesium Susp 30 Ml Udc) 30 ml PO Q4H PRN PRN Reason: GI Upset Stop: 09/28/23 18:40 Bismuth Subsalicylate (Bismuth Subsalicylate Liqd 236 Ml) 15 ml PO PRN PRN PRN Reason: Loose Stool Stop: 09/28/23 18:40 Hydroxyzine HCl (Hydroxyzine Hcl 25 Mg Tab) 50 mg PO HSZ PRN PRN Reason: Insomnia Stop: 09/28/23 18:40 Hydroxyzine HCl (Hydroxyzine Hcl 25 Mg Tab) 25 mg PO Q4H PRN PRN Reason: Anxiety Stop: 09/28/23 18:40 Lamotrigine (Lamotrigine 100 Mg Tab) 100 mg PO DAILY@1800 [facility]; Protocol Stop: 09/29/23 17:59 Last Admin: 09/06/23 18:34 Dose: 100 mg Magnesium Hydroxide (Magnesium Hydroxide Susp 30 Ml Udc) 30 ml PO DAILY PRN PRN Reason: Constipation Stop: 09/28/23 18:40 Nicotine Polacrilex (Nicotine Polacrilex 2 Mg Gum) 2 piece MT PRN PRN PRN Reason: Nicotine Withdrawal Symptoms Stop: 09/28/23 18:40 Olanzapine (Olanzapine 5 Mg Tablet) 15 mg PO HS [facility] Stop: 10/03/23 21:59 Last Admin: 09/06/23 21:15 Dose: 15 mg Olanzapine (Olanzapine 5 Mg Tablet) 5 mg PO QAM [facility] Stop: 10/06/23 08:59 Last Admin: 09/07/23 08:48 Dose: 5 mg Sodium Chloride (Sodium Chloride 0.65% Na Soln 45 Ml ([place])) 1 - 2 sprays NA PRN PRN PRN Reason: Nasal Dryness/Congestion Stop: 09/28/23 18:40 Mental Health & Subst Abuse Tx Psychiatrist Name of Psychiatrist: Bree Romero ([facility]) Psychiatrist's Date Of Appointment With Psychiatric Provider: 09/10/23 Time of Appointment with Psychiatrist: 3:00 PM Psychiatric Appointment Comment: [address] [place] [address] Therapist Name of Therapist: Bree Freeman Therapist's Date of Therapist Appointment: 09/12/23 Time of Therapist Appointment: 11:00 AM Therapy Appointment Comment: [address] [place] [address] Incinerator Operator Name of Incinerator Operator: Terri Torres Post Discharge Appointments Primary Care Physician Name Of Family Doctor/PCP: Dr Ramirez Contact Information Discharge Discharge Address: [address] [place] [address],[place] [address]
--- NOTE | 2023-09-08 15:46 | Psychiatric Progress Note ---
Date of Service September 08, 2023 Impression / Recommendations Impression 27 yo man with a history of schizoaffective disorder admitted for worsening psychosis with SI and HI toward his parents. Diagnostically consistent with acute exacerbation of psychosis related to schizoaffective disorder. He seems to be experiencing paranoia and delusions related to sexual themes including guilt about his consumption of pornography and fears his parents may try to harm him sexually. A: Patient reports improvement in thoughts, anxiety, and self judgement today. Collateral from family indicate improvement. Educated patient and family about condition and potential additional treatments. MNPR due to intermittent HI and psychosis with significant paranoia Overall, I spent a total of 40 minutes on this case including meeting with the patient, reviewing the chart, nursing report, gathering collateral, discussion with the care team and documentation. (1) Schizoaffective disorder, bipolar type: (2) Suicidal ideation: (3) Homicidal ideation: Plan 09/08/2023: Continue treatment plan. 09/07/2023: Continue treatment plan. 09/06/2023: Continue treatment plan 09/05/2023: Discontinue haldol. Increase olanzapine to 5mg qAM and 15mg HS. 09/04/2023: Discontinue haldol HS dose. Continue with olanzapine. 09/03/2023: Increase olanzapine to 2.5mg QAM and 15mg HS. Decrease haldol to 2.5mg BID. 09/02/2023: Stop abilify. Start olanzapine 2.5mg QAM and 10mg HS. Continue haldol 5mg BID for now with plan to start taper if olanzapine is tolerated. Continue with lamictal. 09/01/2023: Continue current medications and tx plan. 08/31/2023: Continue current medications and tx plan. Working to get outpatient [facility] records of past medication trials. 08/30/2023: The patient was admitted to the [facility] ([facility] inpatient mental health unit) on q15 min checks (behavioral with suicide precautions) for safety. The patient will participate in group, recreational, and milieu therapies and will be offered additional individual and family sessions as clinically appropriate. -Fasting lipid panel and glucose in the morning -Continue haldol 5mg BID -Continue lamictal 100mg PM -Increase abilify to 15mg PM -Suicide and homicide precautions Inventory Assets Strengths: supportive relationships, willing to get treatment Needs: safety and stabilization, medication adjustment, additional coping skills, increased outpatient services Suicide Risk Level Suicide Risk Level: Moderate (q15 min suicide checks) (SI with plan prior to admission, SI now lessening but intermittent at times related to delusions, feels safe in the hospital, feels able to ask for additional support if needed) Risk Factors Assessment Male: Yes : Yes Do You Have Access To A Gun?: Yes (airsoft and BB guns) Health Problems: No Mental Health Diagnoses: Yes Substance Use Disorders: No Previous Attempt: Yes (rehearsal behaviors-holding breath) Family History of Suicide: No Previous Psychiatric Hospitalization: Yes Hopelessness: Yes Protective Factors Assessment 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 Chief Complaint "Doing ok". Review of Systems Sleep Information Total Hours of Sleep: 7 Sleep Comments: HS Haldol and Zyprexa Meal Information Percent Meal Consumed - Breakfast: 100 Percent Meal Consumed - Lunch: 100 Percent Meal Consumed - Dinner: 100 Subjective Subjective Patient was seen & assessed and interval progress reviewed with treatment team nursing and social work The patient does not notice a difference being on the current medication. He rates his anxiety 2 out of 10. When asked about uncomfortable thoughts rates it at 1 out of 10. Reports in the past few days he has not been judgmental about himself. He denies suicidal and homicidal ideation. Reports occasionally waking up through the night and that he can go back to sleep quickly. Denies recent distressing dreams that wake him up in an anxious state. Feels he is doing okay. No other concerns reported. Called Zaria Prescott -mother ([phone]) Spoke to patient today. Father visited on Friday. Soren was quiet answering with short responses. Sounded good today. Updated about care plan. Educated about condition. Physical Exam Mental Examination Appearance: Well Groomed Eye Contact: Diverts Contact Motor Behavior: Unremarkable Speech: Soft (limited spontaneous speech) Mood: Euthymic Affect: Nervous Thought Process: Intact Thought Content: Intact, Obsessional Thoughts and Preoccupation Hallucinations: Command Insight: Poor Judgement: Poor Vital Signs (Past 24 Hours) Last Vital Signs Temp 36.4 C L 09/08/23 06:38 Pulse 83 09/08/23 06:39 Resp 16 09/08/23 06:38 BP 116/75 09/08/23 06:39 Pulse Ox 96 09/03/23 06:00 O2 Del Method Room Air 09/03/23 06:00 Results & Data ([facility]) Current Inpatient Medications Current Inpatient Medications: Current Inpatient Medications Acetaminophen (Acetaminophen 325 Mg Tab) 650 mg PO Q4H PRN PRN Reason: Headache or Minor Fever Stop: 09/28/23 18:40 Al Hydrox/Mg Hydrox/Simethicone (Aluminum/Magnesium Susp 30 Ml Udc) 30 ml PO Q4H PRN PRN Reason: GI Upset Stop: 09/28/23 18:40 Bismuth Subsalicylate (Bismuth Subsalicylate Liqd 236 Ml) 15 ml PO PRN PRN PRN Reason: Loose Stool Stop: 09/28/23 18:40 Hydroxyzine HCl (Hydroxyzine Hcl 25 Mg Tab) 50 mg PO HSZ PRN PRN Reason: Insomnia Stop: 09/28/23 18:40 Hydroxyzine HCl (Hydroxyzine Hcl 25 Mg Tab) 25 mg PO Q4H PRN PRN Reason: Anxiety Stop: 09/28/23 18:40 Lamotrigine (Lamotrigine 100 Mg Tab) 100 mg PO DAILY@1800 DARYL; Protocol Stop: 09/29/23 17:59 Last Admin: 09/07/23 18:28 Dose: 100 mg Magnesium Hydroxide (Magnesium Hydroxide Susp 30 Ml Udc) 30 ml PO DAILY PRN PRN Reason: Constipation Stop: 09/28/23 18:40 Nicotine Polacrilex (Nicotine Polacrilex 2 Mg Gum) 2 piece MT PRN PRN PRN Reason: Nicotine Withdrawal Symptoms Stop: 09/28/23 18:40 Olanzapine (Olanzapine 5 Mg Tablet) 15 mg PO HS DARYL Stop: 10/03/23 21:59 Last Admin: 09/07/23 21:24 Dose: 15 mg Olanzapine (Ol[facility]apine 5 Mg Tablet) [facility]: 10/06/23 08:59 Last Admin: 09/08/23 08:50 Dose: 5 mg Sodium Chloride (Sodium Chloride 0.65% Na Soln 45 Ml ([place])) 1 - 2 sprays NA PRN PRN PRN Reason: Nasal Dryness/Congestion Stop: 09/28/23 18:40 Mental Health & Subst Abuse Tx Psychiatrist Name of Psychiatrist: Bree Romero ([facility]) Psychiatrist's Date Of Appointment With Psychiatric Provider: 09/10/23 Time of Appointment with Psychiatrist: 3:00 PM Psychiatric Appointment Comment: [facility] [place] [address] Therapist Name of Therapist: Bree Freeman Therapist's Date of Therapist Appointment: 09/12/23 Time of Therapist Appointment: 11:00 AM Therapy Appointment Comment: [address] [place] [address] Dry Ice Maker Name of Dry Ice Maker: Terri Torres Post Discharge Appointments Primary Care Physician Name Of Family Doctor/PCP: Dr Ramirez Contact Information Discharge Discharge Address: [address] [place] [address]
--- NOTE | 2023-09-09 13:29 | Psychiatric Progress Note ---
Date of Service September 09, 2023 Impression / Recommendations Impression 27 yo man with a history of schizoaffective disorder admitted for worsening psychosis with SI and HI toward his parents. Diagnostically consistent with acute exacerbation of psychosis related to schizoaffective disorder. He seems to be experiencing paranoia and delusions related to sexual themes including guilt about his consumption of pornography and fears his parents may try to harm him sexually. A: Patient is doing well with significant improvement in intensity of obsessional content. Today we completed the Y-BOCS OCD symptom checklist and clarified obsessions and compulsions and rated improvement. Addressed any concerns or fears he has regarding treatment and diagnosis. Plan for discharge tomorrow after family meeting and will go see outpatient psychiatrist. MNPR due to severe obsessions and paranoia Overall, I spent a total of 40 minutes on this case including meeting with the patient, reviewing the chart, nursing report, gathering collateral, discussion with the care team and documentation. (1) Schizoaffective disorder, bipolar type: (2) Anxiety with obsessional features: Plan 09/09/2023: Continue treatment plan. 09/08/2023: Continue treatment plan. 09/07/2023: Continue treatment plan. 09/06/2023: Continue treatment plan 09/05/2023: Discontinue haldol. Increase olanzapine to 5mg qAM and 15mg HS. 09/04/2023: Discontinue haldol HS dose. Continue with olanzapine. 09/03/2023: Increase olanzapine to 2.5mg QAM and 15mg HS. Decrease haldol to 2.5mg BID. 09/02/2023: Stop abilify. Start olanzapine 2.5mg QAM and 10mg HS. Continue haldol 5mg BID for now with plan to start taper if olanzapine is tolerated. Continue with lamictal. 09/01/2023: Continue current medications and tx plan. 08/31/2023: Continue current medications and tx plan. Working to get outpatient [facility] records of past medication trials. 08/30/2023: The patient was admitted to the [facility] ([facility] mental health unit) on q15 min checks (behavioral with suicide precautions) for safety. The patient will participate in group, recreational, and milieu therapies and will be offered additional individual and family sessions as clinically appropriate. -Fasting lipid panel and glucose in the morning -Continue haldol 5mg BID -Continue lamictal 100mg PM -Increase abilify to 15mg PM -Suicide and homicide precautions Inventory Assets Strengths: supportive relationships, willing to get treatment Needs: safety and stabilization, medication adjustment, additional coping skills, increased outpatient services Suicide Risk Level Suicide Risk Level: Moderate (q15 min suicide checks) (SI with plan prior to admission, SI now lessening but intermittent at times related to delusions, feels safe in the hospital, feels able to ask for additional support if needed) Risk Factors Assessment Male: Yes : Yes Do You Have Access To A Gun?: Yes (airsoft and BB guns) Health Problems: No Mental Health Diagnoses: Yes Substance Use Disorders: No Previous Attempt: Yes (rehearsal behaviors-holding breath) Family History of Suicide: No Previous Psychiatric Hospitalization: Yes Hopelessness: Yes Protective Factors Assessment 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 Chief Complaint "Doing ok" Review of Systems Sleep Information Total Hours of Sleep: 6.5 Sleep Comments: HS Haldol and Zyprexa Meal Information Percent Meal Consumed - Breakfast: 100 Percent Meal Consumed - Lunch: 100 Percent Meal Consumed - Dinner: 100 Subjective Subjective Patient was seen & assessed and interval progress reviewed with nursing and social work Patient reports sleeping well overnight. Had a random dream about a movie watch yesterday. Rates his anxiety 1 out of 10. Today we reflect on obsessions and compulsions with the use of the YBOCS symptom checklist. His primary obsession categories were aggression, contamination, sexual, miscellaneous. He reports improvement in his aggressive obsessions and sexual obsessions going from ratings of 6/10 to 1/10 and 7/10 to 2/10 respectively since admission. He reports worsening of his contamination obsessions and likely it is due to not being in his home environment. Patient's fear of harming self or others has subsided however still has a fear of doing something embarrassing, acting on unwanted impulses and may hurt others if not careful enough. The intensity of his sexual obsessions have greatly reduced. Patient was encouraged to reflect on this list to better communicate improvement or worsening of symptoms. Patient denies suicidal and homicidal ideation. Physical Exam Mental Examination Appearance: Well Groomed Eye Contact: Diverts Contact Motor Behavior: Unremarkable Speech: Soft (limited spontaneous speech) Mood: Euthymic Affect: Calm Thought Process: Intact Thought Content: Intact, Obsessional Thoughts and Preoccupation Hallucinations: None Insight: Poor (improving) Judgement: Poor (improving) Vital Signs (Past 24 Hours) Last Vital Signs Temp 36.3 C L 09/09/23 06:32 Pulse 80 09/09/23 06:33 Resp 16 09/09/23 06:32 BP 114/74 09/09/23 06:33 Pulse Ox 96 09/03/23 06:00 O2 Del Method Room Air 09/03/23 06:00 Results & Data ([facility]) Current Inpatient Medications Current Inpatient Medications: Current Inpatient Medications Acetaminophen (Acetaminophen 325 Mg Tab) 650 mg PO Q4H PRN PRN Reason: Headache or Minor Fever Stop: 09/28/23 18:40 Al Hydrox/Mg Hydrox/Simethicone (Aluminum/Magnesium Susp 30 Ml Udc) 30 ml PO Q4H PRN PRN Reason: GI Upset Stop: 09/28/23 18:40 Bismuth Subsalicylate (Bismuth Subsalicylate Liqd 236 Ml) 15 ml PO PRN PRN PRN Reason: Loose Stool Stop: 09/28/23 18:40 Hydroxyzine HCl (Hydroxyzine Hcl 25 Mg Tab) 50 mg PO HSZ PRN PRN Reason: Insomnia Stop: 09/28/23 18:40 Hydroxyzine HCl (Hydroxyzine Hcl 25 Mg Tab) 25 mg PO Q4H PRN PRN Reason: Anxiety Stop: 09/28/23 18:40 Lamotrigine (Lamotrigine 100 Mg Tab) 100 mg PO DAILY@1800 DARYL; Protocol Stop: 09/29/23 17:59 Last Admin: 09/08/23 17:39 Dose: 100 mg Magnesium Hydroxide (Magnesium Hydroxide Susp 30 Ml Udc) 30 ml PO DAILY PRN PRN Reason: Constipation Stop: 09/28/23 18:40 Nicotine Polacrilex (Nicotine Polacrilex 2 Mg Gum) 2 piece MT PRN PRN PRN Reason: Nicotine Withdrawal Symptoms Stop: 09/28/23 18:40 Olanzapine (Olanzapine 5 Mg Tablet) 15 mg PO HS DARYL Stop: 10/03/23 21:59 Last Admin: 09/08/23 21:30 Dose: 15 mg Olanzapine (Olanzapine 5 Mg Tablet) 5 mg PO QAM DARYL Stop: 10/06/23 08:59 Last Admin: 09/09/23 09:31 Dose: 5 mg Sodium Chloride (Sodium Chloride 0.65% Na Soln 45 Ml ([place])) 1 - 2 sprays NA PRN PRN PRN Reason: Nasal Dryness/Congestion Stop: 09/28/23 18:40 Mental Health & Subst Abuse Tx Psychiatrist Name of Psychiatrist: Bree Romero ([facility]) Psychiatrist's Date Of Appointment With Psychiatric Provider: 09/10/23 Time of Appointment with Psychiatrist: 3:00 PM Psychiatric Appointment Comment: [address] [facility] [id number] Therapist Name of Therapist: Bree Freeman ([facility]) Therapist's Date of Therapist Appointment: 09/12/23 Time of Therapist Appointment: 11:00 AM Therapy Appointment Comment: [address] [facility] [id number] Classroom Paraprofessional Name of Classroom Paraprofessional: Bree FELIX/[facility] - Terri Pace Phone Number for Classroom Paraprofessional: Please follow up per your regular outpatient schedule. Post Discharge Appointments Primary Care Physician Name Of Family Doctor/PCP: Shayne Ramirez Primary Care Time of Appointment with PCP: Please follow up with PCP as needed. [facility] [address] Contact Information Discharge Discharge Address: [address] [place] [id number]
--- NOTE | 2023-09-10 09:20 | Discharge Summary ---
Date of Service September 10, 2023 History of Present Illness Soren presented to the hospital endorsing SI with a plan to stab himself in the heart with a knife and HI toward his parents. He describes worsening paranoia especially regarding his parents and recent ideas of reference. He elaborates when asked about symptoms of psychosis that hes been having paranoia "fear of my parents" and "feeling like the TV or music is talking directly to me" and "feeling like my friends don't want me around". He also feels more fixated on "I'm trying to figure out if I am a good person or not a good person". He wonders about whether or not watching porn influences this, thinks that watching porn can make someone a bad person. He also notes he will use substances at times like nicotine, alcohol and marijuana and worries this could impact his general health and how he is seen, though later tells me the only substance he has used in recent weeks is a single glass of alcohol during a social event. States his biggest concern is that "I worry that my parents are going to do something that I can't forget or move on from. It's not like they've done anything but they are "touchy" sometimes". This makes him uncomfortable and worries about them doing something sexual and "it would just be very confusing". He denies any history of sexual trauma but later wonders if something like this might have happened in the past from his mother. Yesterday he had suicidal thoughts because "I was thinking what my parents motivations are and what I would do if that happened, strategy thinking". Feels he then he would want to before something bad happened so he felt suicidal and had the plan to stab himself. Endorses HI "not wanting to" but "feeling like I should or something, like if they did something to me I should probably do something back, but even when it gets uncomfortable I can't normally do anything about it". Reports his dad was "hugging me a lot and rubbing my back and saying things that felt threatening to me". But notes he can't recall what his dad was saying. He has been taking abilify 10mg every evening, lamictal 100mg every evening and haldol 5mg BID. Denies any medication side effects, has been taking them consistently. Reports he'd be interested in medication to help with "pain or itchiness" which otherwise never comes up during our conversation or during ROS related to any physical issues. In the emergency room he endorsed vivid nightmares recently including possible visual or auditory hallucinations related to this. Today endorses AH of hearing music. Was observed laughing inappropriately at times and seemed to be distracted by internal stimuli though he denies hearing any voices. Physical Exam Mental Examination Appearance: Well Groomed Eye Contact: Diverts Contact Motor Behavior: Unremarkable Speech: Soft (limited spontaneous speech) Mood: Euthymic Affect: Calm Thought Process: Intact Thought Content: Intact, Obsessional Thoughts and Preoccupation Hallucinations: None Insight: Poor (improving) Judgement: Poor (improving) Vital Signs (Past 24 Hours) Last Vital Signs Temp 36.4 C L 09/10/23 06:30 Pulse 71 09/10/23 06:30 Resp 16 09/10/23 06:30 BP 116/69 09/10/23 06:30 Pulse Ox 96 09/03/23 06:00 O2 Del Method Room Air 09/03/23 06:00 Principal Diagnosis Schizoaffective Disorder, bipolar type Psychiatric Data See daily stay summary. In short, safety was maintained and the patient was cooperative with care. Medication changes included switching antipsychotic to Olanzapine 5mg QAM, 15mg HS and Increase Lamotrigine to 150mg HS and they tolerated this well. A family session was held and safety plan was completed prior to discharge. Day of Discharge Assessment Today the patient voices readiness for discharge. They note improvement in mood and deny thoughts to harm self or others. Thoughts remain organized and they are improved from admission. Patient rated their obsessional thought content was gre atly reduced in intensity. He presented improved and less anxious behaviors. They agree to take mediations as prescribed and keep follow-up appointments. They are stable for discharge to outpatient level of care. Transition of Care Transition Of Care Record: was reviewed with the patient Advance Directives Advance Directives Information Provided: No Advance Directives: No Mental Health Advance Directive: No Advance Directives on File: No Living Will: No Power of [employer] Worker: No Advance Directives Reason:: Declines as Mental Health Visit. 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 Relationships: Yes Supportive Family: Yes Good Rapport with Provider: Yes Discharge Data Lab Results 08/29/23 08/29/23 08/31/23 11:48 11:50 07:13 WBC 6.50 RBC 6.20 H Hgb 18.0 Hct 50.9 MCV 82.1 MCH 29.0 MCHC 35.4 RDW Std Deviation 36.6 RDW Coeff of Ashanti 12.5 Plt Count 292 MPV 9.6 Immature Gran % (Auto) 0.8 Neut % (Auto) 56.5 Lymph % (Auto) 26.5 Mccreary % (Auto) 9.8 Eos % (Auto) 5.8 Baso % (Auto) 0.6 Neut # (Auto) 3.67 Lymph # (Auto) 1.72 Mccreary # (Auto) 0.64 H Eos # (Auto) 0.38 Baso # (Auto) 0.04 Immature Gran # (Auto) 0.05 Sodium 139 Potassium 4.0 Chloride 103 Carbon Dioxide 26 Anion Gap 10 BUN 8 Creatinine 0.75 Est Cr Clr Drug Dosing 145.7 Est GFR ( Amer) 147.8 Est GFR (Non-Af Amer) 127.5 BUN/Creatinine Ratio 10.7 Glucose 98 Fasting Glucose 99 Calcium 9.8 Total Bilirubin 0.5 AST 33 ALT 48 Alkaline Phosphatase 84 Total Protein 7.8 Albumin 5.1 H Globulin 2.7 Albumin/Globulin Ratio 1.9 Triglycerides 178 H Cholesterol 206 H LDL Cholesterol, Calc 130 VLDL Cholesterol, Calc 36 H HDL Cholesterol 40 Cholesterol/HDL Ratio 5.2 H TSH 1.548 Urine Color Yellow Urine Appearance Clear Urine pH 7.5 Ur Specific [place] 1.009 Urine Protein Negative Urine Glucose (UA) Negative Urine Ketones Negative Urine Blood Negative Urine Nitrite Negative Urine Bilirubin Negative Urine Urobilinogen Negative Ur Leukocyte Esterase Negative Salicylates < 3.0 L Urine Opiates Screen Neg Ur Methadone, Qual Neg Urine Fentanyl Screen Neg Acetaminophen < 3 L Urine Barbiturates Neg Ur Phencyclidine (PCP) Neg U Amphetamin/Meth Scrn Neg MDMA (Ecstasy) Screen Neg U Benzodiazepines Scrn Neg Ur Cocaine Metabolite Neg U Marijuana (THC) Screen Neg Ethyl Alcohol mg/dL < 10.0 SARS-CoV-2, RNA, NAAT NEGATIVE Hospital Course (1) Schizoaffective disorder, bipolar type: (2) Anxiety with obsessional features: Plan 09/09/2023: Continue treatment plan. Increase Lamotrigine to 150mg every evening. 09/08/2023: Continue treatment plan. 09/07/2023: Continue treatment plan. 09/06/2023: Continue treatment plan 09/05/2023: Discontinue haldol. Increase olanzapine to 5mg qAM and 15mg HS. 09/04/2023: Discontinue haldol HS dose. Continue with olanzapine. 09/03/2023: Increase olanzapine to 2.5mg QAM and 15mg HS. Decrease haldol to 2.5mg BID. 09/02/2023: Stop abilify. Start olanzapine 2.5mg QAM and 10mg HS. Continue haldol 5mg BID for now with plan to start taper if olanzapine is tolerated. Continue with lamictal. 09/01/2023: Continue current medications and tx plan. 08/31/2023: Continue current medications and tx plan. Working to get outpatient [place] records of past medication trials. 08/30/2023: The patient was admitted to the [facility] ([facility]) on q15 min checks (behavioral with suicide precautions) for safety. The patient will participate in group, recreational, and milieu therapies and will be offered additional individual and family sessions as clinically appropriate. -Fasting lipid panel and glucose in the morning -Continue haldol 5mg BID -Continue lamictal 100mg PM -Increase abilify to 15mg PM -Suicide and homicide precautions Mental Health & Subst Abuse Tx Psychiatrist Name of Psychiatrist: Bree Romero (ISIDRO) Psychiatrist's Date Of Appointment With Psychiatric Provider: 09/10/23 Time of Appointment with Psychiatrist: 3:00 PM Psychiatric Appointment Comment: [address] [facility] [id number] Therapist Name of Therapist: Bree RANDHAWA) Therapist's Date of Therapist Appointment: 09/12/23 Time of Therapist Appointment: 11:00 AM Therapy Appointment Comment: [address] [facility] [id number] Belt Molder Name of Belt Molder: Bree [facility] - Terri Pace Phone Number for Belt Molder: Please follow up per your regular outpatient schedule. Post Discharge Appointments Primary Care Physician Name Of Family Doctor/PCP: Shayne Ramirez Primary Care Time of Appointment with PCP: Please follow up with PCP as needed. Provider Appointment Comment: [facility] [id number] Contact Information Discharge Discharge Address: [address] [place], [place] [id number] Discharge Plan Discharge Items Patient Disposition: Home - Self-Care Reason For Visit: SCHIZOAFFECTIVE DISORDER Discharge Diagnosis: Schizoaffective Disorder, Bipolar Type Anxiety with obsessional features Activity: Resume your previous activity Non-emergency contact: Primary Care Provider and Therapist Call non-emergency contact if: you have any medication questions and your symptoms worsen Follow-up/Referrals: Fitz Ramirez MD [Primary Care Provider] - Diet: Regular Addtl Attending Provider Instructions: -Olanzapine 5mg every morning, and 15mg at bedtime -Lamotrigine 150mg at bedtime If symptoms worsen, discuss with your outpatient psychiatrist: Potential treatment strategies could include: -Increasing Lamotrigine to 200-300mg daily total -Starting Fluoxetine antidepressant -Starting [place] mood stabilizer Pending Studies at Discharge: No Stand-Alone Forms: My [facility] [employer], Smoking Cessation Medications and DC Order Prescriptions: New olanzapine 5 mg Tablet 5 mg PO QAM Qty: 30 0RF lorazepam 1 mg tablet 1 mg PO HS PRN (Reason: anxiety, sleep) Qty: 14 0RF olanzapine 15 mg tablet 15 mg PO HS Qty: 30 0RF lamotrigine 150 mg tablet 150 mg PO .every evening Qty: 30 0RF Discontinued clonidine HCl 0.1 mg Tablet 0.1 mg PO DAILY@1800 Qty: 30 0RF lamotrigine 100 mg Tablet 100 mg PO DAILY@1800 Qty: 30 0RF aripiprazole [Abilify] 10 mg Tablet 10 mg PO DAILY@1800 Qty: 30 0RF haloperidol 5 mg Tablet 5 mg PO BID Qty: 60 0RF Discharge Orders: Discharge Order (Routine); Ordered 09/10/23 Ordered By: Abraham Medina Admission Data Admit Date/Time: 08/29/23 18:41 Attending Provider: Yanet Tobin Admit Provider: Yanet Tobin Primary Care Provider: Fitz Ramirez Other Interventions: Discharge Summary Assessment (RN) Last Done: 09/10/23 09:42 PSY Interdisciplinary Discharge Planning Last Done: 09/10/23 11:06 Coding [place] [address] D/C day mgmt > 30 min Patient Type Established History Expanded Problem Focused Exam Expanded Problem Focused Medical Decision Making Moderate Complexity Diagnoses Schizoaffective disorder, bipolar type F25.0 Anxiety with obsessional features F41.8
== END 2023-09-10 11:55 | disposition home or self-care (01) | DRG 885 ==
LOC: ED 11:31 → 3S 18:23